=== PATIENT | male | born 1945 | race Caucasian/White ===

== ENCOUNTER 2021-08-16 13:00 | Outpatient (RCR) | payer OTHER, SELFPAY ==
--- NOTE | 2021-07-06 09:33 | STOPEVAL ---
SPEECH THERAPY EVALUATION: Thank you for referring Dara Dash to [facility] The patient is scheduled to be seen for therapy? 1-2x/week for 4 weeks. Please review, sign, date and return this plan of care DIONTE. I agree with and certify that the following plan of care is medically necessary. Referring Physician Date Attending Provider: Brian Aleman, *ST Outpatient Evaluation Outpatient Past Medical History Past Medical History Source of Past Medical History Patient,Family/Significant Other Neurological History Hx Parkinson's Disease Yes: since 2005; with DBS in 2016 Cardiovascular History Hx Coronary Stent Yes Respiratory History Hx Other Respiratory Disorders Yes: quit smoking in 2017 Gastrointestinal History Hx Gastrointestinal Disorders No Significant History Genitourinary History Hx Other Genitourinary Disorders Yes: on prostate medication Musculoskeletal History Hx Joint Replacement Yes: left knee replacement 2018 HEENT History Hx Cataracts Yes: surgery removed Hx Tympanostomy Tube Yes: perforated left eardrum Evaluation Information Problem Diagnosis Parkinsons disease with dysphagia Onset Parkinson's since 2005 and dysphagia x 1 year Additional Evaluation Detail recent MBS Prior Level of Function Prior Swallow Level Prior Intake Method Oral Prior Diet Regular (Level 7 Diet) Prior Liquid Consistency Thin (Level 0 Diet) Comments Additional Prior Level of Function Chief complaint: gurgling when Comments he eats and drinks and sometimes he chokes According to the pt and his spouse, he had a modified barium swallow last week at an OSH. Bedside Swallow Evaluation General Reports Dysphagia Yes Duration of Dysphagia approximately a year History of Related Medical Diagnosis Parkinson's Disease Reported Difficult Consistencies Thin Liquids Swallowing Worsening Gradually Meal Observed Bedside Swallows History of Dysphagia No Other Factors Impacting Dysphagia Neurological Impairment History of Pneumonia No Intake Method Prior to Swallow Oral Evaluation Cognition During Swallowing Alert,Attentive Consistency Solid Consistency Other Swallow Amount pt used chin tuck as recommended per recent MBS Method of Presentation Finger/Hand Occurrence of Coughing None Vocal Quality After Swallowing Clear Swallow Palpation Res
--- NOTE | 2021-08-04 15:07 | STOPEVAL ---
SPEECH THERAPY PROGRESS NOTE AND PLAN OF CARE UPDATE: Thank you for referring Dara Dash to [facility].? The patient is scheduled to be seen for therapy?1x/week every other week for 6 weeks. Please review, sign, date and return this plan of care DIONTE. I agree with and certify that the following plan of care is medically necessary. Referring Physician Date Attending Provider: Brian Aleman, Swallow and Intelligibility Re evaluation: ST Clinical Summary The above 76 year old was initially seen for a swallow evaluation at bedside after a recent MBS completed at an OSH revealed, according to the pt 's spouse, residue in his throat and risk of aspiration when he doesn't use the chin tuck . Pt added, ?I gurgle when I drink and sometimes I choke . They were also instructed by the HOUSING PROPERTY MANAGER performing the evaluation that his epiglottis doesn't go all the way down . Swallowing guidelines from MBS were to utilize the chin tuck, take small sips and bites, and after every 2 bites alternate with a sip of water. They reported pt's CXR's have been clear. On initial evaluation, oral motor assessment revealed good ROM & symmetrical lingual and labial structures however, overall strength and rate of movements were mildly reduced. Pt was tested with thin liquids, puree, and solid trials in controlled and uncontrolled amounts. Straw drinking was not tested due to recommendation from MBS to avoid straws due to increased aspiration risk. Pt was instructed to utilize the swallowing guidelines recommended from the recent MBS. With all trials using swallowing guidelines, no overt s/s of aspiration were exhibited. Articulatory i
--- NOTE | 2021-09-20 09:57 | PCSTNOTE ---
SPEECH THERAPY DISCHARGE: Attending Provider: Brian Aleman, Patient:Dara Dash Date of :1945 Patient has not returned for any further treatments since 08/16/2021, therefore he will be discharged at this time. The above 76 year old was initially seen on 07/05/2021 for a swallow evaluation at bedside after a recent MBS completed at an OSH revealed, according to the pt's spouse, residue in his throat and risk of aspiration when he doesn't use the chin tuck . Pt added, I gurgle when I drink and sometimes I choke . They were also instructed by the PRACTICE PROFESSIONAL performing the evaluation that his epiglottis doesn't go all the way down . Swallowing guidelines from MBS were to utilize the chin tuck, take small sips and bites, and after every 2 bites alternate with a sip of water. They reported pt's CXR's have been clear. Treatment focused on developing independence in compliance with swallowing guidelines and utilize learned dysphagia HEP to decrease aspiration risk. ST was recommended 1-2x per week for 4 weeks to improve swallow ability and intelligibility. Pt was seen for 6 visits; pt's spouse, as well as the pt, admitted he was not consistently follow swallowing guidelines or completing HEP. Improvement was achieved with overall speech intelligibility which was 90%+ during conversation. Pt continued to present with overt s/s of aspiration with thin liquids. Pt eventually cancelled visits. Patient completed a total of 6 visits. The goals have been partially met. Thank you for referring this patient to [facility]. Please review, sign, date and return this discharge summary DIONTE. I have been updated about the patient's current status and I agree with discharge from the above service at this time. Referring Physician Date
== END 2021-09-20 16:55 | disposition home or self-care (01) ==
LOC: ANHST 13:00
PROVIDERS: PCP Internal Medicine; Visit Provider Internal Medicine
DX: G20 Parkinson's disease (principal); R13.10 Dysphagia, unspecified
CPT/HCPCS: 92507; 92526; 92610

== ENCOUNTER 2021-09-14 12:46 | Outpatient (CLI) | payer OTHER, SELFPAY ==
--- NOTE | ~2021-09-14 | CT_ITS ---
EXAMINATION: CT lung screening EXAM DATE: 09/14/2021 13:13 INDICATION: History of cigarette smoking. TECHNIQUE: Spiral low dose CT of the chest without contrast. Axial, coronal and sagittal images were reviewed. The dose-length product (DLP) for this examination was 184.38 mGy-cm. The exposure was t ailored according to patient size (auto mA exposure control), and iterative reconstruction (ASIR) was used as additional dose reduction technique. Comparison is made to prior examination from 07/07/2018 . FINDINGS: There are 2 pleural-based right upper lobe 6 mm nodules. Small cluster of right middle lob e reticulonodular airspace disease. These are new compared to prior study. Most likely infectious and /or postinfectious. There is Millimeter region of cavitation in the left upper lobe with wall that is 2 mm thick. Right lower lobe somewhat linear opacity. There is mild to moderate emphysema. Small amount of basilar endobronchial debris. There is no mediastinal, hilar or axillary lymphadenopathy. There are no pleural or perica rdial effusions. There is no pneumothorax. Heart normal in size. There is moderate coronary art erial calcification, arterial sclerosis. Deep brain stimulator packs. Upper abdomen is unremarkable . There is thoracic spondylosis without osteoblastic or osteolytic lesions identified. IMPRESSION: Lung-RADS category 3, probably benign (1-2% chance of malignancy); recommend followup non contrast chest CT or LDCT in 6 months. Reviewed, dictated and finalized at location A. E POST DRIVER IMPRESSION: Lung-RADS category 3, probably benign (1-2% chance of malignancy); recommend followup noncontrast chest CT or LDCT in 6 months.
== END 2021-09-14 12:47 | disposition home or self-care (01) ==
PROVIDERS: PCP Family Medicine; Visit Provider Internal Medicine
DX: Z87.891 Personal history of nicotine dependence (principal); R91.8 Other nonspecific abnormal finding of lung field
CPT/HCPCS: 71271

== ENCOUNTER 2021-09-29 14:20 | Emergency (ER) | payer OTHER, SELFPAY ==
--- NOTE | ~2021-09-29 | XR_ITS ---
EXAMINATION: [id number]_[id number] EXAM DATE: 09/29/2021 16:54 INDICATION: No known recent injury provided at this time. Pain of the left ribs. TECHNIQUE: Frontal projection of the upper left ribs, frontal projection of the lower left ribs, obli que projection of the left ribs, frontal chest x-ray(s) for interpretation. Correlation is made to [facility] CT from 09/14/2021. FINDINGS: Possible acute nondisplaced left 6th and 7th rib fractures anterolaterally. This finding carr s been indicated, marked on the examination for review, clinical correlation. There is no soft tiss ue abnormality seen. Bilateral deep brain stimulator packs. No confluent consolidation, pneumothorax or pleural effusion suspected. Cardiomediastinal silhouette is normal. IMPRESSION: Possible acute nondisplaced left 6th, 7th rib fractures. Reviewed, dictated and finalized at location B. MOBILE RACER
[2021-09-29 14:28] VITALS: BP 146/92; PULSE 75; RESP 18; TEMP 36.9; O2SAT 96
[2021-09-29] MEDS: LIDOCAINE 5% PATCH 1 PATCH TRANSDERM (17:09)
--- NOTE | 2021-09-29 17:33 | ED.BACK ---
HPI - Back Pain/Injury General Chief Complaint: Back Pain/Injury Stated Complaint: fall, back pain Time Seen by Provider: 09/29/21 16:05 Source: patient and family Limitations: no limitations History of Present Illness HPI Narrative: 76-year-old male with a history of Parkinson's disease and dyslipidemia presents to the ED with left-sided chest wall pain status post fall. Patient arrives to the ED with his daughter. Patient currently lives with his . Patient stumbled and fell early this a.m. in the bathroom, striking his left chest wall against the ground. He denies head injury or loss of consciousness at the time of the incident. He was initially asymptomatic however upon waking later today began to experience left lateral chest wall pain which been constant since that time. This pain is aggravated with deep inspiration and movement. Pain is described as minimal currently. No recent history of headache, visual changes, nausea, vomiting, shortness of breath, or abdominal pain. He denies use of anticoagulants. He has not taken any medication for his symptoms. Daughter states that she brought the patient to the ED to get checked out. Related Data Home Medications Medication Instructions Recorded Confirmed amantadine HCl 100 mg PO BID 09/29/21 aspirin 81 mg PO DAILY 09/29/21 atorvastatin [Lipitor] 40 mg PO DAILY 09/29/21 carbidopa-levodopa 1 tablet PO QID 09/29/21 glycopyrrolate 1 mg PO BID-TID PRN 09/29/21 lisinopril 20 mg PO DAILY 09/29/21 sotalol 80 mg PO BID 09/29/21 tamsulosin 0.4 mg PO HS 09/29/21 Allergies Allergy/AdvReac Type Severity Reaction Status Date / Time No Known Allergies Allergy Verified 09/29/21 14:32 Review of Systems Review of Systems: CONSTITUTIONAL: Denies fever, chills, or sweats. EYES: Denies visual changes, redness, or discharge. ENT: Denies rhinorrhea, congestion, sore throat, or otalgia. CARDIOVASCULAR: Denies chest pain, palpitations, or edema. RESPIRATORY: Denies cough or dyspnea. GASTROINTESTINAL: Denies abdominal pain, nausea, vomiting, or diarrhea. GENITOURINARY: Denies dysuria or hematuria. SKIN: Denies rash or itching. MUSCULOSKELETAL: Left lateral chest wall pain NEUROLOGIC: Denies headache, numbness, dizziness, or weakness. PSYCHIATRIC: Denies anxiety or depression. All systems reviewed & are unremarkable except as noted in HPI and below Exam Narrative: GENERAL: Well-appearing, well-nourished, and in no acute distress. HEAD: Normocephalic, atraumatic. EYES: PERRLA and EOMI. ENT: Nares clear, no rhinorrhea or epistaxis. Mucous membranes moist. Oropharynx without tonsillar hypertrophy exudate or other lesions. Bilateral TMs pearly titus nonbulging NECK: Supple. No adenopathy or masses. No carotid bruits or JVD CHEST: Yellow ecchymosis overlying the left lateral chest wall. This area is mildly tender to palpate. No palpable step-off. HEART: Regular rate and rhythm. No murmur heard. Normal peripheral pulses. ABDOMEN: Soft, nontender, nondistended, normal active bowel sounds. EXTREMITIES: Normal range of motion. No edema. SKIN: Warm, dry, no rash. NEURO: Alert and oriented x3; speech is somewhat slurred and difficult to understand (baseline according to daughter); moves all extremities well. PSYCH: Normal mood and affect. Course Course Emergency Course: X-ray shows possible nondisplaced fractures of the left sixth and seventh ribs. Patient comfortable appearing at this time. Lidoderm patch applied in the ED. We will manage supportively with Lidoderm patch and acetaminophen. Will avoid narcotics at this time. Patient has incentive spirometer at home which he plans to use (with daughters guidance). He is felt to be stable for discharge. Vital Signs Vital signs: Vital Signs Temperature 98.4 F 09/29/21 14:28 Pulse Rate 75 09/29/21 14:28 Respiratory Rate 18 09/29/21 14:28 Blood Pressure 146/92 H 09/29/21 14:28 Pulse Oximetry 96 09/29/21 14:28 Te
[2021-09-29 18:08] VITALS: BP 178/99; PULSE 72; RESP 20; O2SAT 96
== END 2021-09-29 18:14 | disposition home or self-care (01) ==
PROVIDERS: Emergency Provider Emergency Medicine; PCP Internal Medicine
DX: S22.42XA Multiple fractures of ribs, left side, initial encounter for closed fracture (principal); G20 Parkinson's disease; E78.5 Hyperlipidemia, unspecified; W01.0XXA Fall on same level from slipping, tripping and stumbling without subsequent striking against object, initial encounter; Z79.82 Long term (current) use of aspirin
CPT/HCPCS: 71101; 99283; A9270

== ENCOUNTER 2022-04-19 15:47 | Inpatient (IN) | payer OTHER, MEDICARE, SELFPAY ==
[2022-04-19] VITALS (13 sets, daily range): BP systolic 103–114; BP diastolic 62–88; PULSE 84–128; RESP 18–25; TEMP 36.3–36.6; O2SAT 94–100; BMI 30.9
--- NOTE | ~2022-04-19 | XR_ITS ---
XR chest 2V DATE: 04/19/2022 16:47 INDICATION: Shortness of breath. Palpitations. History of atrial fibrillation. TECHNIQUE: AP and lateral views COMPARISON: 09/14/2021 CT lung screening FINDINGS: There is an ill-defined roughly 1.5 cm focal opacity overlying the lateral left upper lung field which corresponds to the location of the small cavitary lesion noted on 09/14/2021 CT lung screen ing examination. The previously recommended 6 month follow-up CT lung screening from the 09/14/[address] lung screening examination is recommended at this time, now 7 months since 09/14/2021 CT lung screen ing examinations. The lung ortega otherwise appear clear. No pleural effusion or pulmonary vascular congestion or pneum othorax. Normal heart size. Is aortic calcification and unfolding. Bilateral generator devices with neurostimulator leads extending into the upper chest and neck area t oward the head. Diffuse idiopathic skeletal hyperostosis of the thoracic spine. IMPRESSION: Left upper lobe ill-defined approximately 1.5 cm mass density; six-month recommended CT l [place] screening follow-up from 09/14/2021 examination is recommended at this time Otherwise no active cardiopulmonary disease. Reviewed, dictated and finalized at location B. IMPRESSION: Left upper lobe ill-defined approximately 1.5 cm mass density; six- month recommended CT lung screening follow-up from 09/14/2021 examination is elieser mmended at this time Otherwise no active cardiopulmonary disease.
--- NOTE | 2022-04-19 15:52 | ECG_ITS ---
Measurements Intervals [place] Rate: 122 P: CT: 0 QRS: 8 QRSD: 99 T: 3 QT: 338 QTc: 482 Interpretive Statements ATRIAL FIBRILLATION WITH RAPID VENTRICULAR RESPONSE WITH ABERRANT CONDUCTION OR VENTRICULAR PREMATURE COMPLEXES NO PREVIOUS ECG AVAILABLE FOR COMPARISON Electronically Signed On 04-19-2022 18:36:55 CDT by Ciera Garcia M.D.
[2022-04-19 16:17] LABS: Basophils Percent Auto 0.3 % (0.2-1.2); Eosinophils Percent Auto 0.2 % (0-4.4); Hematocrit 41.3 % (42.0-52.0); Immature Granulocyte Absolute 0.07 K/mm3 (0.00-0.031); Immature Granulocyte Percent A 0.7 % (0-0.5); Lymphocytes Absolute Auto 0.66 K/mm3 (0.9-3.2); Mean Corpuscular HGB Conc 31.5 g/dl (32-36); Mean Corpuscular Hemoglobin 30.9 pg (26-34); Mean Corpuscular Volume 98.1 fl (80-100); Mean Platelet Volume 9.9 fl (7.4-10.4); Monocytes Absolute Auto 0.4 K/mm3 (0.1-0.6); Monocytes Percent Auto 4.4 % (2.6-8.5); Neutrophils Absolute Auto 8.3 K/mm3 (1.3-6.7); Neutrophils Percent Auto 87.4 % (45.5-73.1); Platelet Count Result 214 k/mm3 (150-375); Red Blood Count 4.21 M/mm3 (4.6-6.20); Red Cell Distribution Width 13.4 % (11.5-14.5); White Blood Count 9.5 K/mm3 (4.5-10.0)
[2022-04-19 16:28] LABS: Alanine Aminotransferase 10 U/L (6-50); Albumin Level 3.8 g/dL (3.5-5.1); Alkaline Phosphatase 66 U/L (38-126); Anion Gap 8 mmol/L (8-16); Aspartate Amino Transferase 32 U/L (17-59); Blood Urea Nitrogen 27 mg/dL (9-20); Calcium 8.4 mg/dL (8.4-10.2); Carbon Dioxide 27 mmol/L (22-30); Chloride 101 mmol/L (98-107); Estimated Glomerular Filt Rate 59; Glucose 147 mg/dL (65-110); Lipase 48 U/L (23-300); Potassium 4.2 mmol/L (3.4-5.0); Sodium 136 mmol/L (137-145)
[2022-04-19 16:35] LABS: INR 1.3; Partial Thromboplastin Time 25.3 SECONDS (22.3-36.8); Prothrombin Time 15.2 Seconds (11.1-14.7)
[2022-04-19] MEDS: ASPIRIN 81 MG CHEWABLE TABLET 324 MG PO (16:36)
[2022-04-19 16:40] LABS: Troponin I < 0.012 ng/mL (0.000-0.034)
[2022-04-19 17:26] LABS: NT Pro B Type Natriuretic Pept 5640 pg/mL (5-100)
--- NOTE | 2022-04-19 18:02 | ED.GENADULT ---
HPI - General Adult General Chief complaint: Shortness of Breath/Dyspnea Stated complaint: heart palpitations Time Seen by Provider: 04/19/22 16:15 History of Present Illness HPI narrative: this is a 77-year-old male presenting ED with chief complaint shortness of breath x2 days. Over last 2 days patient states he is not feeling well. He has had multiple falls 2 days ago although he denies head trauma. Patient has Parkinson's and has frequent falls which are mechanical in nature. Since patient has been having shortness of breath he is describing a left-sided squeezing pain that is 9 nonradiating, 5/10 intensity and comes and goes. He is not currently experiencing the pain. He has never experienced pain like that before. There were no exacerbating or relieving factors. It is not associated with exertion, diaphoresis or vomiting. It is associated with lower extremity edema over the past month. Patient was sent to the hospital from by his physical therapist who noted him to be in atrial fibrillation. The patient is not typically an atrial fibrillation is only been at 1 time to pass after he had a knee replacement. He takes sotalol for rhythm control. Related Data Home Medications Medication Instructions Recorded Confirmed amantadine HCl 100 mg capsule 100 mg PO BID 09/29/21 aspirin 81 mg tablet 81 mg PO DAILY 09/29/21 atorvastatin 40 mg tablet (Lipitor) 40 mg PO DAILY 09/29/21 carbidopa 25 mg-levodopa 100 mg 1 tablet PO QID 09/29/21 tablet glycopyrrolate 1 mg tablet 1 mg PO BID-TID PRN Drooling 09/29/21 lisinopril 20 mg tablet 20 mg PO DAILY 09/29/21 sotalol 80 mg tablet 80 mg PO BID 09/29/21 tamsulosin 0.4 mg capsule 0.4 mg PO HS 09/29/21 Allergies Allergy/AdvReac Type Severity Reaction Status Date / Time No Known Allergies Allergy Verified 04/19/22 16:19 Review of Systems Review of Systems: CONSTITUTIONAL: Denies night sweats. EYES: No eye pain ENT: Denies rhinorrhea CARDIOVASCULAR: Denies palpitations RESPIRATORY: Denies hemoptysis GASTROINTESTINAL: Denies hematemesis GENITOURINARY: Denies hematuria. SKIN: Denies rash MUSCULOSKELETAL: Denies myalgia. NEUROLOGIC: Denies weakness. PSYCHIATRIC: Denies delusions [facility] Past Medical History Medical History (Updated 04/19/22 @ 18:10 by Edy Parekh MD) CAD in [place] artery Dyslipidemia Essential (primary) hypertension Parkinson disease Paroxysmal atrial fibrillation Recurrent falls Surgical History Surgical History (Updated 04/19/22 @ 18:05 by Edy Parekh MD) S/P deep brain stimulator placement Family History Family History Other Family history of Parkinson's disease Family history of coronary artery disease Hypertension Social History Social History Smoking status: Former smoker Second hand tobacco smoke exposure: No Smoking end date: 09/09/16 Alcohol intake: current Exam Narrative: APPEARANCE: No apparent distress. Patient is lying supine in bed. Head atraumatic. EYES: PERRLA/EOMI, NOSE: Normal no drainage NECK: Supple, Trachea midline RESPIRATORY: Patient has bibasilar crackles. No increased work breathing. CARDIOVASCULAR: S1S2 appreciated, Patient has +2 pitting edema to mid calf bilaterally. ABDOMINAL: Soft, nontender, nondistended, MUSCULOSKELETAl: No obvious deformities NEURO: Alert. Moving 4/4 extremities SKIN:: Warm, dry. Normal color PSYCHIATRIC: Normal affect Course Vital Signs Vital signs: Vital Signs Temperature 98 F 04/19/22 15:49 Pulse Rate 84 04/19/22 15:49 Respiratory Rate 20 04/19/22 15:49 Blood Pressure 103/67 04/19/22 15:49 Pulse Oximetry 96 04/19/22 15:49 Oxygen Delivery Room Air 04/19/22 15:49 Temperature 98 F 04/19/22 15:49 Pulse Rate 103 H 04/19/22 17:03 Respiratory Rate 20 04/19/22 17:03 Blood Pressure 112/62 04/19/22 17:
[2022-04-19] MEDS: SOTALOL HCL 80 MG TABLET PO (18:20)
[2022-04-19] MEDS: FUROSEMIDE INJ 40 MG/4 ML VIAL 20 MG IV PUSH (18:21)
[2022-04-19 18:30] LABS: SARS-CoV-2 RNA PCR Negative
[2022-04-19 19:36] LABS: Troponin I < 0.012 ng/mL (0.000-0.034)
--- NOTE | 2022-04-19 20:04 | PM.IMHP ---
H&P: HPI History of Present Illness Date/Time: 04/19/22 20:04 Chief Complaint: fatigue Narrative: This is a 77-year-old male with past medical history significant for Parkinson's disease, hypertension, degenerative joint disease, coronary artery disease, paroxysmal atrial fibrillation, recurrent falls. Patient presents today to the emergency room after he was seen at home by his home healthcare services physical therapist noticed that his heart rate was irregular and notice bilateral lower extremity edema as well. patient has been very fatigued, having shortness of breath as well however denies any cough, sputum production, orthopnea, paroxysmal nocturnal dyspnea, chest pain, palpitations, chest discomfort, syncope, lightheadedness, no fevers, no rigors, no chills. Preliminary workup was significant for ECG with atrial fibrillation with rapid ventricular response, BRAIN NATRIURETIC PEPTIDE was 5640 troponins x3 were normal. Patient is been admitted for further evaluation management and treatment. Review of Systems Review of Systems: bilateral lower extremity swelling, fatigue, irregular heart rhythm. Constitutional: Constitutional: Denies chills, Reports fatigue, Denies fever(s), Denies malaise, Denies night sweats and Reports weakness Eyes: Eyes: Denies change in vision ENT: Denies dysphagia and Denies odynophagia Cardiovascular: Cardiovascular: Denies chest pain, Denies syncope, Reports leg edema, Denies lightheadedness, Denies palpitations, Reports dyspnea on exertion and Denies orthopnea Respiratory: Respiratory: Denies chest congestion, Denies cough and Denies excessive phlegm production Gastrointestinal: Gastrointestinal: Denies abdominal pain, Denies dyspepsia, Denies heartburn, Denies diarrhea, Denies nausea and Denies vomiting Genitourinary: Genitourinary: Denies dysuria Musculoskeletal: Musculoskeletal: Denies arthralgias Integumentary/Breasts: Skin/Breast: Denies rash Neurologic: Denies vertigo, Denies dizziness, Denies focal weakness and Denies Sensory deficit (Neuro) Psychiatric: Psychiatric: Reports no additional psychiatric complaints and Reports as per HPI Endocrine: Endocrine: Denies cold intolerance, Denies fatigue, Denies flushing, Denies heat intolerance, Denies polyphagia, Denies polydipsia and Denies palpitations Hematologic/Lymphatic: Hematologic/Lymphatic: Reports no additional hematologic/lymphatic complaints and Reports as per HPI Allergic/Immunologic: Allergic/Immunologic: Reports no additional allergic/immunologic complaints and Reports as per HPI [facility] Past Medical History Medical History (Updated 04/19/22 @ 23:52 by Beryl Marroquin MD) CAD in [place] artery Dyslipidemia Essential (primary) hypertension Parkinson disease Parkinson disease Paroxysmal atrial fibrillation Recurrent falls Surgical History Surgical History (Updated 04/19/22 @ 18:05 by Edy Parekh MD) S/P deep brain stimulator placement Family History Family History Other Family history of Parkinson's disease Family history of coronary artery disease Hypertension Social History Social History Smoking packs per day: 2 Smoking cigarettes per day: 40.0 Years smoked: 58 Smoking pack-years: 116.00 Smoking status: Former smoker Tobacco type: cigarettes Second hand tobacco smoke exposure: No Smoking end date: 09/09/16 Alcohol intake: current Drinks per week: 7 Substance use: never Substance use type: does not use Spiritual care concerns: No Meds Home Medications and Allergies Home Medications Medication Instructions Recorded Confirmed Type amantadine HCl 100 mg capsule 100 mg PO BID 09/29/21 04/19/22 History aspirin 81 mg tablet 81 mg PO DAILY 09/29/21 04/19/22 History atorvastatin 40 mg tablet (Lipitor) 40 mg PO HS 09/29/21 04/19/22 History carbidopa 25 mg-le
[2022-04-19 22:36] LABS: Troponin I < 0.012 ng/mL (0.000-0.034)
--- NOTE | 2022-04-19 22:54 | ADMGEN ---
This patient, Dara Dash, was admitted to IMU Room 205-02 04/19/22 at 2120. Patient/family oriented to hospital policies and general routines including ID bracelet, bed and alarms, visiting hours, pain management, procedures, bathroom and other care routines, personal items, smoking policy, room service/diet, and visiting hours. Information on how to activate the Rapid Response Team has been discussed. Patient/Family are encouraged to report perceived risks to care and to ask questions if they do not understand what they are told or what they should do.
[2022-04-20] VITALS (20 sets, daily range): BP systolic 113–156; BP diastolic 57–97; PULSE 70–130; RESP 16–22; TEMP 36.1–36.8; O2SAT 94–99
--- NOTE | 2022-04-20 | ECHO_ITS ---
Patient Info Name: Dara Dash Age: 77 years : 1945 Gender: Male Ht: 76 in Wt: 180 lbs BSA: 2.09 m2 HR: 106 bpm BP: 131 / 97 mmHg Heart Rhythm: Atrial Fibrillation Technical Quality: Fair Exam Date: 04/20/2022 7:48 AM Exam Location: [facility] Patient Status: Inpatient Admit Date: 04/19/2022 Staff Ordering Physician: Beryl Marroquin MD Airways Control Specialist: Pam Rahman RDCS Attending Provider: Klarissa Noriega MD Referring Physician: Cara MOFFETT; Exam Type: CA echo dop color flow w con Study Info Indications I48.1 - Persistent atrial fibrillation Complete two-dimensional, color flow and Doppler transthoracic echocardiogram is performed with contrast to opacify the left ventricle and to improve the deliniation of the left ventricle endocardial borders. Contrast/Agitated Saline Contrast/Ag. Saline: Definity Amount: 3.00 ml Administered By: Pam Rahman RDCS Existing IV Access: Yes IV Access Condition: patent with no signs of infiltration Summary 1. Left ventricular chamber dimension is mildly enlarged. 2. Left ventricular systolic function is moderately reduced, estimated at 35-40%. 3. Left atrial chamber dimension is moderately enlarged. 4. Atrial fibrillation. 5. Compared to examination from June of 2018, LV function has declined. Left atrium is dilated atrial fib is seen. Left Ventricle Left ventricular chamber dimension is mildly enlarged. Left ventricular systolic function is moderately reduced, estimated at 35-40%. The left ventricular diastolic function is indeterminate. Right Ventricle Right ventricular chamber dimension is normal. Left Atria Left atrial chamber dimension is moderately enlarged. Right Atria Right atrial chamber dimension is normal. Aortic Valve The aortic valve is trileaflet. There is mild aortic valve sclerosis. Pulmonic Valve The pulmonic valve is not well visualized. Mitral Valve The mitral valve has normal leaflets. There is trace mitral valve regurgitation. Tricuspid Valve The tricuspid valve leaflets are normal. There is no significant tricuspid valve stenosis. There is mild tricuspid valve regurgitation. Pericardium/Pleural The pericardium appears normal. Aorta The aortic root size at the sinus of Valsalva is normal. Left Ventricular Outflow Tract Name Value Normal LVOT 2D LVOT Diameter 2.07 cm LVOT Doppler LVOT Peak Gradient 0 mmHg LVOT Mean Gradient 0 mmHg LVOT VTI 9.67 cm LVOT VTI/AV VTI Ratio 0.65 LVOT Stroke Volume 32.56 ml LVOT CO 3.98 l/min LVOT CI 1.91 L/min/m2 Pulmonic Valve Name Value Normal RVOT Doppler
[2022-04-20] MEDS: CARBIDOPA/LEVODOPA 25/100 MG TABLET 1 TABLET PO ×5 (01:35→21:25)
[2022-04-20] MEDS: ATORVASTATIN 40 MG TABLET PO ×2 (01:35→21:25)
[2022-04-20] MEDS: PERFLUTREN LIPID MICROSPHERES 1.5 ML VIAL DILUTED TO 10 ML TOTAL VOLUME IV PUSH (08:23)
--- NOTE | 2022-04-20 08:24 | IVDEFINITY ---
Prior to administration of IV Definity the patient was educated on the risks and benefits of the imaging enhancing agent including potential adverse side effects. The patient verbalized understanding. Allergies were verified. No exclusion criteria were identified and at least one of the following inclusion criteria were met: 1) physician request, 2) patient technically difficult to image (per the [place] [employer] guidelines of two or more segments not discernable within the apical view), or 3) questionable left ventricular function. ?
[2022-04-20] MEDS: OMEGA 3 POLYUNSAT FATTY ACIDS 1 GM CAP PO ×2 (09:16→16:42)
[2022-04-20] MEDS: MULTIVITAMINS THERAPEUTIC TAB (*BKC) 1 TABLET PO (09:16)
[2022-04-20] MEDS: SOTALOL HCL 80 MG TABLET PO ×2 (09:16→21:24)
[2022-04-20] MEDS: GLYCOPYRROLATE 1 MG TABLET PO ×3 (09:17→16:44)
[2022-04-20] MEDS: AMANTADINE HCL 100 MG CAPSULE PO ×2 (09:17→16:45)
[2022-04-20] MEDS: FOLIC ACID 0.4 MG TABLET 0.8 MG PO (09:17)
[2022-04-20] MEDS: ASPIRIN 81 MG CHEWABLE TABLET PO (09:17)
[2022-04-20] MEDS: FUROSEMIDE INJ 40 MG/4 ML VIAL IV PUSH ×2 (09:17→16:44)
[2022-04-20] MEDS: lisinopriL 20 MG TABLET PO (09:17)
--- NOTE | 2022-04-20 12:50 | PM.IMPN ---
Progress Note: A&P Assessment and Plan (1) Atrial fibrillation with RVR: Code(s): I48.91 - Unspecified atrial fibrillation Status: Acute Assessment and Plan: Cardiology Consul (2) Parkinson disease: Code(s): G20 - Parkinson's disease Status: Acute Assessment and Plan: implanted deep brain stimulator continue carbidopa level (3) Recurrent falls: Code(s): R29.6 - Repeated falls Status: Acute Assessment and Plan: PT OT consult for precautions (4) CAD in [place] artery: Code(s): I25.10 - Atherosclerotic heart disease of [place] coronary artery without angina pectoris Status: Acute Assessment and Plan: continue home meds continue to monitor no ST segment or T-wave changes (5) S/P deep brain stimulator placement: Code(s): Z96.89 - Presence of other specified functional implants Status: Acute Assessment and Plan: unchanged Subjective Date/time seen: 04/20/22 12:50 Still in AFib rates about 120-130 Exam Narrative: Patient is sitting in semi upright position in stretcher Const: General: comfortable, no acute distress, well developed, alert and awake Nutritional Appearance: average body habitus Orientation/consciousness: patient oriented x3 HENMT: Head: normal to inspection, normocephalic and atraumatic Ears: hearing grossly normal bilaterally Face and sinus: normal facial exam Eyes: General: appearance normal, both eyes and all related structures Pupils: Equal, round and reactive pupils present EOM: EOMs intact bilaterally Neck: Neck: full ROM, no lymphadenopathy and no JVD Thyroid: thyroid normal Lymphatic: no lymphadenopathy noted Resp: Effort & Inspection: normal respiratory effort and able to speak in complete sentences Auscultation: clear to auscultation bilaterally Cardio: Jugular venous distension: no JVD Rate: regular rate Rhythm: regular rhythm and abnormal rhythm irregularly irregular Heart sounds: S1 normal heart sound present and S2 normal heart sound present GI: Inspection: other ( protuberant) : General: Yes deferred Skin: Rashes: no rashes Wounds: no wounds Neuro: General: patient oriented x3, CN's II-XI intact bilaterally and Unable to assess gait Cranial nerves: Yes CN's II-XII intact bilaterally and Yes Equal, round and reactive pupils present Cognition (Neuro): normal cognition Speech: normal speech Gait exam (Neuro): Normal gait present and Unable to assess gait Motor exam (neuro): 5/5 motor strength present throughout Sensory Exam: No Sensory deficit (Neuro) Extrem: General: normal to inspection, full ROM, no joint enlargement, no pedal edema and edema bilateral (trace) Objective Data Vital Signs Vital Signs: Vital Signs - 24 hr 04/19/22 15:49 04/19/22 16:20 04/19/22 16:30 Temperature 98 F Pulse Rate 84 107 H 120 H Respiratory Rate 20 25 H 22 H Blood Pressure 103/67 Pulse Oximetry 96 99 98 Oxygen Delivery Room Air 04/19/22 16:51 04/19/22 17:03 04/19/22 18:20 Temperature Pulse Rate 111 H 103 H 128 H Respiratory Rate 20 20 Blood Pressure 112/62 Pulse Oximetry 96 94 Oxygen Delivery 04/19/22 17:50 04/19/22 18:06 04/19/22 19:01 Temperature Pulse Rate 127 H 111 H 108 H Respiratory Rate 21 H 19 24 H Blood Pressure 108/80 Pulse Oximetry 100 98 Oxygen Delivery 04/19/22 20:28 04/19/22 21:25 04/20/22 00:00 Temperature 97.4 F L 97.1 F L Pulse Rate 117 H 123 H 105 H Respiratory Rate 18 18 18 Blood Pressure 110/70 114/88 119/78 Pulse Oximetry 99 97 97 Oxygen Delivery 04/20/22 00:00 04/20/22 02:00 04/20/22 00:00 Temperature Pulse Rate 91 109 H Respiratory Rate Blood Pressure Pulse Oximetry Oxygen Delivery Room Air 04/19/22 21:20 04/20/22 04:00 04/19/22 21:20 Temperature Pulse Rate 116 H Respiratory Rate Blood Pressure Pulse Oximetry Oxygen Delivery Room Air Room Air
--- NOTE | 2022-04-20 14:40 | PM.CNCAR ---
Assessment and Plan Assessment and plan (1) Atrial fibrillation with RVR: Code(s): I48.91 - Unspecified atrial fibrillation Status: Acute Plan This is a 77-year-old man with coronary disease atrial fib in Parkinson's disease. He presents with a recurrence of his atrial fib of recent onset. I think we can safely state that his AFib is been going on less than a week. He has been on sotalol for a number of years with good control of his rhythm up until now. His echocardiogram does show some LV dysfunction but of course this is also in part due to the fact that this study is done while he is in atrial fib while the previous study was done in sinus rhythm. I am going to recommend raising the dose of his sotalol to 120 mg q.12 hours since he has been taking this agent without any side effects her pro arrhythmic issues for several years at least. I will also re anticoagulate him with Xarelto at this time. If he persists in atrial fibrillation we will consider cardioverting him electrically the 1st part of this coming week. If we do get to the point of cardioverting him we will rescind his DNR order. I did speak to him about that issue as well Lucas Sanabria MD [facility] History of Present Illness History of Present Illness Consult date/time: 04/20/22 14:40 Consult reason: atrial fibrillation Reason For Visit: CHF/A-Fib w/rvr Narrative: This is a 77-year-old gentleman known to me with a history of coronary disease and atrial fibrillation. I am seeing in this afternoon at the request of the hospitalist to assist with management of recurrent atrial fibrillation. He feels relatively well now and does not have any complaints. The patient was in his usual state at home when his was stating for the last 4 5 days he was feeling weaker than normal and may be he had a little bit more lower extremity edema than his baseline but no other significant symptoms. A home health worker came to see him yesterday and found him to be in atrial fib by exam and sent him to the hospital. He was seen in the emergency room and found to be in AF he was admitted to the hospitalist services. We are asked to see him today in consultation to participate in his management. The patient has a history of both coronary disease and atrial fibrillation. An 2005 he was treated with stenting of his LAD. He at that time was followed by wet process operator at the [facility]. He I saw him at [facility] in June of 2018 when he had an episode of AFib with RVR. He was treated medically and converted to sinus rhythm. While he was in the hospital he also had some ischemic symptoms and was brought to the cardiac catheterization lab. He was found to have a high-grade stenosis in the LAD distal to his previously deployed stent this was treated with another 2.5 x 15 mm drug-eluting stent with a good anatomical result. The patient was seen in the office since then and has been doing well. In the interval he has been taken off of anticoagulation therapy because of a advancing Parkinson's disease unsteady gait and tendency to fall at times. I saw him in the office as recently as March 27 of this year at which time he was doing well and he was in sinus rhythm. He did see his home health aide last week further usual visit and he was is sinus rhythm by their evaluation at that time as well. Patient had an echocardiogram done which I read this morning. The study does demonstrate some reduction in left ventricular systolic function with an ejection fraction of 35 or 40%. He also has significant atrial dilation. Review of Systems Constitutional: Constitutional: Reports lethargy Eyes: Eyes: Reports no additional eye complaints ENT: Reports system reviewed and no additional complaints, except as documented Cardiovascular: Cardiovascular: Reports no additional cardiovascular complaints Respiratory: Respiratory: Reports dyspnea on exertion Gastrointestinal: Gastrointes
[2022-04-20] MEDS: RIVAROXABAN 20 MG TABLET PO (16:42)
--- NOTE | 2022-04-20 16:46 | ECG_ITS ---
Measurements Intervals [place] Rate: 63 P: 88 ME: 168 QRS: 58 QRSD: 96 T: 68 QT: 407 QTc: 420 Interpretive Statements SINUS RHYTHM BASELINE ARTIFACT NORMAL ECG COMPARED TO ECG 04/19/2022 16:02:39 SINUS RHYTHM NOW PRESENT AND REPLACED ATRIAL FIBRILLATION Electronically Signed On 04-21-2022 13:25:36 CDT by Steven Veronica M.D.
--- NOTE | 2022-04-20 16:46 | PCOTNOTE ---
Attempted to see pt. for occupational therapy evaluation. Hold for today per nursing, pt. HR in 120s, while laying supine in bed Will follow.
[2022-04-20] MEDS: TAMSULOSIN HCL 0.4 MG CAPSULE PO (18:08)
[2022-04-21] VITALS (8 sets, daily range): BP systolic 143–153; BP diastolic 82–86; PULSE 58–77; RESP 18–22; TEMP 36.1–36.5; O2SAT 98–100
[2022-04-21] MEDS: SOTALOL HCL 80 MG TABLET PO (09:33)
[2022-04-21] MEDS: lisinopriL 20 MG TABLET PO (09:34)
[2022-04-21] MEDS: FOLIC ACID 0.4 MG TABLET 0.8 MG PO (09:34)
[2022-04-21] MEDS: CARBIDOPA/LEVODOPA 25/100 MG TABLET 1 TABLET PO ×2 (09:34→12:15)
[2022-04-21] MEDS: OMEGA 3 POLYUNSAT FATTY ACIDS 1 GM CAP PO (09:34)
[2022-04-21] MEDS: GLYCOPYRROLATE 1 MG TABLET PO ×2 (09:34→12:15)
[2022-04-21] MEDS: MULTIVITAMINS THERAPEUTIC TAB (*BKC) 1 TABLET PO (09:34)
[2022-04-21] MEDS: FUROSEMIDE INJ 40 MG/4 ML VIAL IV PUSH (09:34)
[2022-04-21] MEDS: AMANTADINE HCL 100 MG CAPSULE PO (09:34)
[2022-04-21 10:52] LABS: Anion Gap 10 mmol/L (8-16); Blood Urea Nitrogen 25 mg/dL (9-20); Calcium 8.9 mg/dL (8.4-10.2); Carbon Dioxide 32 mmol/L (22-30); Chloride 98 mmol/L (98-107); Estimated CRCL calculation 69 ml/min; Estimated Glomerular Filt Rate > 60; Glucose 148 mg/dL (65-110); Sodium 140 mmol/L (137-145)
--- NOTE | 2022-04-21 11:37 | PM.DS ---
DS: Admitting Diagnosis Discharge Date April 21, 2022 Admitting Diagnosis AFib with RVR DS: Discharge Diagnosis Discharge Diagnosis (1) Atrial fibrillation with RVR: Code(s): I48.91 - Unspecified atrial fibrillation Status: Acute Assessment and Plan: Patient was admitted with AFib with the RVR. Rates were in the 120s. Cardiology evaluated the patient initially recommended increasing sotalol however patient spontaneously converted before getting increasing dose of sotalol. He is relatively asymptomatic now. The tentative a little bit of lower extremity edema this is likely exacerbated by his atrial fibrillation. Lasix only also given on discharge. Patient will follow up with Cardiology on Saturday. (2) Parkinson disease: Code(s): G20 - Parkinson's disease Status: Acute Assessment and Plan: implanted deep brain stimulator continue carbidopa level (3) Recurrent falls: Code(s): R29.6 - Repeated falls Status: Acute Assessment and Plan: PT OT consult for precautions (4) CAD in [place] artery: Code(s): I25.10 - Atherosclerotic heart disease of [place] coronary artery without angina pectoris Status: Acute Assessment and Plan: continue home meds continue to monitor no ST segment or T-wave changes (5) S/P deep brain stimulator placement: Code(s): Z96.89 - Presence of other specified functional implants Status: Acute Assessment and Plan: unchanged DS: Summary Hospital Course Reason for hospitalization: See discharge plan Hospital Course: Hospitalization course was discussed and discharge diagnoses and plan Time Spent with Patient Time attestation: Total time spent providing and/or coordinating discharge services: Exam Narrative: Patient is sitting in semi upright position in stretcher Const: General: comfortable, no acute distress, well developed, alert and awake Nutritional Appearance: average body habitus Orientation/consciousness: patient oriented x3 HENMT: Head: normal to inspection, normocephalic and atraumatic Ears: hearing grossly normal bilaterally Face and sinus: normal facial exam Eyes: General: appearance normal, both eyes and all related structures Pupils: Equal, round and reactive pupils present EOM: EOMs intact bilaterally Neck: Neck: full ROM, no lymphadenopathy and no JVD Thyroid: thyroid normal Lymphatic: no lymphadenopathy noted Resp: Effort & Inspection: normal respiratory effort and able to speak in complete sentences Auscultation: clear to auscultation bilaterally Cardio: Jugular venous distension: no JVD Rate: regular rate Rhythm: regular rhythm and abnormal rhythm irregularly irregular Heart sounds: S1 normal heart sound present and S2 normal heart sound present GI: Inspection: other ( protuberant) : General: Yes deferred Skin: Rashes: no rashes Wounds: no wounds Neuro: General: patient oriented x3, CN's II-XI intact bilaterally and Unable to assess gait Cranial nerves: Yes CN's II-XII intact bilaterally and Yes Equal, round and reactive pupils present Cognition (Neuro): normal cognition Speech: normal speech Gait exam (Neuro): Normal gait present and Unable to assess gait Motor exam (neuro): 5/5 motor strength present throughout Sensory Exam: No Sensory deficit (Neuro) Extrem: General: normal to inspection, full ROM, no joint enlargement, no pedal edema and edema bilateral (trace) DS: Data Data Completed and Pending Labs on day of discharge: Labs from last 24 hours 04/21/22 10:31 Sodium 140 Potassium 4.0 Chloride 98 Carbon Dioxide 32 H Anion Gap 10 BUN 25 H Creatinine 1.10 Estim Creat Clear Calc 69 Estimated GFR > 60 Glucose 148 H Calcium 8.9 Discharge Plan Discharge Attending physician on discharge: Lucas Hobbs Consulting providers: Fior Villatoro Discharging Clinician: Lucas Hobbs Patient Disposition: Ho
--- NOTE | 2022-04-21 12:28 | PM.PNCARD ---
Progress Note: A&P Assessment and Plan (1) Atrial fibrillation with RVR: Code(s): I48.91 - Unspecified atrial fibrillation Status: Acute Assessment and Plan: Stable, converted to sinus rhythm without escalating dose of sotalol. Continue 80 mg twice daily. Follow-up with Dr. Sanabria as scheduled on Saturday. Continue systemic anticoagulation without interruption. Transition to Lasix 20 mg daily. Stable for discharge home today. Patient is comfortable plan of care. (2) CAD in [place] artery: Code(s): I25.10 - Atherosclerotic heart disease of [place] coronary artery without angina pectoris Status: Acute Assessment and Plan: No acute issues. Continue medical therapy, aspirin, statin (3) Essential (primary) hypertension: Code(s): I10 - Essential (primary) hypertension Status: Acute Assessment and Plan: Stable, no acute issues. Subjective Date/time seen: Date of service: 04/21/22 12:28 Follow-up for atrial fibrillation Patient feeling well, denies shortness of breath, palpitations. States he is comfortable to go home. Converted to sinus rhythm yesterday afternoon prior to receiving increase sotalol dose. He is maintained on 80 mg twice daily thus far. Review of Systems Review of Systems: No fevers, chills, shortness of breath or chest pain. No palpitations. No dizziness. Constitutional: Constitutional: Reports lethargy Eyes: Eyes: Reports no additional eye complaints ENT: Reports system reviewed and no additional complaints, except as documented Cardiovascular: Cardiovascular: Reports no additional cardiovascular complaints and Reports dyspnea on exertion Respiratory: Respiratory: Reports dyspnea on exertion Gastrointestinal: Gastrointestinal: Reports no additional gastrointestinal complaints Musculoskeletal: Musculoskeletal: Reports back pain Integumentary/Breasts: Skin/Breast: Reports system reviewed and no additional complaints, except as docu Neurologic: Reports system reviewed and no additional complaints, except as documented Endocrine: Endocrine: Reports no additional endocrine complaints Hematologic/Lymphatic: Hematologic/Lymphatic: Reports no additional hematologic/lymphatic complaints Allergic/Immunologic: Allergic/Immunologic: Reports no additional allergic/immunologic complaints Exam Const: General: comfortable and no acute distress Other: Pleasant elderly man sitting upright in chair at bedside no distress pleasant and cooperative HENMT: Mouth: Yes moist mucous membranes Eyes: Sclera: sclerae normal Pupils: Equal, round and reactive pupils present Neck: Neck: supple and no JVD Resp: Effort & Inspection: normal respiratory effort Auscultation: clear to auscultation bilaterally Cardio: Rhythm: regular rhythm GI: Auscultation: normal bowel sounds Skin: General skin exam: normal color Neuro: Cranial nerves: Yes Equal, round and reactive pupils present Other: Alert and oriented x3, slow cognition otherwise feeling well Extrem: Other: Trace bilateral pedal edema Psych: Other: Calm and appropriate mood Objective Data Vital Signs Vital Signs: Vital Signs - 24 hr 04/20/22 14:00 04/20/22 15:46 04/20/22 16:07 Temperature Pulse Rate 120 H Respiratory Rate Blood Pressure Pulse Oximetry 94 Oxygen Delivery Room Air Room Air 04/20/22 16:00 04/20/22 17:33 04/20/22 16:39 Temperature 36.8 C Pulse Rate 130 H 70 74 Respiratory Rate 18 Blood Pressure 146/88 H Pulse Oximetry 96 Oxygen Delivery 04/20/22 18:00 04/20/22 19:24 04/20/22 21:24 Temperature 36.6 C Pulse Rate 70 74 77 Respiratory Rate 20 Blood Pressure 131/89 Pulse Oximetry 96 Oxygen Delivery 04/20/22 20:00 04/20/22 20:00 04/20/22 22:00 Temperature Pulse Rate 83 76 Respiratory Rate Blood Pressure Pulse Oximetry 96 Oxygen Delivery Room Air 04/20/22 23:29 04/21/22 00:00 04/21/22 00:
== END 2022-04-21 13:00 | disposition home or self-care (01) | DRG 308 ==
LOC: ANHED 18:10 → ANHIMU 20:24
PROVIDERS: Admitting Provider Hospitalist; Emergency Provider Emergency Medicine; PCP Internal Medicine; Visit Provider Chiropractor
DX: I48.0 Paroxysmal atrial fibrillation (principal); I50.23 Acute on chronic systolic (congestive) heart failure; I11.0 Hypertensive heart disease with heart failure; I25.10 Atherosclerotic heart disease of native coronary artery without angina pectoris; G20 Parkinson's disease; E78.5 Hyperlipidemia, unspecified; M19.90 Unspecified osteoarthritis, unspecified site; R29.6 Repeated falls; Z96.89 Presence of other specified functional implants; Z20.822 Contact with and (suspected) exposure to COVID-19; Z96.82 Presence of neurostimulator; Z79.82 Long term (current) use of aspirin; Z95.5 Presence of coronary angioplasty implant and graft; Z87.891 Personal history of nicotine dependence
CPT/HCPCS: 36415; 71046; 80048; 80053; 83690; 83880; 84484; 85025; 85610; 85730; 93005; 96374; 96375; 96376; 97110; 97116; 97161; 97165; 99285; A9270; C8929; C9803; G0378; J1940; Q9957; U0003; U0005

== ENCOUNTER 2022-05-21 12:37 | Inpatient (IN) | payer OTHER, SELFPAY ==
[2022-05-21] VITALS (24 sets, daily range): BP systolic 103–145; BP diastolic 57–112; PULSE 72–139; RESP 20–27; TEMP 36.1–36.7; O2SAT 98–100
--- NOTE | 2022-05-21 | ECG_ITS ---
Measurements Intervals [place] Rate: 144 P: [place]: 0 QRS: 39 QRSD: 99 T: 5 QT: 312 QTc: 484 Interpretive Statements ATRIAL FIBRILLATION WITH RAPID VENTRICULAR RESPONSE VENTRICULAR PREMATURE COMPLEX BORDERLINE ST-T WAVE ABNORMALITY- INF/HIGH LAT LEADS BASELINE ARTIFACT- I, II, III, AVR, AVL, V1-V3 ABNORMAL ECG COMPARED TO ECG 04/20/2022 17:00:38 ATRIAL FIBRILLATION NOW PRESENT Electronically Signed On 05-21-2022 14:23:47 CDT by Dc Rivera D.O.
--- NOTE | ~2022-05-21 | XR_ITS ---
EXAMINATION: XR chest 1V portable DATE: 05/21/2022 13:36 INDICATION: Shortness of breath. TECHNIQUE: A single frontal view of the chest was obtained on 2 radiographs. COMPARISON: Chest 2 views 04/19/2022, chest CT 09/14/2021 FINDINGS: There are airspace opacities in right mid and lower lung zones. No pleural effusion or pneu mothorax. The heart size is normal. Electronic devices overlie the chest bilaterally with wires exten ding into the neck. IMPRESSION: 1. Airspace opacities in right mid and lower lung zones, consistent with pneumonia. Reviewed, dictated and finalized at location A. IMPRESSION: 1. Airspace opacities in right mid and lower lung zones, consistent with pneumo [place].
--- NOTE | ~2022-05-21 | XR_ITS ---
EXAMINATION: XR barium swallow modified DATE: 05/22/2022 11:03 INDICATION: Dysphagia. Parkinson's disease. TECHNIQUE: The patient was given barium-containing material of multiple consistencies to swallow by t roma speech pathologist while I performed fluoroscopy. Fluoroscopy exposure time was 2.6 minutes. The n umber of fluoroscopy images saved to the PACS was 1. Dose-area product was 1.842 Gy-cm^2. FINDINGS: There was reduced labial seal/lip tension. There is reduced lingual movement. There was reduced laryn geal elevation, reduced laryngeal adduction, reduced tongue base retraction, reduced pharyngeal squee ze, vallecular residue, piriform sinus residue, pharyngeal wall residue, and laryngeal penetration. IMPRESSION: 1. Laryngeal penetration. 2. Please refer to the speech therapy report for recommendations. Reviewed, dictated and finalized at location A.
[2022-05-21] MEDS: FUROSEMIDE INJ 40 MG/4 ML VIAL IV PUSH (12:48)
[2022-05-21] MEDS: dilTIAZem HCl INJ 25 MG/5 ML VIAL 15 MG IV PUSH (12:48)
[2022-05-21 13:04] LABS: Basophils Percent Auto 0.3 % (0.2-1.2); Eosinophils Percent Auto 0.1 % (0-4.4); Hematocrit 42.2 % (42.0-52.0); Hemoglobin 12.9 g/dL (14.0-18.0); Immature Granulocyte Absolute 0.06 K/mm3 (0.00-0.031); Immature Granulocyte Percent A 0.5 % (0-0.5); Lymphocytes Absolute Auto 0.57 K/mm3 (0.9-3.2); Lymphocytes Percent Auto 4.8 % (18.3-44.2); Mean Corpuscular HGB Conc 30.6 g/dl (32-36); Mean Corpuscular Hemoglobin 30.5 pg (26-34); Mean Corpuscular Volume 99.8 fl (80-100); Monocytes Absolute Auto 0.8 K/mm3 (0.1-0.6); Monocytes Percent Auto 6.8 % (2.6-8.5); Neutrophils Absolute Auto 10.4 K/mm3 (1.3-6.7); Neutrophils Percent Auto 87.5 % (45.5-73.1); Platelet Count Result 196 k/mm3 (150-375); Red Blood Count 4.23 M/mm3 (4.6-6.20); Red Cell Distribution Width 14.2 % (11.5-14.5); White Blood Count 11.8 K/mm3 (4.5-10.0)
[2022-05-21 13:14] LABS: Alanine Aminotransferase 29 U/L (6-50); Albumin Level 3.7 g/dL (3.5-5.1); Alkaline Phosphatase 71 U/L (38-126); Anion Gap 10 mmol/L (8-16); Aspartate Amino Transferase 24 U/L (17-59); Bilirubin,Total 1.6 mg/dL (0.2-1.3); Blood Urea Nitrogen 23 mg/dL (9-20); Calcium 8.5 mg/dL (8.4-10.2); Carbon Dioxide 32 mmol/L (22-30); Chloride 98 mmol/L (98-107); Estimated CRCL calculation 69 ml/min; Estimated Glomerular Filt Rate > 60; Glucose 151 mg/dL (65-110); Potassium 3.2 mmol/L (3.4-5.0); Sodium 140 mmol/L (137-145)
[2022-05-21 13:24] LABS: Alveolar/Arterial O2 Gradient 197.8 mmHg; Base Excess ABG 5.6 mEq/l (+/-2.0); Fractional Inspired Oxygen 100 %; HCO3 ABG 31.6 mEq/l (22.0-26.0); Oxygen Saturation ABG 99.9 % (95.0-100.0); Oxyhemoglobin 98.2 % THb (90.0-100.0); PCO2 ABG 51.8 mmHg (35.0-45.0); PO2 ABG 463.4 mmHg (80.0-100.0); PO2 FiO2 Ratio Arterial Blood 4.63 %; Total Hemoglobin 13.6 g/dL (12.0-18.0); pH ABG 7.403 (7.350-7.450)
[2022-05-21 13:25] LABS: Modified Allen's Test Pass; Site Drawn RIGHT RADIAL
[2022-05-21 13:26] LABS: Device NON-INVASIVE VENT; Non-Invasive Expiratory Pressure 6 CMH2O; Non-Invasive Inspiratory Pressure 12 CMH2O; Non-Invasive Vent Rate 16 /MIN
--- NOTE | 2022-05-21 14:08 | ED.SOB ---
HPI - SOB/Dyspnea General Chief Complaint: Shortness of Breath/Dyspnea Stated Complaint: sob Time Seen by Provider: 05/21/22 12:39 History of Present Illness HPI Narrative: Patient is a 77-year-old male who presents ER with shortness of breath. Worsening over the last couple days. Associate with cough. Suddenly worsened today. Hypoxic for EMS. Placed on CPAP. Patient has new swelling the legs. Recently diagnosed with A. fib. He has been started on anticoagulation. He is supposed to be cardioverted in the next week by Dr. Sanabria. No chest pain or chest pressure. Feels improved with BiPAP. Related Data Home Medications Medication Instructions Recorded Confirmed amantadine HCl 100 mg capsule 100 mg PO BID 09/29/21 04/19/22 aspirin 81 mg tablet 81 mg PO DAILY 09/29/21 04/19/22 atorvastatin 40 mg tablet (Lipitor) 40 mg PO HS 09/29/21 04/19/22 carbidopa 25 mg-levodopa 100 mg 1 tablet PO QID 09/29/21 04/19/22 tablet glycopyrrolate 1 mg tablet 1 mg PO TID 09/29/21 04/19/22 lisinopril 20 mg tablet 20 mg PO DAILY 09/29/21 04/19/22 sotalol 80 mg tablet 80 mg PO Q12H 09/29/21 04/19/22 tamsulosin 0.4 mg capsule 0.4 mg PO USEASDIRECTD 09/29/21 04/19/22 Adults Multivitamin 1 tablet PO DAILY 04/19/22 04/19/22 folic acid 800 mcg tablet 800 mcg PO DAILY 04/19/22 04/19/22 omega-3 fatty acids 1,000 mg PO BID 04/19/22 04/19/22 Calcium 500 1,000 mg PO DAILY 04/20/22 04/20/22 cholecalciferol (vitamin D3) 50 75 mcg PO DAILY 04/20/22 04/20/22 mcg (2,000 unit) tablet (Vitamin D3) Allergies Allergy/AdvReac Type Severity Reaction Status Date / Time No Known Allergies Allergy Verified 04/19/22 16:19 Review of Systems Review of Systems: All systems reviewed & are unremarkable except as noted in HPI and below Constitutional: Constitutional: Denies chills, Denies fatigue and Denies fever(s) Cardiovascular: Cardiovascular: Denies chest pain, Denies rapid heart rate and Denies radiating jaw, neck or arm pain Respiratory: Respiratory: Reports cough, Reports dyspnea and Denies wheezing Gastrointestinal: Gastrointestinal: Denies abdominal pain, Denies nausea and Denies vomiting Musculoskeletal: Musculoskeletal: Denies arthralgias Comments: Lower extremity swelling PMFSH Past Medical History Medical History (Updated 05/21/22 @ 14:14 by Leah Coronado PA-C) Benign prostatic hyperplasia Coronary artery disease Dyslipidemia Essential hypertension Parkinson disease Paroxysmal atrial fibrillation Recurrent falls Surgical History Surgical History (Updated 05/21/22 @ 14:14 by Leah Coronado PA-C) History of arthroplasty of left knee (2019) History of cardiac catheterization History of cataract extraction History of coronary artery stent placement History of spinal surgery (~2004) For disc herniation. Status post deep brain stimulator placement (2017) Family History Family History Other Family history of Parkinson's disease Family history of coronary artery disease Hypertension Social History Social History Social History: Surrogate medical decision maker: Lauren Dash, spouse. Code status: Full code. Smoking packs per day: 2 Smoking cigarettes per day: 40.0 Years smoked: 58 Smoking pack-years: 116.00 Smoking status: Former smoker Tobacco type: cigarettes Second hand tobacco smoke exposure: No Smoking end date: 09/09/16 Alcohol intake: current Drinks per week: 7 Substance use: never Substance use type: does not use Additional living arrangements comments: The patient lives with his spouse in [place]. Occupation/Education: retired Spiritual care concerns: No Exam Narrative: GENERAL: Well-appearing, well-nourished, and in no acute distress. HEAD: Normocephalic, atraumatic. EYES: PERRL and EOMI. ENT: Mucous membranes moist. CHEST: Bibasilar crackl
[2022-05-21] MEDS: dilTIAZem 100 MG/100 ML 100 MG/100 ML BAG IV CONT (14:16)
[2022-05-21 14:31] LABS: NT Pro B Type Natriuretic Pept 7620 pg/mL (5-100)
[2022-05-21 14:50] LABS: SARS-CoV-2 RNA PCR Negative
--- NOTE | 2022-05-21 16:01 | ADMGEN ---
This patient, Dara Dash, was admitted to IMU Room 210-01 on 05/21/22 at 1520. Patient/family oriented to hospital policies and general routines including ID bracelet, bed and alarms, visiting hours, pain management, procedures, bathroom and other care routines, personal items, smoking policy, room service/diet, and visiting hours. Information on how to activate the Rapid Response Team has been discussed. Patient/Family are encouraged to report perceived risks to care and to ask questions if they do not understand what they are told or what they should do.
--- NOTE | 2022-05-21 19:00 | PM.IMHP ---
H&P: HPI History of Present Illness Date/Time: 05/21/22 19:00 Chief Complaint: Shortness of breath. Narrative: This is a very pleasant 77-year-old male with Parkinson's disease, coronary artery disease, congestive heart failure, hypertension, and atrial fibrillation who presented to the emergency department via EMS from home for evaluation of shortness of breath for the last 1 week. He is on Sotalol and anticoagulation and he has been quite symptomatic recently and he is scheduled for an outpatient cardioversion in the coming weeks. Unfortunately he continues to have sensations of racing heart and palpitations in addition to increasing shortness of breath over the last several days. He has also developed lower extremity edema and mild orthopnea. He has a nonproductive cough and with further questioning he does admit that he has had increasing difficulty swallowing recently though he cannot recall a time where he may have aspirated. On EMS arrival today his SpO2 was 81% on room air and he was started on CPAP with improvement. In the emergency department he was given IV diltiazem 15 milligrams x 1 with some improvement in his rate, and he has since been started on a Cardizem drip. He also received IV Lasix 40 milligrams and his oxygen is being weaned. At the time my evaluation he is feeling a bit better but still indicates that he is somewhat short of breath. He is not having any chest pain or discomfort. He also denies nausea, vomiting, and sweats. Review of Systems Review of Systems: Twelve systems were reviewed. No fever, chills, or sweats. No recent cold or flu symptoms. He has been having some dysphagia as detailed above. He is also starting to lose his voice somewhat. He has had increasing difficulties with ambulation over the years due to his Parkinson's and he has had falls on occasion. No nausea or vomiting. Appetite has been okay. He has had some loose stools. He gets up to 3 times a night to use the restroom and he admits that sometimes it feels as though he does not completely empty his bladder. Except as documented, all other systems were reviewed and are negative. FOR[facility]LY [facility] Past Medical History Medical History (Updated 05/21/22 @ 22:51 by Leah Coronado PA-C) Benign prostatic hyperplasia Coronary artery disease Dyslipidemia Essential hypertension Parkinson disease Paroxysmal atrial fibrillation Recurrent falls Surgical History Surgical History (Updated 05/21/22 @ 14:14 by Leah Coronado PA-C) History of arthroplasty of left knee (2019) History of cardiac catheterization History of cataract extraction History of coronary artery stent placement History of spinal surgery (~2005) For disc herniation. Status post deep brain stimulator placement (2017) Family History Family History Other Family history of Parkinson's disease Family history of coronary artery disease Hypertension Social History Social History (Updated 05/21/22 @ 22:48 by Leah Coronado PA-C) Social History: Surrogate medical decision maker: Lauren Dash, spouse. Code status: Full code. Smoking packs per day: 2 Smoking cigarettes per day: 40.0 Years smoked: 58 Smoking pack-years: 116.00 Smoking status: Former smoker Tobacco type: cigarettes Second hand tobacco smoke exposure: No Smoking end date: 09/09/16 Alcohol intake: current Drinks per week: 7 Substance use: never Substance use type: does not use Additional living arrangements comments: The patient lives with his spouse in [place]. 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 Spiritual care concerns: No Meds Home Medications and Allergies Home Medications Medication Instructions Recorded Confirmed Type amantadine HCl 100 mg capsule 200 mg PO DAILY 09/29/21 05/21/22 History atorvastatin 40 mg tablet (Lipitor) 40 mg PO HS 09/29/21 05/21/22 History charissa
[2022-05-21] MEDS: POTASSIUM CHLORIDE INJ 40 MEQ in SODIUM CHLORIDE 0.9% IV 500 ML 130 MEQ IVPB (20:27)
[2022-05-21] MEDS: METOPROLOL TARTRATE INJ 5 MG/5 ML VIAL IV PUSH (20:31)
[2022-05-22] VITALS (28 sets, daily range): BP systolic 95–126; BP diastolic 55–76; PULSE 71–122; RESP 12–23; TEMP 36.2–36.8; O2SAT 96–100
[2022-05-22] MEDS: ATORVASTATIN 40 MG TABLET PO ×2 (00:22→20:08)
[2022-05-22] MEDS: SOTALOL HCL 80 MG TABLET PO (00:22)
[2022-05-22] MEDS: FUROSEMIDE INJ 40 MG/4 ML VIAL IV PUSH ×2 (00:22→15:55)
[2022-05-22] MEDS: METOPROLOL TARTRATE INJ 5 MG/5 ML VIAL IV PUSH ×2 (00:22→05:53)
[2022-05-22] MEDS: dilTIAZem 100 MG/100 ML 100 MG/100 ML BAG 10 MG IV CONT ×2 (01:58→10:08)
[2022-05-22 04:47] LABS: Hematocrit 42.3 % (42.0-52.0); Hemoglobin 13.2 g/dL (14.0-18.0); Mean Corpuscular HGB Conc 31.2 g/dl (32-36); Mean Corpuscular Hemoglobin 31.6 pg (26-34); Mean Corpuscular Volume 101.2 fl (80-100); Mean Platelet Volume 10.5 fl (7.4-10.4); Platelet Count Result 175 k/mm3 (150-375); Red Blood Count 4.18 M/mm3 (4.6-6.20); Red Cell Distribution Width 14.2 % (11.5-14.5); White Blood Count 11.8 K/mm3 (4.5-10.0)
[2022-05-22 05:16] LABS: Anion Gap 8 mmol/L (8-16); Blood Urea Nitrogen 25 mg/dL (9-20); Calcium 8.5 mg/dL (8.4-10.2); Carbon Dioxide 32 mmol/L (22-30); Chloride 98 mmol/L (98-107); Estimated CRCL calculation 69 ml/min; Estimated Glomerular Filt Rate > 60; Glucose 119 mg/dL (65-110); Magnesium 1.9 mg/dL (1.6-2.3); Potassium 3.9 mmol/L (3.4-5.0); Sodium 138 mmol/L (137-145)
[2022-05-22 05:23] LABS: Alanine Aminotransferase 41 U/L (6-50); Albumin Level 3.6 g/dL (3.5-5.1); Alkaline Phosphatase 58 U/L (38-126); Aspartate Amino Transferase 25 U/L (17-59); Bilirubin,Total 1.8 mg/dL (0.2-1.3)
[2022-05-22] MEDS: CHOLECALCIFEROL 1,000 UNITS TABLET 5000 UNITS PO (10:10)
[2022-05-22] MEDS: CALCIUM CARBONATE (OSCAL) 500 MG TABLET 1000 MG PO (10:11)
[2022-05-22] MEDS: AMANTADINE HCL 100 MG CAPSULE 200 MG PO (10:11)
[2022-05-22] MEDS: ASCORBIC ACID 500 MG TABLET 1000 MG PO (10:11)
[2022-05-22] MEDS: MULTIVITAMINS THERAPEUTIC TAB (*BKC) 1 TABLET PO (10:11)
[2022-05-22] MEDS: GLYCOPYRROLATE 1 MG TABLET PO ×3 (10:11→17:35)
[2022-05-22] MEDS: OMEGA 3 POLYUNSAT FATTY ACIDS 1 GM CAP PO ×2 (10:11→17:35)
[2022-05-22] MEDS: FOLIC ACID 0.4 MG TABLET PO (10:12)
--- NOTE | 2022-05-22 12:27 | PCSTNOTE ---
Modified barium swallow. Penetration noted with thin liquid residue pooled in pyriform sinuses and valleculae, cleared with multiple swallows. Recommendation: Level 5 (soft and bite sized) diet texture and nectar thickened liquids (mildly thickened, level 2). No speech therapy treatment recommended at this time. Thank you for the referral of this patient.
[2022-05-22] MEDS: CARBIDOPA/LEVODOPA 25/100 MG TABLET 1 TABLET PO ×3 (13:39→20:08)
--- NOTE | 2022-05-22 14:46 | PM.CNCAR ---
Assessment and Plan Assessment and plan (1) Atrial fibrillation with rapid ventricular response: Code(s): I48.91 - Unspecified atrial fibrillation Status: Acute Assessment and Plan: Patient returns with AFib with RVR symptomatic with acute on chronic decompensated heart failure with reduced ejection fraction despite sotalol 120 mg twice daily as an outpatient. Heart rate better controlled on IV diltiazem and IV metoprolol. Patient feels much better with improved heart rate control and diuresis. Very lengthy discussion held with the patient as well as with Dr. Sanabria regarding plan of care. Options as we discussed included continuation of sotalol with planned cardioversion attempt to restore sinus rhythm with outpatient transition to alternative antiarrhythmic therapy. However, as patient has failed therapy amiodarone would likely be best antiarrhythmic option given his history get this could not be initiated until at least 4 days washout off sotalol therapy. He would not be prudent to proceed with cardioversion note restore sinus rhythm off antiarrhythmic therapy as success would be expected to be quite low. Therefore, consultation with Dr. Sanabria revealed best course of action would be to focus on adequate rate control, treatment of underlying conditions and heart failure optimize oral AV bety blocking agents for the time being with plans for initiation of oral amiodarone as an outpatient if he is able to be discharged home in the meantime. Patient verbalized understanding and agreed with plan of care. Will add metoprolol tartrate 50 mg q.8 hours and reduce diltiazem to 5 mg daily. Will prefer to avoid diltiazem given LV dysfunction yet if necessary this can be utilize under very short-term basis until amiodarone is able to be initiated closer to this weekend after sotalol washout. Further recommendations based on patient's clinical response to therapy. Continue telemetry. (2) Congestive heart failure: Qualifiers: Heart failure type: combined systolic and diastolic Heart failure chronicity: acute on chronic Qualified Code(s): I50.43 - Acute on chronic combined systolic (congestive) and diastolic (congestive) heart failure Code(s): I50.9 - Heart failure, unspecified Status: Acute Assessment and Plan: History of chronic heart failure with reduced ejection fraction EF 35-40% by echocardiogram 04/2022. He now presents with acute on chronic decompensated heart failure with reduced ejection fraction likely secondary to AFib with RVR and underlying pneumonia. While his pneumonia may have certainly kicked off his atrial fibrillation given previous admission for his atrial fibrillation alternative antiarrhythmic therapy seems more appropriate. Continue to replete potassium to closer to 4.0. Continue IV diuresis. Accurate input and output, daily weight. (3) Pneumonia involving right lung: Code(s): J18.9 - Pneumonia, unspecified organism Status: Acute Assessment and Plan: IV antibiotics per primary service. (4) Coronary artery disease: Code(s): I25.10 - Atherosclerotic heart disease of [place] coronary artery without angina pectoris Status: Acute Assessment and Plan: Stable, no acute issues at this time. Continue medical therapy. (5) Chronic anticoagulation: Code(s): Z79.01 - intermediate card tender (current) use of anticoagulants Status: Acute Assessment and Plan: Continue systemic anticoagulation with rivaroxaban 20 mg at bedtime. History of Present Illness History of Present Illness Consult date/time: Date of service: 05/22/22 14:46 Cardiology consultation at the request of Leah Coronado of the [facility] service for opinion regarding atrial fibrillation with RVR and CHF. Requesting physician: Leah Coronado PA-C Consult reason: atrial fibrillation and congestive heart failure Reason For Visit: Afib RVR/ Respiratory Failure Narr
[2022-05-22] MEDS: METOPROLOL TARTRATE 50 MG TAB PO ×2 (15:53→20:08)
--- NOTE | 2022-05-22 16:44 | PM.IMPN ---
Progress Note: A&P Assessment and Plan (1) Atrial fibrillation with rapid ventricular response: Code(s): I48.91 - Unspecified atrial fibrillation Status: Acute (2) Hypokalemia: Code(s): E87.6 - Hypokalemia Status: Acute (3) Hyperglycemia: Code(s): R73.9 - Hyperglycemia, unspecified Status: Acute (4) Essential hypertension: Code(s): I10 - Essential (primary) hypertension Status: Acute (5) Coronary artery disease: Code(s): I25.10 - Atherosclerotic heart disease of [place] coronary artery without angina pectoris Status: Acute (6) Parkinson disease: Code(s): G20 - Parkinson's disease Status: Acute (7) Pneumonia involving right lung: Code(s): J18.9 - Pneumonia, unspecified organism Status: Acute Plan # shortness of breath/palpitation # atrial fibrillation with rapid ventricular rate: On sotalol and Xarelto at home. Plans for cardioversion in coming weeks. Started on Cardizem drip. Cardiology consulted. # acute hypoxic respiratory failure SP urine 81% on room air was started on CPAP by EMS. Currently on oxygen via nasal cannula. BNP is elevated right-sided pneumonia also noted. Likely combination of AFib, congestive heart failure, pneumonia. # acute on chronic congestive heart failure Systolic. IV diuresis as ordered EF the past at 35-40% 04/2022 # right-sided pneumonia possible aspiration given history of dysphagia. Speech to see. Going for modified barium swallow. Sputum culture. Started on azithromycin ceftriaxone. COVID negative # hypokalemia replace and monitor # hyperglycemia: Check A1c # hypertension home medication # hyperlipidemia # Parkinson's disease on deep brain stimulator # DVT prophylaxis insult to # code status full code # disposition: PT OT Subjective Date/time seen: 05/22/22 16:44 Interval history: HPI:This is a very pleasant 77-year-old male with Parkinson's disease, coronary artery disease, congestive heart failure, hypertension, and atrial fibrillation who presented to the emergency department via EMS from home for evaluation of shortness of breath for the last 1 week. He is on Sotalol and anticoagulation and he has been quite symptomatic recently and he is scheduled for an outpatient cardioversion in the coming weeks. Unfortunately he continues to have sensations of racing heart and palpitations in addition to increasing shortness of breath over the last several days. He has also developed lower extremity edema and mild orthopnea. He has a nonproductive cough and with further questioning he does admit that he has had increasing difficulty swallowing recently though he cannot recall a time where he may have aspirated. On EMS arrival today his SpO2 was 81% on room air and he was started on CPAP with improvement.? In the emergency department he was given IV diltiazem 15 milligrams x 1 with some improvement in his rate, and he has since been started on a Cardizem drip. He also received IV Lasix 40 milligrams and his oxygen is being weaned. At the time my evaluation he is feeling a bit better but still indicates that he is somewhat short of breath.? He is not having any chest pain or discomfort.? He also denies nausea, vomiting, and sweats. 05/22/2022 no new complaints. Heart rate reviewed. Remains in AFib but better controlled. On Cardizem drip. Cardiology going to see him today. Review of Systems Review of Systems: All systems reviewed & are unremarkable except as noted in HPI and below Exam Narrative: General: Mildly ill-appearing gentleman sitting up in bed HEENT: PERRL, EOMI. Sclera anicteric. Tacky mucous membranes. Oropharynx not visualized. Neck: Supple. No significant jugular venous distension. Respiratory: Coarse breath sound bilaterally, no acute respiratory distress. Cardiovascular: Irregularly irregular rate and rhythm. Gastrointestinal: Abdomen is soft, nontender, and nondistend
[2022-05-22] MEDS: TAMSULOSIN HCL 0.4 MG CAPSULE PO (17:35)
[2022-05-22] MEDS: RIVAROXABAN 20 MG TABLET PO (17:35)
[2022-05-23] VITALS (20 sets, daily range): BP systolic 93–125; BP diastolic 62–86; PULSE 45–140; RESP 20–22; TEMP 36.1–36.5; O2SAT 92–100
[2022-05-23] MEDS: dilTIAZem 100 MG/100 ML 100 MG/100 ML BAG IV CONT ×2 (00:39→20:02)
[2022-05-23 04:51] LABS: Basophils Percent Auto 0.3 % (0.2-1.2); Eosinophils Absolute Auto 0.2 K/mm3 (0-0.3); Eosinophils Percent Auto 1.6 % (0-4.4); Hematocrit 39.6 % (42.0-52.0); Immature Granulocyte Absolute 0.06 K/mm3 (0.00-0.031); Immature Granulocyte Percent A 0.6 % (0-0.5); Lymphocytes Absolute Auto 1.49 K/mm3 (0.9-3.2); Lymphocytes Percent Auto 15.8 % (18.3-44.2); Mean Corpuscular HGB Conc 30.3 g/dl (32-36); Mean Corpuscular Hemoglobin 30.4 pg (26-34); Mean Corpuscular Volume 100.3 fl (80-100); Mean Platelet Volume 10.5 fl (7.4-10.4); Monocytes Absolute Auto 0.8 K/mm3 (0.1-0.6); Monocytes Percent Auto 8.6 % (2.6-8.5); Neutrophils Absolute Auto 6.9 K/mm3 (1.3-6.7); Neutrophils Percent Auto 73.1 % (45.5-73.1); Platelet Count Result 199 k/mm3 (150-375); Red Blood Count 3.95 M/mm3 (4.6-6.20); Red Cell Distribution Width 14.1 % (11.5-14.5); White Blood Count 9.5 K/mm3 (4.5-10.0)
[2022-05-23 05:04] LABS: Alanine Aminotransferase 11 U/L (6-50); Albumin Level 3.5 g/dL (3.5-5.1); Alkaline Phosphatase 70 U/L (38-126); Anion Gap 8 mmol/L (8-16); Aspartate Amino Transferase 17 U/L (17-59); Blood Urea Nitrogen 29 mg/dL (9-20); Calcium 8.9 mg/dL (8.4-10.2); Carbon Dioxide 34 mmol/L (22-30); Chloride 97 mmol/L (98-107); Estimated CRCL calculation 58 ml/min; Estimated Glomerular Filt Rate 59; Glucose 123 mg/dL (65-110); Magnesium 1.9 mg/dL (1.6-2.3); Potassium 3.5 mmol/L (3.4-5.0); Sodium 139 mmol/L (137-145)
[2022-05-23] MEDS: METOPROLOL TARTRATE 50 MG TAB PO (05:55)
--- NOTE | 2022-05-23 08:41 | PM.IMPN ---
Progress Note: A&P Assessment and Plan (1) Atrial fibrillation with rapid ventricular response: Code(s): I48.91 - Unspecified atrial fibrillation Status: Acute Assessment and Plan: Appreciate cardiology consultation, wean Cardizem drip as able Metoprolol increased to 100 mg q.8 hours (2) Essential hypertension: Code(s): I10 - Essential (primary) hypertension Status: Acute Assessment and Plan: Controlled (3) Coronary artery disease: Code(s): I25.10 - Atherosclerotic heart disease of [place] coronary artery without angina pectoris Status: Acute Assessment and Plan: Stable (4) Community acquired pneumonia: Code(s): J18.9 - Pneumonia, unspecified organism Status: Acute Assessment and Plan: Continue azithromycin and Rocephin (5) Parkinson disease: Code(s): G20 - Parkinson's disease Status: Acute Assessment and Plan: Stable (6) S/P deep brain stimulator placement: Code(s): Z96.89 - Presence of other specified functional implants Status: Acute Plan DVT prophylaxis with Xarelto GI prophylaxis not indicated Code status full code Subjective Date/time seen: 05/23/22 08:41 Interval history: No overnight events noted. No chest pain or shortness of breath. No nausea, vomiting or diarrhea. No fevers or chills. Review of Systems Review of Systems: 12 point review of systems was assessed and was negative except as noted in the HPI Exam Narrative: General: No acute distress, alert and oriented per baseline HEENT: Atraumatic, normocephalic, mucous membranes moist CV: Irregularly irregular, S1, S2 Lungs: Clear to auscultation bilaterally, no rales or crackles noted, no wheezes, good air entry Abdomen: Soft, nontender, nondistended Extremities: Normal to inspection Skin: No rashes noted, no lesions or wounds seen Psych: Euthymic, normal affect Objective Data Vital Signs Vital Signs: Vital Signs - 24 hr 05/22/22 08:57 05/22/22 10:08 05/22/22 12:00 Temperature Pulse Rate 106 H Respiratory Rate Blood Pressure 115/76 Pulse Oximetry 99 99 Oxygen Delivery Nasal Cannula Nasal Cannula Oxygen Flow Rate 2 2 05/22/22 12:00 05/22/22 12:00 05/22/22 10:00 Temperature 97.7 F Pulse Rate 99 92 109 H Respiratory Rate 12 Blood Pressure 105/67 Pulse Oximetry 97 Oxygen Delivery Oxygen Flow Rate 05/22/22 14:00 05/22/22 15:53 05/22/22 16:00 Temperature 97.1 F L Pulse Rate 95 118 H 100 Respiratory Rate 12 Blood Pressure 95/65 L Pulse Oximetry 100 Oxygen Delivery Oxygen Flow Rate 05/22/22 16:00 05/22/22 16:00 05/22/22 18:00 Temperature Pulse Rate 103 H 86 Respiratory Rate Blood Pressure Pulse Oximetry 100 Oxygen Delivery Nasal Cannula Oxygen Flow Rate 2 05/22/22 15:45 05/22/22 20:08 05/22/22 20:00 Temperature 97.7 F Pulse Rate 95 87 Respiratory Rate 20 Blood Pressure 96/55 L 95/55 L Pulse Oximetry 96 Oxygen Delivery Oxygen Flow Rate 05/22/22 20:00 05/22/22 20:00 05/22/22 22:00 Temperature Pulse Rate 115 H 87 Respiratory Rate Blood Pressure Pulse Oximetry 100 Oxygen Delivery Nasal Cannula Oxygen Flow Rate 2 05/22/22 23:53 05/23/22 00:00 05/23/22 00:00 Temperature 97.7 F Pulse Rate 105 H 82 Respiratory Rate 20 Blood Pressure 95/74 L Pulse Oximetry 98 100 Oxygen Delivery Nasal Cannula Oxygen Flow Rate 2 05/23/22 00:39 05/23/22 02:00 05/23/22 03:48 Temperature 97.7 F Pulse Rate 93 100 103 H Respiratory Rate 22 H Blood Pressure 125/83 Pulse Oximetry 94 Oxygen Delivery Oxygen Flow Rate 05/23/22 04:00 05/23/22 04:00 05/22/22 22:30 Temperature Pulse Rate 103 H Respiratory Rate Blood Pressure Pulse Oximetry 100 97 Oxygen Delivery Nasal Cannula Nasal Cannula Oxygen Flow Rate 2 2 05/23/22 05:55 05/23/22 05:58 05/23/22 06:00
[2022-05-23] MEDS: CALCIUM CARBONATE (OSCAL) 500 MG TABLET 1000 MG PO (09:14)
[2022-05-23] MEDS: CHOLECALCIFEROL 1,000 UNITS TABLET 5000 UNITS PO (09:14)
[2022-05-23] MEDS: MULTIVITAMINS THERAPEUTIC TAB (*BKC) 1 TABLET PO (09:14)
[2022-05-23] MEDS: ASCORBIC ACID 500 MG TABLET 1000 MG PO (09:14)
[2022-05-23] MEDS: GLYCOPYRROLATE 1 MG TABLET PO ×3 (09:14→18:07)
[2022-05-23] MEDS: AMANTADINE HCL 100 MG CAPSULE 200 MG PO (09:15)
[2022-05-23] MEDS: FOLIC ACID 0.4 MG TABLET PO (09:15)
[2022-05-23] MEDS: OMEGA 3 POLYUNSAT FATTY ACIDS 1 GM CAP PO ×2 (09:15→18:07)
[2022-05-23] MEDS: FUROSEMIDE INJ 40 MG/4 ML VIAL IV PUSH ×2 (09:15→18:07)
[2022-05-23] MEDS: lisinopriL 20 MG TABLET PO (09:15)
[2022-05-23] MEDS: CARBIDOPA/LEVODOPA 25/100 MG TABLET 1 TABLET PO ×4 (09:15→20:02)
[2022-05-23 11:52] LABS: Glucose Point of Care 162 mg/dl (65-105)
[2022-05-23] MEDS: METOPROLOL TARTRATE 50 MG TAB 100 MG PO ×2 (15:12→20:02)
--- NOTE | 2022-05-23 16:37 | PM.PNCARD ---
Progress Note: A&P Assessment and Plan (1) Atrial fibrillation with rapid ventricular response: Code(s): I48.91 - Unspecified atrial fibrillation Status: Acute Assessment and Plan: Patient returns with AFib with RVR symptomatic with acute on chronic decompensated heart failure with reduced ejection fraction despite sotalol 120 mg twice daily as an outpatient. Heart rate better controlled on IV diltiazem and IV metoprolol. Patient feels much better with improved heart rate control and diuresis. Very lengthy discussion held with the patient as well as with Dr. Sanabria regarding plan of care. Options as we discussed included continuation of sotalol with planned cardioversion attempt to restore sinus rhythm with outpatient transition to alternative antiarrhythmic therapy. However, as patient has failed therapy amiodarone would likely be best antiarrhythmic option given his history get this could not be initiated until at least 4 days washout off sotalol therapy. He would not be prudent to proceed with cardioversion note restore sinus rhythm off antiarrhythmic therapy as success would be expected to be quite low. Therefore, consultation with Dr. Sanabria revealed best course of action would be to focus on adequate rate control, treatment of underlying conditions and heart failure optimize oral AV bety blocking agents for the time being. If remains hospitalized on Saturday may initiate amiodarone for additional rate control and discontinue diltiazem. Continuation of diltiazem with not be favor given CHF and LV dysfunction. Metoprolol increased to 100 mg q.8 hours due to inadequate heart rate control. (2) Congestive heart failure: Qualifiers: Heart failure chronicity: acute on chronic Heart failure type: combined systolic and diastolic Qualified Code(s): I50.43 - Acute on chronic combined systolic (congestive) and diastolic (congestive) heart failure Code(s): I50.9 - Heart failure, unspecified Status: Acute Assessment and Plan: History of chronic heart failure with reduced ejection fraction EF 35-40% by echocardiogram 04/2022. He now presents with acute on chronic decompensated heart failure with reduced ejection fraction likely secondary to AFib with RVR and underlying pneumonia. While his pneumonia may have certainly kicked off his atrial fibrillation given previous admission for his atrial fibrillation alternative antiarrhythmic therapy seems more appropriate. Continue to replete potassium to closer to 4.0. Continue IV diuresis 40 mg b.i.d. Accurate input and output, daily weight. (3) Pneumonia involving right lung: Code(s): J18.9 - Pneumonia, unspecified organism Status: Acute Assessment and Plan: IV antibiotics per primary service. (4) Coronary artery disease: Code(s): I25.10 - Atherosclerotic heart disease of [place] coronary artery without angina pectoris Status: Acute Assessment and Plan: Stable, no acute issues at this time. Continue medical therapy. (5) Chronic anticoagulation: Code(s): Z79.01 - custodial (current) use of anticoagulants Status: Acute Assessment and Plan: Continue systemic anticoagulation with rivaroxaban 20 mg at bedtime. Subjective Date/time seen: Date of service: 05/23/22 16:37 Follow-up for AFib with RVR, pneumonia, CHF Patient feeling better overall. Denies significant shortness of breath. Remains in AFib with RVR heart rates ranging from the 90s to 120s. He remains on diltiazem 5 milligrams/hour and oral metoprolol. He is receiving IV antibiotics. Denies fevers, chills nausea vomiting. Review of Systems Review of Systems: All systems reviewed & are unremarkable except as noted in HPI and below Constitutional: Constitutional: Reports as per HPI and Reports no additional constitutional complaints Eyes: Eyes: Reports as per HPI and Reports no additional eye complaints ENT: Reports system r
--- NOTE | 2022-05-23 17:48 | PC.NURSE ---
On 05/23/22, the student, Magno [facility], provided care and [facility] this patient. I have reviewed the student's documentation and agree with the findings.
[2022-05-23] MEDS: TAMSULOSIN HCL 0.4 MG CAPSULE PO (18:07)
[2022-05-23] MEDS: RIVAROXABAN 20 MG TABLET PO (18:07)
[2022-05-23] MEDS: ATORVASTATIN 40 MG TABLET PO (20:01)
[2022-05-24] VITALS (18 sets, daily range): BP systolic 99–152; BP diastolic 56–116; PULSE 80–121; RESP 18–22; TEMP 36.4–36.6; O2SAT 88–98
[2022-05-24 05:00] LABS: Basophils Absolute Auto 0.1 K/mm3 (0.0-0.1); Basophils Percent Auto 0.6 % (0.2-1.2); Eosinophils Absolute Auto 0.1 K/mm3 (0-0.3); Eosinophils Percent Auto 1.4 % (0-4.4); Hematocrit 40.8 % (42.0-52.0); Hemoglobin 12.7 g/dL (14.0-18.0); Immature Granulocyte Absolute 0.07 K/mm3 (0.00-0.031); Immature Granulocyte Percent A 0.8 % (0-0.5); Lymphocytes Absolute Auto 1.54 K/mm3 (0.9-3.2); Lymphocytes Percent Auto 17.7 % (18.3-44.2); Mean Corpuscular HGB Conc 31.1 g/dl (32-36); Mean Corpuscular Hemoglobin 30.9 pg (26-34); Mean Corpuscular Volume 99.3 fl (80-100); Mean Platelet Volume 10.1 fl (7.4-10.4); Monocytes Absolute Auto 0.6 K/mm3 (0.1-0.6); Monocytes Percent Auto 7.1 % (2.6-8.5); Neutrophils Absolute Auto 6.3 K/mm3 (1.3-6.7); Neutrophils Percent Auto 72.4 % (45.5-73.1); Platelet Count Result 188 k/mm3 (150-375); Red Blood Count 4.11 M/mm3 (4.6-6.20); Red Cell Distribution Width 13.7 % (11.5-14.5); White Blood Count 8.7 K/mm3 (4.5-10.0)
[2022-05-24 05:17] LABS: Alanine Aminotransferase 11 U/L (6-50); Albumin Level 3.5 g/dL (3.5-5.1); Alkaline Phosphatase 65 U/L (38-126); Anion Gap 13 mmol/L (8-16); Aspartate Amino Transferase 21 U/L (17-59); Bilirubin,Total 0.9 mg/dL (0.2-1.3); Blood Urea Nitrogen 31 mg/dL (9-20); Calcium 8.8 mg/dL (8.4-10.2); Carbon Dioxide 33 mmol/L (22-30); Chloride 95 mmol/L (98-107); Estimated CRCL calculation 63 ml/min; Estimated Glomerular Filt Rate > 60; Glucose 109 mg/dL (65-110); Potassium 3.1 mmol/L (3.4-5.0); Sodium 141 mmol/L (137-145)
[2022-05-24] MEDS: METOPROLOL TARTRATE 50 MG TAB 100 MG PO ×3 (06:00→20:29)
--- NOTE | 2022-05-24 08:13 | PM.IMPN ---
Progress Note: A&P Assessment and Plan (1) Atrial fibrillation with rapid ventricular response: Code(s): I48.91 - Unspecified atrial fibrillation Status: Acute Assessment and Plan: Appreciate cardiology consultation, wean Cardizem drip as able Metoprolol increased to 100 mg Q8h 05/23 (2) Essential hypertension: Code(s): I10 - Essential (primary) hypertension Status: Acute Assessment and Plan: Controlled (3) Coronary artery disease: Code(s): I25.10 - Atherosclerotic heart disease of [place] coronary artery without angina pectoris Status: Acute Assessment and Plan: Stable (4) Parkinson disease: Code(s): G20 - Parkinson's disease Status: Acute Assessment and Plan: Stable (5) S/P deep brain stimulator placement: Code(s): Z96.89 - Presence of other specified functional implants Status: Acute (6) Aspiration pneumonia: Code(s): J69.0 - Pneumonitis due to inhalation of food and vomit Status: Acute Assessment and Plan: MBS showed some aspiration, ST recommended Level 5 (soft and bite sized) diet texture and nectar thickened liquids (mildly thickened, level 2) Concern that aspiration caused pneumonia, will switch rocephin to augmentin (unasyn while in the hospital), continue azithromycin to complete 5 day course tomorrow Plan DVT prophylaxis with Xarelto GI prophylaxis not indicated Code status full code Subjective Date/time seen: 05/24/22 08:13 Interval history: Patient sitting up eating lunch, no complaints. No overnight events noted. No chest pain or shortness of breath. No nausea, vomiting or diarrhea. No fevers or chills. Review of Systems Review of Systems: All systems reviewed & are unremarkable except as noted in HPI and below Exam Narrative: General: No acute distress, alert and oriented per baseline HEENT: Atraumatic, normocephalic, mucous membranes moist CV: Irregularly irregular, S1, S2 Lungs: Clear to auscultation bilaterally, no rales or crackles noted, no wheezes, good air entry Abdomen: Soft, nontender, nondistended Extremities: Normal to inspection Skin: No rashes noted, no lesions or wounds seen Psych: Euthymic, normal affect Objective Data Vital Signs Vital Signs: Vital Signs - 24 hr 05/23/22 09:10 05/23/22 12:00 05/23/22 12:00 Temperature 97.2 F L Pulse Rate 112 H 89 Respiratory Rate 22 H Blood Pressure 93/62 L Pulse Oximetry 93 Oxygen Delivery Room Air 05/23/22 16:00 05/23/22 10:00 05/23/22 12:00 Temperature 96.9 F L Pulse Rate 74 126 H 140 H Respiratory Rate 20 Blood Pressure 105/70 Pulse Oximetry 92 Oxygen Delivery 05/23/22 14:00 05/23/22 16:00 05/23/22 16:00 Temperature Pulse Rate 133 H 114 H Respiratory Rate Blood Pressure Pulse Oximetry Oxygen Delivery Room Air 05/23/22 18:00 05/23/22 20:02 05/23/22 20:02 Temperature Pulse Rate 84 111 H 111 H Respiratory Rate Blood Pressure Pulse Oximetry Oxygen Delivery 05/23/22 20:00 05/23/22 20:00 05/23/22 20:00 Temperature 97.7 F Pulse Rate 107 H 98 Respiratory Rate 20 Blood Pressure 117/67 Pulse Oximetry 98 Oxygen Delivery Room Air 05/23/22 22:00 05/23/22 23:22 05/23/22 23:50 Temperature 97.7 F Pulse Rate 108 H 89 Respiratory Rate 20 Blood Pressure 100/86 Pulse Oximetry 96 95 Oxygen Delivery Room Air 05/24/22 00:00 05/24/22 00:00 05/24/22 02:00 Temperature Pulse Rate 90 104 H Respiratory Rate Blood Pressure Pulse Oximetry Oxygen Delivery Room Air 05/24/22 03:38 05/24/22 04:00 05/24/22 04:00 Temperature 97.7 F Pulse Rate 90 81 Respiratory Rate 20 Blood Pressure 117/80 Pulse Oximetry 96 Oxygen Delivery Room Air 05/24/22 06:00 05/24/22 06:00 Temperature Pulse Rate 101 H 104 H Respiratory Rate Blood Pressure Pulse Oximetry Oxygen Delivery Intake/Ou
[2022-05-24] MEDS: FOLIC ACID 0.4 MG TABLET PO (09:11)
[2022-05-24] MEDS: AMANTADINE HCL 100 MG CAPSULE 200 MG PO (09:11)
[2022-05-24] MEDS: ASCORBIC ACID 500 MG TABLET 1000 MG PO (09:11)
[2022-05-24] MEDS: CHOLECALCIFEROL 1,000 UNITS TABLET 5000 UNITS PO (09:11)
[2022-05-24] MEDS: FUROSEMIDE INJ 40 MG/4 ML VIAL IV PUSH ×3 (09:11→16:28)
[2022-05-24] MEDS: MULTIVITAMINS THERAPEUTIC TAB (*BKC) 1 TABLET PO (09:11)
[2022-05-24] MEDS: CARBIDOPA/LEVODOPA 25/100 MG TABLET 1 TABLET PO ×4 (09:11→20:29)
[2022-05-24] MEDS: GLYCOPYRROLATE 1 MG TABLET PO ×3 (09:11→16:28)
[2022-05-24] MEDS: lisinopriL 20 MG TABLET PO (09:11)
[2022-05-24] MEDS: OMEGA 3 POLYUNSAT FATTY ACIDS 1 GM CAP PO ×2 (09:11→16:29)
[2022-05-24] MEDS: CALCIUM CARBONATE (OSCAL) 500 MG TABLET 1000 MG PO (09:12)
[2022-05-24] MEDS: AMPICILLIN SULB 3 GM/NS 100 ML 3 GM/100 ML VIAL IVPB ×3 (09:56→20:28)
--- NOTE | 2022-05-24 11:42 | PM.PNCARD ---
Progress Note: A&P Assessment and Plan (1) Atrial fibrillation with rapid ventricular response: Code(s): I48.91 - Unspecified atrial fibrillation Status: Acute Assessment and Plan: Patient returns with AFib with RVR symptomatic with acute on chronic decompensated heart failure with reduced ejection fraction despite sotalol 120 mg twice daily as an outpatient. Heart rate better controlled on IV diltiazem and IV metoprolol. Patient feels much better with improved heart rate control and diuresis. Per previous discussion earlier this week with Dr. Sanabria plan to initiate amiodarone on Saturday and continue oral metoprolol. -Will discuss timing with Dr. Sanabria but anticipate discontinuation of diltiazem gtt tomorrow morning and initiate amiodarone 400 mg p.o. t.i.d. to start in AM. -Continue Metoprolol 100mg po q8h but plan to transition to metoprolol succinate at a dose of 100-150 mg daily depending on response to amiodarone. Patient verbalized understanding and agreed with plan of care. All questions answered to his satisfaction. (2) Congestive heart failure: Qualifiers: Heart failure chronicity: acute on chronic Heart failure type: combined systolic and diastolic Qualified Code(s): I50.43 - Acute on chronic combined systolic (congestive) and diastolic (congestive) heart failure Code(s): I50.9 - Heart failure, unspecified Status: Acute Assessment and Plan: Slow clinical improvement. History of chronic heart failure with reduced ejection fraction EF 35-40% by echocardiogram 04/2022. He now presents with acute on chronic decompensated heart failure with reduced ejection fraction likely secondary to AFib with RVR and underlying pneumonia. While his pneumonia may have certainly kicked off his atrial fibrillation given previous admission for his atrial fibrillation alternative antiarrhythmic therapy seems more appropriate. Continue to replete potassium to closer to 4.0. -Continue IV diuresis change to 40 mg t.i.d. today. -Give additional potassium chloride 40 mEq today changed to scheduled daily 40 mEq. Check BMP in a.m.. -Accurate input and output, daily weight. (3) Pneumonia involving right lung: Code(s): J18.9 - Pneumonia, unspecified organism Status: Acute Assessment and Plan: IV antibiotics per primary service. Clinically improving (4) Coronary artery disease: Code(s): I25.10 - Atherosclerotic heart disease of [place] coronary artery without angina pectoris Status: Acute Assessment and Plan: Stable, no acute issues at this time. Continue medical therapy. (5) Chronic anticoagulation: Code(s): Z79.01 - FDC (current) use of anticoagulants Status: Acute Assessment and Plan: Continue systemic anticoagulation with rivaroxaban 20 mg at bedtime. Subjective Date/time seen: Date of service: 05/24/22 11:42 Follow-up for CHF, AFib with RVR Patient feeling much better overall. Denies significant shortness of breath, palpitations chest pain. Heart rate is much better controlled this morning but still with intermittent RVR and remains on diltiazem infusion 5 milligrams/hour. Afebrile, no new issues overnight reported. Review of Systems Review of Systems: All systems reviewed & are unremarkable except as noted in HPI and below Constitutional: Constitutional: Reports as per HPI and Reports no additional constitutional complaints Eyes: Eyes: Reports as per HPI and Reports no additional eye complaints ENT: Reports system reviewed and no additional complaints, except as documented and Reports as per HPI Cardiovascular: Cardiovascular: Reports as per HPI and Reports no additional cardiovascular complaints Respiratory: Respiratory: Reports as per HPI and Reports no additional respiratory complaints Gastrointestinal: Gastrointestinal: Reports as per HPI and Reports no additional gastrointestinal complaints Gen
[2022-05-24] MEDS: POTASSIUM CHLORIDE 20 MEQ PACKET (FOR LIQUID) 40 MEQ PO (12:50)
--- NOTE | 2022-05-24 14:04 | PC.NURSE ---
On 05/24/22, the student, [Missy Shepherd], provided care and completed [facility] documentation on this patient. I have reviewed the student's documentation and agree with the findings.
[2022-05-24] MEDS: TAMSULOSIN HCL 0.4 MG CAPSULE PO (16:29)
[2022-05-24] MEDS: RIVAROXABAN 20 MG TABLET PO (16:29)
[2022-05-24] MEDS: dilTIAZem 100 MG/100 ML 100 MG/100 ML BAG IV CONT (17:47)
[2022-05-24] MEDS: ATORVASTATIN 40 MG TABLET PO (20:29)
--- NOTE | 2022-05-24 23:36 | PC.NURSE ---
Sputum culture collected and sent to lab at 2030. Lab unable to see sputum culture in chart so specimen was reordered as STAT and recollected. Lab still unable to view order in chart.
[2022-05-25] VITALS (18 sets, daily range): BP systolic 94–115; BP diastolic 50–84; PULSE 73–134; RESP 16–22; TEMP 36.2–36.6; O2SAT 94–99
[2022-05-25] MEDS: AMPICILLIN SULB 3 GM/NS 100 ML 3 GM/100 ML VIAL IVPB ×4 (02:50→20:05)
[2022-05-25] MEDS: METOPROLOL TARTRATE 50 MG TAB 100 MG PO ×3 (05:03→22:00)
[2022-05-25 05:32] LABS: Basophils Absolute Auto 0.1 K/mm3 (0.0-0.1); Basophils Percent Auto 0.6 % (0.2-1.2); Eosinophils Absolute Auto 0.3 K/mm3 (0-0.3); Hematocrit 41.7 % (42.0-52.0); Hemoglobin 12.7 g/dL (14.0-18.0); Immature Granulocyte Absolute 0.06 K/mm3 (0.00-0.031); Immature Granulocyte Percent A 0.7 % (0-0.5); Lymphocytes Absolute Auto 1.75 K/mm3 (0.9-3.2); Mean Corpuscular HGB Conc 30.5 g/dl (32-36); Mean Corpuscular Hemoglobin 30.7 pg (26-34); Mean Corpuscular Volume 100.7 fl (80-100); Mean Platelet Volume 10.4 fl (7.4-10.4); Monocytes Absolute Auto 0.8 K/mm3 (0.1-0.6); Monocytes Percent Auto 9.9 % (2.6-8.5); Neutrophils Absolute Auto 5.4 K/mm3 (1.3-6.7); Neutrophils Percent Auto 64.8 % (45.5-73.1); Platelet Count Result 211 k/mm3 (150-375); Red Blood Count 4.14 M/mm3 (4.6-6.20); Red Cell Distribution Width 13.6 % (11.5-14.5); White Blood Count 8.4 K/mm3 (4.5-10.0)
[2022-05-25 05:44] LABS: Alanine Aminotransferase 10 U/L (6-50); Albumin Level 3.5 g/dL (3.5-5.1); Alkaline Phosphatase 59 U/L (38-126); Anion Gap 10 mmol/L (8-16); Aspartate Amino Transferase 19 U/L (17-59); Bilirubin,Total 0.9 mg/dL (0.2-1.3); Blood Urea Nitrogen 28 mg/dL (9-20); Calcium 8.7 mg/dL (8.4-10.2); Carbon Dioxide 37 mmol/L (22-30); Chloride 95 mmol/L (98-107); Estimated CRCL calculation 69 ml/min; Estimated Glomerular Filt Rate > 60; Glucose 106 mg/dL (65-110); Potassium 3.8 mmol/L (3.4-5.0); Sodium 142 mmol/L (137-145)
--- NOTE | 2022-05-25 07:58 | PM.IMPN ---
Progress Note: A&P Assessment and Plan (1) Atrial fibrillation with rapid ventricular response: Code(s): I48.91 - Unspecified atrial fibrillation Status: Acute Assessment and Plan: Appreciate cardiology consultation, metoprolol increased to 100 mg q8h 05/23 Amiodarone planned to start today, diltiazem drip d/c (2) Essential hypertension: Code(s): I10 - Essential (primary) hypertension Status: Acute Assessment and Plan: Controlled (3) Coronary artery disease: Code(s): I25.10 - Atherosclerotic heart disease of [place] coronary artery without angina pectoris Status: Acute Assessment and Plan: Stable (4) Parkinson disease: Code(s): G20 - Parkinson's disease Status: Acute Assessment and Plan: Stable (5) S/P deep brain stimulator placement: Code(s): Z96.89 - Presence of other specified functional implants Status: Acute (6) Aspiration pneumonia: Code(s): J69.0 - Pneumonitis due to inhalation of food and vomit Status: Acute Assessment and Plan: MBS showed some aspiration, ST recommended Level 5 (soft and bite sized) diet texture and nectar thickened liquids (mildly thickened, level 2) Concern that aspiration caused pneumonia, will switch rocephin to augmentin (unasyn while in the hospital) Completed 5 day course of azithromycin 05/25 (7) Acute on chronic systolic (congestive) heart failure: Code(s): I50.23 - Acute on chronic systolic (congestive) heart failure Status: Acute Assessment and Plan: EF 35-40%, cont IV diuresis per cardiology Plan DVT prophylaxis with Xarelto GI prophylaxis not indicated Code status full code Subjective Date/time seen: 05/25/22 07:58 Interval history: patient resint comfortably, no compaints. no cp. sob, f/c/n/v/d. no o/n events Review of Systems Review of Systems: All systems reviewed & are unremarkable except as noted in HPI and below Exam Narrative: General: No acute distress, alert and oriented per baseline HEENT: Atraumatic, normocephalic, mucous membranes moist CV: Irregularly irregular, S1, S2 Lungs: Clear to auscultation bilaterally, no rales or crackles noted, no wheezes, good air entry Abdomen: Soft, nontender, nondistended Extremities: Normal to inspection Skin: No rashes noted, no lesions or wounds seen Psych: Euthymic, normal affect Objective Data Vital Signs Vital Signs: Vital Signs - 24 hr 05/24/22 08:25 05/24/22 08:00 05/24/22 08:00 Temperature 97.7 F Pulse Rate 114 H Respiratory Rate 20 Blood Pressure 152/116 H Pulse Oximetry 88 L Oxygen Delivery Room Air Room Air Oxygen Flow Rate Fraction of Inspired Oxygen 05/24/22 08:00 05/24/22 10:00 05/24/22 11:50 Temperature 97.7 F Pulse Rate 121 H 83 90 Respiratory Rate 20 Blood Pressure 102/71 Pulse Oximetry 96 Oxygen Delivery Oxygen Flow Rate Fraction of Inspired Oxygen 05/24/22 12:00 05/24/22 12:00 05/24/22 15:54 Temperature 97.7 F Pulse Rate 81 80 Respiratory Rate 20 Blood Pressure 107/67 Pulse Oximetry 98 Oxygen Delivery Room Air Oxygen Flow Rate Fraction of Inspired Oxygen 05/24/22 16:00 05/24/22 16:00 05/24/22 17:13 Temperature Pulse Rate 85 84 Respiratory Rate Blood Pressure Pulse Oximetry Oxygen Delivery Room Air Oxygen Flow Rate Fraction of Inspired Oxygen 05/24/22 18:00 05/24/22 19:49 05/24/22 20:29 Temperature 97.9 F Pulse Rate 108 H 111 H 96 Respiratory Rate 18 Blood Pressure 106/56 L Pulse Oximetry 94 Oxygen Delivery Oxygen Flow Rate Fraction of Inspired Oxygen 05/24/22 20:00 05/24/22 23:21 05/24/22 20:00 Temperature 97.6 F Pulse Rate 96 82 88 Respiratory Rate 18 22 H Blood Pressure 99/68 L Pulse Oximetry 94 94 Oxygen Delivery Room Air Oxygen Flow Rate Fraction of Inspired Oxygen 40 05/24/22 22:00 05/25/22 00:00 05/25
[2022-05-25] MEDS: FUROSEMIDE INJ 40 MG/4 ML VIAL IV PUSH ×3 (10:41→18:10)
[2022-05-25] MEDS: AMANTADINE HCL 100 MG CAPSULE 200 MG PO (10:42)
[2022-05-25] MEDS: FOLIC ACID 0.4 MG TABLET PO (10:42)
[2022-05-25] MEDS: CARBIDOPA/LEVODOPA 25/100 MG TABLET 1 TABLET PO ×4 (10:42→20:08)
[2022-05-25] MEDS: CHOLECALCIFEROL 1,000 UNITS TABLET 5000 UNITS PO (10:42)
[2022-05-25] MEDS: GLYCOPYRROLATE 1 MG TABLET PO ×3 (10:42→18:10)
[2022-05-25] MEDS: ASCORBIC ACID 500 MG TABLET 1000 MG PO (10:42)
[2022-05-25] MEDS: AMIODARONE HCL 200 MG TABLET 400 MG PO ×3 (10:42→18:12)
[2022-05-25] MEDS: lisinopriL 20 MG TABLET PO (10:43)
[2022-05-25] MEDS: MULTIVITAMINS THERAPEUTIC TAB (*BKC) 1 TABLET PO (10:43)
[2022-05-25] MEDS: OMEGA 3 POLYUNSAT FATTY ACIDS 1 GM CAP PO ×2 (10:43→18:11)
[2022-05-25] MEDS: CALCIUM CARBONATE (OSCAL) 500 MG TABLET 1000 MG PO (10:43)
--- NOTE | 2022-05-25 14:18 | PM.PNCARD ---
Progress Note: A&P Assessment and Plan (1) Atrial fibrillation with rapid ventricular response: Code(s): I48.91 - Unspecified atrial fibrillation Status: Acute Plan 77-year-old man with ischemic left ventricular dysfunction and symptomatic recurrence of atrial fibrillation. Now on p.o. loading dose of amiodarone as well as metoprolol for rate control and but continues on oral systemic anticoagulation. Heart rate is reasonably controlled at this time and he is not greatly symptomatic today. I would keep him in the hospital at least another 24 hours since he has just been started on high dose of amiodarone. If he is stable with good rate control he can potentially be discharged over the weekend he has plans already in place for an outpatient cardioversion later this month. Lucas Sanabria MD [facility] Subjective Date/time seen: Date of service: 05/25/22 14:18 Interval history: Follow-up visit in this 77-year-old man with: Ischemic heart disease with a ischemic cardiomyopathy and paroxysmal atrial fibrillation. Patient is now hospitalized with a symptomatic recurrence of his atrial fib despite a elevated dose of sotalol and has now been transitioned to amiodarone. P.o. loading dose of amiodarone has been started this morning. Heart rate is in the low 100s and he appears to be free of symptoms. Continues on high dose of metoprolol for the time being as well for rate control. Exam Const: General: comfortable and no acute distress Other: Elderly somewhat frail looking gentleman watching television offers no complaints at this time HENMT: Mouth: Yes moist mucous membranes Eyes: Sclera: scleral abnormality Neck: Neck: supple and no JVD Resp: Effort & Inspection: normal respiratory effort Auscultation: clear to auscultation bilaterally Other: No rales no rhonchi currently Cardio: Rhythm: abnormal rhythm irregularly irregular GI: GI Palp: Yes Soft to palpation Auscultation: normal bowel sounds Skin: General skin exam: normal color Neuro: Other: Alert and oriented Objective Data Vital Signs Vital Signs: Vital Signs - 24 hr 05/24/22 15:54 05/24/22 16:00 05/24/22 16:00 Temperature 36.5 C Pulse Rate 80 85 Respiratory Rate 20 Blood Pressure 107/67 Pulse Oximetry 98 Oxygen Delivery Room Air Oxygen Flow Rate Fraction of Inspired Oxygen 05/24/22 17:13 05/24/22 18:00 05/24/22 19:49 Temperature 36.6 C Pulse Rate 84 108 H 111 H Respiratory Rate 18 Blood Pressure 106/56 L Pulse Oximetry 94 Oxygen Delivery Oxygen Flow Rate Fraction of Inspired Oxygen 05/24/22 20:29 05/24/22 20:00 05/24/22 23:21 Temperature 36.4 C Pulse Rate 96 96 82 Respiratory Rate 18 22 H Blood Pressure 99/68 L Pulse Oximetry 94 94 Oxygen Delivery Room Air Oxygen Flow Rate Fraction of Inspired Oxygen 40 05/24/22 20:00 05/24/22 22:00 05/25/22 00:00 Temperature Pulse Rate 88 87 82 Respiratory Rate 22 H Blood Pressure Pulse Oximetry 94 Oxygen Delivery Room Air Oxygen Flow Rate Fraction of Inspired Oxygen 40 05/25/22 00:12 05/25/22 00:14 05/25/22 00:00 Temperature Pulse Rate 73 83 Respiratory Rate 16 Blood Pressure Pulse Oximetry 97 97 Oxygen Delivery BiPAP BiPAP Oxygen Flow Rate Fraction of Inspired Oxygen 30 05/25/22 02:00 05/25/22 04:00 05/25/22 04:00 Temperature Pulse Rate 85 101 H 101 H Respiratory Rate 16 Blood Pressure Pulse Oximetry 97 Oxygen Delivery Nasal Cannula Oxygen Flow Rate 4 Fraction of Inspired Oxygen 05/25/22 05:03 05/25/22 04:00 05/25/22 06:00 Temperature 36.6 C Pulse Rate 111 H 101 H 104 H Respiratory Rate 22 H Blood Pressure 115/84 Pulse Oximetry 98 Oxygen Delivery Oxygen Flow Rate Fraction of Inspired Oxygen 05/25/22 08:00 05/25/22 08:00 05/25/22 10:42 Temperature 36.2 C L Pulse Rate 82 120 H Respiratory Rate 22 H Blood Pressure 10
[2022-05-25] MEDS: TAMSULOSIN HCL 0.4 MG CAPSULE PO (18:10)
[2022-05-25] MEDS: RIVAROXABAN 20 MG TABLET PO (18:11)
[2022-05-25] MEDS: ATORVASTATIN 40 MG TABLET PO (20:08)
[2022-05-26] VITALS (9 sets, daily range): BP systolic 101–115; BP diastolic 70–84; PULSE 71–125; RESP 17–22; TEMP 35.9–36.4; O2SAT 95–96
[2022-05-26] MEDS: AMPICILLIN SULB 3 GM/NS 100 ML 3 GM/100 ML VIAL IVPB ×2 (02:52→08:53)
[2022-05-26 04:43] LABS: Basophils Absolute Auto 0.1 K/mm3 (0.0-0.1); Basophils Percent Auto 0.6 % (0.2-1.2); Eosinophils Absolute Auto 0.2 K/mm3 (0-0.3); Eosinophils Percent Auto 2.8 % (0-4.4); Hematocrit 37.3 % (42.0-52.0); Hemoglobin 11.8 g/dL (14.0-18.0); Immature Granulocyte Absolute 0.05 K/mm3 (0.00-0.031); Immature Granulocyte Percent A 0.6 % (0-0.5); Lymphocytes Absolute Auto 1.71 K/mm3 (0.9-3.2); Lymphocytes Percent Auto 22.1 % (18.3-44.2); Mean Corpuscular HGB Conc 31.6 g/dl (32-36); Mean Corpuscular Hemoglobin 31.3 pg (26-34); Mean Corpuscular Volume 98.9 fl (80-100); Mean Platelet Volume 9.8 fl (7.4-10.4); Monocytes Absolute Auto 0.7 K/mm3 (0.1-0.6); Monocytes Percent Auto 8.9 % (2.6-8.5); Platelet Count Result 195 k/mm3 (150-375); Red Blood Count 3.77 M/mm3 (4.6-6.20); Red Cell Distribution Width 13.5 % (11.5-14.5); White Blood Count 7.7 K/mm3 (4.5-10.0)
[2022-05-26 05:01] LABS: Alanine Aminotransferase 10 U/L (6-50); Albumin Level 3.4 g/dL (3.5-5.1); Alkaline Phosphatase 60 U/L (38-126); Anion Gap 10 mmol/L (8-16); Aspartate Amino Transferase 23 U/L (17-59); Bilirubin,Total 0.9 mg/dL (0.2-1.3); Blood Urea Nitrogen 28 mg/dL (9-20); Calcium 8.6 mg/dL (8.4-10.2); Carbon Dioxide 35 mmol/L (22-30); Chloride 93 mmol/L (98-107); Estimated CRCL calculation 63 ml/min; Estimated Glomerular Filt Rate > 60; Glucose 113 mg/dL (65-110); Potassium 3.3 mmol/L (3.4-5.0); Sodium 138 mmol/L (137-145)
[2022-05-26] MEDS: METOPROLOL TARTRATE 50 MG TAB 100 MG PO ×2 (05:15→12:28)
--- NOTE | 2022-05-26 07:53 | PM.PNCARD ---
Progress Note: A&P Assessment and Plan (1) Atrial fibrillation with rapid ventricular response: Code(s): I48.91 - Unspecified atrial fibrillation Status: Acute (2) Chronic systolic heart failure: Code(s): I50.22 - Chronic systolic (congestive) heart failure Status: Acute Plan 77-year-old man with ischemic heart disease some LV systolic dysfunction and paroxysmal atrial fib. He is clinically stable enough for discharge in my opinion. I am going to take his amiodarone dosage down to 800 mg daily(400 Q12 ). He is scheduled to come in for next Saturday as an outpatient for DC cardioversion. We will hopefully be able to maintain sinus rhythm after that. Lucas Sanabria MD [facility] Subjective Date/time seen: Date of service: 05/26/22 07:53 Interval history: Follow-up visit in this 77-year-old man with: Coronary artery disease with systolic left ventricular dysfunction and paroxysmal atrial fibrillation. Patient had been treated with sotalol for a number of years with good success and maintenance of sinus rhythm. Has now been transitioned to amiodarone as he is a failure of higher dose sotalol. He reports to be feeling well this morning he was sleeping breathing room air when I came in the room to see him. Upon awakening he offers no complaints. Telemetry demonstrates atrial fibrillation heart rate generally in the low 100s. Exam Const: General: comfortable and no acute distress Other: Elderly gentleman sleeping in bed no distress upon awakening offers no complaints HENMT: Mouth: Yes moist mucous membranes Eyes: Sclera: sclerae normal Neck: Neck: supple and no JVD Resp: Effort & Inspection: normal respiratory effort Other: Breath sounds are somewhat diminished throughout but otherwise clear no rales no rhonchi Cardio: Rhythm: abnormal rhythm irregularly irregular GI: GI Palp: Yes Soft to palpation Auscultation: normal bowel sounds Skin: General skin exam: normal color Neuro: Other: Alert and oriented x3 Objective Data Vital Signs Vital Signs: Vital Signs - 24 hr 05/25/22 08:00 05/25/22 08:00 05/25/22 10:42 Temperature 36.2 C L Pulse Rate 82 120 H Respiratory Rate 22 H Blood Pressure 104/63 Pulse Oximetry 97 95 Oxygen Delivery Room Air 05/25/22 11:55 05/25/22 12:00 05/25/22 13:44 Temperature 36.4 C L Pulse Rate 89 120 H Respiratory Rate 18 Blood Pressure 94/50 L Pulse Oximetry 94 95 Oxygen Delivery Room Air 05/25/22 13:44 05/25/22 08:00 05/25/22 10:00 Temperature Pulse Rate 120 H 94 128 H Respiratory Rate Blood Pressure Pulse Oximetry Oxygen Delivery 05/25/22 12:00 05/25/22 14:00 05/25/22 16:00 Temperature Pulse Rate 120 H 105 H 134 H Respiratory Rate Blood Pressure Pulse Oximetry Oxygen Delivery 05/25/22 16:00 05/25/22 18:12 05/25/22 20:33 Temperature 36.3 C L 36.5 C Pulse Rate 98 104 H 112 H Respiratory Rate 22 H 20 Blood Pressure 97/52 L 110/73 Pulse Oximetry 96 99 Oxygen Delivery 05/25/22 22:00 05/25/22 20:00 05/26/22 00:10 Temperature Pulse Rate 110 H 71 Respiratory Rate 17 Blood Pressure Pulse Oximetry 96 Oxygen Delivery Room Air BiPAP 05/26/22 00:00 05/26/22 04:00 05/26/22 04:45 Temperature 36.4 C Pulse Rate 125 H 115 H 116 H Respiratory Rate 22 H Blood Pressure 115/70 Pulse Oximetry 95 Oxygen Delivery 05/26/22 05:15 Temperature Pulse Rate 111 H Respiratory Rate Blood Pressure Pulse Oximetry Oxygen Delivery Intake/Output Intake/Output: Intake & Output 05/23/22 05/24/22 05/25/22 05/26/22 23:59 23:59 23:59 23:59 Intake Total 2590 2330 3040 580 Output Total 2350 2475 2050 600 Balance 240 -145 990 -20 Meds/Results Medications: Active Medications Generic Name Dose Route Start Last Admin Trade Name Freq PRN Reason Stop Dose Admin Acetaminophen 650 mg 05/21/22 14:03 Acetaminophen 325 Mg Tablet PO
[2022-05-26] MEDS: CALCIUM CARBONATE (OSCAL) 500 MG TABLET 1000 MG PO (08:53)
[2022-05-26] MEDS: POTASSIUM CHLORIDE 20 MEQ PACKET (FOR LIQUID) 40 MEQ PO (08:53)
[2022-05-26] MEDS: AMIODARONE HCL 200 MG TABLET 400 MG PO (08:53)
[2022-05-26] MEDS: OMEGA 3 POLYUNSAT FATTY ACIDS 1 GM CAP PO (08:54)
[2022-05-26] MEDS: AMANTADINE HCL 100 MG CAPSULE 200 MG PO (08:54)
[2022-05-26] MEDS: GLYCOPYRROLATE 1 MG TABLET PO ×2 (08:54→12:27)
[2022-05-26] MEDS: CHOLECALCIFEROL 1,000 UNITS TABLET 5000 UNITS PO (08:54)
[2022-05-26] MEDS: CARBIDOPA/LEVODOPA 25/100 MG TABLET 1 TABLET PO ×2 (08:54→12:27)
[2022-05-26] MEDS: FUROSEMIDE INJ 40 MG/4 ML VIAL IV PUSH (08:54)
[2022-05-26] MEDS: FOLIC ACID 0.4 MG TABLET PO (08:54)
[2022-05-26] MEDS: MULTIVITAMINS THERAPEUTIC TAB (*BKC) 1 TABLET PO (08:54)
[2022-05-26] MEDS: lisinopriL 20 MG TABLET PO (08:54)
[2022-05-26] MEDS: ASCORBIC ACID 500 MG TABLET 1000 MG PO (08:54)
--- NOTE | 2022-05-26 08:58 | PM.DS ---
DS: Admitting Diagnosis Discharge Date May 26, 2022 Admitting Diagnosis Shortness of breath DS: Discharge Diagnosis Discharge Diagnosis (1) Atrial fibrillation with rapid ventricular response: Code(s): I48.91 - Unspecified atrial fibrillation Status: Acute Assessment and Plan: Appreciate cardiology consultation, metoprolol increased to 100 mg q8h 05/23 Amiodarone planned to start today, diltiazem drip d/c (2) Essential hypertension: Code(s): I10 - Essential (primary) hypertension Status: Acute Assessment and Plan: Controlled (3) Coronary artery disease: Code(s): I25.10 - Atherosclerotic heart disease of [place] coronary artery without angina pectoris Status: Acute Assessment and Plan: Stable (4) Parkinson disease: Code(s): G20 - Parkinson's disease Status: Acute Assessment and Plan: Stable (5) S/P deep brain stimulator placement: Code(s): Z96.89 - Presence of other specified functional implants Status: Acute (6) Aspiration pneumonia: Code(s): J69.0 - Pneumonitis due to inhalation of food and vomit Status: Acute Assessment and Plan: MBS showed some aspiration, ST recommended Level 5 (soft and bite sized) diet texture and nectar thickened liquids (mildly thickened, level 2) Concern that aspiration caused pneumonia, will switch rocephin to augmentin (unasyn while in the hospital) Completed 5 day course of azithromycin 05/25 (7) Acute on chronic systolic (congestive) heart failure: Code(s): I50.23 - Acute on chronic systolic (congestive) heart failure Status: Acute Assessment and Plan: EF 35-40%, cont IV diuresis per cardiology Plan DVT prophylaxis with Xarelto GI prophylaxis not indicated Code status full code DS: Summary Hospital Course Hospital Course: 77-year-old male with past medical history significant for Parkinson's disease, coronary disease, congestive heart failure, hypertension atrial fibrillation presented to the ER for about a 1 week history of shortness of breath. He was found to be in AFib with RVR and started on a diltiazem drip in the ER. Cardiology was consulted. The patient was on sotalol 120 mg twice a day on outpatient basis and had not missed any doses, he does have a cardioversion scheduled next week. Metoprolol was added for better control. Patient also was noted to have what was thought to be aspiration pneumonia and started on azithromycin and Rocephin. He was thought to be in mild acute heart failure as well and diuresed. Barium swallow was ordered and was positive for aspiration, recommendation was for a level 5 diet with level to liquids. Metoprolol dose was increased for better control. Diltiazem drip was weaned off and oral amiodarone was started. Patient remained in AFib, but was rate controlled and had no symptoms. He was discharged in good condition on oral amiodarone with close outpatient follow-up by Cardiology and a cardioversion scheduled on outpatient basis. He did complete 5 day course of azithromycin. He was discharged on Augmentin to complete a 10 day course of antibiotics for aspiration pneumonia. Time Spent with Patient Time attestation: Total time spent providing and/or coordinating discharge services: Exam Narrative: General: No acute distress, alert and oriented per baseline HEENT: Atraumatic, normocephalic, mucous membranes moist CV: Irregularly irregular, S1, S2 Lungs: Clear to auscultation bilaterally, no rales or crackles noted, no wheezes, good air entry Abdomen: Soft, nontender, nondistended Extremities: Normal to inspection Skin: No rashes noted, no lesions or wounds seen Psych: Euthymic, normal affect DS: Data Data Completed and Pending Labs on day of discharge: Labs from last 24 hours 05/26/22 05/26/22 04:33 04:33 WBC 7.7 RBC 3.77 L Hgb 11.8 L Hct 37.3 L MCV 98.9 MCH 31.3 MCHC 31.6 L RDW
== END 2022-05-26 13:19 | disposition home health service (06) | DRG 308 ==
LOC: ANHED 14:08 → ANHIMU 14:30
PROVIDERS: Internal Medicine; Internal Medicine Cardiovascular Disease; Physician Assistant; Admitting Provider Chiropractor; Emergency Provider Emergency Medicine; PCP Internal Medicine; Visit Provider Student in an Organized Health Care Education/Training Program
DX: I48.0 Paroxysmal atrial fibrillation (principal); I50.23 Acute on chronic systolic (congestive) heart failure; J69.0 Pneumonitis due to inhalation of food and vomit; I11.0 Hypertensive heart disease with heart failure; E87.6 Hypokalemia; R73.9 Hyperglycemia, unspecified; I25.10 Atherosclerotic heart disease of native coronary artery without angina pectoris; I25.5 Ischemic cardiomyopathy; E78.5 Hyperlipidemia, unspecified; G20 Parkinson's disease; R13.10 Dysphagia, unspecified; N40.0 Benign prostatic hyperplasia without lower urinary tract symptoms; R09.02 Hypoxemia; Z20.822 Contact with and (suspected) exposure to COVID-19; Z87.891 Personal history of nicotine dependence; Z91.81 History of falling; Z79.01 Long term (current) use of anticoagulants; Z96.89 Presence of other specified functional implants; Z95.5 Presence of coronary angioplasty implant and graft; Z98.49 Cataract extraction status, unspecified eye
CPT/HCPCS: 36415; 36600; 71045; 80048; 80053; 80076; 82805; 82948; 83036; 83735; 83880; 84443; 85025; 85027; 87070; 87205; 92611; 93005; 94002; 94003; 96374; 96375; 97110; 97161; 97165; 97530; 97535; 99285; A9270; C9803; J0295; J0456; J0696; J1940; J3480; J7040; U0003; U0005

== ENCOUNTER 2022-05-30 11:14 | Inpatient (IN) | payer OTHER, SELFPAY ==
[2022-05-30] VITALS (10 sets, daily range): BP systolic 139–172; BP diastolic 81–95; PULSE 55–70; RESP 14–23; TEMP 35.8–36.6; O2SAT 95–98; BMI 30.2
--- NOTE | ~2022-05-30 | CT_ITS ---
EXAMINATION: CTA brain carotid DATE: 06/03/2022 14:37 INDICATION: Altered mental status. TECHNIQUE: Computed tomographic angiography (CTA) of the head was performed with 100 mL Omnipaque-350 intravenous contrast. CTA of the neck was performed with intravenous contrast. Automated exposure co ntrol and iterative reconstruction technique were employed. The dose-length product was 1289.96 mGy-c m. Maximum intensity projection and volume rendered 3D-reconstructions were created by the [employer] st on a separate workstation. COMPARISON: Head CT 06/03/2022 FINDINGS: HEAD CTA: There is no intracranial hemorrhage, acute infarction, or abnormal intracranial mass lesion . There are bilateral deep brain stimulators in expected positions. The ventricles are normal in size . There are likely changes of ocular lens replacement surgeries. There is mild mucosal thickening in the paranasal sinuses. There is a left mastoid effusion. The vertebral arteries are codominant. There is no significant stenosis of basilar artery or the posterior cerebral arteries. The posterior commu nicating arteries are normal. There is no significant stenosis of the intracranial internal carotid a rteries or anterior or middle cerebral arteries. Anterior communicating artery is normal. There is no aneurysm. NECK CTA: There is mild emphysema. There are small bilateral pleural effusions, right worse than left . There are no pathologically enlarged lymph nodes. There is a 9 mm nodule in right thyroid lobe, lik vaibhav not clinically significant. There is mild stenosis of proximal left subclavian artery. There is n o significant stenosis of the vertebral arteries. There is plaque in the proximal internal carotid ar teries. There is 7% stenosis of the proximal right internal carotid artery relative to normal distal artery lumen diameter (NASCET criteria). There is 0% stenosis of the proximal left internal carotid a rtery relative to normal distal artery lumen diameter. There is severe cervical spondylosis. IMPRESSION: 1. Deep brain stimulators in expected positions. 2. No aneurysm or significant intracranial internal stenosis. 3. 7% stenosis of the proximal internal carotid artery relative to normal distal artery lumen diamete r (NASCET criteria). 4. 0% stenosis of the proximal left internal carotid artery relative to normal distal artery lumen di ameter. 5. Small pleural effusions. Reviewed, dictated and finalized at location A. IMPRESSION: 1. Deep brain stimulators in expected positions. 2. No aneurysm or significant intracranial internal stenosis. 3. 7% stenosis of the proximal internal carotid artery relative to normal dista l artery lumen diameter (NASCET criteria). 4. 0% stenosis of the proximal left internal carotid artery relative to normal distal artery lumen diameter. 5. Small pleural effusions.
--- NOTE | ~2022-05-30 | XR_ITS ---
XR chest 1V portable 05/30/2022 11:42 Indication: Weakness. History of pneumonia. Procedure: AP portable chest Comparison: 05/21/2022 and 04/19/2022 Findings: There is improving airspace disease of the right mid and lower lung, consistent with pneumo lourdes. Stable cardiomediastinal silhouette. No significant effusion or pneumothorax. Electronic devices overlie the upper chest bilaterally. No acute osseous abnormality. Impression: 1: Persistent airspace disease of the right mid and lower lung, consistent with pneumonia. Reviewed, dictated and finalized at location A. Impression: 1: Persistent airspace disease of the right mid and lower lung, consistent with pneumonia.
--- NOTE | ~2022-05-30 | XR_ITS ---
EXAMINATION: XR chest 1V portable DATE: 06/08/2022 15:27 INDICATION: Altered mental status. Pneumonia. TECHNIQUE: A single frontal view of the chest was obtained on 2 radiographs. COMPARISON: Chest single view 06/03/2022, chest CT 09/14/2021 FINDINGS: There are mild airspace opacities in right lower lung zone. No pleural effusion or pneumoth orax. Cardiomegaly is noted. Electronic devices overlie the chest with wires extending into the neck. IMPRESSION: 1. Mild airspace opacities in right lower lung zone with interval improvement, consistent with atelec tasis versus pneumonia. 2. Cardiomegaly. Reviewed, dictated and finalized at location A. IMPRESSION: 1. Mild airspace opacities in right lower lung zone with interval improvement, consistent with atelectasis versus pneumonia. 2. Cardiomegaly.
--- NOTE | ~2022-05-30 | XR_ITS ---
EXAMINATION: XR barium swallow modified DATE: 05/31/2022 11:04 INDICATION: Aspiration pneumonia. TECHNIQUE: The patient was given barium-containing material of multiple consistencies to swallow by t roma speech pathologist while I performed fluoroscopy. Fluoroscopy exposure time was 1.5 minutes. The n umber of fluoroscopy images saved to the PACS was 1. Dose-area product was 10.07 Gy-cm^2. FINDINGS: There is reduced labial seal/lip tension and reduced lingual movement. There is reduced laryngeal ellie vation, reduced pharyngeal squeeze, vallecular residue, piriform sinus residue, and pharyngeal wall r esidue. There is trace laryngeal penetration with thin liquids. IMPRESSION: 1. Trace laryngeal penetration with thin liquids. 2. Please refer to the speech therapy report for recommendations. Reviewed, dictated and finalized at location A.
--- NOTE | ~2022-05-30 | XR_ITS ---
EXAMINATION: XR chest 1V portable DATE: 06/09/2022 08:52 INDICATION: Shortness of breath. TECHNIQUE: A single frontal view of the chest was obtained on 2 radiographs. COMPARISON: Chest single view 06/08/2022, chest CT 09/14/2021 FINDINGS: There are airspace opacities in right lower lung zone and left mid and lower lung zones. No pleural effusion or pneumothorax. The heart size is normal. There are electronic devices overlying t he chest bilaterally with wires extending into the right. IMPRESSION: 1. Worsened airspace opacities in right lower lung zone and left mid and lower lung zones, consistent with pneumonia. Reviewed, dictated and finalized at location A.
--- NOTE | ~2022-05-30 | CT_ITS ---
EXAMINATION: CT BRAIN W/O DATE: 06/08/2022 11:18 INDICATION: Altered mental status. Hallucinations. TECHNIQUE: Computed tomography (CT) of the head was performed without intravenous contrast. The dose- length product was 681.00 mGy-cm. Automated exposure control and iterative reconstruction technique w ere employed. COMPARISON: No prior studies for comparison. FINDINGS: There is mild generalized atrophy. There are scattered mild periventricular and subcortical white matter changes, most likely related to small vessel ischemic disease (microangiopathy). There are bilateral deep brain stimulator leads in expected position. No ventriculomegaly or midline shift. Midline sagittal images demonstrate a normal corpus callosum, c raniovertebral junction and sella turcica. Basilar cisterns are patent. Paranasal sinuses and mastoids are pneumatized. No depressed skull fractures. IMPRESSION: 1. No acute intracranial abnormality. Reviewed, dictated and finalized at location B.
--- NOTE | ~2022-05-30 | XR_ITS ---
EXAMINATION: XR barium swallow modified DATE: 06/13/2022 11:22 INDICATION: Aspiration. TECHNIQUE: The patient was given barium-containing material of multiple consistencies to swallow by t roma speech pathologist while I performed fluoroscopy. Fluoroscopy exposure time was 4.1 minutes. The n umber of fluoroscopy images saved to the PACS was 1. Dose-area product was 3.085 Gy-cm^2. FINDINGS: There was reduced lingual movement. There was increased oral transit time. There was reduced tongue b ase retraction, vallecular residue, and piriform sinus residue. IMPRESSION: 1. No laryngeal penetration or aspiration. 2. Please refer to the speech therapy report for recommendations. Reviewed, dictated and finalized at location A.
--- NOTE | ~2022-05-30 | CT_ITS ---
EXAMINATION: CT brain wo con DATE: 06/03/2022 08:56 INDICATION: Mental status change TECHNIQUE: Computed tomography (CT) of the head was performed without intravenous contrast. The dose- length product was 681.00 mGy-cm. Automated exposure control and iterative reconstruction technique w ere employed. COMPARISON: None FINDINGS: There are bilateral neural stimulator leads extending into the thalami. Generalized atrophy . There are scattered mild periventricular and subcortical white matter changes, most likely related to small vessel ischemic disease (microangiopathy). 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 No ventriculomegaly or midline shift. Basilar cisterns are patent. There is a smal l mucous retention cyst left maxillary sinus. There is a small left mastoid effusion. IMPRESSION: 1. No acute intracranial abnormality. Reviewed, dictated and finalized at location A.
--- NOTE | ~2022-05-30 | XR_ITS ---
XR chest 1V portable 06/03/2022 06:15 Indication: Reevaluate pneumonia Procedure: AP portable chest Comparison: Comparison to multiple prior studies sequentially, with oldest reviewed study dated 06/03. Findings: Right basilar airspace disease, compatible with pneumonia. Small right pleural effusion. He art size upper normal. Battery packs overlie the upper chest bilaterally. Impression: 1: Right basilar airspace disease, consistent with pneumonia. 2: Small right pleural effusion. Reviewed, dictated and finalized at location A. Impression: 1: Right basilar airspace disease, consistent with pneumonia. 2: Small right pleural effusion.
--- NOTE | ~2022-05-30 | XR_ITS ---
EXAMINATION: XR chest 1V portable DATE: 06/10/2022 23:50 INDICATION: Respiratory distress TECHNIQUE: frontal view of the chest was obtained. COMPARISON: Chest radiograph dated 06/09/2022 FINDINGS: Slight improvement in interstitial and airspace opacities in the left mid to lower lung zone and to l enid degree and without change in the right lower lung zone. No pleural effusion or pneumothorax. Th e cardiomediastinal silhouette is normal. Power supply is likely for deep brain stimulation project o daniel the bilateral pectoral regions with leads projecting cephalad to the left and right neck and beyo nd the cephalad margin of the [id number]. IMPRESSION: 1. Opacities in the right lower and left mid to lower lung zones with some interval decrease on the l eft which could represent improving pulmonary edema or pneumonia. Reviewed, dictated and finalized at location A. IMPRESSION: 1. Opacities in the right lower and left mid to lower lung zones with some inte rval decrease on the left which could represent improving pulmonary edema or pn eumonia.
--- NOTE | 2022-05-30 11:18 | ECG_ITS ---
Measurements Intervals [place] Rate: 57 P: 61 WI: 136 QRS: 33 QRSD: 108 T: 34 QT: 451 QTc: 442 Interpretive Statements SINUS BRADYCARDIA ATRIAL PREMATURE COMPLEX POSSIBLE LEFT ATRIAL ENLARGEMENT DELAYED PRECORDIAL R/S TRANSITION T WAVE ABNORMALITY IN ANTERIOR LEADS- CONSIDER ISCHEMIA BASELINE ARTIFACT- I, II, III, AVR, AVL, AVF, V1-V7 ABNORMAL ECG COMPARED TO ECG 05/21/2022 12:47:22 SINUS BRADYCARDIA NOW PRESENT T WAVE ABNORMALITY IN ANTERIOR LEADS- CONSIDER ISCHEMIA NOW PRESENT Electronically Signed On 05-30-2022 12:05:54 CDT by Dc Rivera D.O.
--- NOTE | 2022-05-30 11:30 | ED.GENADULT ---
HPI - General Adult General Chief complaint: Weakness Stated complaint: weakness Source: RN notes reviewed History of Present Illness HPI narrative: Patient presents emergency room from home via EMS for weakness. Patient states has been feeling generally weak worse over the past 2 days associate with shortness of breath shortness of breath is worse anytime he tries to get up and ambulate per the 's presentation is on home O2 reading that will drop down into the 60s when he attempts to ambulate patient has a history of CHF and aspiration pneumonia was just discharged from the hospital last week for both he denies any fevers or chills chest pain abdominal pain nausea vomiting does report increased swelling in the legs Related Data Home Medications Medication Instructions Recorded Confirmed amantadine HCl 100 mg capsule 200 mg PO DAILY 09/29/21 05/21/22 atorvastatin 40 mg tablet (Lipitor) 40 mg PO HS 09/29/21 05/21/22 lisinopril 20 mg tablet 20 mg PO DAILY 09/29/21 05/21/22 tamsulosin 0.4 mg capsule 0.4 mg PO USEASDIRECTD 09/29/21 05/21/22 Adults Multivitamin 1 tablet PO DAILY 04/19/22 05/21/22 folic acid 800 mcg tablet 400 mg PO DAILY 04/19/22 05/21/22 omega-3 fatty acids 1,000 mg PO BID 04/19/22 05/21/22 Calcium 500 1,200 mg PO DAILY 04/20/22 05/21/22 cholecalciferol (vitamin D3) 50 5,000 unit PO DAILY 04/20/22 05/21/22 mcg (2,000 unit) tablet (Vitamin D3) ascorbic acid (vitamin C) 500 mg 1,000 mg PO DAILY 05/21/22 05/21/22 chewable tablet carbidopa 25 mg-levodopa 100 mg 1 tablet PO QID 05/21/22 05/22/22 tablet furosemide 20 mg tablet (Lasix) 40 mg PO DAILY 05/21/22 05/21/22 glycopyrrolate 1 mg tablet 1 mg PO TID 05/21/22 05/21/22 Allergies Allergy/AdvReac Type Severity Reaction Status Date / Time No Known Allergies Allergy Verified 04/19/22 16:19 Review of Systems Review of Systems: Gen.: Denies fevers or chills ENT: Denies congestion Respiratory: Reports shortness of breath CV: Denies chest pain or palpitations GI: Denies abdominal pain nausea, emesis or diarrhea denies burning, urgency, frequency or hematuria Musculoskeletal: Denies back pain or muscle pain Neuro: Reports weakness Skin: Denies rash Except as documented, all other systems reviewed and negative [facility] Past Medical History Medical History Benign prostatic hyperplasia Coronary artery disease Dyslipidemia Essential hypertension Parkinson disease Paroxysmal atrial fibrillation Recurrent falls Surgical History Surgical History History of arthroplasty of left knee (2019) History of cardiac catheterization History of cataract extraction History of coronary artery stent placement History of spinal surgery (~2004) For disc herniation. Status post deep brain stimulator placement (2017) Family History Family History Other Family history of Parkinson's disease Family history of coronary artery disease Hypertension Social History Social History Social History: Surrogate medical decision maker: Lauren Dash, spouse. Code status: Full code. Smoking packs per day: 2 Smoking cigarettes per day: 40.0 Years smoked: 58 Smoking pack-years: 116.00 Smoking status: Former smoker Tobacco type: cigarettes Second hand tobacco smoke exposure: No Smoking end date: 09/09/16 Alcohol intake: current Drinks per week: 7 Substance use: never Substance use type: does not use Additional living arrangements comments: The patient lives with his spouse in [place]. 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 Spiritual care concerns: No Exam Narrative: APPEARANCE: No acute distress, nontoxic, resting in bed EYES: EOMI HEENT: Normocephalic, atraumatic, OMM RESPIRATORY
[2022-05-30 11:42] LABS: Basophils Percent Auto 0.6 % (0.2-1.2); Eosinophils Absolute Auto 0.1 K/mm3 (0-0.3); Eosinophils Percent Auto 1.2 % (0-4.4); Hematocrit 39.2 % (42.0-52.0); Hemoglobin 12.1 g/dL (14.0-18.0); Immature Granulocyte Absolute 0.07 K/mm3 (0.00-0.031); Lymphocytes Absolute Auto 0.99 K/mm3 (0.9-3.2); Lymphocytes Percent Auto 14.5 % (18.3-44.2); Mean Corpuscular HGB Conc 30.9 g/dl (32-36); Mean Corpuscular Hemoglobin 30.9 pg (26-34); Mean Corpuscular Volume 100.3 fl (80-100); Mean Platelet Volume 9.6 fl (7.4-10.4); Monocytes Absolute Auto 0.4 K/mm3 (0.1-0.6); Monocytes Percent Auto 6.3 % (2.6-8.5); Neutrophils Absolute Auto 5.2 K/mm3 (1.3-6.7); Neutrophils Percent Auto 76.4 % (45.5-73.1); Platelet Count Result 192 k/mm3 (150-375); Red Blood Count 3.91 M/mm3 (4.6-6.20); Red Cell Distribution Width 13.7 % (11.5-14.5); White Blood Count 6.8 K/mm3 (4.5-10.0)
[2022-05-30 11:54] LABS: INR 3.2; Partial Thromboplastin Time 34.8 SECONDS (22.3-36.8); Prothrombin Time 31.4 Seconds (11.1-14.7)
[2022-05-30 11:56] LABS: Lactic Acid Reflex 1.2 mmol/L (0.7-2.0)
[2022-05-30 11:58] LABS: Alanine Aminotransferase 15 U/L (6-50); Alkaline Phosphatase 70 U/L (38-126); Anion Gap 16 mmol/L (8-16); Aspartate Amino Transferase 35 U/L (17-59); Bilirubin,Total 0.9 mg/dL (0.2-1.3); Blood Urea Nitrogen 23 mg/dL (9-20); Carbon Dioxide 33 mmol/L (22-30); Chloride 94 mmol/L (98-107); Estimated CRCL calculation 56 ml/min; Estimated Glomerular Filt Rate 49; Glucose 108 mg/dL (65-110); Potassium 3.5 mmol/L (3.4-5.0); Sodium 143 mmol/L (137-145)
[2022-05-30 12:10] LABS: NT Pro B Type Natriuretic Pept 8550 pg/mL (5-100); Troponin I 0.014 ng/mL (0.000-0.034)
[2022-05-30 12:15] LABS: Appearance Urine Slightly Cloudy (Clear); Bilirubin Urine Negative (Negative); Blood Urine Negative (Negative); Color Urine Yellow (Yellow); Glucose Urine UA Negative (Negative); Ketones Urine Trace mg/dL (Negative); Leukocyte Esterase Ur Negative LEU/UL (Negative); Nitrate Urine Negative (Negative); Protein Urine 1+ mg/dL (Negative); Specific Grav Ur >= 1.030 (1.001-1.035); Urobilinogen Urine 0.2 mg/dL (<2.0); pH Urine 5.5 (5.0-9.0)
[2022-05-30] MEDS: FUROSEMIDE INJ 40 MG/4 ML VIAL IV PUSH (12:23)
[2022-05-30 12:24] LABS: Hyaline Casts Urine 15-19 /lpf; Mucus Urine Rare /lpf; Squamous Epithelial Cell Urine Few /hpf (Few)
[2022-05-30 12:34] LABS: Add Urine Microscopic? YES
[2022-05-30 12:49] LABS: SARS-CoV-2 RNA PCR Negative
--- NOTE | 2022-05-30 13:15 | ADMGEN ---
This patient, Dara Dash, was admitted to [facility] Surg Room 315-01. Patient/family oriented to hospital policies and general routines including ID bracelet, bed and alarms, visiting hours, pain management, procedures, bathroom and other care routines, personal items, smoking policy, room service/diet, and visiting hours. Information on how to activate the Rapid Response Team has been discussed. Patient/Family are encouraged to report perceived risks to care and to ask questions if they do not understand what they are told or what they should do.
[2022-05-30 16:15] LABS: Troponin I 0.013 ng/mL (0.000-0.034)
--- NOTE | 2022-05-30 17:13 | PM.IMHP ---
H&P: HPI History of Present Illness Date/Time: 05/30/22 17:13 Chief Complaint: weakness Narrative: this is a 77-year-old male patient who was recently discharged from this hospital on 05/26/2022. (He was treated for pneumonia at the time. He was also found to be in atrial fibrillation with rapid ventricular response at that time he was seen by Cardiology and his metoprolol was increased to 100 mg every 8 hours( he had been on a diltiazem drip While he was here. he also had a modified barium swallow at that time that showed some aspiration. The patient was placed on soft and bite size diet texture and thickened nectar liquid. The patient had been changed to Unasyn while in the hospital due to concerns for aspiration pneumonia. The patient completed a 5 day course of azithromycin as well. He was also given IV diuretics at the time for an EF of 35-40%.) According to the the patient started to complain of shortness of breath last night. The patient refused to go back to the hospital and at midnight the finally called EMS. According to EMS the patient's O2 saturations dropped down to the 60s. Chest x-ray today was read by radiology as persistent airspace disease of the right mid and lower lung consistent with pneumonia. The patient is currently on room air. Patient's H&H is 12.1 and 39.2 which appears to be his baseline. Creatinine is 1.4 which is normal baseline is typically around 1.0 And 1.1. BNP is 8550. He was negative for COVID. He was started on IV Lasix. the patient is being admitted to observation status on 05/30/2022. Review of Systems Review of Systems: See HPI All systems reviewed & are unremarkable except as noted in HPI and below Constitutional: Constitutional: Reports as per HPI and Reports no additional constitutional complaints Eyes: Eyes: Reports as per HPI and Reports no additional eye complaints ENT: Reports system reviewed and no additional complaints, except as documented and Reports Normal hearing present Cardiovascular: Cardiovascular: Reports no additional cardiovascular complaints Respiratory: Respiratory: Reports no additional respiratory complaints and Reports no additional respiratory complaints Gastrointestinal: Gastrointestinal: Reports as per HPI and Reports no additional gastrointestinal complaints Musculoskeletal: Musculoskeletal: Reports no additional musculoskeletal complaints Integumentary/Breasts: Skin/Breast: Reports system reviewed and no additional complaints, except as docu and Reports as per HPI Neurologic: Reports system reviewed and no additional complaints, except as documented, Reports as per HPI and Reports Normal hearing present Psychiatric: Psychiatric: Reports no additional psychiatric complaints and Reports as per HPI Endocrine: Endocrine: Reports no additional endocrine complaints Hematologic/Lymphatic: Hematologic/Lymphatic: Reports no additional hematologic/lymphatic complaints Allergic/Immunologic: Allergic/Immunologic: Reports no additional allergic/immunologic complaints [facility] Past Medical History Medical History (Updated 05/30/22 @ 17:47 by Mandy Florian NP) Atrial fibrillation with rapid ventricular response Benign prostatic hyperplasia BPH (benign prostatic hyperplasia) BPH w/o urinary obs/LUTS CHF (congestive heart failure) echo on 04/20/2022 was read as the following 1. Left ventricular chamber dimension is mildly enlarged. 2. Left ventricular systolic function is moderately reduced, estimated at 35-40%. 3. Left atrial chamber dimension is moderately enlarged. 4. Atrial fibrillation. 5. Compared to examination from June of 2018, LV function has declined. Left atrium is dilated atrial fib is seen. Coronary artery disease Dyslipidemia Essential hypertension Parkinson disease Paroxysmal atrial fibrillation Recurrent falls Surgical History Surgical History (Updated 05/30/22 @ 17:26 by Mandy Florian NP) History of
--- NOTE | 2022-05-30 17:36 | PM.CNCAR ---
Assessment and Plan Assessment and plan (1) Paroxysmal atrial fibrillation: Code(s): I48.0 - Paroxysmal atrial fibrillation Status: Acute (2) CHF (congestive heart failure): Code(s): I50.9 - Heart failure, unspecified Status: Acute (3) Acute on chronic systolic (congestive) heart failure: Code(s): I50.23 - Acute on chronic systolic (congestive) heart failure Status: Acute (4) Essential hypertension: Code(s): I10 - Essential (primary) hypertension Status: Acute (5) Coronary artery disease: Code(s): I25.10 - Atherosclerotic heart disease of coquille coronary artery without angina pectoris Status: Acute (6) Parkinson disease: Code(s): G20 - Parkinson's disease Status: Acute (7) Dyslipidemia: Code(s): E78.5 - Hyperlipidemia, unspecified Status: Acute (8) S/P deep brain stimulator placement: Code(s): Z96.89 - Presence of other specified functional implants Status: Acute Plan Patient is in acute on chronic decompensated systolic heart failure. Recommend intermittent IV diuresis. Continue with beta-yudith and FABI-inhibitor. For his atrial fibrillation, continue amiodarone 400 mg twice daily. Patient was discharged on metoprolol tartrate 100 mg Q8H, however, tartrate is not indicated in patients with reduced ejection fraction. Recommend to switch tartrate to succinate 200mg daily. Continue Xarelto for anticoagulation. History of Present Illness History of Present Illness Consult date/time: 05/30/22 17:36 Requesting physician: Kevin Glasgow DO Consult reason: congestive heart failure Reason For Visit: chf,acute renal insufficiency Narrative: Patient is a 77-year-old male with a past medical history significant for coronary disease, heart failure with reduced ejection fraction, Parkinson's disease, atrial fibrillation who was recently just discharged from our hospital on May 26. Patient was admitted with atrial fibrillation with RVR. Patient also noted to have heart failure symptoms as well, and improved with diuresis. Patient was started on amiodarone and metoprolol. Patient was scheduled for cardioversion this upcoming Saturday with Dr. Sanabria. Since discharge, patient has had progressive lower extremity edema with decreased urine output. Per patient's family he has been making less than 400 cc of urine per day. Has had also overall weakness. Family also reports that when patient would stand up, he became more weak and looks like he might pass out. Patient never lost consciousness or passed out. EKG today shows sinus bradycardia Echocardiogram in April of 2022 showed LVEF of 35-40%. Review of Systems Review of Systems: All systems reviewed & are unremarkable except as noted in HPI and below ( HPI) [facility] Past Medical History Medical History Atrial fibrillation with rapid ventricular response Benign prostatic hyperplasia BPH w/o urinary obs/LUTS CHF (congestive heart failure) echo on 04/20/2022 was read as the following 1. Left ventricular chamber dimension is mildly enlarged. 2. Left ventricular systolic function is moderately reduced, estimated at 35-40%. 3. Left atrial chamber dimension is moderately enlarged. 4. Atrial fibrillation. 5. Compared to examination from June of 2018, LV function has declined. Left atrium is dilated atrial fib is seen. Coronary artery disease Dyslipidemia Essential hypertension Parkinson disease Paroxysmal atrial fibrillation Recurrent falls Surgical History Surgical History (Updated 05/30/22 @ 17:26 by Mandy Florian NP) History of arthroplasty of left knee (2019) History of cardiac catheterization History of cataract extraction History of coronary artery stent placement x2 History of spinal surgery (~2004) For disc herniation. Status post deep brain stimulator placement (2016)
[2022-05-30 18:54] LABS: Troponin I 0.013 ng/mL (0.000-0.034)
[2022-05-30] MEDS: ATORVASTATIN 40 MG TABLET PO (20:18)
[2022-05-30] MEDS: CARBIDOPA/LEVODOPA 25/100 MG TABLET 1 TABLET PO (20:18)
[2022-05-30] MEDS: METOPROLOL TARTRATE 50 MG TAB 100 MG PO (21:53)
[2022-05-31] VITALS (11 sets, daily range): BP systolic 123–168; BP diastolic 87–101; PULSE 56–115; RESP 18–20; TEMP 35.8–36.5; O2SAT 95–97
[2022-05-31] MEDS: METOPROLOL TARTRATE 50 MG TAB 100 MG PO (06:09)
[2022-05-31 06:25] LABS: Basophils Percent Auto 0.4 % (0.2-1.2); Eosinophils Absolute Auto 0.2 K/mm3 (0-0.3); Hematocrit 38.7 % (42.0-52.0); Hemoglobin 11.8 g/dL (14.0-18.0); Immature Granulocyte Percent A 1.3 % (0-0.5); Lymphocytes Absolute Auto 1.55 K/mm3 (0.9-3.2); Lymphocytes Percent Auto 19.5 % (18.3-44.2); Mean Corpuscular HGB Conc 30.5 g/dl (32-36); Mean Corpuscular Hemoglobin 30.6 pg (26-34); Mean Corpuscular Volume 100.5 fl (80-100); Mean Platelet Volume 9.9 fl (7.4-10.4); Monocytes Absolute Auto 0.5 K/mm3 (0.1-0.6); Monocytes Percent Auto 6.4 % (2.6-8.5); Neutrophils Absolute Auto 5.6 K/mm3 (1.3-6.7); Neutrophils Percent Auto 70.4 % (45.5-73.1); Platelet Count Result 208 k/mm3 (150-375); Red Blood Count 3.85 M/mm3 (4.6-6.20); Red Cell Distribution Width 13.9 % (11.5-14.5); White Blood Count 7.9 K/mm3 (4.5-10.0)
[2022-05-31 06:41] LABS: Alanine Aminotransferase 17 U/L (6-50); Albumin Level 3.6 g/dL (3.5-5.1); Alkaline Phosphatase 73 U/L (38-126); Anion Gap 7 mmol/L (8-16); Aspartate Amino Transferase 36 U/L (17-59); Bilirubin,Total 1.1 mg/dL (0.2-1.3); Blood Urea Nitrogen 24 mg/dL (9-20); Calcium 8.6 mg/dL (8.4-10.2); Carbon Dioxide 36 mmol/L (22-30); Chloride 97 mmol/L (98-107); Estimated CRCL calculation 52 ml/min; Estimated Glomerular Filt Rate 54; Glucose 101 mg/dL (65-110); Magnesium 1.9 mg/dL (1.6-2.3); Potassium 3.3 mmol/L (3.4-5.0); Sodium 140 mmol/L (137-145)
[2022-05-31] MEDS: MULTIVITAMINS THERAPEUTIC TAB (*BKC) 1 TABLET PO (08:56)
[2022-05-31] MEDS: OMEGA 3 POLYUNSAT FATTY ACIDS 1 GM CAP 2 GM PO (08:56)
[2022-05-31] MEDS: CALCIUM CARBONATE (OSCAL) 500 MG TABLET 1000 MG PO (08:56)
[2022-05-31] MEDS: CHOLECALCIFEROL 1,000 UNITS TABLET 5000 UNITS PO (08:57)
[2022-05-31] MEDS: FOLIC ACID 0.4 MG TABLET 0.8 MG PO (08:57)
[2022-05-31] MEDS: GLYCOPYRROLATE 1 MG TABLET PO ×3 (08:57→18:03)
[2022-05-31] MEDS: AMIODARONE HCL 200 MG TABLET 400 MG PO ×2 (08:57→20:24)
[2022-05-31] MEDS: FUROSEMIDE INJ 40 MG/4 ML VIAL IV PUSH ×2 (08:57→18:03)
[2022-05-31] MEDS: CARBIDOPA/LEVODOPA 25/100 MG TABLET 1 TABLET PO ×4 (08:57→20:24)
[2022-05-31] MEDS: AMANTADINE HCL 100 MG CAPSULE 200 MG PO (08:58)
[2022-05-31] MEDS: ASCORBIC ACID 500 MG TABLET 1000 MG PO (08:58)
[2022-05-31] MEDS: lisinopriL 20 MG TABLET PO (08:58)
--- NOTE | 2022-05-31 10:12 | PCPTNOTE ---
Attempted to evaluate patirent but going down to imaging for a CT 1013
--- NOTE | 2022-05-31 10:19 | PCOTNOTE ---
Attempted to evaluate patient for occupational therapy. pt. being taken from room for imagining
--- NOTE | 2022-05-31 10:59 | PM.PNCARD ---
Progress Note: A&P Assessment and Plan (1) Paroxysmal atrial fibrillation: Code(s): I48.0 - Paroxysmal atrial fibrillation Status: Acute (2) Acute on chronic systolic (congestive) heart failure: Code(s): I50.23 - Acute on chronic systolic (congestive) heart failure Status: Acute (3) Essential hypertension: Code(s): I10 - Essential (primary) hypertension Status: Acute (4) Coronary artery disease: Code(s): I25.10 - Atherosclerotic heart disease of [place] coronary artery without angina pectoris Status: Acute (5) Parkinson disease: Code(s): G20 - Parkinson's disease Status: Acute (6) Dyslipidemia: Code(s): E78.5 - Hyperlipidemia, unspecified Status: Acute (7) S/P deep brain stimulator placement: Code(s): Z96.89 - Presence of other specified functional implants Status: Acute Plan Continue with intermittent IV diuresis as patient remains volume overloaded on exam. Would diurese with Lasix 40mg IV BID, with goal net negative of 2L. Given his reduced LVEF, switch Metoprolol tartrate to succinate form. Recommend Metoprolol succinate 200mg once daily. Continue with amiodarone, ACEi, Xarelto, statin. Subjective Date/time seen: 05/31/22 10:59 Interval history: Patient states he is feeling better today. No chest pain. Denies palpitations. Review of Systems Review of Systems: All systems reviewed & are unremarkable except as noted in HPI and below (subjective) Exam Const: General: comfortable and no acute distress Resp: Effort & Inspection: normal respiratory effort Auscultation: crackles Cardio: Rate: regular rate Rhythm: abnormal rhythm irregularly irregular Heart sounds: no murmurs GI: GI Palp: Yes Soft to palpation and No Tenderness to palpation present (GI) Neuro: Speech: normal speech Extrem: General: edema bilateral (3+ pitting) Psych: Mental Status: mental status grossly normal Objective Data Vital Signs Vital Signs: Vital Signs - 24 hr 05/30/22 11:14 05/30/22 11:20 05/30/22 12:03 Temperature 36.3 C L Pulse Rate 57 L 57 L 57 L Respiratory Rate 23 H 14 Blood Pressure 153/89 H 157/94 H Pulse Oximetry 95 95 Oxygen Delivery Room Air 05/30/22 12:56 05/30/22 13:03 05/30/22 13:29 Temperature 35.8 C L Pulse Rate 55 L 57 L 67 Respiratory Rate 19 17 16 Blood Pressure 139/81 153/83 H 171/95 H Pulse Oximetry 95 98 95 Oxygen Delivery 05/30/22 16:00 05/30/22 21:53 05/30/22 22:00 Temperature 36.6 C Pulse Rate 68 70 70 Respiratory Rate 16 Blood Pressure 172/88 H Pulse Oximetry 98 Oxygen Delivery 05/30/22 20:00 05/30/22 20:00 05/31/22 00:00 Temperature Pulse Rate 70 56 L Respiratory Rate Blood Pressure Pulse Oximetry Oxygen Delivery Room Air 05/31/22 05:14 05/31/22 06:09 05/31/22 04:00 Temperature 36.5 C Pulse Rate 102 H 108 H 63 Respiratory Rate 20 Blood Pressure 168/88 H Pulse Oximetry 96 Oxygen Delivery 05/31/22 08:00 05/31/22 08:00 Temperature Pulse Rate 108 H 108 H Respiratory Rate 20 Blood Pressure Pulse Oximetry 96 Oxygen Delivery Room Air Intake/Output Intake/Output: Intake & Output 05/28/22 05/29/22 05/30/22 05/31/22 23:59 23:59 23:59 23:59 Intake Total 320 505 Output Total 1085 1075 Balance -766 -591 Meds/Results Medications: Active Medications Generic Name Dose Route Start Last Admin Trade Name Garcíaq PRN Reason Stop Dose Admin Amantadine HCl 200 mg 05/31/22 09:00 05/31/22 08:58 Amantadine Hcl 100 Mg Capsule PO 200 mg DAILY MEGHANA Administration Amiodarone HCl 400 mg 05/31/22 09:00 05/31/22 08:57 Amiodarone Hcl 200 Mg Tablet PO 400 mg Q12HR MEGHANA Administration Ascorbic Acid 1,000 mg 05/31/22 09:00 05/31/22 08:58 Ascorbic Acid 500 Mg Tablet PO 1,000 mg DAILY MEGHANA Administration Atorvastatin Calcium 40 mg 05/30/22 21:00 05/30/22 20:18 Atorvastatin
--- NOTE | 2022-05-31 13:33 | PCSTNOTE ---
Patient seen for modified barium swallow study (MBSS). Results similar to those from MBSS during prior hospitalization discharged home on 05/21/22. Patient exhibited trace laryngeal penetration with thin liquids. Recommend minced and moist diet texture (level 5) and nectar thickened liquids (mildly thick, level 2). By self report patient is drinking thin liquids at home although his prepares thickened for him. Thank you for the referral of this patient.
--- NOTE | 2022-05-31 14:10 | PM.IMPN ---
Progress Note: A&P Assessment and Plan (1) Paroxysmal atrial fibrillation: Code(s): I48.0 - Paroxysmal atrial fibrillation Status: Acute Assessment and Plan: - patient is in ST on the monitor today. - Continue Amiodarone and Change Metoprolol to the extended release and the dose to 200 mg - monitor labs and VS. - continue Xarelto (2) Acute on chronic systolic (congestive) heart failure: Code(s): I50.23 - Acute on chronic systolic (congestive) heart failure Status: Acute Assessment and Plan: - Acute on chronic in the current setting. - Cardiology is managing, Dr. Rodriguez. - recent echo . Left ventricular chamber dimension is mildly enlarged. ? 2. Left ventricular systolic function is moderately reduced, estimated at 35-40%. ? 3. Left atrial chamber dimension is moderately enlarged. ? 4. Atrial fibrillation. ? 5. Compared to examination from June of 2018, LV function has declined. Left atrium is dilated atrial fib is seen. - the patient recently had his metoprolol increased and the patient has been feeling weaker and more tired since it was increased. - Cardiology has been consulted, and the recommendations have been made to increase lasix to BID from daily and the order has been placed. - continue with lisinopril but monitor his renal function as he has acute renal failure now. May consider holding lisinopril if his renal failure gets worse. (3) Pneumonia involving right lung: Code(s): J18.9 - Pneumonia, unspecified organism Status: Acute Assessment and Plan: - Patient was recently treated for aspiration pneumonia and discharged 05/26. - Repeat Barium swallow ordered and pt. requires Minced and moist diet with nectar thickened liquids. - Continue Zosyn - Follow Blood cultures (4) Essential hypertension: Code(s): I10 - Essential (primary) hypertension Status: Chronic Assessment and Plan: - Continue home medications. - Monitor Vital signs. - (5) Coronary artery disease: Code(s): I25.10 - Atherosclerotic heart disease of [place] coronary artery without angina pectoris Status: Chronic Assessment and Plan: - he has a history of having 2 cardiac stents. (6) Parkinson disease: Code(s): G20 - Parkinson's disease Status: Chronic Assessment and Plan: - Pt. has deep brain stimulator. - continue carbidopa levodopa - PT and OT ordered. - The patient has a brain stimulator with the remote on the bedside table (7) S/P deep brain stimulator placement: Code(s): Z96.89 - Presence of other specified functional implants Status: Chronic Assessment and Plan: - The remote is at the bedside in the event that he would have some testing and would need to shut off. (8) Acute renal insufficiency: Code(s): N28.9 - Disorder of kidney and ureter, unspecified Status: Acute Assessment and Plan: - if his renal function becomes worse may consider holding lisinopril. He is also currently on Lasix as well. Time Spent With Patient Time with patient: 15 - 25 minutes Subjective Date/time seen: 05/31/22 1110 This pt. was evaluted today at the bedside. He is very pleasant and currently denies any pain, but endorses feeling short of breath with any activity, and he drops his saturations with activity as noted by PT and by this provider as I noted him doing so when I entered the room. He has no acute CP. He has been evaluated by Cardiology and they have recommended making some changes to his medications of switching his Metoprolol to the extended release dosing as well as making his lasix twice daily. He has no other complaints such as Headache, Dizziness or lightheadedness. Review of Systems Review of Systems: All systems reviewed & are unremarkable except as noted in HPI and below Exam Const: General: comfortable and no acute distress Other: elderly male patient. HENMT: Mayi
[2022-05-31] MEDS: RIVAROXABAN 20 MG TABLET PO (18:03)
[2022-05-31] MEDS: TAMSULOSIN HCL 0.4 MG CAPSULE PO (18:03)
[2022-05-31] MEDS: ATORVASTATIN 40 MG TABLET PO (20:24)
[2022-05-31] MEDS: DOCUSATE SODIUM 100 MG CAPSULE PO (20:24)
[2022-05-31] MEDS: BISACODYL 10 MG SUPPOSITORY RECTAL (20:26)
[2022-06-01] VITALS (11 sets, daily range): BP systolic 128–153; BP diastolic 83–106; PULSE 102–128; RESP 18–20; TEMP 36–36.1; O2SAT 95–98
[2022-06-01 07:04] LABS: Basophils Absolute Auto 0.1 K/mm3 (0.0-0.1); Basophils Percent Auto 0.6 % (0.2-1.2); Eosinophils Absolute Auto 0.1 K/mm3 (0-0.3); Eosinophils Percent Auto 1.8 % (0-4.4); Hematocrit 39.3 % (42.0-52.0); Hemoglobin 12.1 g/dL (14.0-18.0); Immature Granulocyte Absolute 0.08 K/mm3 (0.00-0.031); Lymphocytes Absolute Auto 1.37 K/mm3 (0.9-3.2); Lymphocytes Percent Auto 17.6 % (18.3-44.2); Mean Corpuscular HGB Conc 30.8 g/dl (32-36); Mean Corpuscular Hemoglobin 30.6 pg (26-34); Mean Corpuscular Volume 99.2 fl (80-100); Mean Platelet Volume 9.7 fl (7.4-10.4); Monocytes Absolute Auto 0.5 K/mm3 (0.1-0.6); Monocytes Percent Auto 6.3 % (2.6-8.5); Neutrophils Absolute Auto 5.7 K/mm3 (1.3-6.7); Neutrophils Percent Auto 72.7 % (45.5-73.1); Platelet Count Result 209 k/mm3 (150-375); Red Blood Count 3.96 M/mm3 (4.6-6.20); Red Cell Distribution Width 13.7 % (11.5-14.5); White Blood Count 7.8 K/mm3 (4.5-10.0)
[2022-06-01 07:58] LABS: Alanine Aminotransferase 16 U/L (6-50); Albumin Level 3.3 g/dL (3.5-5.1); Alkaline Phosphatase 62 U/L (38-126); Anion Gap 8 mmol/L (8-16); Aspartate Amino Transferase 27 U/L (17-59); Bilirubin,Total 1.3 mg/dL (0.2-1.3); Blood Urea Nitrogen 21 mg/dL (9-20); Calcium 8.6 mg/dL (8.4-10.2); Carbon Dioxide 38 mmol/L (22-30); Chloride 93 mmol/L (98-107); Estimated CRCL calculation 52 ml/min; Estimated Glomerular Filt Rate 54; Glucose 96 mg/dL (65-110); Magnesium 1.7 mg/dL (1.6-2.3); Potassium 2.8 mmol/L (3.4-5.0); Sodium 139 mmol/L (137-145)
[2022-06-01] MEDS: POTASSIUM CHLORIDE INJ 40 MEQ in SODIUM CHLORIDE 0.9% IV 500 ML 100 MEQ IVPB (09:34)
[2022-06-01] MEDS: POTASSIUM CHLORIDE 20 MEQ PACKET (FOR LIQUID) PO (09:35)
[2022-06-01] MEDS: FUROSEMIDE INJ 40 MG/4 ML VIAL (09:36)
[2022-06-01] MEDS: CHOLECALCIFEROL 1,000 UNITS TABLET 5000 UNITS PO (09:37)
[2022-06-01] MEDS: CARBIDOPA/LEVODOPA 25/100 MG TABLET 1 TABLET PO ×4 (09:38→21:03)
[2022-06-01] MEDS: OMEGA 3 POLYUNSAT FATTY ACIDS 1 GM CAP 2 GM PO (09:38)
[2022-06-01] MEDS: lisinopriL 20 MG TABLET PO (09:38)
[2022-06-01] MEDS: CALCIUM CARBONATE (OSCAL) 500 MG TABLET 1000 MG PO (09:38)
[2022-06-01] MEDS: ASCORBIC ACID 500 MG TABLET 1000 MG PO (09:38)
[2022-06-01] MEDS: FOLIC ACID 0.4 MG TABLET 0.8 MG PO (09:38)
[2022-06-01] MEDS: AMANTADINE HCL 100 MG CAPSULE 200 MG PO (09:38)
[2022-06-01] MEDS: DOCUSATE SODIUM 100 MG CAPSULE PO (09:38)
[2022-06-01] MEDS: GLYCOPYRROLATE 1 MG TABLET PO ×3 (09:39→17:35)
[2022-06-01] MEDS: AMIODARONE HCL 200 MG TABLET 400 MG PO ×2 (09:39→21:02)
[2022-06-01] MEDS: METOPROLOL SUCCINATE EXT REL 100 MG TABCR 200 MG PO (09:39)
[2022-06-01] MEDS: MULTIVITAMINS THERAPEUTIC TAB (*BKC) 1 TABLET PO (09:39)
[2022-06-01] MEDS: FUROSEMIDE INJ 40 MG/4 ML VIAL IV PUSH ×2 (09:40→17:35)
--- NOTE | 2022-06-01 10:50 | PM.PNCARD ---
Progress Note: A&P Assessment and Plan (1) Paroxysmal atrial fibrillation: Code(s): I48.0 - Paroxysmal atrial fibrillation Status: Acute (2) CHF (congestive heart failure): Code(s): I50.9 - Heart failure, unspecified Status: Acute Plan 77-year-old man with chronic ischemic heart disease LV systolic function and problematic AF with CHF decompensation. He was scheduled an outpatient today for a DC cardioversion. Obviously there is no purpose of cardioverting him if he is spontaneously alternating between sinus rhythm and atrial fib. Hopefully the longer he takes amiodarone the propensity will be to spend more time in sinus rhythm. He is still volume overloaded and his still needs diuresis with furosemide. Hypokalemic this morning that is being supplemented already. Systemic anticoagulation with Xarelto is in place. Lucas Sanabria MD [facility] Subjective Date/time seen: date of service:06/01/22 10:50 Interval history: Follow-up visit in this 77-year-old man with: Chronic ischemic heart disease with left ventricular systolic dysfunction now with problematic atrial fibrillation resulting in CHF decompensation. Patient recently during hospitalization was started on amiodarone which he still is taking 800 mg daily. He was rehospitalized with shortness of breath some volume overload but interestingly was in sinus rhythm at the time of presentation. Yesterday mid day went back into atrial fib. Heart rate between 100adnd 125. Exam Const: General: comfortable and no acute distress Other: pleasant elderly man offers no new complaints. HENMT: Mouth: Yes moist mucous membranes Eyes: Sclera: sclerae normal Neck: Neck: supple Resp: Auscultation: diminished lung sounds Other: Dull at the bases Cardio: Rhythm: abnormal rhythm irregularly irregular GI: GI Palp: Yes Soft to palpation Auscultation: normal bowel sounds Extrem: Other: patient has moderate pitting edema symmetrically and bilaterally Objective Data Vital Signs Vital Signs: Vital Signs - 24 hr 05/31/22 11:06 05/31/22 12:00 05/31/22 14:00 Temperature 36.2 C L Pulse Rate 115 H 110 H Respiratory Rate 18 Blood Pressure 123/87 Pulse Oximetry 95 Oxygen Delivery Room Air 05/31/22 16:00 05/31/22 20:24 05/31/22 20:00 Temperature Pulse Rate 114 H 93 Respiratory Rate Blood Pressure Pulse Oximetry Oxygen Delivery Room Air 05/31/22 21:49 05/31/22 20:00 06/01/22 00:00 Temperature 35.8 C L Pulse Rate 115 H 113 H 106 H Respiratory Rate 20 Blood Pressure 134/101 H Pulse Oximetry 97 Oxygen Delivery 06/01/22 04:00 06/01/22 05:40 06/01/22 09:39 Temperature 36.0 C L Pulse Rate 125 H 102 H 125 H Respiratory Rate 18 Blood Pressure 144/106 H Pulse Oximetry 98 Oxygen Delivery Intake/Output Intake/Output: Intake & Output 05/29/22 05/30/22 05/31/22 06/01/22 23:59 23:59 23:59 23:59 Intake Total 320 1415 310 Output Total 1085 9189 750 [facility] -853 -260 -440 Meds/Results Medications: Active Medications Generic Name Dose Route Start Last Admin Trade Name Freq PRN Reason Stop Dose Admin Amantadine HCl 200 mg 05/31/22 09:00 06/01/22 09:38 Amantadine Hcl 100 Mg Capsule PO 200 mg DAILY MEGHANA Administration Amiodarone HCl 400 mg 05/31/22 09:00 06/01/22 09:39 Amiodarone Hcl 200 Mg Tablet PO 400 mg Q12HR MEGHANA Administration Ascorbic Acid 1,000 mg 05/31/22 09:00 06/01/22 09:38 Ascorbic Acid 500 Mg Tablet PO 1,000 mg DAILY MEGHANA Administration Atorvastatin Calcium 40 mg 05/30/22 21:00 05/31/22 20:24 Atorvastatin 40 Mg Tablet PO 40 mg HS MEGHANA Administration Bisacodyl 10 mg 05/30/22 17:25 05/31/22 20:26 Bisacodyl 10 Mg Suppository RECTAL 10 mg QAM PRN Administration Constipation Calcium Carbonate 1,000 mg 05/31/22 09:00 06/01/22 09:38 Calcium Carbonate (Oscal) 500 Mg Tablet PO 06/30
--- NOTE | 2022-06-01 10:52 | PCPTNOTE ---
The patient treatment was not able to be completed on 06/01 due to having increased heart rate. Will continue per PT plan of care.
--- NOTE | 2022-06-01 11:47 | PM.IMPN ---
Progress Note: A&P Assessment and Plan (1) Paroxysmal atrial fibrillation: Code(s): I48.0 - Paroxysmal atrial fibrillation Status: Acute Assessment and Plan: - patient is in ST on the monitor today. - Continue Amiodarone and Change Metoprolol to the extended release and the dose to 200 mg - monitor labs and VS. - continue Xarelto 06/01: Pt. tachy, increasing with activity. Continue treatment today. Continue tele. (2) Acute on chronic systolic (congestive) heart failure: Code(s): I50.23 - Acute on chronic systolic (congestive) heart failure Status: Acute Assessment and Plan: - Acute on chronic in the current setting. - Cardiology is managing, Dr. Rodriguez. - recent echo . Left ventricular chamber dimension is mildly enlarged. ? 2. Left ventricular systolic function is moderately reduced, estimated at 35-40%. ? 3. Left atrial chamber dimension is moderately enlarged. ? 4. Atrial fibrillation. ? 5. Compared to examination from June of 2018, LV function has declined. Left atrium is dilated atrial fib is seen. - the patient recently had his metoprolol increased and the patient has been feeling weaker and more tired since it was increased. - Cardiology has been consulted, and the recommendations have been made to increase lasix to BID from daily and the order has been placed. - continue with lisinopril but monitor his renal function as he has acute renal failure now. May consider holding lisinopril if his renal failure gets worse. 06/01: Continue diuresis with Lasix BID. Daily weight Accurate I&O (3) Pneumonia involving right lung: Code(s): J18.9 - Pneumonia, unspecified organism Status: Acute Assessment and Plan: - Patient was recently treated for aspiration pneumonia and discharged 05/26. - Repeat Barium swallow ordered and pt. requires Minced and moist diet with nectar thickened liquids. - Continue Zosyn - Follow Blood cultures - 06/01: Preliminary BC's are normal. (4) Essential hypertension: Code(s): I10 - Essential (primary) hypertension Status: Chronic Assessment and Plan: - Continue home medications. - Monitor Vital signs. - (5) Coronary artery disease: Code(s): I25.10 - Atherosclerotic heart disease of [place] coronary artery without angina pectoris Status: Chronic Assessment and Plan: - he has a history of having 2 cardiac stents. (6) Parkinson disease: Code(s): G20 - Parkinson's disease Status: Chronic Assessment and Plan: - Pt. has deep brain stimulator. - continue carbidopa levodopa - PT and OT ordered. - The patient has a brain stimulator with the remote on the bedside table (7) S/P deep brain stimulator placement: Code(s): Z96.89 - Presence of other specified functional implants Status: Chronic Assessment and Plan: - The remote is at the bedside in the event that he would have some testing and would need to shut off. (8) Acute renal insufficiency: Code(s): N28.9 - Disorder of kidney and ureter, unspecified Status: Acute Assessment and Plan: - if his renal function becomes worse may consider holding lisinopril. He is also currently on Lasix as well. Time Spent With Patient Time with patient: 15 - 25 minutes Subjective Date/time seen: 06/01/22 1015 This pt. was examined at the bedside today in interval assessment. He states he feels that his breathing is better. His Lasix was made BID from daily yesterday. In addition his Metoprolol for his rate control was changed to Succinate 200 mg daily and he received his first dose today, and still remains tachycardic. He has some improvement today in his peripheral edema, but there is still a lot that remains. He continues to receive Zosyn for his PNA. He denies any CP, dyspnea, N/V, headache, dizziness, lightheadedness, urinary complaints. Review of Systems Review of Systems: All systems rev
[2022-06-01 15:30] LABS: Anion Gap 9 mmol/L (8-16); Blood Urea Nitrogen 21 mg/dL (9-20); Calcium 8.7 mg/dL (8.4-10.2); Carbon Dioxide 38 mmol/L (22-30); Chloride 93 mmol/L (98-107); Estimated CRCL calculation 56 ml/min; Estimated Glomerular Filt Rate 59; Glucose 112 mg/dL (65-110); Potassium 4.3 mmol/L (3.4-5.0); Sodium 140 mmol/L (137-145)
[2022-06-01] MEDS: BUMETANIDE INJ 1 MG/4 ML VIAL IV PUSH (15:55)
[2022-06-01] MEDS: TAMSULOSIN HCL 0.4 MG CAPSULE PO (17:35)
[2022-06-01] MEDS: RIVAROXABAN 20 MG TABLET PO (17:35)
[2022-06-01] MEDS: ATORVASTATIN 40 MG TABLET PO (21:03)
[2022-06-02] VITALS (12 sets, daily range): BP systolic 136–144; BP diastolic 66–99; PULSE 98–120; RESP 16–20; TEMP 36–36.7; O2SAT 92–97
[2022-06-02 06:53] LABS: Basophils Absolute Auto 0.1 K/mm3 (0.0-0.1); Basophils Percent Auto 0.7 % (0.2-1.2); Eosinophils Absolute Auto 0.2 K/mm3 (0-0.3); Eosinophils Percent Auto 2.6 % (0-4.4); Hematocrit 40.7 % (42.0-52.0); Hemoglobin 12.7 g/dL (14.0-18.0); Immature Granulocyte Absolute 0.07 K/mm3 (0.00-0.031); Immature Granulocyte Percent A 0.8 % (0-0.5); Lymphocytes Absolute Auto 1.83 K/mm3 (0.9-3.2); Lymphocytes Percent Auto 21.8 % (18.3-44.2); Mean Corpuscular HGB Conc 31.2 g/dl (32-36); Mean Corpuscular Hemoglobin 30.8 pg (26-34); Mean Corpuscular Volume 98.5 fl (80-100); Mean Platelet Volume 9.4 fl (7.4-10.4); Monocytes Absolute Auto 0.5 K/mm3 (0.1-0.6); Monocytes Percent Auto 5.8 % (2.6-8.5); Neutrophils Absolute Auto 5.7 K/mm3 (1.3-6.7); Neutrophils Percent Auto 68.3 % (45.5-73.1); Platelet Count Result 211 k/mm3 (150-375); Red Blood Count 4.13 M/mm3 (4.6-6.20); Red Cell Distribution Width 13.9 % (11.5-14.5); White Blood Count 8.4 K/mm3 (4.5-10.0)
[2022-06-02 07:17] LABS: Alanine Aminotransferase 16 U/L (6-50); Albumin Level 3.5 g/dL (3.5-5.1); Alkaline Phosphatase 62 U/L (38-126); Anion Gap 11 mmol/L (8-16); Aspartate Amino Transferase 25 U/L (17-59); Bilirubin,Total 1.5 mg/dL (0.2-1.3); Blood Urea Nitrogen 15 mg/dL (9-20); Calcium 8.8 mg/dL (8.4-10.2); Carbon Dioxide 38 mmol/L (22-30); Chloride 92 mmol/L (98-107); Estimated CRCL calculation 52 ml/min; Estimated Glomerular Filt Rate 54; Glucose 96 mg/dL (65-110); Magnesium 1.5 mg/dL (1.6-2.3); Sodium 141 mmol/L (137-145)
[2022-06-02] MEDS: CHOLECALCIFEROL 1,000 UNITS TABLET 5000 UNITS PO (08:14)
[2022-06-02] MEDS: AMIODARONE HCL 200 MG TABLET 400 MG PO ×2 (08:15→20:55)
[2022-06-02] MEDS: ASCORBIC ACID 500 MG TABLET 1000 MG PO (08:15)
[2022-06-02] MEDS: CALCIUM CARBONATE (OSCAL) 500 MG TABLET 1000 MG PO (08:15)
[2022-06-02] MEDS: FOLIC ACID 0.4 MG TABLET 0.8 MG PO (08:17)
[2022-06-02] MEDS: AMANTADINE HCL 100 MG CAPSULE 200 MG PO (08:17)
[2022-06-02] MEDS: METOPROLOL SUCCINATE EXT REL 100 MG TABCR 200 MG PO (08:17)
[2022-06-02] MEDS: GLYCOPYRROLATE 1 MG TABLET PO ×3 (08:18→17:26)
[2022-06-02] MEDS: CARBIDOPA/LEVODOPA 25/100 MG TABLET 1 TABLET PO ×4 (08:18→20:56)
[2022-06-02] MEDS: OMEGA 3 POLYUNSAT FATTY ACIDS 1 GM CAP 2 GM PO (08:18)
[2022-06-02] MEDS: lisinopriL 20 MG TABLET PO (08:18)
[2022-06-02] MEDS: MULTIVITAMINS THERAPEUTIC TAB (*BKC) 1 TABLET PO (08:18)
[2022-06-02] MEDS: FUROSEMIDE INJ 40 MG/4 ML VIAL IV PUSH ×2 (08:19→17:26)
[2022-06-02] MEDS: POTASSIUM CHLORIDE 20 MEQ PACKET (FOR LIQUID) 40 MEQ PO (08:19)
[2022-06-02] MEDS: POTASSIUM CHLORIDE 20 MEQ PACKET (FOR LIQUID) 60 MEQ PO (09:45)
[2022-06-02] MEDS: MAGNESIUM SULF 1 GM/D5W 100 ML 1 GM/100 ML BAG IVPB (09:46)
--- NOTE | 2022-06-02 13:39 | PM.IMPN ---
Progress Note: A&P Assessment and Plan (1) Paroxysmal atrial fibrillation: Code(s): I48.0 - Paroxysmal atrial fibrillation Status: Acute Assessment and Plan: - patient is in ST on the monitor today. - Continue Amiodarone and Change Metoprolol to the extended release and the dose to 200 mg - monitor labs and VS. - continue Xarelto 06/01: Pt. tachy, increasing with activity. Continue treatment today. Continue tele. 06/02: Pt. in and out of a-fib. Continuing all treatments and continuing to monitor. (2) Acute on chronic systolic (congestive) heart failure: Code(s): I50.23 - Acute on chronic systolic (congestive) heart failure Status: Acute Assessment and Plan: - Acute on chronic in the current setting. - Cardiology is managing, Dr. Rodriguez. - recent echo . Left ventricular chamber dimension is mildly enlarged. ? 2. Left ventricular systolic function is moderately reduced, estimated at 35-40%. ? 3. Left atrial chamber dimension is moderately enlarged. ? 4. Atrial fibrillation. ? 5. Compared to examination from June of 2018, LV function has declined. Left atrium is dilated atrial fib is seen. - the patient recently had his metoprolol increased and the patient has been feeling weaker and more tired since it was increased. - Cardiology has been consulted, and the recommendations have been made to increase lasix to BID from daily and the order has been placed. - continue with lisinopril but monitor his renal function as he has acute renal failure now. May consider holding lisinopril if his renal failure gets worse. 06/01: Continue diuresis with Lasix BID. Daily weight Accurate I&O 06/02: Continue Lasix and add another dose of Bumex today at 1500. He seemed to respond well to that yesterday. Continue daily weight and accurate intake and output. In three days, his weight has dropped from 112.5 kg-->105.7. (3) Pneumonia involving right lung: Code(s): J18.9 - Pneumonia, unspecified organism Status: Acute Assessment and Plan: - Patient was recently treated for aspiration pneumonia and discharged 05/26. - Repeat Barium swallow ordered and pt. requires Minced and moist diet with nectar thickened liquids. - Continue Zosyn - Follow Blood cultures - 06/01: Preliminary BC's are normal. - 06/02: BC are still pending. (4) Essential hypertension: Code(s): I10 - Essential (primary) hypertension Status: Chronic Assessment and Plan: - Continue home medications. - Monitor Vital signs. - (5) Coronary artery disease: Code(s): I25.10 - Atherosclerotic heart disease of [place] coronary artery without angina pectoris Status: Chronic Assessment and Plan: - he has a history of having 2 cardiac stents. (6) Parkinson disease: Code(s): G20 - Parkinson's disease Status: Chronic Assessment and Plan: - Pt. has deep brain stimulator. - continue carbidopa levodopa - PT and OT ordered. - The patient has a brain stimulator with the remote on the bedside table (7) S/P deep brain stimulator placement: Code(s): Z96.89 - Presence of other specified functional implants Status: Chronic Assessment and Plan: - The remote is at the bedside in the event that he would have some testing and would need to shut off. (8) Acute renal insufficiency: Code(s): N28.9 - Disorder of kidney and ureter, unspecified Status: Acute Assessment and Plan: - if his renal function becomes worse may consider holding lisinopril. He is also currently on Lasix as well. Time Spent With Patient Time with patient: 15 - 25 minutes Subjective Date/time seen: 06/02/22 0930 This pt. was examined at the bedside today in interval assessment and he clearly has improvement in the amount of edema he has and appears to be breathing easier overall after receiving the dose of Bumex yesterday. His pulse still fluctuates into the 1-teens, b
--- NOTE | 2022-06-02 13:56 | PCPTNOTE ---
The patient treatment was not able to be completed on 06/02/22 due to increased heart rate. Will plan to continue treatment per plan of care.
--- NOTE | 2022-06-02 15:00 | PC.NURSE ---
Up to chair with Andra steady patient leans to the right.
[2022-06-02] MEDS: BUMETANIDE INJ 1 MG/4 ML VIAL IV PUSH (15:15)
[2022-06-02] MEDS: TAMSULOSIN HCL 0.4 MG CAPSULE PO (17:28)
[2022-06-02] MEDS: RIVAROXABAN 20 MG TABLET PO (17:28)
--- NOTE | 2022-06-02 20:02 | PM.PNCARD ---
Progress Note: A&P Assessment and Plan (1) Paroxysmal atrial fibrillation: Code(s): I48.0 - Paroxysmal atrial fibrillation Status: Acute Assessment and Plan: patient with paroxysmal atrial fibrillation chronically anticoagulated Xarelto. Current heart rate is about 115 beats per minute Rhythm is probably supraventricular tachycardia, perhaps atrial flutter. Continue amiodarone and metoprolol (2) Acute on chronic systolic heart failure: Code(s): I50.23 - Acute on chronic systolic (congestive) heart failure Status: Acute Assessment and Plan: underlying cardiomyopathy, with acute on chronic CHF. Feeling better continue furosemide 40 mg IV push twice daily daily BMP hypokalemic; will supplement Subjective Date/time seen: Follow-up for mild CHF exacerbation, and paroxysmal atrial fibrillation , cardiomyopathy with EF of 35-40% 06/02/22 patient reports he is breathing better has less swelling. Was sitting up in a chair for a while today. Pulse runs 112-120, blood pressure still a bit high. On room air. Tele: Regular rhythm, HR 112-120, probably an atrial flutter or atrial tachycardia Review of Systems Review of Systems: Less shortness of breath, less edema. No dizziness. No abdominal pain or chest pain. Eating okay. Exam Const: General: cooperative and comfortable; No confusion Orientation/consciousness: oriented to person, patient oriented x3 and No confusion Other: Disheveled appearance Eyes: EOM: EOMs intact bilaterally Neck: Neck: supple Resp: Effort & Inspection: normal respiratory effort Auscultation: clear to auscultation bilaterally Cardio: Rate: regular rate and tachycardic Rhythm: regular rhythm GI: Inspection: normal to inspection GI Palp: No abdominal tenderness Skin: General skin exam: no rashes or lesions noted Neuro: General: oriented to person, patient oriented x3 and No confusion Speech: No normal speech ( speech is somewhat slurred and difficult to understand) Extrem: Right lower extremity: edema Left lower extremity: edema Other: moderate bilateral lower extremity edema Psych: Appearance: grossly normal Mental Status: mental status grossly normal Objective Data Vital Signs Vital Signs: Vital Signs - 24 hr 06/01/22 21:02 06/01/22 22:00 06/02/22 00:00 Temperature 96.9 F L Pulse Rate 116 H 117 H 113 H Respiratory Rate 20 Blood Pressure 153/101 H Pulse Oximetry 95 Oxygen Delivery 06/02/22 04:00 06/02/22 06:00 06/02/22 08:15 Temperature 96.8 F L Pulse Rate 116 H 117 H 98 Respiratory Rate 18 Blood Pressure 144/99 H Pulse Oximetry 97 Oxygen Delivery 06/02/22 08:17 06/02/22 08:18 06/02/22 14:00 Temperature 98.1 F Pulse Rate 98 113 H Respiratory Rate 20 Blood Pressure 136/98 H Pulse Oximetry 95 Oxygen Delivery Room Air 06/02/22 08:51 06/02/22 12:00 06/02/22 16:00 Temperature Pulse Rate 120 H 112 H 115 H Respiratory Rate Blood Pressure Pulse Oximetry Oxygen Delivery Intake/Output Intake/Output: Intake & Output 05/30/22 05/31/22 06/01/22 06/02/22 23:59 23:59 23:59 23:59 Intake Total 320 1415 3140 2210 Output Total 1085 1675 1800 1280 Balance -765 -260 1340 930 Meds/Results Medications: Active Medications Generic Name Dose Route Start Last Admin Trade Name Ranjeet PRN Reason Stop Dose Admin Amantadine HCl 200 mg 05/31/22 09:00 06/02/22 08:17 Amantadine Hcl 100 Mg Capsule PO 200 mg DAILY MEGHANA Administration Amiodarone HCl 400 mg 05/31/22 09:00 06/02/22 08:15 Amiodarone Hcl 200 Mg Tablet PO 400 mg Q12HR MEGHANA Administration Ascorbic Acid 1,000 mg 05/31/22 09:00 06/02/22 08:15 Ascorbic Acid 500 Mg Tablet PO 1,000 mg DAILY MEGHANA Administration Atorvastatin Calcium 40 mg 05/30/22 21:00 06/01/22 21:03 Atorvastatin 40 Mg Tablet PO 40 mg HS MEGHANA Administration Bisacodyl 10 mg 09
[2022-06-02] MEDS: ATORVASTATIN 40 MG TABLET PO (20:56)
[2022-06-03] VITALS (11 sets, daily range): BP systolic 111–150; BP diastolic 85–111; PULSE 114–122; RESP 16–18; TEMP 36.3–36.7; O2SAT 92–96
[2022-06-03 06:44] LABS: Basophils Absolute Auto 0.1 K/mm3 (0.0-0.1); Basophils Percent Auto 0.7 % (0.2-1.2); Eosinophils Absolute Auto 0.1 K/mm3 (0-0.3); Eosinophils Percent Auto 1.2 % (0-4.4); Hematocrit 42.1 % (42.0-52.0); Hemoglobin 13.3 g/dL (14.0-18.0); Immature Granulocyte Absolute 0.06 K/mm3 (0.00-0.031); Immature Granulocyte Percent A 0.5 % (0-0.5); Lymphocytes Absolute Auto 1.85 K/mm3 (0.9-3.2); Lymphocytes Percent Auto 15.8 % (18.3-44.2); Mean Corpuscular HGB Conc 31.6 g/dl (32-36); Mean Corpuscular Hemoglobin 30.6 pg (26-34); Mean Platelet Volume 9.4 fl (7.4-10.4); Monocytes Absolute Auto 0.6 K/mm3 (0.1-0.6); Monocytes Percent Auto 5.3 % (2.6-8.5); Neutrophils Percent Auto 76.5 % (45.5-73.1); Platelet Count Result 237 k/mm3 (150-375); Red Blood Count 4.34 M/mm3 (4.6-6.20); Red Cell Distribution Width 14.1 % (11.5-14.5); White Blood Count 11.7 K/mm3 (4.5-10.0)
[2022-06-03 07:10] LABS: Alanine Aminotransferase 14 U/L (6-50); Albumin Level 3.7 g/dL (3.5-5.1); Alkaline Phosphatase 68 U/L (38-126); Anion Gap 10 mmol/L (8-16); Aspartate Amino Transferase 26 U/L (17-59); Bilirubin,Total 1.5 mg/dL (0.2-1.3); Blood Urea Nitrogen 16 mg/dL (9-20); Calcium 9.5 mg/dL (8.4-10.2); Carbon Dioxide 34 mmol/L (22-30); Chloride 95 mmol/L (98-107); Estimated CRCL calculation 52 ml/min; Estimated Glomerular Filt Rate 54; Glucose 106 mg/dL (65-110); Magnesium 1.7 mg/dL (1.6-2.3); Potassium 3.6 mmol/L (3.4-5.0); Sodium 139 mmol/L (137-145)
[2022-06-03] MEDS: FUROSEMIDE INJ 40 MG/4 ML VIAL IV PUSH ×2 (09:22→17:25)
[2022-06-03] MEDS: ASCORBIC ACID 500 MG TABLET 1000 MG PO (09:45)
[2022-06-03] MEDS: lisinopriL 20 MG TABLET PO (09:45)
[2022-06-03] MEDS: CHOLECALCIFEROL 1,000 UNITS TABLET 5000 UNITS PO (09:45)
[2022-06-03] MEDS: CARBIDOPA/LEVODOPA 25/100 MG TABLET 1 TABLET PO ×4 (09:46→21:03)
[2022-06-03] MEDS: METOPROLOL SUCCINATE EXT REL 100 MG TABCR 200 MG PO (09:46)
[2022-06-03] MEDS: FOLIC ACID 0.4 MG TABLET 0.8 MG PO (09:46)
[2022-06-03] MEDS: OMEGA 3 POLYUNSAT FATTY ACIDS 1 GM CAP 2 GM PO (09:46)
[2022-06-03] MEDS: MULTIVITAMINS THERAPEUTIC TAB (*BKC) 1 TABLET PO (09:47)
[2022-06-03] MEDS: AMANTADINE HCL 100 MG CAPSULE 200 MG PO (09:47)
[2022-06-03] MEDS: CALCIUM CARBONATE (OSCAL) 500 MG TABLET 1000 MG PO (09:48)
[2022-06-03] MEDS: AMIODARONE HCL 200 MG TABLET 400 MG PO ×2 (09:48→21:01)
[2022-06-03] MEDS: GLYCOPYRROLATE 1 MG TABLET PO ×3 (09:48→17:25)
--- NOTE | 2022-06-03 11:07 | PM.IMPN ---
Progress Note: A&P Assessment and Plan (1) Paroxysmal atrial fibrillation: Code(s): I48.0 - Paroxysmal atrial fibrillation Status: Acute Assessment and Plan: - patient is in ST on the monitor today. - Continue Amiodarone and Change Metoprolol to the extended release and the dose to 200 mg - monitor labs and VS. - continue Xarelto 06/01: Pt. tachy, increasing with activity. Continue treatment today. Continue tele. 06/02: Pt. in and out of a-fib. Continuing all treatments and continuing to monitor. 06/03: Intermittent change in rhythms continue to occur. Pt. currently in atrial fibrillation. Rate fluctuating and is higher in the AM. Continue Xarelto. (2) Acute on chronic systolic (congestive) heart failure: Code(s): I50.23 - Acute on chronic systolic (congestive) heart failure Status: Acute Assessment and Plan: - Acute on chronic in the current setting. - Cardiology is managing, Dr. Rodriguez. - recent echo . Left ventricular chamber dimension is mildly enlarged. ? 2. Left ventricular systolic function is moderately reduced, estimated at 35-40%. ? 3. Left atrial chamber dimension is moderately enlarged. ? 4. Atrial fibrillation. ? 5. Compared to examination from June of 2018, LV function has declined. Left atrium is dilated atrial fib is seen. - the patient recently had his metoprolol increased and the patient has been feeling weaker and more tired since it was increased. - Cardiology has been consulted, and the recommendations have been made to increase lasix to BID from daily and the order has been placed. - continue with lisinopril but monitor his renal function as he has acute renal failure now. May consider holding lisinopril if his renal failure gets worse. 06/01: Continue diuresis with Lasix BID. Daily weight Accurate I&O 06/02: Continue Lasix and add another dose of Bumex today at 1500. He seemed to respond well to that yesterday. Continue daily weight and accurate intake and output. In three days, his weight has dropped from 112.5 kg-->105.7. 06/03: Pt. received additional dose of Bumex yesterday. He had interval weight gain documented from 105.7-->106 kg. However, this does not fit his Physical exam. Pt. has notable loss of weight, although it is difficult to measure his exact output as he is incontinent of urine. His CXR this AM shows interval change in effusion. (3) Pneumonia involving right lung: Code(s): J18.9 - Pneumonia, unspecified organism Status: Acute Assessment and Plan: - Patient was recently treated for aspiration pneumonia and discharged 05/26. - Repeat Barium swallow ordered and pt. requires Minced and moist diet with nectar thickened liquids. - Continue Zosyn - Follow Blood cultures - 06/01: Preliminary BC's are normal. - 06/02: BC are still pending. - 06/03: CXR today to check interval change demonstrates remaining RLL PNA. BC still pending. Continue current tx. No further fevers present. (4) Essential hypertension: Code(s): I10 - Essential (primary) hypertension Status: Chronic Assessment and Plan: - Continue home medications. - Monitor Vital signs. - Pt. is noted to be most Hypertensive in the AM. - (5) Coronary artery disease: Code(s): I25.10 - Atherosclerotic heart disease of [place] coronary artery without angina pectoris Status: Chronic Assessment and Plan: - he has a history of having 2 cardiac stents. (6) Parkinson disease: Code(s): G20 - Parkinson's disease Status: Chronic Assessment and Plan: - Pt. has deep brain stimulator. - continue carbidopa levodopa - PT and OT ordered. - The patient has a brain stimulator with the remote on the bedside table (7) S/P deep brain stimulator placement: Code(s): Z96.89 - Presence of other specified functional implants Status: Chronic Assessment and Plan: - The remote is at the bedside in the event that he would hav
[2022-06-03] MEDS: POTASSIUM CHLORIDE 20 MEQ PACKET (FOR LIQUID) 60 MEQ PO (13:43)
[2022-06-03] MEDS: RIVAROXABAN 20 MG TABLET PO (17:26)
[2022-06-03] MEDS: TAMSULOSIN HCL 0.4 MG CAPSULE PO (17:27)
--- NOTE | 2022-06-03 17:27 | PM.PNCARD ---
Progress Note: A&P Assessment and Plan (1) Paroxysmal atrial fibrillation: Code(s): I48.0 - Paroxysmal atrial fibrillation Status: Acute Assessment and Plan: Patient with paroxysmal atrial fibrillation chronically anticoagulated Xarelto. Current heart rate is about 115 beats per minute Rhythm is probably atrial flutter. Continue amiodarone and metoprolol; hopefully after enough of an amiodarone load his rhythm will slow down. (2) Acute on chronic systolic heart failure: Code(s): I50.23 - Acute on chronic systolic (congestive) heart failure Status: Acute Assessment and Plan: underlying cardiomyopathy, with acute on chronic CHF. Feeling better continue furosemide 40 mg IV push twice daily daily BMP hypokalemia Improving (3) Coronary artery disease: Code(s): I25.10 - Atherosclerotic heart disease of [place] coronary artery without angina pectoris Status: Chronic Assessment and Plan: CAD is stable. (4) Parkinson disease: Code(s): G20 - Parkinson's disease Status: Acute Assessment and Plan: Elderly male with Parkinson's disease, with a deep brain stimulator, showing some intermittent confusion in the hospital. Does not appear to have a stroke etc. and easily reoriented. Reassured daughter this is not unusual. Subjective Date/time seen: ?Follow-up for mild CHF exacerbation, and paroxysmal atrial fibrillation , cardiomyopathy with EF of 35-40% 06/02/22? ? patient reports he is breathing better has less swelling.? Was sitting up in a chair for a while today.? Pulse runs 112-120, blood pressure still a bit high.? On room air. Tele:? Regular rhythm, HR 112-120, probably an atrial flutter or atrial tachycardia 06/03/22 17:27 Patient feeling well, was up in a chair for quite a while. Edema improving. Daughter at the bedside is concerned that the patient has some intermittent confusion. Telemetry: Heart rate is consistently about 115 beats per minute, probably in atrial flutter. Chest x-ray today shows persistent atrial fibrillation with a small right pleural effusion. Personally reviewed. Head CT this morning showed no acute findings Review of Systems Review of Systems: Denies shortness of breath, chest pain, dizziness. Some confusion at times but easily reoriented. Lower extremity edema persists. Neurologic: Denies confusion Psychiatric: Psychiatric: Denies confusion Exam Narrative: Sitting in bed, eating dinner, watching the baseball game and upset that the [employer] are losing. Const: General: cooperative and comfortable; No confusion Orientation/consciousness: oriented to person, patient oriented x3 and No confusion Other: Oriented to [facility], [place],. HENMT: Mouth: Yes dry mucous membranes Eyes: EOM: EOMs intact bilaterally Neck: Neck: supple Resp: Effort & Inspection: normal respiratory effort Auscultation: diminished lung sounds ( right base) Cardio: Rate: regular rate and tachycardic Rhythm: regular rhythm GI: Inspection: normal to inspection Skin: General skin exam: no rashes or lesions noted Neuro: General: oriented to person, patient oriented x3 and No confusion Speech: No normal speech ( speech is somewhat slurred and difficult to understand) Extrem: Right lower extremity: edema Left lower extremity: edema Other: mild to moderate bilateral lower extremity edema improved Psych: Appearance: grossly normal Mental Status: mental status grossly normal Objective Data Vital Signs Vital Signs: Vital Signs - 24 hr 06/02/22 20:55 06/02/22 22:00 06/02/22 20:00 Temperature 97.4 F L Pulse Rate 118 H 117 H 118 H Respiratory Rate 16 Blood Pressure 142/66 H Pulse Oximetry 92 Oxygen Delivery 06/02/22 20:00 06/03/22 00:00 06/03/22 05:50 Temperature 97.3 F L Pulse Rate 117 H 119 H 120 H Respiratory Rate 16 16 Blood Pressure
[2022-06-03 18:54] LABS: Appearance Urine Clear (Clear); Bilirubin Urine Negative (Negative); Blood Urine Negative (Negative); Color Urine Yellow (Yellow); Glucose Urine UA Negative (Negative); Ketones Urine Negative (Negative); Leukocyte Esterase Ur Negative LEU/UL (Negative); Nitrate Urine Negative (Negative); Protein Urine Negative (Negative); Urobilinogen Urine 0.2 mg/dL (<2.0)
[2022-06-03 18:58] LABS: WBC Urine 0-3 /hpf
[2022-06-03 19:03] LABS: Add Urine Microscopic? NO
[2022-06-03] MEDS: ATORVASTATIN 40 MG TABLET PO (21:04)
[2022-06-04] VITALS (11 sets, daily range): BP systolic 129–150; BP diastolic 70–108; PULSE 88–114; RESP 18–19; TEMP 36.6; O2SAT 93–96
[2022-06-04 06:49] LABS: Basophils Absolute Auto 0.1 K/mm3 (0.0-0.1); Basophils Percent Auto 0.7 % (0.2-1.2); Eosinophils Absolute Auto 0.3 K/mm3 (0-0.3); Eosinophils Percent Auto 3.5 % (0-4.4); Hematocrit 41.1 % (42.0-52.0); Immature Granulocyte Absolute 0.06 K/mm3 (0.00-0.031); Immature Granulocyte Percent A 0.6 % (0-0.5); Lymphocytes Absolute Auto 1.87 K/mm3 (0.9-3.2); Lymphocytes Percent Auto 19.8 % (18.3-44.2); Mean Corpuscular HGB Conc 31.6 g/dl (32-36); Mean Corpuscular Hemoglobin 31.3 pg (26-34); Mean Corpuscular Volume 98.8 fl (80-100); Mean Platelet Volume 9.4 fl (7.4-10.4); Monocytes Absolute Auto 0.6 K/mm3 (0.1-0.6); Monocytes Percent Auto 6.4 % (2.6-8.5); Neutrophils Absolute Auto 6.5 K/mm3 (1.3-6.7); Platelet Count Result 239 k/mm3 (150-375); Red Blood Count 4.16 M/mm3 (4.6-6.20); Red Cell Distribution Width 14.1 % (11.5-14.5); White Blood Count 9.5 K/mm3 (4.5-10.0)
[2022-06-04 06:59] LABS: Alanine Aminotransferase 15 U/L (6-50); Albumin Level 3.6 g/dL (3.5-5.1); Alkaline Phosphatase 67 U/L (38-126); Anion Gap 8 mmol/L (8-16); Aspartate Amino Transferase 26 U/L (17-59); Bilirubin,Total 1.4 mg/dL (0.2-1.3); Blood Urea Nitrogen 17 mg/dL (9-20); Calcium 9.3 mg/dL (8.4-10.2); Carbon Dioxide 34 mmol/L (22-30); Chloride 96 mmol/L (98-107); Estimated CRCL calculation 52 ml/min; Estimated Glomerular Filt Rate 45; Glucose 97 mg/dL (65-110); Magnesium 1.6 mg/dL (1.6-2.3); Potassium 3.9 mmol/L (3.4-5.0); Sodium 138 mmol/L (137-145)
[2022-06-04] MEDS: AMANTADINE HCL 100 MG CAPSULE 200 MG PO (09:04)
[2022-06-04] MEDS: CHOLECALCIFEROL 1,000 UNITS TABLET 5000 UNITS PO (09:05)
[2022-06-04] MEDS: CALCIUM CARBONATE (OSCAL) 500 MG TABLET 1000 MG PO (09:05)
[2022-06-04] MEDS: ASCORBIC ACID 500 MG TABLET 1000 MG PO (09:05)
[2022-06-04] MEDS: CARBIDOPA/LEVODOPA 25/100 MG TABLET 1 TABLET PO ×4 (09:05→21:28)
[2022-06-04] MEDS: FOLIC ACID 0.4 MG TABLET 0.8 MG PO (09:06)
[2022-06-04] MEDS: GLYCOPYRROLATE 1 MG TABLET PO ×3 (09:07→17:24)
[2022-06-04] MEDS: MULTIVITAMINS THERAPEUTIC TAB (*BKC) 1 TABLET PO (09:07)
[2022-06-04] MEDS: lisinopriL 20 MG TABLET PO (09:07)
[2022-06-04] MEDS: METOPROLOL SUCCINATE EXT REL 100 MG TABCR 200 MG PO (09:07)
[2022-06-04] MEDS: AMIODARONE HCL 200 MG TABLET 400 MG PO ×2 (09:09→21:28)
[2022-06-04] MEDS: FUROSEMIDE INJ 40 MG/4 ML VIAL IV PUSH (09:09)
[2022-06-04] MEDS: OMEGA 3 POLYUNSAT FATTY ACIDS 1 GM CAP 2 GM PO (09:10)
[2022-06-04] MEDS: POTASSIUM CHLORIDE 20 MEQ PACKET (FOR LIQUID) 60 MEQ PO (09:10)
--- NOTE | 2022-06-04 09:51 | WPDNEURCNPN ---
Assessment and Plan Assessment and plan (1) Altered mental status: Code(s): R41.82 - Altered mental status, unspecified Status: Acute Assessment and Plan: Dara Dash is a 77 year old male with a history of CHF, CAD, Atrial fibrillation, HTN, and Parkinson's Disease s/p DBS. Admission complicated by episode of staring off vs unresponsiveness. Concern for possible seizure vs TIA/stroke. Unable to obtain MRI due to patient's devices. - Recommend routine EEG - If he has subsequent episodes of concern, would start Keppra 500mg BID Consult date: 06/04/22 Time Seen: 09:51 Reason for consult: Seizure-like activity HPI: Dara Dash is a 77 year old male with a history of CHF, CAD, Atrial fibrillation, HTN, and Parkinson's Disease s/p DBS who was recent admitted to the [facility] and discharged. He presented on 05/30 due to shortness of breath and hypoxia. He was admitted again for treatment of CHF exacerbation. He is currently also being treated for pneumonia, blood cultures have been negative to date. He has not had any fevers. On 06/03 he had an episode that was witnessed by beside nurse that was described as staring off and unresponsive. His pupils were constricted at the time as well. There was no other obvious seizure-like activity during the episode. CT head was negative for acute process. CTA head and neck were unremarkable. Patient has not had any subsequent episodes of decreased responsiveness. Review of Systems Constitutional: Constitutional: Reports no additional constitutional complaints Eyes: Eyes: Reports no additional eye complaints ENT: Reports system reviewed and no additional complaints, except as documented Cardiovascular: Cardiovascular: Reports no additional cardiovascular complaints Respiratory: Respiratory: Reports no additional respiratory complaints Gastrointestinal: Gastrointestinal: Reports no additional gastrointestinal complaints Genitourinary: Genitourinary: Reports no additional male genitourinary complaints Musculoskeletal: Musculoskeletal: Reports no additional musculoskeletal complaints Integumentary/Breasts: Skin/Breast: Reports system reviewed and no additional complaints, except as docu Neurologic: Reports as per HPI Psychiatric: Psychiatric: Reports behavioral changes and Reports confusion PMFSH Past Medical History Medical History Atrial fibrillation with rapid ventricular response Benign prostatic hyperplasia BPH (benign prostatic hyperplasia) BPH w/o urinary obs/LUTS CHF (congestive heart failure) echo on 04/20/2022 was read as the following 1. Left ventricular chamber dimension is mildly enlarged. 2. Left ventricular systolic function is moderately reduced, estimated at 35-40%. 3. Left atrial chamber dimension is moderately enlarged. 4. Atrial fibrillation. 5. Compared to examination from June of 2018, LV function has declined. Left atrium is dilated atrial fib is seen. Coronary artery disease Dyslipidemia Essential hypertension Parkinson disease Paroxysmal atrial fibrillation Recurrent falls Surgical History Surgical History History of arthroplasty of left knee (2018) History of cardiac catheterization History of cataract extraction History of coronary artery stent placement x2 History of spinal surgery (~2004) For disc herniation. Status post deep brain stimulator placement (2016) Family History Family History Other Family history of Parkinson's disease Family history of coronary artery disease Hypertension Social History Social History Social History: the patient lives with his who is the power of cotton tipper they have 1 daughter. 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 He does not use any a
--- NOTE | 2022-06-04 10:06 | ECG_ITS ---
Measurements Intervals Ray Rate: 112 P: WA: 0 QRS: 31 QRSD: 108 T: 5 QT: 368 QTc: 505 Interpretive Statements ATRIAL FLUTTER/TACHYCARDIA WITH RAPID VENTRICULAR RESPONSE NONSPECIFIC ST & T-WAVE ABNORMALITY- DIFFUSE LEADS BASELINE ARTIFACT- I, II, AVR, AVL, V2 ABNORMAL ECG COMPARED TO ECG 05/30/2022 11:27:46 ATRIAL FLUTTER NOW PRESENT Electronically Signed On 06-04-2022 12:07:39 CDT by Dc Rivera D.O.
--- NOTE | 2022-06-04 10:10 | PM.PNCARD ---
Progress Note: A&P Assessment and Plan (1) Acute on chronic systolic heart failure: Code(s): I50.23 - Acute on chronic systolic (congestive) heart failure Status: Acute (2) Paroxysmal atrial fibrillation: Code(s): I48.0 - Paroxysmal atrial fibrillation Status: Acute (3) Acute renal insufficiency: Code(s): N28.9 - Disorder of kidney and ureter, unspecified Status: Acute (4) Chronic anticoagulation: Code(s): Z79.01 - equipment [employer] (current) use of anticoagulants Status: Acute (5) Essential hypertension: Code(s): I10 - Essential (primary) hypertension Status: Chronic (6) Coronary artery disease: Code(s): I25.10 - Atherosclerotic heart disease of [place] coronary artery without angina pectoris Status: Chronic (7) S/P deep brain stimulator placement: Code(s): Z96.89 - Presence of other specified functional implants Status: Chronic (8) Parkinson disease: Code(s): G20 - Parkinson's disease Status: Acute Plan Obtain 12-lead ECG given tachycardia on telemetry Continue Amiodarone and Metoprolol for atrial fibrillation, along with Xarelto Continue statin, ACEi Given bump in SCr to 1.5 from 1.3 and improved volume status with resolution of lower extremity edema, would decrease diuretic dose Subjective Date/time seen: 06/04/22 10:10 Interval history: Patient reports he has felt better since being here. No chest pain. Improved breathing Review of Systems Review of Systems: All systems reviewed & are unremarkable except as noted in HPI and below (subjective) Exam Const: General: comfortable and no acute distress Resp: Effort & Inspection: normal respiratory effort Other: Diminshed bases Cardio: Rate: tachycardic Rhythm: regular rhythm Heart sounds: no murmurs Skin: General skin exam: normal color Neuro: Speech: normal speech Extrem: Other: Mild Ankle edema Psych: Mental Status: mental status grossly normal Objective Data Vital Signs Vital Signs: Vital Signs - 24 hr 06/03/22 16:06 06/03/22 12:00 06/03/22 16:00 Temperature 36.7 C Pulse Rate 114 H 117 H 115 H Respiratory Rate 16 Blood Pressure 135/88 Pulse Oximetry 95 Oxygen Delivery 06/03/22 21:01 06/03/22 22:00 06/03/22 20:00 Temperature 36.3 C L Pulse Rate 116 H 115 H 116 H Respiratory Rate 18 Blood Pressure 111/85 Pulse Oximetry 96 Oxygen Delivery 06/03/22 20:00 06/04/22 06:00 06/04/22 06:31 Temperature 36.6 C Pulse Rate 115 H 114 H Respiratory Rate 18 19 Blood Pressure 147/108 H 150/72 H Pulse Oximetry 96 96 Oxygen Delivery Room Air 06/04/22 04:00 06/04/22 09:07 06/04/22 09:09 Temperature Pulse Rate 114 H 92 92 Respiratory Rate Blood Pressure Pulse Oximetry Oxygen Delivery Intake/Output Intake/Output: Intake & Output 06/01/22 06/02/22 06/03/22 06/04/22 23:59 23:59 23:59 23:59 Intake Total 3140 2260 800 290 Output Total 1800 1280 1700 Balance 1340 980 -900 290 Meds/Results Medications: Active Medications Generic Name Dose Route Start Last Admin Trade Name Freq PRN Reason Stop Dose Admin Amantadine HCl 200 mg 05/31/22 09:00 06/04/22 09:04 Amantadine Hcl 100 Mg Capsule PO 200 mg DAILY MEGHANA Administration Amiodarone HCl 400 mg 05/31/22 09:00 06/04/22 09:09 Amiodarone Hcl 200 Mg Tablet PO 400 mg Q12HR MEGHANA Administration Ascorbic Acid 1,000 mg 05/31/22 09:00 06/04/22 09:05 Ascorbic Acid 500 Mg Tablet PO 1,000 mg DAILY MEGHANA Administration Atorvastatin Calcium 40 mg 05/30/22 21:00 06/03/22 21:04 Atorvastatin 40 Mg Tablet PO 40 mg HS MEGHANA Administration Bisacodyl 10 mg 05/30/22 17:25 05/31/22 20:26 Bisacodyl 10 Mg Suppository RECTAL 10 mg QAM PRN Administration Constipation Calcium Carbonate 1,000 mg 05/31/22 09:00 06/04/22 09:05 Calcium Carbonate (Oscal) 500 Mg Tablet PO 06/30/22 08:59 1,
--- NOTE | 2022-06-04 11:18 | PCOTNOTE ---
Attempted to see patient this am, however upon entering room, TRAFFIC OBSERVER reported patient already completed ADLs this date. Will continue plan of care tomorrow. Pt is up in chair at this time as he already completed physical therapy this morning.
--- NOTE | 2022-06-04 12:44 | PM.IMPN ---
Progress Note: A&P Assessment and Plan (1) Paroxysmal atrial fibrillation: Code(s): I48.0 - Paroxysmal atrial fibrillation Status: Acute Assessment and Plan: - patient is in ST on the monitor today. - Continue Amiodarone and Change Metoprolol to the extended release and the dose to 200 mg - monitor labs and VS. - continue Xarelto 06/01: Pt. tachy, increasing with activity. Continue treatment today. Continue tele. 06/02: Pt. in and out of a-fib. Continuing all treatments and continuing to monitor. 06/03: Intermittent change in rhythms continue to occur. Pt. currently in atrial fibrillation. Rate fluctuating and is higher in the AM. Continue Xarelto. 06/04: Cardiology managing. Continue current rate control. (2) Acute on chronic systolic (congestive) heart failure: Code(s): I50.23 - Acute on chronic systolic (congestive) heart failure Status: Acute Assessment and Plan: - Acute on chronic in the current setting. - Cardiology is managing, Dr. Rodriguez. - recent echo . Left ventricular chamber dimension is mildly enlarged. ? 2. Left ventricular systolic function is moderately reduced, estimated at 35-40%. ? 3. Left atrial chamber dimension is moderately enlarged. ? 4. Atrial fibrillation. ? 5. Compared to examination from June of 2018, LV function has declined. Left atrium is dilated atrial fib is seen. - the patient recently had his metoprolol increased and the patient has been feeling weaker and more tired since it was increased. - Cardiology has been consulted, and the recommendations have been made to increase lasix to BID from daily and the order has been placed. - continue with lisinopril but monitor his renal function as he has acute renal failure now. May consider holding lisinopril if his renal failure gets worse. 06/01: Continue diuresis with Lasix BID. Daily weight Accurate I&O 06/02: Continue Lasix and add another dose of Bumex today at 1500. He seemed to respond well to that yesterday. Continue daily weight and accurate intake and output. In three days, his weight has dropped from 112.5 kg-->105.7. 06/03: Pt. received additional dose of Bumex yesterday. He had interval weight gain documented from 105.7-->106 kg. However, this does not fit his Physical exam. Pt. has notable loss of weight, although it is difficult to measure his exact output as he is incontinent of urine. His CXR this AM shows interval change in effusion. 06/04: Good diuresis has occurred. As there is a slight bump in SCr, from 1.3-->1.5, decrease diuresis from 40 mg Lasix BID to daily. (3) Pneumonia involving right lung: Code(s): J18.9 - Pneumonia, unspecified organism Status: Acute Assessment and Plan: - Patient was recently treated for aspiration pneumonia and discharged 05/26. - Repeat Barium swallow ordered and pt. requires Minced and moist diet with nectar thickened liquids. - Continue Zosyn - Follow Blood cultures - 06/01: Preliminary BC's are normal. - 06/02: BC are still pending. - 06/03: CXR today to check interval change demonstrates remaining RLL PNA. BC still pending. Continue current tx. No further fevers present. - 06/04: Discussed with ID pharmacist today. Changing Zosyn to po Augmentin. Will continue to monitor. CXR done yesterday shows that pt. not having interval improvement yet. (4) Essential hypertension: Code(s): I10 - Essential (primary) hypertension Status: Chronic Assessment and Plan: - Continue home medications. - Monitor Vital signs. - Pt. is noted to be most Hypertensive in the AM. - Cardiology recommends continuing same medication. - (5) Coronary artery disease: Code(s): I25.10 - Atherosclerotic heart disease of [place] coronary artery without angina pectoris Status: Chronic Assessment and Plan: - he has a history of having 2 cardiac stents. (6) Parkinson disease: Code(s): G20 - Parkinson's disease Status: Chronic
[2022-06-04] MEDS: AMOXICILLIN/CLAVULANATE K 875-125 MG TAB 1 TABLET PO ×2 (14:22→21:29)
[2022-06-04] MEDS: RIVAROXABAN 20 MG TABLET PO (17:24)
[2022-06-04] MEDS: TAMSULOSIN HCL 0.4 MG CAPSULE PO (17:25)
[2022-06-04] MEDS: ATORVASTATIN 40 MG TABLET PO (21:30)
[2022-06-05] VITALS (12 sets, daily range): BP systolic 117–130; BP diastolic 82–93; PULSE 75–117; RESP 20; TEMP 36.1–36.8; O2SAT 95–96
[2022-06-05] MEDS: CALCIUM CARBONATE (OSCAL) 500 MG TABLET 1000 MG PO (10:00)
[2022-06-05] MEDS: ASCORBIC ACID 500 MG TABLET 1000 MG PO (10:00)
[2022-06-05] MEDS: AMANTADINE HCL 100 MG CAPSULE 200 MG PO (10:00)
[2022-06-05] MEDS: CARBIDOPA/LEVODOPA 25/100 MG TABLET 1 TABLET PO ×4 (10:01→21:13)
[2022-06-05] MEDS: FOLIC ACID 0.4 MG TABLET 0.8 MG PO (10:02)
[2022-06-05] MEDS: CHOLECALCIFEROL 1,000 UNITS TABLET 5000 UNITS PO (10:02)
[2022-06-05] MEDS: GLYCOPYRROLATE 1 MG TABLET PO ×3 (10:03→17:37)
[2022-06-05] MEDS: METOPROLOL SUCCINATE EXT REL 100 MG TABCR 200 MG PO (10:03)
[2022-06-05] MEDS: FUROSEMIDE INJ 40 MG/4 ML VIAL IV PUSH (10:03)
[2022-06-05] MEDS: lisinopriL 20 MG TABLET PO (10:05)
[2022-06-05] MEDS: MULTIVITAMINS THERAPEUTIC TAB (*BKC) 1 TABLET PO (10:05)
[2022-06-05] MEDS: OMEGA 3 POLYUNSAT FATTY ACIDS 1 GM CAP 2 GM PO (10:05)
[2022-06-05] MEDS: AMIODARONE HCL 200 MG TABLET 400 MG PO ×2 (10:05→21:12)
[2022-06-05] MEDS: AMOXICILLIN/CLAVULANATE K 875-125 MG TAB 1 TABLET PO ×2 (10:05→21:13)
[2022-06-05] MEDS: POTASSIUM CHLORIDE 20 MEQ PACKET (FOR LIQUID) 60 MEQ PO (10:06)
[2022-06-05 10:43] LABS: Hematocrit 39.2 % (42.0-52.0); Hemoglobin 12.3 g/dL (14.0-18.0); Mean Corpuscular HGB Conc 31.4 g/dl (32-36); Mean Corpuscular Hemoglobin 30.7 pg (26-34); Mean Corpuscular Volume 97.8 fl (80-100); Mean Platelet Volume 9.5 fl (7.4-10.4); Platelet Count Result 243 k/mm3 (150-375); Red Blood Count 4.01 M/mm3 (4.6-6.20); Red Cell Distribution Width 14.2 % (11.5-14.5); White Blood Count 7.5 K/mm3 (4.5-10.0)
[2022-06-05 10:49] LABS: Chloride 96 mmol/L (98-107)
[2022-06-05 10:53] LABS: Alanine Aminotransferase 29 U/L (6-50); Albumin Level 3.8 g/dL (3.5-5.1); Alkaline Phosphatase 63 U/L (38-126); Anion Gap 13 mmol/L (8-16); Aspartate Amino Transferase 30 U/L (17-59); Bilirubin,Total 1.4 mg/dL (0.2-1.3); Blood Urea Nitrogen 20 mg/dL (9-20); Calcium 9.3 mg/dL (8.4-10.2); Carbon Dioxide 30 mmol/L (22-30); Estimated CRCL calculation 52 ml/min; Estimated Glomerular Filt Rate 45; Glucose 117 mg/dL (65-110); Potassium 3.5 mmol/L (3.4-5.0); Sodium 139 mmol/L (137-145)
--- NOTE | 2022-06-05 14:47 | P.PNIM_ITS ---
Progress Note: A&P Assessment and Plan (1) Paroxysmal atrial fibrillation: Code(s): I48.0 - Paroxysmal atrial fibrillation Status: Acute Assessment and Plan: Patient in sinus tachycardia on monitor today * appreciate cardiology management * continue Xarelto * continue amiodarone * metoprolol changed to extended release at 200 mg daily * continue to monitor on telemetry (2) Acute on chronic systolic (congestive) heart failure: Code(s): I50.23 - Acute on chronic systolic (congestive) heart failure Status: Acute Assessment and Plan: has had improvement with diuresis * Lasix decreased to 40 mg IV daily given mild bump in creatinine. Cr remaining stable today. Can consider transition to p.o. Lasix for tomorrow given overall improvement based on Cardiology recommendation * continue to monitor intake and output with daily weights * recent echocardiogram completed on 04/20/2022 which showed reduced EF of 35- 40% with enlarged left atrial and ventricular enlargement * appreciate cardiology recommendation (3) Pneumonia involving right lung: Code(s): J18.9 - Pneumonia, unspecified organism Status: Acute Assessment and Plan: Recent hospitalization [id number] for aspiration pneumonia during which time he was treated with Unasyn while in the hospital and Augmentin on discharge. * MBS completed at that time with recommendations for level 6 soft and bite size diet with mildly thickened liquids * Re-evaluated by speech therapy during this admission With repeat MBS on 05/31. * Subsequent recommendations for minced and moist level 5 diet with mildly thickened liquids. Dietary changes have been implemented . * CXR with evidence of right basilar airspace disease consistent with pneumonia, likely secondary again to aspiration. * Patient transition from IV Zosyn to p.o. Augmentin on 06/04. Tolerating this well. Leukocytosis resolved. * Supportive care. Mucinex. Continue incentive spirometry. Add Cornet. * Blood cultures negative. (4) Essential hypertension: Code(s): I10 - Essential (primary) hypertension Status: Chronic Assessment and Plan: Blood pressures have been reasonably controlled, improved following diuresis. * continue Lasix * continue lisinopril * monitor BP trends (5) Parkinson disease: Code(s): G20 - Parkinson's disease Status: Chronic Assessment and Plan: Pt. has deep brain stimulator. he follows with neurologist, Dr. Hernandez, at the [facility] * Continue carbidopa levodopa * PT and OT ordered. * remote for deep brain stimulator at the bedside in the event patient requires testing that would require the deep brain stimulator to be shut off (6) Altered mental status: Code(s): R41.82 - Altered mental status, unspecified Status: Acute Assessment and Plan: patient noted by previous provider to have episodes of staring in which he was poorly responsive. * Concern for seizure vs CVA * appreciate neurology evaluation * eeg recommended per Cardiology, will await results * if any additional episodes, start Keppra 500 mg b.i.d. per neurology recommendation * head CT with no acute findings * head/neck CTA showed deep brain stimulators in expected position, 7% stenosis of the proximal right internal carotid artery and 0% stenosis of the proximal left internal carotid artery * MRI not able to be completed secondary to deep brain stimulator and pacemaker * UA without concerns for infection Subjective Date/time s
--- NOTE | 2022-06-05 14:47 | PM.IMPN ---
Progress Note: A&P Assessment and Plan (1) Paroxysmal atrial fibrillation: Code(s): I48.0 - Paroxysmal atrial fibrillation Status: Acute Assessment and Plan: Patient in sinus tachycardia on monitor today appreciate cardiology management continue Xarelto continue amiodarone metoprolol changed to extended release at 200 mg daily continue to monitor on telemetry (2) Acute on chronic systolic (congestive) heart failure: Code(s): I50.23 - Acute on chronic systolic (congestive) heart failure Status: Acute Assessment and Plan: has had improvement with diuresis Lasix decreased to 40 mg IV daily given mild bump in creatinine. Cr remaining stable today. Can consider transition to p.o. Lasix for tomorrow given overall improvement based on Cardiology recommendation continue to monitor intake and output with daily weights recent echocardiogram completed on 04/20/2022 which showed reduced EF of 35-40% with enlarged left atrial and ventricular enlargement appreciate cardiology recommendation (3) Pneumonia involving right lung: Code(s): J18.9 - Pneumonia, unspecified organism Status: Acute Assessment and Plan: Recent hospitalization [id number] for aspiration pneumonia during which time he was treated with Unasyn while in the hospital and Augmentin on discharge. MBS completed at that time with recommendations for level 6 soft and bite size diet with mildly thickened liquids Re-evaluated by speech therapy during this admission With repeat MBS on 05/31. Subsequent recommendations for minced and moist level 5 diet with mildly thickened liquids. Dietary changes have been implemented . CXR with evidence of right basilar airspace disease consistent with pneumonia, likely secondary again to aspiration. Patient transition from IV Zosyn to p.o. Augmentin on 06/04. Tolerating this well. Leukocytosis resolved. Supportive care. Mucinex. Continue incentive spirometry. Add Cornet. Blood cultures negative. (4) Essential hypertension: Code(s): I10 - Essential (primary) hypertension Status: Chronic Assessment and Plan: Blood pressures have been reasonably controlled, improved following diuresis. continue Lasix continue lisinopril monitor BP trends (5) Parkinson disease: Code(s): G20 - Parkinson's disease Status: Chronic Assessment and Plan: Pt. has deep brain stimulator. he follows with neurologist, Dr. Hernandez, at the [place] Continue carbidopa levodopa PT and OT ordered. remote for deep brain stimulator at the bedside in the event patient requires testing that would require the deep brain stimulator to be shut off (6) Altered mental status: Code(s): R41.82 - Altered mental status, unspecified Status: Acute Assessment and Plan: patient noted by previous provider to have episodes of staring in which he was poorly responsive. Concern for seizure vs CVA appreciate neurology evaluation eeg recommended per Cardiology, will await results if any additional episodes, start Keppra 500 mg b.i.d. per neurology recommendation head CT with no acute findings head/neck CTA showed deep brain stimulators in expected position, 7% stenosis of the proximal right internal carotid artery and 0% stenosis of the proximal left internal carotid artery MRI not able to be completed secondary to deep brain stimulator and pacemaker UA without concerns for infection Subjective Date/time seen: 06/05/22 14:47 Interval history: date of service: 06/05/2022 Dara Dash is a 77-year-old male with a history of atrial fibrillation on chronic anticoagulation, BPH, CHF, CAD, hypertension, hyperlipidemia, Parkinson's disease s/p deep brain stimulator who is seen in follow-up for pneumonia. Patient states he is feeling tired today. He continues to endorse dysphagia and states he mostly has trouble with so
[2022-06-05] MEDS: RIVAROXABAN 20 MG TABLET PO (17:37)
[2022-06-05] MEDS: TAMSULOSIN HCL 0.4 MG CAPSULE PO (17:38)
--- NOTE | 2022-06-05 18:39 | PM.PNCARD ---
Progress Note: A&P Assessment and Plan (1) Altered mental status: Code(s): R41.82 - Altered mental status, unspecified Status: Acute (2) Paroxysmal atrial fibrillation: Code(s): I48.0 - Paroxysmal atrial fibrillation Status: Acute (3) Acute on chronic systolic (congestive) heart failure: Code(s): I50.23 - Acute on chronic systolic (congestive) heart failure Status: Acute (4) Chronic anticoagulation: Code(s): Z79.01 - residential (current) use of anticoagulants Status: Acute (5) Essential hypertension: Code(s): I10 - Essential (primary) hypertension Status: Chronic (6) Coronary artery disease: Code(s): I25.10 - Atherosclerotic heart disease of [place] coronary artery without angina pectoris Status: Chronic (7) Parkinson disease: Code(s): G20 - Parkinson's disease Status: Chronic (8) CAD in [place] artery: Code(s): I25.10 - Atherosclerotic heart disease of [place] coronary artery without angina pectoris Status: Acute (9) S/P deep brain stimulator placement: Code(s): Z96.89 - Presence of other specified functional implants Status: Chronic Plan Would transition to oral Lasix. EKG from yesterday appears to be atrial flutter. If patient remains in atrial flutter, will consider cardioversion. Continue Amiodarone and Metoprolol for rate control Patient's family concerned about changes in mental status. EEG is pending. Subjective Date/time seen: 06/05/22 18:39 Interval history: EEG pending to evaluate for seizures. Reports he feels much better since admission, improved breathing and edema. Review of Systems Review of Systems: All systems reviewed & are unremarkable except as noted in HPI and below (subjective) Exam Const: General: comfortable and no acute distress Neck: Neck: No no JVD Resp: Effort & Inspection: normal respiratory effort Other: Decreased breath sounds in bases Cardio: Rate: regular rate and tachycardic Heart sounds: no murmurs Neuro: Speech: normal speech Extrem: Other: No right lower extremity edema. 1+ left ankle edema Psych: Mental Status: mental status grossly normal Objective Data Vital Signs Vital Signs: Vital Signs - 24 hr 06/04/22 21:56 06/04/22 20:00 06/04/22 20:00 Temperature 36.6 C Pulse Rate 111 H 112 H 111 H Respiratory Rate 18 18 Blood Pressure 129/90 Pulse Oximetry 93 93 Oxygen Delivery Room Air 06/05/22 00:00 06/05/22 06:00 06/05/22 04:00 Temperature 36.6 C Pulse Rate 113 H 110 H 111 H Respiratory Rate 20 Blood Pressure 130/87 Pulse Oximetry 95 Oxygen Delivery 06/05/22 10:03 06/05/22 10:05 06/05/22 14:00 Temperature 36.8 C Pulse Rate 117 H 117 H 109 H Respiratory Rate 20 Blood Pressure 122/93 H Pulse Oximetry 95 Oxygen Delivery 06/05/22 08:00 Temperature Pulse Rate Respiratory Rate Blood Pressure Pulse Oximetry Oxygen Delivery Room Air Intake/Output Intake/Output: Intake & Output 06/02/22 06/03/22 06/04/22 06/05/22 23:59 23:59 23:59 23:59 Intake Total 2260 800 1030 900 Output Total 1280 1700 1050 Balance 980 -900 -20 900 Meds/Results Medications: Active Medications Generic Name Dose Route Start Last Admin Trade Name Garcíaq PRN Reason Stop Dose Admin Amantadine HCl 200 mg 05/31/22 09:00 06/05/22 10:00 Amantadine Hcl 100 Mg Capsule PO 200 mg DAILY MEGHANA Administration Amiodarone HCl 400 mg 05/31/22 09:00 06/05/22 10:05 Amiodarone Hcl 200 Mg Tablet PO 400 mg Q12HR MEGHANA Administration Amoxicillin/Clavulanate Potassium 1 tablet 06/04/22 13:00 06/05/22 10:05 Amoxicillin/Clavulanate K 875-125 Mg Tab PO 1 tablet Q12HR MEGHANA Administration Ascorbic Acid 1,000 mg 05/31/22 09:00 06/05/22 10:00 Ascorbic Acid 500 Mg Tablet PO 1,000 mg DAILY MEGHANA Administration Atorvastatin Calcium 40 mg 05/30/22 21:00 06/04/22 21:30 Atorvastatin 40 Mg
[2022-06-05] MEDS: ATORVASTATIN 40 MG TABLET PO (21:12)
[2022-06-05] MEDS: guaiFENesin 12 HR 600 MG TABCR PO (21:13)
[2022-06-06] VITALS (13 sets, daily range): BP systolic 123–139; BP diastolic 83–93; PULSE 80–110; RESP 14–18; TEMP 36.1–36.6; O2SAT 92–98
[2022-06-06 05:58] LABS: Hematocrit 39.4 % (42.0-52.0); Hemoglobin 12.2 g/dL (14.0-18.0); Mean Corpuscular Hemoglobin 30.9 pg (26-34); Mean Corpuscular Volume 99.7 fl (80-100); Mean Platelet Volume 9.5 fl (7.4-10.4); Platelet Count Result 241 k/mm3 (150-375); Red Blood Count 3.95 M/mm3 (4.6-6.20); Red Cell Distribution Width 14.1 % (11.5-14.5); White Blood Count 7.6 K/mm3 (4.5-10.0)
[2022-06-06 06:19] LABS: Anion Gap 15 mmol/L (8-16); Blood Urea Nitrogen 19 mg/dL (9-20); Calcium 9.7 mg/dL (8.4-10.2); Carbon Dioxide 29 mmol/L (22-30); Chloride 99 mmol/L (98-107); Estimated CRCL calculation 52 ml/min; Estimated Glomerular Filt Rate 45; Glucose 114 mg/dL (65-110); Potassium 3.6 mmol/L (3.4-5.0); Sodium 143 mmol/L (137-145)
--- NOTE | 2022-06-06 07:00 | ECG_ITS ---
Measurements Intervals [place] Rate: 102 P: TN: 0 QRS: 69 QRSD: 108 T: 35 QT: 242 QTc: 316 Interpretive Statements ATRIAL FLUTTER/TACHYCARDIA WITH RAPID VENTRICULAR RESPONSE BORDERLINE ST-T WAVE ABNORMALITY- DIFFUSE LEADS BASELINE ARTIFACT- I, II, III, AVR, AVL, AVF, V2-V6 ABNORMAL ECG COMPARED TO ECG 06/04/2022 11:59:56 NO SIGNIFICANT CHANGES PATIENT HAS BRAIN STIMULATOR WHICH IS CAUSING ARTIFACT ON EKG Electronically Signed On 06-06-2022 11:33:31 CDT by Dc Rivera D.O.
--- NOTE | 2022-06-06 08:58 | P.NEURO_ITS ---
Neurology EEG Report General Information Date of Study: 06/06/22 TEST Routine EEG DIAGNOSIS Seizure-like activity CONDITION OF RECORDING Awake. Study limited by movement artifact. EEG NUMBER [id number] CLINICAL HISTORY Currently admitted for CHF exacerbation. Had episode during hospitalization de scribed as staring off and unresponsive. No prior history of seizures. EEG DESCRIPTION During the awake state with eyes closed the background consists of 9 Hz posterior dominant rhythm which attenuates appropriately with eye opening. The recording is continuous. There is a well developed anterior-posterior gradient. No significant asymmetries of background activities are noted. There are no epileptiform discharges or seizures during this recording. Hyperventilation and photic stimulation were not performed. IMPRESSION This is a normal routine EEG recorded in the awake state. There are no electrographic seizures identified, nor are there any epileptiform discharges. Please note that a normal EEG cannot exclude a seizure disorder. Clinical correlation is recommended.
[2022-06-06] MEDS: MULTIVITAMINS THERAPEUTIC TAB (*BKC) 1 TABLET PO (08:59)
[2022-06-06] MEDS: CARBIDOPA/LEVODOPA 25/100 MG TABLET 1 TABLET PO ×4 (08:59→21:06)
[2022-06-06] MEDS: CHOLECALCIFEROL 1,000 UNITS TABLET 5000 UNITS PO (08:59)
[2022-06-06] MEDS: POTASSIUM CHLORIDE 20 MEQ PACKET (FOR LIQUID) 60 MEQ PO (08:59)
[2022-06-06] MEDS: AMOXICILLIN/CLAVULANATE K 875-125 MG TAB 1 TABLET PO ×2 (09:00→21:05)
[2022-06-06] MEDS: CALCIUM CARBONATE (OSCAL) 500 MG TABLET 1000 MG PO (09:00)
[2022-06-06] MEDS: ASCORBIC ACID 500 MG TABLET 1000 MG PO (09:00)
[2022-06-06] MEDS: AMANTADINE HCL 100 MG CAPSULE 200 MG PO (09:01)
[2022-06-06] MEDS: FOLIC ACID 0.4 MG TABLET 0.8 MG PO (09:01)
[2022-06-06] MEDS: GLYCOPYRROLATE 1 MG TABLET PO ×3 (09:01→17:12)
[2022-06-06] MEDS: lisinopriL 20 MG TABLET PO (09:02)
[2022-06-06] MEDS: OMEGA 3 POLYUNSAT FATTY ACIDS 1 GM CAP 2 GM PO (09:02)
[2022-06-06] MEDS: METOPROLOL SUCCINATE EXT REL 100 MG TABCR 200 MG PO (09:03)
[2022-06-06] MEDS: AMIODARONE HCL 200 MG TABLET 400 MG PO ×2 (09:04→21:05)
[2022-06-06] MEDS: FUROSEMIDE 40 MG TABLET PO (09:15)
[2022-06-06] MEDS: guaiFENesin 12 HR 600 MG TABCR PO ×2 (09:15→21:06)
--- NOTE | 2022-06-06 11:54 | PC.NURSE ---
CALL PLACED BY THIS NURSE TO DR. MARTIN (CARDIOLOGY) TO NOTIFY PHYSICIAN OF EKG RESULTS- ATRIAL FIBRILLATION WITH RVR. THIS NURSE CALLED PATIENTS SPOUSE AND ASKED HER TO BRING IN THE PATIENTS DEEP BRAIN STIMULATOR REMOTE. NOTIFIED DR. MARTIN'S TEACHING FELLOW THAT THE DBS REMOTE WOULD BE HERE THIS AFTERNOON IF SHE WANTED TO ORDER ANOTHER EKG. AWAITING RESPONSE/ORDERS
--- NOTE | 2022-06-06 12:03 | PM.PNCARD ---
Progress Note: A&P Assessment and Plan (1) Acute on chronic systolic heart failure: Code(s): I50.23 - Acute on chronic systolic (congestive) heart failure Status: Acute (2) Paroxysmal atrial fibrillation: Code(s): I48.0 - Paroxysmal atrial fibrillation Status: Acute (3) Chronic anticoagulation: Code(s): Z79.01 - long-term (current) use of anticoagulants Status: Acute (4) Essential hypertension: Code(s): I10 - Essential (primary) hypertension Status: Chronic (5) Coronary artery disease: Code(s): I25.10 - Atherosclerotic heart disease of [place] coronary artery without angina pectoris Status: Chronic (6) Parkinson disease: Code(s): G20 - Parkinson's disease Status: Chronic (7) Dyslipidemia: Code(s): E78.5 - Hyperlipidemia, unspecified Status: Acute (8) S/P deep brain stimulator placement: Code(s): Z96.89 - Presence of other specified functional implants Status: Chronic Plan Patient on oral Lasix now. Would monitor I/Os and give additional dose of Lasix to keep patient slightly net negative. Patient remains in atrial flutter. Will plan for cardioversion tomorrow. NPO at midnight. Discussed with patient and patient's . Continue Xarelto. Patient has been taking Xarelto for more than 4 weeks now (Xarelto started 04/20/22). Has not missed any doses. Therefore, SAYRA not needed prior to cardioversion. Continue Amiodarone and Toprol. Subjective Date/time seen: 06/06/22 12:03 Interval history: Heart rate improved, however, patient remains in atrial flutter. Review of Systems Review of Systems: All systems reviewed & are unremarkable except as noted in HPI and below (subjective) Exam Const: General: comfortable and no acute distress Neck: Neck: no JVD Resp: Other: Diminished lung sounds in bases Cardio: Rate: tachycardic Rhythm: regular rhythm Heart sounds: no murmurs Psych: Mental Status: mental status grossly normal Objective Data Vital Signs Vital Signs: Vital Signs - 24 hr 06/05/22 14:00 06/05/22 16:00 06/05/22 21:12 Temperature 36.8 C Pulse Rate 109 H 88 75 Respiratory Rate 20 Blood Pressure 122/93 H Pulse Oximetry 95 Oxygen Delivery 06/05/22 22:00 06/05/22 20:00 06/05/22 20:00 Temperature 36.1 C L Pulse Rate 107 H 107 H Respiratory Rate 20 Blood Pressure 117/82 Pulse Oximetry 96 Oxygen Delivery Room Air 06/06/22 00:00 06/06/22 04:00 06/06/22 05:49 Temperature 36.4 C Pulse Rate 106 H 108 H 107 H Respiratory Rate 18 Blood Pressure 139/89 Pulse Oximetry 93 Oxygen Delivery 06/06/22 09:03 06/06/22 09:04 Temperature Pulse Rate 109 H 109 H Respiratory Rate Blood Pressure Pulse Oximetry Oxygen Delivery Intake/Output Intake/Output: Intake & Output 06/03/22 06/04/22 06/05/22 06/06/22 23:59 23:59 23:59 23:59 Intake Total 800 1030 900 145 Output Total 1700 1050 Balance -900 -20 900 145 Meds/Results Medications: Active Medications Generic Name Dose Route Start Last Admin Trade Name Freq PRN Reason Stop Dose Admin Amantadine HCl 200 mg 05/31/22 09:00 06/06/22 09:01 Amantadine Hcl 100 Mg Capsule PO 200 mg DAILY MEGHANA Administration Amiodarone HCl 400 mg 05/31/22 09:00 06/06/22 09:04 Amiodarone Hcl 200 Mg Tablet PO 400 mg Q12HR MEGHANA Administration Amoxicillin/Clavulanate Potassium 1 tablet 06/04/22 13:00 06/06/22 09:00 Amoxicillin/Clavulanate K 875-125 Mg Tab PO 1 tablet Q12HR MEGHANA Administration Ascorbic Acid 1,000 mg 05/31/22 09:00 06/06/22 09:00 Ascorbic Acid 500 Mg Tablet PO 1,000 mg DAILY MEGHANA Administration Atorvastatin Calcium 40 mg 05/30/22 21:00 06/05/22 21:12 Atorvastatin 40 Mg Tablet PO 40 mg HS MEGHANA Administration Bisacodyl 10 mg 05/30/22 17:25 05/31/22 20:26 Bisacodyl 10 Mg Suppository RECTAL 10 mg QAM PRN Administration Constipatio
--- NOTE | 2022-06-06 16:14 | P.PNIM_ITS ---
Progress Note: A&P Assessment and Plan (1) Paroxysmal atrial fibrillation: Code(s): I48.0 - Paroxysmal atrial fibrillation Status: Acute Assessment and Plan: Currently in atrial flutter * appreciate cardiology management * continue Xarelto * continue amiodarone * metoprolol changed to extended release at 200 mg daily * continue to monitor on telemetry * planning for cardioversion tomorrow per cardiology recommendations (2) Acute on chronic systolic (congestive) heart failure: Code(s): I50.23 - Acute on chronic systolic (congestive) heart failure Status: Acute Assessment and Plan: has had improvement with diuresis * Transitioned to PO Lasix 40 mg daily * Monitor intake and output. Consider increase in Lasix to BID to maintain net negative volume status. * Continue to monitor intake and output with daily weights * Recent echocardiogram completed on 04/20/2022 which showed reduced EF of 35- 40% with enlarged left atrial and ventricular enlargement * appreciate cardiology recommendation (3) Altered mental status: Code(s): R41.82 - Altered mental status, unspecified Status: Acute Assessment and Plan: patient noted by previous provider to have episodes of staring in which he was poorly responsive. * patient is not at his baseline mental status per his * appreciate neurology evaluation * EEG completed today which was normal. * head CT with no acute findings * head/neck CTA showed deep brain stimulators in expected position, 7% stenosis of the proximal right internal carotid artery and 0% stenosis of the proximal left internal carotid artery * MRI not able to be completed secondary to deep brain stimulator and pacemaker * UA without concerns for infection * May have component of hospital induced delirium * Frequent reorientation, minimize disturbances, appropriate sleep hygiene, etc. (4) Pneumonia involving right lung: Code(s): J18.9 - Pneumonia, unspecified organism Status: Acute Assessment and Plan: Recent hospitalization 05/21/22-05/26/22 for aspiration pneumonia during which time he was treated with Unasyn while in the hospital and Augmentin on discharge. * MBS completed at that time with recommendations for level 6 soft and bite size diet with mildly thickened liquids * Re-evaluated by speech therapy during this admission with repeat MBS on 05/31. * Subsequent recommendations for minced and moist level 5 diet with mildly thickened liquids. Dietary changes have been implemented . * CXR with evidence of right basilar airspace disease consistent with pneumonia, likely secondary again to aspiration. * Patient transition from IV Zosyn to p.o. Augmentin on 06/04. Tolerating this well. Leukocytosis resolved. * Supportive care. Mucinex. Incentive spirometry and Cornet (needs assistance to utilize these) * Blood cultures negative. (5) Essential hypertension: Code(s): I10 - Essential (primary) hypertension Status: Chronic Assessment and Plan: Blood pressures have been reasonably controlled, improved following diuresis. * continue Lasix * continue lisinopril * monitor BP trends (6) Parkinson disease: Code(s): G20 - Parkinson's disease Status: Chronic Assessment and Plan: Pt. has deep brain stimulator. he follows with neurologist, Dr. Hernandez, at the [place] * Continue carbidopa levodopa * PT and OT ordered. * remote for deep brain stimulator at the bedside in the event patient requires testing that would require the
--- NOTE | 2022-06-06 16:14 | PM.IMPN ---
Progress Note: A&P Assessment and Plan (1) Paroxysmal atrial fibrillation: Code(s): I48.0 - Paroxysmal atrial fibrillation Status: Acute Assessment and Plan: Currently in atrial flutter appreciate cardiology management continue Xarelto continue amiodarone metoprolol changed to extended release at 200 mg daily continue to monitor on telemetry planning for cardioversion tomorrow per cardiology recommendations (2) Acute on chronic systolic (congestive) heart failure: Code(s): I50.23 - Acute on chronic systolic (congestive) heart failure Status: Acute Assessment and Plan: has had improvement with diuresis Transitioned to PO Lasix 40 mg daily Monitor intake and output. Consider increase in Lasix to BID to maintain net negative volume status. Continue to monitor intake and output with daily weights Recent echocardiogram completed on 04/20/2022 which showed reduced EF of 35-40% with enlarged left atrial and ventricular enlargement appreciate cardiology recommendation (3) Altered mental status: Code(s): R41.82 - Altered mental status, unspecified Status: Acute Assessment and Plan: patient noted by previous provider to have episodes of staring in which he was poorly responsive. patient is not at his baseline mental status per his appreciate neurology evaluation EEG completed today which was normal. head CT with no acute findings head/neck CTA showed deep brain stimulators in expected position, 7% stenosis of the proximal right internal carotid artery and 0% stenosis of the proximal left internal carotid artery MRI not able to be completed secondary to deep brain stimulator and pacemaker UA without concerns for infection May have component of hospital induced delirium Frequent reorientation, minimize disturbances, appropriate sleep hygiene, etc. (4) Pneumonia involving right lung: Code(s): J18.9 - Pneumonia, unspecified organism Status: Acute Assessment and Plan: Recent hospitalization 05/21/22-05/26/22 for aspiration pneumonia during which time he was treated with Unasyn while in the hospital and Augmentin on discharge. MBS completed at that time with recommendations for level 6 soft and bite size diet with mildly thickened liquids Re-evaluated by speech therapy during this admission with repeat MBS on 05/31. Subsequent recommendations for minced and moist level 5 diet with mildly thickened liquids. Dietary changes have been implemented . CXR with evidence of right basilar airspace disease consistent with pneumonia, likely secondary again to aspiration. Patient transition from IV Zosyn to p.o. Augmentin on 06/04. Tolerating this well. Leukocytosis resolved. Supportive care. Mucinex. Incentive spirometry and Cornet (needs assistance to utilize these) Blood cultures negative. (5) Essential hypertension: Code(s): I10 - Essential (primary) hypertension Status: Chronic Assessment and Plan: Blood pressures have been reasonably controlled, improved following diuresis. continue Lasix continue lisinopril monitor BP trends (6) Parkinson disease: Code(s): G20 - Parkinson's disease Status: Chronic Assessment and Plan: Pt. has deep brain stimulator. he follows with neurologist, Dr. Hernandez, at the [place] Continue carbidopa levodopa PT and OT ordered. remote for deep brain stimulator at the bedside in the event patient requires testing that would require the deep brain stimulator to be shut off Subjective Date/time seen: 06/06/22 16:14 Interval history: date of service: 06/06/2022 Draa Dash is a 77-year-old male with a history of atrial fibrillation on chronic anticoagulation, BPH, CHF, CAD, hypertension, hyperlipidemia, Parkinson's disease s/p deep brain stimulator who is seen in follow-up for pneumonia, atrial fibrillation, and altered mental sta
[2022-06-06] MEDS: RIVAROXABAN 20 MG TABLET PO (17:12)
[2022-06-06] MEDS: TAMSULOSIN HCL 0.4 MG CAPSULE PO (17:12)
[2022-06-06] MEDS: ATORVASTATIN 40 MG TABLET PO (21:06)
[2022-06-07] VITALS (22 sets, daily range): BP systolic 100–140; BP diastolic 69–100; PULSE 51–107; RESP 11–27; TEMP 36.1–37.3; O2SAT 91–98
--- NOTE | 2022-06-07 05:14 | PC.NURSE ---
Pt very active in the beginning of the shift. Pt did get combative over night pushing and hitting the tech while cleaning the pt. Pt took night time medication crushed with applesauce. Pt finally fell asleep around 0200. Pt resting comfortably. Will continue to monitor for sign and symptoms of change in status.
[2022-06-07 05:56] LABS: Hematocrit 39.6 % (42.0-52.0); Hemoglobin 12.3 g/dL (14.0-18.0); Mean Corpuscular HGB Conc 31.1 g/dl (32-36); Mean Corpuscular Hemoglobin 30.7 pg (26-34); Mean Corpuscular Volume 98.8 fl (80-100); Mean Platelet Volume 9.3 fl (7.4-10.4); Platelet Count Result 235 k/mm3 (150-375); Red Blood Count 4.01 M/mm3 (4.6-6.20); Red Cell Distribution Width 14.3 % (11.5-14.5); White Blood Count 8.5 K/mm3 (4.5-10.0)
[2022-06-07 06:48] LABS: Alanine Aminotransferase 15 U/L (6-50); Albumin Level 3.9 g/dL (3.5-5.1); Alkaline Phosphatase 67 U/L (38-126); Anion Gap 9 mmol/L (8-16); Aspartate Amino Transferase 26 U/L (17-59); Bilirubin,Total 1.1 mg/dL (0.2-1.3); Blood Urea Nitrogen 21 mg/dL (9-20); Calcium 9.5 mg/dL (8.4-10.2); Carbon Dioxide 28 mmol/L (22-30); Chloride 104 mmol/L (98-107); Estimated CRCL calculation 48 ml/min; Estimated Glomerular Filt Rate 42; Glucose 122 mg/dL (65-110); Potassium 4.2 mmol/L (3.4-5.0); Sodium 141 mmol/L (137-145)
--- NOTE | 2022-06-07 08:00 | ECG_ITS ---
Measurements Intervals [place] Rate: 107 P: TN: 0 QRS: 27 QRSD: 114 T: 8 QT: 319 QTc: 427 Interpretive Statements ATRIAL FLUTTER/TACHYCARDIA WITH RAPID VENTRICULAR RESPONSE INTRAVENTRICULAR CONDUCTION DELAY BORDERLINE T WAVE ABNORMALITY- DIFFUSE LEADS BASELINE ARTIFACT- I, II, III, AVR, AVL, AVF, V2-V4 ABNORMAL ECG COMPARED TO ECG 06/06/2022 10:47:42 NO SIGNIFICANT CHANGES Electronically Signed On 06-07-2022 9:50:04 CDT by Dc Rivera D.O.
--- NOTE | 2022-06-07 09:15 | SUR.PREOP ---
THIS RN SPOKE W/ PT'S , CORETTA, ABOUT PT'S DEEP BRAIN STIMULATOR IN PREPARATION FOR SCHEDULED CARDIOVERSION W/ DR. MARTIN. PAT REQUESTED WE SPEAK W/ PT'S NEUROLOGIST AT [facility] IN [facility], DR. BOWMAN. THIS RN SPOKE W/ DR. BOWMAN ([phone]) ON PT'S 'S CELL PHONE AT PT'S BEDSIDE. DR. BOWMAN STATES THAT DBS IS A [employer] DEVICE AND HAS BILATERAL UPPER CHEST BATTERIES. HE ADVISES TO CALL [employer] FOR DEVICE INFORMATION AND COMPATIBILITY/INSTRUCTIONS FOR ELECTRICAL CARDIOVERSION. PT. HAS DBS DEVICE REMOTE IN HAND. WILL NOTIFY DR. MARTIN, CARDIOLOGY, OF THIS EXCHANGE.
[2022-06-07] MEDS: AMIODARONE HCL 200 MG TABLET 400 MG PO (09:25)
[2022-06-07] MEDS: METOPROLOL SUCCINATE EXT REL 100 MG TABCR 200 MG PO (09:26)
[2022-06-07] MEDS: AMOXICILLIN/CLAVULANATE K 875-125 MG TAB 1 TABLET PO ×2 (09:26→21:11)
[2022-06-07] MEDS: CALCIUM CARBONATE (OSCAL) 500 MG TABLET 1000 MG PO (09:26)
[2022-06-07] MEDS: guaiFENesin 12 HR 600 MG TABCR PO ×2 (09:26→21:11)
[2022-06-07] MEDS: lisinopriL 20 MG TABLET PO (09:26)
[2022-06-07] MEDS: FOLIC ACID 0.4 MG TABLET 0.8 MG PO (09:26)
[2022-06-07] MEDS: CHOLECALCIFEROL 1,000 UNITS TABLET 5000 UNITS PO (09:26)
[2022-06-07] MEDS: OMEGA 3 POLYUNSAT FATTY ACIDS 1 GM CAP 2 GM PO (09:26)
[2022-06-07] MEDS: AMANTADINE HCL 100 MG CAPSULE 200 MG PO (09:27)
[2022-06-07] MEDS: CARBIDOPA/LEVODOPA 25/100 MG TABLET 1 TABLET PO ×3 (09:27→21:11)
[2022-06-07] MEDS: FUROSEMIDE 40 MG TABLET PO (09:27)
[2022-06-07] MEDS: POTASSIUM CHLORIDE 20 MEQ PACKET (FOR LIQUID) 60 MEQ PO (09:27)
[2022-06-07] MEDS: MULTIVITAMINS THERAPEUTIC TAB (*BKC) 1 TABLET PO (09:27)
[2022-06-07] MEDS: ASCORBIC ACID 500 MG TABLET 1000 MG PO (09:27)
[2022-06-07] MEDS: GLYCOPYRROLATE 1 MG TABLET PO ×2 (09:27→16:11)
--- NOTE | 2022-06-07 09:42 | SUR.PREOP ---
NOTIFIED DR. MARTIN OF RECOMMENDATIONS FROM PT'S NEUROLOGIST AT [place], DR. BOWMAN. ORDERS TO HOLD ELECTRICAL CARDIOVERSION UNTIL [employer] AND DR. NGUYEN (NEUROLOGIST CONSULTED HERE AT [facility]) WEIGH IN ON PROCEDURE.
--- NOTE | 2022-06-07 10:05 | SUR.PREOP ---
[employer] NOTIFIED OF PT'S DBS DEVICE WITH ELECTRICAL CARDIOVERSION ORDERS BY CAITLIN Robertson RN. REQUESTED [employer] TO CHECK DEVICE AND GIVE RECOMMENDATION ON HOW TO PROCEDE WITH ELECTRICAL CARDIOVERSION.
--- NOTE | 2022-06-07 10:12 | SUR.PREOP ---
UPDATED PT'S PRIMARY CARE NURSE ON [facility], MARYAN RN, OF PLAN WITH [employer] AND NEUROLOGY.
--- NOTE | 2022-06-07 10:15 | ECG_ITS ---
Measurements Intervals [place] Rate: 51 P: 56 NV: 190 QRS: 39 QRSD: 109 T: 58 QT: 464 QTc: 428 Interpretive Statements SINUS BRADYCARDIA WITH SINUS ARRHYTHMIA BORDERLINE ST-T WAVE ABNORMALITY- ANT/HIGH LAT LEADS BASELINE WANDER- I, III BORDERLINE ECG COMPARED TO ECG 06/07/2022 09:24:43 SINUS BRADYCARDIA NOW PRESENT SINUS ARRHYTHMIA NOW PRESENT Electronically Signed On 06-07-2022 11:46:29 CDT by Dc Rivera D.O.
--- NOTE | 2022-06-07 10:20 | SUR.PREOP ---
DR. MARTIN SPOKE TO DR. NGUYEN ON PHONE RE: RECOMMENDATION FOR DBS WHEN CARDIOVERTED. CALL RECEIVED FROM [employer] REP, MARCI, AT THIS TIME. PER DR. MARTIN'S REQUEST, ASKED FOR RECOMMENDATIONS ON PROTOCOL FOR DBS USE WHILE ELECTRICALLY CARDIOVERTED. PER MARCI, DBS WILL NEED TO BE TURNED OFF PRIOR TO CARDIOVERSION, USING REMOTE TO TURN OFF EACH BATTERY IMPLANTED IN CHEST, 1 ONE LEFT CHEST, 1 ON RIGHT CHEST. THEN, WHEN DBS OFF, MAY BE SAFELY CARDIOVERTED, WITH HANDS FREE PADS NOT PLACED OVER BATTERIES USING LOWEST VOLTAGE TO CARDIOVERT PT. THIS ALSO COMMUNICATED TO DR. MARTIN AND SHE IS AWARE. WILL HAVE MARCI ([employer] REP, ) ON SPEAKER PHONE IN ROOM WITH RN'S AND DR. MARTIN WHEN TURNING OFF DBS PRIOR TO CARDIOVERSION.
--- NOTE | 2022-06-07 11:33 | SUR.PHASEII ---
CARDIOVERSION COMPLETED. SUCCESSFULLY CONVERTED TO SB 50'S WITH 200J SYNC SHOCK X 1. POST EKG COMPLETED AND GIVEN TO DR. MARTIN. WITH PHONE GUIDANCE FROM MARCI AT [employer], TURNED L. CHEST DBS BATTERY BACK ON USING REMOTE PROVIDED BY . LEFT CHEST BATTERY SAYS ON , OK ON REMOTE SCREEN. RIGHT CHEST BATTTERY RECHECKED WITH REMOTE. SHOWS PHONE AND DOCTOR ICONS WITH EOS ON REMOTE SCREEN. DR. MARTIN IS AWARE.
--- NOTE | 2022-06-07 11:44 | PCPTNOTE ---
The patient treatment was not able to be completed due to patient out of room for testing/procedure. Will plan to continue treatment per plan of care.
--- NOTE | 2022-06-07 11:57 | PCOTNOTE ---
Attempted to see patient earlier this am, however patient was being taken off floor for procedure.
--- NOTE | 2022-06-07 12:00 | SUR.PHASEII ---
CALL PLACED TO DR. BOWMAN (PT'S NEUROLOGIST AT [facility]) AT [phone]. NOTIFIED HIM OF EOS ON R. UPPER CHEST BATTERY AND THAT L. UPPER CHEST BATTERY TURNED OFF AND BACK ON SUCCESSFULLY BEFORE AND AFTER CARDIOVERSION. STATES HE WILL FOLLOW UP WITH PT. PT'S , [facility], NOTIFIED THAT THIS RN HAS NOTIFIED DR. BOWMAN OF STATUS OF R. AND L. CHEST BATTERIES FOR DBS.
--- NOTE | 2022-06-07 12:08 | PC.NURSE ---
Pt O2 sat dropped to 88%, snoring respirations, jaw thrust and stimulation, pt opens eyes briefly, O2 increased to 4LNC, O2 sat increased to upper 90s. After a few minutes, pt maintaining airway, continue to monitor.
--- NOTE | 2022-06-07 12:34 | SUR.PHASEII ---
Pt awakens and responds to verbal, continues to breath through open mouth, while sleeping O2 sat mid 90s with 2LNC. Oral care provided, pt more responsive after.
--- NOTE | 2022-06-07 13:27 | WPDMODSED ---
Moderate Sedation Note-Pt Data Patient Data Diagnosis: Atrial flutter Present Complaint: Atrial flutter Procedure to be performed/Plan: Cardioversion Allergies Allergy/AdvReac Type Severity Reaction Status Date / Time No Known Allergies Allergy Verified 05/30/22 13:26 Home Medications Medication Instructions Recorded Confirmed Type amantadine HCl 100 mg capsule 200 mg PO DAILY 09/29/21 05/30/22 History atorvastatin 40 mg tablet (Lipitor) 40 mg PO HS 09/29/21 05/30/22 History lisinopril 20 mg tablet 20 mg PO DAILY 09/29/21 05/30/22 History tamsulosin 0.4 mg capsule 0.4 mg PO USEASDIRECTD 09/29/21 05/30/22 History Adults Multivitamin 1 tablet PO DAILY 04/19/22 05/30/22 History folic acid 800 mcg tablet 400 mg PO DAILY 04/19/22 05/30/22 History omega-3 fatty acids 2,000 mg PO DAILY 04/19/22 05/30/22 History Calcium 500 1,200 mg PO DAILY 04/20/22 05/30/22 History cholecalciferol (vitamin D3) 50 5,000 unit PO DAILY 04/20/22 05/30/22 History mcg (2,000 unit) tablet (Vitamin D3) ascorbic acid (vitamin C) 500 mg 1,000 mg PO DAILY 05/21/22 05/30/22 History chewable tablet carbidopa 25 mg-levodopa 100 mg 1 tablet PO QID 05/21/22 05/30/22 History tablet furosemide 20 mg tablet (Lasix) 40 mg PO DAILY 05/21/22 05/30/22 History glycopyrrolate 1 mg tablet 1 mg PO TID 05/21/22 05/30/22 History amiodarone 200 mg tablet (Pacerone) 400 mg PO BID 1 month #120 tabs 05/26/22 05/30/22 Rx metoprolol tartrate 50 mg tablet 100 mg PO Q8HR 1 month #180 tabs 05/26/22 05/30/22 Rx lecithin 1,200 mg capsule 2,400 mg PO BID 05/30/22 05/30/22 History rivaroxaban 20 mg tablet (Xarelto) 20 mg PO 1700 05/30/22 05/30/22 History Current Medications: Active Medications Amantadine HCl (Amantadine Hcl 100 Mg Capsule) 200 mg PO DAILY [facility] Last Admin: 06/07/22 09:27 Dose: 200 mg Amiodarone HCl (Amiodarone Hcl 200 Mg Tablet) 400 mg PO Q12HR [facility] Last Admin: 06/07/22 09:25 Dose: 400 mg Amoxicillin/Clavulanate Potassium (Amoxicillin/Clavulanate K 875-125 Mg Tab) 1 tablet PO Q12HR [facility] Last Admin: 06/07/22 09:26 Dose: 1 tablet Ascorbic Acid (Ascorbic Acid 500 Mg Tablet) 1,000 mg PO DAILY [facility] Last Admin: 06/07/22 09:27 Dose: 1,000 mg Atorvastatin Calcium (Atorvastatin 40 Mg Tablet) 40 mg PO HS [facility] Last Admin: 06/06/22 21:06 Dose: 40 mg Bisacodyl (Bisacodyl 10 Mg Suppository) 10 mg RECTAL QAM PRN PRN Reason: Constipation Last Admin: 05/31/22 20:26 Dose: 10 mg Calcium Carbonate (Calcium Carbonate (Oscal) 500 Mg Tablet) 1,000 mg PO DAILY [facility] Stop: 06/30/22 08:59 Last Admin: 06/07/22 09:26 Dose: 1,000 mg Carbidopa/Levodopa (Carbidopa/Levodopa 25/100 Mg Tablet) 1 tablet PO QID [facility] Last Admin: 06/07/22 09:27 Dose: 1 tablet Docusate Sodium (Docusate Sodium 100 Mg Capsule) 100 mg PO Q12H PRN PRN Reason: Constipation Last Admin: 06/01/22 09:38 Dose: 100 mg Fentanyl Citrate (Fentanyl Citrate Inj (*Crx) 100 Mcg/2 Ml Vial) 100 mcg IV PUSH ONCE PRN PRN Reason: Cardioversion Fish Oil (Hughes 3 Polyunsat Fatty Acids 1 Gm Cap) 2 gm PO DAILY [facility] Stop: 06/30/22 08:59 Last Admin: 06/07/22 09:26 Dose: 2 gm Folic Acid (Folic Acid 0.4 Mg Tablet) 0.8 mg PO DAILY [facility] Stop: 06/30/22 08:59 Last Admin: 06/07/22 09:26 Dose: 0.8 mg Furosemide (Furosemide 40 Mg Tablet) 40 mg PO DAILY [facility] Last Admin: 06/07/22 09:27 Dose: 40 mg Glycopyrrolate (Glycopyrrolate 1 Mg Tablet) 1 mg PO TID [facility] Last Admin: 06/07/22 09:27 Dose: 1 mg Guaifenesin (Guaifenesin 12 Hr 600 Mg Tabcr) 600 mg PO Q12HR [facility] Last Admin: 06/07/22 09:26 Dose: 600 mg Lisinopril (Lisinopril 20 Mg Tablet) 20 mg PO DAILY [facility] Last Admin: 06/07/22 09:26 Dose: 20 mg Metoprolol Succinate (Metoprolol Succinate Ext Rel 100 Mg Tabcr) 200 mg PO QAM [facility] Last Admin: 06/07/22 09:26 Dose: 200 mg Midazolam HCl (Midazolam Hcl (*Crx) 2 Mg/2 Ml Vial) 2 mg IV PUSH Q5M PRN PRN Reason: Cardioversion Multivitamins Therapeutic (Multivitamins Therapeutic
--- NOTE | 2022-06-07 13:30 | WPDCARDVER ---
Cardioversion Cardioversion Date of procedure: 06/07/22 Procedure: Elective electrical cardioversion Pre-op diagnosis: Atrial flutter Post-op diagnosis: Other (Sinus bradycardia. Successful cardioversion.) Indications: Atrial flutter Description of procedure: Defibrillator pads placed in the anterior and posterior position. Prior to cardioversion, patient's deep brain stimulator was turned off. Successful cardioversion was then done with 200 Joules of biphasic energy. Patient converted to sinus bradycardia. Patient remaind hemodynamically stable throughout procedure. Patient's deep brain stimulator was turned back on after cardioversion. Sedation: Versed 2mg Fentanyl 50mcg Sedation administered by lab engineer RN. Conclusion: Successful DCCV with presybeterian of sinus rhythm with 1 shock.
--- NOTE | 2022-06-07 13:40 | PM.PNCARD ---
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 Status: Acute (5) Essential hypertension: Code(s): I10 - Essential (primary) hypertension Status: Chronic (6) Coronary artery disease: Code(s): I25.10 - Atherosclerotic heart disease of [place] coronary artery without angina pectoris Status: Chronic (7) Parkinson disease: Code(s): G20 - Parkinson's disease Status: Chronic (8) CAD in [place] artery: Code(s): I25.10 - Atherosclerotic heart disease of [place] coronary artery without angina pectoris Status: Acute (9) S/P deep brain stimulator placement: Code(s): Z96.89 - Presence of other specified functional implants Status: Chronic Plan Patient underwent successful DCCV with 1 shock with baptism of sinus rhythm. Continue with Xarelto. Continue with Amiodarone. Patient has been adequately loaded with Amiodarone (currently on 400mg BID). Would decrease dose to 400mg daily. Continue beta yudith. Continue ACEi. Will monitor rhythm on telemetry. Of note, for his cardioversion, we turned off the deep brain stimulator prior to cardioversion and turned it back on immediately after cardioversion. Interrogation of his deep brain stimulator showed that his right-sided battery was at end of life. Per discussion with device rep, it appears that battery has been end of life for a while now. This may explain why patient has been having tremors again. Patient needs to follow-up with his movement disorders neurologist. Subjective Date/time seen: 06/07/22 13:40 Interval history: Patient remained in atrial flutter this morning. Underwent successful cardioversion with baptism of sinus rhythm with 1 shock. Patient denied chest pain or shortness of breath this morning. Review of Systems Review of Systems: All systems reviewed & are unremarkable except as noted in HPI and below (subjective) Exam Const: General: no acute distress Neck: Neck: no JVD Resp: Other: Decreased breath sounds in bases Cardio: Rate: regular rate Rhythm: regular rhythm Heart sounds: no murmurs Extrem: General: no edema Objective Data Vital Signs Vital Signs: Vital Signs - 24 hr 06/06/22 13:53 06/06/22 16:00 06/06/22 16:00 Temperature 36.1 C L Pulse Rate 87 88 88 Respiratory Rate 18 Blood Pressure 123/93 H Pulse Oximetry 98 Oxygen Delivery Oxygen Flow Rate 06/06/22 18:00 06/06/22 21:05 06/06/22 22:00 Temperature 36.6 C Pulse Rate 93 96 80 Respiratory Rate 14 Blood Pressure 130/83 Pulse Oximetry 92 Oxygen Delivery Oxygen Flow Rate 06/06/22 20:01 06/07/22 00:03 06/07/22 04:00 Temperature Pulse Rate 85 96 104 H Respiratory Rate Blood Pressure Pulse Oximetry Oxygen Delivery Oxygen Flow Rate 06/07/22 05:33 06/07/22 08:00 06/07/22 09:25 Temperature 36.1 C L Pulse Rate 80 107 H Respiratory Rate 16 Blood Pressure 140/81 Pulse Oximetry 91 Oxygen Delivery Room Air Oxygen Flow Rate 06/07/22 09:26 06/07/22 10:00 06/07/22 11:20 Temperature 37.3 C Pulse Rate 107 H 106 H 90 Respiratory Rate 20 Blood Pressure 100/86 Pulse Oximetry 94 Oxygen Delivery High Flow Nasal Cannula Oxygen Flow Rate 2 06/07/22 11:25 06/07/22 11:30 06/07/22 11:35 Temperature Pulse Rate 95 51 L 51 L Respiratory Rate 27 H 12 17 Blood Pressure 121/100 H 106/73 105/69 Pulse Oximetry 97 97 98 Oxygen Delivery High Flow Nasal Cannula High Flow Roger
--- NOTE | 2022-06-07 15:22 | P.PNIM_ITS ---
Progress Note: A&P Assessment and Plan (1) Paroxysmal atrial fibrillation: Code(s): I48.0 - Paroxysmal atrial fibrillation Status: Acute Assessment and Plan: status post successful cardioversion today with anabaptism of sinus rhythm * appreciate cardiology management * continue Xarelto * continue amiodarone, reduce dose to 400 mg daily per Cardiology recommendation * metoprolol changed to extended release at 200 mg daily * continue to monitor on telemetry (2) Acute on chronic systolic (congestive) heart failure: Code(s): I50.23 - Acute on chronic systolic (congestive) heart failure Status: Acute Assessment and Plan: has had improvement with diuresis * Transitioned to PO Lasix 40 mg daily * Monitor intake and output. Consider increase in Lasix to BID to maintain net negative volume status. * Continue to monitor intake and output with daily weights * Recent echocardiogram completed on 04/20/2022 which showed reduced EF of 35- 40% with enlarged left atrial and ventricular enlargement * appreciate cardiology recommendation (3) Altered mental status: Code(s): R41.82 - Altered mental status, unspecified Status: Acute Assessment and Plan: patient noted by previous provider to have episodes of staring in which he was poorly responsive. * patient is not at his baseline mental status per his * appreciate neurology evaluation * EEG completed today which was normal. * head CT with no acute findings * head/neck CTA showed deep brain stimulators in expected position, 7% stenosis of the proximal right internal carotid artery and 0% stenosis of the proximal left internal carotid artery * MRI not able to be completed secondary to deep brain stimulator and pacemaker * UA without concerns for infection * May have component of hospital induced delirium * Frequent reorientation, minimize disturbances, appropriate sleep hygiene, etc. (4) Pneumonia involving right lung: Code(s): J18.9 - Pneumonia, unspecified organism Status: Acute Assessment and Plan: Recent hospitalization 05/21/22-05/26/22 for aspiration pneumonia during which time he was treated with Unasyn while in the hospital and Augmentin on discharge. * MBS completed at that time with recommendations for level 6 soft and bite size diet with mildly thickened liquids * Re-evaluated by speech therapy during this admission with repeat MBS on 05/31. * Subsequent recommendations for minced and moist level 5 diet with mildly thickened liquids. Dietary changes have been implemented . * CXR with evidence of right basilar airspace disease consistent with pneumonia, likely secondary again to aspiration. * Patient transition from IV Zosyn to p.o. Augmentin on 06/04. Tolerating this well. Leukocytosis resolved. * Supportive care. Mucinex. Incentive spirometry and Cornet (needs assistance to utilize these) * Blood cultures negative. (5) Essential hypertension: Code(s): I10 - Essential (primary) hypertension Status: Chronic Assessment and Plan: Blood pressures have been reasonably controlled, improved following diuresis. last BP 112/73 * continue Lasix * continue lisinopril * monitor BP trends (6) Parkinson disease: Code(s): G20 - Parkinson's disease Status: Chronic Assessment and Plan: Pt. has deep brain stimulator. he follows with neurologist, Dr. Hernandez, at the [place] * Continue carbidopa levodopa * PT and OT ordered. * deep brain stimulator was turned off for cardioversion to
--- NOTE | 2022-06-07 15:22 | PM.IMPN ---
Progress Note: A&P Assessment and Plan (1) Paroxysmal atrial fibrillation: Code(s): I48.0 - Paroxysmal atrial fibrillation Status: Acute Assessment and Plan: status post successful cardioversion today with cheondoism of sinus rhythm appreciate cardiology management continue Xarelto continue amiodarone, reduce dose to 400 mg daily per Cardiology recommendation metoprolol changed to extended release at 200 mg daily continue to monitor on telemetry (2) Acute on chronic systolic (congestive) heart failure: Code(s): I50.23 - Acute on chronic systolic (congestive) heart failure Status: Acute Assessment and Plan: has had improvement with diuresis Transitioned to PO Lasix 40 mg daily Monitor intake and output. Consider increase in Lasix to BID to maintain net negative volume status. Continue to monitor intake and output with daily weights Recent echocardiogram completed on 04/20/2022 which showed reduced EF of 35-40% with enlarged left atrial and ventricular enlargement appreciate cardiology recommendation (3) Altered mental status: Code(s): R41.82 - Altered mental status, unspecified Status: Acute Assessment and Plan: patient noted by previous provider to have episodes of staring in which he was poorly responsive. patient is not at his baseline mental status per his appreciate neurology evaluation EEG completed today which was normal. head CT with no acute findings head/neck CTA showed deep brain stimulators in expected position, 7% stenosis of the proximal right internal carotid artery and 0% stenosis of the proximal left internal carotid artery MRI not able to be completed secondary to deep brain stimulator and pacemaker UA without concerns for infection May have component of hospital induced delirium Frequent reorientation, minimize disturbances, appropriate sleep hygiene, etc. (4) Pneumonia involving right lung: Code(s): J18.9 - Pneumonia, unspecified organism Status: Acute Assessment and Plan: Recent hospitalization 05/21/22-05/26/22 for aspiration pneumonia during which time he was treated with Unasyn while in the hospital and Augmentin on discharge. MBS completed at that time with recommendations for level 6 soft and bite size diet with mildly thickened liquids Re-evaluated by speech therapy during this admission with repeat MBS on 05/31. Subsequent recommendations for minced and moist level 5 diet with mildly thickened liquids. Dietary changes have been implemented . CXR with evidence of right basilar airspace disease consistent with pneumonia, likely secondary again to aspiration. Patient transition from IV Zosyn to p.o. Augmentin on 06/04. Tolerating this well. Leukocytosis resolved. Supportive care. Mucinex. Incentive spirometry and Cornet (needs assistance to utilize these) Blood cultures negative. (5) Essential hypertension: Code(s): I10 - Essential (primary) hypertension Status: Chronic Assessment and Plan: Blood pressures have been reasonably controlled, improved following diuresis. last BP 112/73 continue Lasix continue lisinopril monitor BP trends (6) Parkinson disease: Code(s): G20 - Parkinson's disease Status: Chronic Assessment and Plan: Pt. has deep brain stimulator. he follows with neurologist, Dr. Hernandez, at the [place] Continue carbidopa levodopa PT and OT ordered. deep brain stimulator was turned off for cardioversion today. When turning on, it was noted that right-side battery was at end of life. Her device rep, has been end of life for some time. Will need outpatient follow-up for evaluation Subjective Date/time seen: 06/07/22 15:22 Interval history: date of service: 06/07/2022 Dara Dash is a 77-year-old male with a history of atrial fibrillation on chronic anticoagulation, BPH, CHF, CAD, hypertension, hyperli
[2022-06-07] MEDS: RIVAROXABAN 20 MG TABLET PO (16:12)
[2022-06-07] MEDS: TAMSULOSIN HCL 0.4 MG CAPSULE PO (17:19)
[2022-06-07] MEDS: ATORVASTATIN 40 MG TABLET PO (21:11)
[2022-06-08] VITALS (11 sets, daily range): BP systolic 134–170; BP diastolic 78–97; PULSE 59–68; RESP 14–26; TEMP 36.4–37.4; O2SAT 86–92; BMI 30.4
--- NOTE | 2022-06-08 03:50 | PC.NURSE ---
Pt resting tonight, more than last night. Pt refused night time meds at first. Once pt was reoriented to surrounds and situation pt was compliant with medication. Pt cleaned up at that time. Pt resting since then. Will continue to monitor pt.
[2022-06-08 06:45] LABS: Hematocrit 39.8 % (42.0-52.0); Hemoglobin 12.3 g/dL (14.0-18.0); Mean Corpuscular HGB Conc 30.9 g/dl (32-36); Mean Corpuscular Hemoglobin 31.1 pg (26-34); Mean Corpuscular Volume 100.5 fl (80-100); Mean Platelet Volume 9.6 fl (7.4-10.4); Platelet Count Result 257 k/mm3 (150-375); Red Blood Count 3.96 M/mm3 (4.6-6.20); Red Cell Distribution Width 14.4 % (11.5-14.5); White Blood Count 8.7 K/mm3 (4.5-10.0)
[2022-06-08 07:07] LABS: Anion Gap 17 mmol/L (8-16); Blood Urea Nitrogen 28 mg/dL (9-20); Calcium 10.1 mg/dL (8.4-10.2); Carbon Dioxide 27 mmol/L (22-30); Chloride 103 mmol/L (98-107); Estimated CRCL calculation 41 ml/min; Estimated Glomerular Filt Rate 35; Glucose 118 mg/dL (65-110); Potassium 4.8 mmol/L (3.4-5.0); Sodium 147 mmol/L (137-145)
[2022-06-08] MEDS: AMIODARONE HCL 200 MG TABLET 400 MG PO (09:02)
[2022-06-08] MEDS: ASCORBIC ACID 500 MG TABLET 1000 MG PO (09:03)
[2022-06-08] MEDS: FOLIC ACID 0.4 MG TABLET 0.8 MG PO (09:03)
[2022-06-08] MEDS: AMANTADINE HCL 100 MG CAPSULE 200 MG PO (09:03)
[2022-06-08] MEDS: GLYCOPYRROLATE 1 MG TABLET PO ×2 (09:03→13:31)
[2022-06-08] MEDS: CALCIUM CARBONATE (OSCAL) 500 MG TABLET 1000 MG PO (09:03)
[2022-06-08] MEDS: AMOXICILLIN/CLAVULANATE K 875-125 MG TAB 1 TABLET PO ×2 (09:03→20:54)
[2022-06-08] MEDS: guaiFENesin 12 HR 600 MG TABCR PO ×2 (09:03→20:54)
[2022-06-08] MEDS: CHOLECALCIFEROL 1,000 UNITS TABLET 5000 UNITS PO (09:04)
[2022-06-08] MEDS: lisinopriL 20 MG TABLET PO (09:04)
[2022-06-08] MEDS: METOPROLOL SUCCINATE EXT REL 100 MG TABCR 200 MG PO (09:04)
[2022-06-08] MEDS: OMEGA 3 POLYUNSAT FATTY ACIDS 1 GM CAP 2 GM PO (09:04)
[2022-06-08] MEDS: POTASSIUM CHLORIDE 20 MEQ PACKET (FOR LIQUID) 40 MEQ PO (09:04)
[2022-06-08] MEDS: MULTIVITAMINS THERAPEUTIC TAB (*BKC) 1 TABLET PO (09:04)
[2022-06-08] MEDS: CARBIDOPA/LEVODOPA 25/100 MG TABLET 1 TABLET PO ×4 (09:05→20:54)
--- NOTE | 2022-06-08 11:57 | PCPTNOTE ---
Treatment held this date per RN. The RN states that she would like to wait and see the results from some tests.
--- NOTE | 2022-06-08 13:21 | PCPTNOTE ---
Per RN, hold the patient today until he is seen by neuro. Will continue per PT plan of care.
--- NOTE | 2022-06-08 13:46 | PM.PNCARD ---
Progress Note: A&P Assessment and Plan (1) Paroxysmal atrial fibrillation: Code(s): I48.0 - Paroxysmal atrial fibrillation Status: Acute (2) Acute on chronic systolic heart failure: Code(s): I50.23 - Acute on chronic systolic (congestive) heart failure Status: Acute Plan 77-year-old man with: Left ventricular dysfunction and history of paroxysmal atrial fibrillation. Patient has now been converted to sinus rhythm after being loaded with high-dose amiodarone for the last couple of weeks. His condition appears to be much improved at this time. I am going to reduce his beta-yudith dosage to 100 mg per day as he no longer should require a higher dose for rate control. Given his weakness/ confusion at this time I am not sure that he is appropriate for discharge today Lucas Sanabria MD [facility] Subjective Date/time seen: date of service:06/08/22 13:46 Interval history: Patient remained in atrial flutter this morning. Underwent successful cardioversion with congregational of sinus rhythm with 1 shock. Patient denied chest pain or shortness of breath this morning. 06/08/2022: Patient is lying in bed head of the bed elevated in no distress of any kind offers no complaints but seems a bit incoherent today. He answers questions appropriately but is mentating slowly still maintaining normal sinus rhythm heart rate in the 50s on telemetry following cardioversion yesterday Exam Const: General: comfortable and no acute distress Other: arousable and alert elderly man offers no complaints appears to be a bit confused today more so than normal HENMT: Mouth: Yes moist mucous membranes Eyes: Sclera: sclerae normal Pupils: Equal, round and reactive pupils present Neck: Neck: supple and no JVD Resp: Effort & Inspection: normal respiratory effort Other: few scattered rhonchi are noted these clear with coughing Cardio: Rate: regular rate Rhythm: regular rhythm Other: sinus rhythm heart rate 55 GI: GI Palp: Yes Soft to palpation Auscultation: normal bowel sounds Skin: General skin exam: normal color Neuro: Other: alert and oriented, mentation Extrem: Other: peripheral edema has completely resolved Objective Data Vital Signs Vital Signs: Vital Signs - 24 hr 06/07/22 14:00 06/07/22 16:00 06/07/22 21:28 Temperature 36.4 C Pulse Rate 51 L 55 L Respiratory Rate 20 Blood Pressure 111/71 Pulse Oximetry 93 Oxygen Delivery Room Air 06/07/22 21:49 06/08/22 00:03 06/07/22 20:01 Temperature 37.2 C Pulse Rate 54 L 62 56 L Respiratory Rate 14 Blood Pressure 126/78 Pulse Oximetry 93 Oxygen Delivery 06/08/22 04:01 06/08/22 05:58 06/08/22 09:02 Temperature 36.9 C Pulse Rate 64 65 62 Respiratory Rate 14 Blood Pressure 170/89 H Pulse Oximetry 92 Oxygen Delivery 06/08/22 09:04 06/08/22 08:00 06/08/22 08:00 Temperature Pulse Rate 64 68 Respiratory Rate Blood Pressure Pulse Oximetry Oxygen Delivery Room Air Intake/Output Intake/Output: Intake & Output 06/05/22 06/06/22 06/07/22 06/08/22 23:59 23:59 23:59 23:59 Intake Total 900 495 100 720 Balance 900 495 100 720 Meds/Results Medications: Active Medications Generic Name Dose Route Start Last Admin Trade Name Freq PRN Reason Stop Dose Admin Amantadine HCl 200 mg 05/31/22 09:00 06/08/22 09:03 Amantadine Hcl 100 Mg Capsule PO 200 mg DAILY MEGHANA Administration Amiodarone HCl 400 mg 06/08/22 08:00 06/08/22 09:02 Amiodarone Hcl 200 Mg Tablet PO 400 mg DAILY@0800 MEGHANA Administration Amoxicillin/Clavulanate Potassium 1 tablet 06/04/22 13:00 06/08/22 09:03 Amoxicillin/Clavulanate K 875-125 Mg Tab PO 1 tablet Q12HR MEGHANA Administration Ascorbic Acid 1,000 mg 05/31/22 09:00 06/08/22 09:03 Ascorbic Acid 500 Mg Tablet PO 1,000 mg DAILY MEGHANA Administration Atorvastatin Calcium 40 mg 05/30/22 21:00 06/07/22 21:11
--- NOTE | 2022-06-08 14:11 | P.PNIM_ITS ---
Progress Note: A&P Assessment and Plan (1) Altered mental status: Code(s): R41.82 - Altered mental status, unspecified Status: Acute Assessment and Plan: Patient noted by previous provider to have episodes of staring in which he was poorly responsive. * Discussed with OT today who saw pt last on 06/03 states significant change from her last evaluation. States pt has now developed right sided lean with ataxic movements and noted hallucinations during session today. * Consult to Neurology to re-evaluate patient who also believes pt has had change in mental status from last evaluation on 06/04, noting more dysarthric speech and difficulty following commands * Repeat EEG (normal on 06/06) * Recheck UA and CXR * Check B12, folate, ammonia * Repeat head CT with no acute findings * Head/neck CTA (06/04) showed deep brain stimulators in expected position, 7% stenosis of the proximal right internal carotid artery and 0% stenosis of the proximal left internal carotid artery * MRI not able to be completed secondary to deep brain stimulator and pacemaker * Reviewed medications, at this time will stop amantadine and glycopyrrolate as these could potentially contribute to confusion, though seems less likely as these are chronic medications for pt. Avoid narcotics. * May have component of hospital induced delirium. Frequent reorientation, minimize disturbances, appropriate sleep hygiene, etc. * If laboratory workup, UA, CXR within normal limits, lumbar puncture has been recommended by neurology for further evaluation. (2) Paroxysmal atrial fibrillation: Code(s): I48.0 - Paroxysmal atrial fibrillation Status: Acute Assessment and Plan: status post successful cardioversion 06/07 with sikhism of sinus rhythm * appreciate cardiology management * continue Xarelto * continue amiodarone 400 mg daily * Metoprolol succinate decreased to 100 mg daily per Cardiology * continue to monitor on telemetry (3) Acute on chronic systolic (congestive) heart failure: Code(s): I50.23 - Acute on chronic systolic (congestive) heart failure Status: Acute Assessment and Plan: has had improvement with diuresis * Transitioned to PO Lasix 40 mg daily. Held today due to bump in serum creatinine * Continue to monitor intake and output with daily weights * Recent echocardiogram completed on 04/20/2022 which showed reduced EF of 35- 40% with enlarged left atrial and ventricular enlargement * appreciate cardiology recommendations (4) Pneumonia involving right lung: Code(s): J18.9 - Pneumonia, unspecified organism Status: Acute Assessment and Plan: Recent hospitalization 05/21/22-05/26/22 for aspiration pneumonia during which time he was treated with Unasyn while in the hospital and Augmentin on discharge. * MBS completed at that time with recommendations for level 6 soft and bite size diet with mildly thickened liquids * Re-evaluated by speech therapy during this admission with repeat MBS on 05/31. * Subsequent recommendations for minced and moist level 5 diet with mildly thickened liquids. Dietary changes have been implemented . * CXR with evidence of right basilar airspace disease consistent with pneumonia, likely secondary again to aspiration. * Patient transitioned from IV Zosyn to p.o. Augmentin on 06/04. Tolerating this well. Leukocytosis resolved. * Supportive care. Mucinex. Incentive spirometry and Cornet (needs assistance to utilize these) * Blood cultures negative. (5) Essential hypertension: Code(s): I10 - Essential (primary) hypertens
--- NOTE | 2022-06-08 14:11 | PM.IMPN ---
Progress Note: A&P Assessment and Plan (1) Altered mental status: Code(s): R41.82 - Altered mental status, unspecified Status: Acute Assessment and Plan: Patient noted by previous provider to have episodes of staring in which he was poorly responsive. Discussed with OT today who saw pt last on 06/03 states significant change from her last evaluation. States pt has now developed right sided lean with ataxic movements and noted hallucinations during session today. Consult to Neurology to re-evaluate patient who also believes pt has had change in mental status from last evaluation on 06/04, noting more dysarthric speech and difficulty following commands Repeat EEG (normal on 06/06) Recheck UA and CXR Check B12, folate, ammonia Repeat head CT with no acute findings Head/neck CTA (06/04) showed deep brain stimulators in expected position, 7% stenosis of the proximal right internal carotid artery and 0% stenosis of the proximal left internal carotid artery MRI not able to be completed secondary to deep brain stimulator and pacemaker Reviewed medications, at this time will stop amantadine and glycopyrrolate as these could potentially contribute to confusion, though seems less likely as these are chronic medications for pt. Avoid narcotics. May have component of hospital induced delirium. Frequent reorientation, minimize disturbances, appropriate sleep hygiene, etc. If laboratory workup, UA, CXR within normal limits, lumbar puncture has been recommended by neurology for further evaluation. (2) Paroxysmal atrial fibrillation: Code(s): I48.0 - Paroxysmal atrial fibrillation Status: Acute Assessment and Plan: status post successful cardioversion 06/07 with methodist of sinus rhythm appreciate cardiology management continue Xarelto continue amiodarone 400 mg daily Metoprolol succinate decreased to 100 mg daily per Cardiology continue to monitor on telemetry (3) Acute on chronic systolic (congestive) heart failure: Code(s): I50.23 - Acute on chronic systolic (congestive) heart failure Status: Acute Assessment and Plan: has had improvement with diuresis Transitioned to PO Lasix 40 mg daily. Held today due to bump in serum creatinine Continue to monitor intake and output with daily weights Recent echocardiogram completed on 04/20/2022 which showed reduced EF of 35-40% with enlarged left atrial and ventricular enlargement appreciate cardiology recommendations (4) Pneumonia involving right lung: Code(s): J18.9 - Pneumonia, unspecified organism Status: Acute Assessment and Plan: Recent hospitalization 05/21/22-05/26/22 for aspiration pneumonia during which time he was treated with Unasyn while in the hospital and Augmentin on discharge. MBS completed at that time with recommendations for level 6 soft and bite size diet with mildly thickened liquids Re-evaluated by speech therapy during this admission with repeat MBS on 05/31. Subsequent recommendations for minced and moist level 5 diet with mildly thickened liquids. Dietary changes have been implemented . CXR with evidence of right basilar airspace disease consistent with pneumonia, likely secondary again to aspiration. Patient transitioned from IV Zosyn to p.o. Augmentin on 06/04. Tolerating this well. Leukocytosis resolved. Supportive care. Mucinex. Incentive spirometry and Cornet (needs assistance to utilize these) Blood cultures negative. (5) Essential hypertension: Code(s): I10 - Essential (primary) hypertension Status: Chronic Assessment and Plan: Blood pressures have been reasonably controlled, improved following diuresis. Lasix and lisinopril on hold due to rising Cr. Resume when clinically appropriate. Prn hydralazine for SBP >170. monitor BP trends (6) Parkinson disease: Code(s): G20 - Parkinson's disease Status: Chronic Assessment an
--- NOTE | 2022-06-08 14:46 | WPDNEUROPN ---
Progress Note: A&P Assessment and Plan (1) Altered mental status: Code(s): R41.82 - Altered mental status, unspecified Status: Acute Assessment and Plan: Dara Dash is a 77 year old male with a history of CHF, CAD, Atrial fibrillation, HTN, and Parkinson's Disease s/p DBS. Admission complicated by an episode of staring off which was concerning for seizure. Routine EEG done which was normal. No further episodes, but mental status has declined over the past few days. Etiology is unclear, could be infectious (meningitis/encephalitis) vs delirium vs stroke (recent atrial flutter) vs occult seizures. CT head today did not show any new hypodensities. Unfortunately unable to obtain MRI due to patient's devices. - Recommend pursuing infectious work-up with repeat UA and CXR, as well as obtain lumbar puncture with CSF studies (protein, glucose, cell count, culture) - Consider repeating routine EEG Subjective Date/time seen: 06/08/22 14:46 Interval history: Dara Dash is a 77 year old male with a history of CHF, CAD, Atrial fibrillation, HTN, and Parkinson's Disease s/p DBS who was recent admitted to the [facility] and discharged. He presented on 05/30 due to shortness of breath and hypoxia. He was admitted again for treatment of CHF exacerbation. He is currently also being treated for pneumonia, blood cultures have been negative to date. He has not had any fevers. On 06/03 he had an episode that was witnessed by beside nurse that was described as staring off and unresponsive. His pupils were constricted at the time as well. There was no other obvious seizure-like activity during the episode. CT head was negative for acute process. CTA head and neck were unremarkable. Routine EEG was obtained on 06/04 which was normal. MRI brain could not be obtained due to his pacemaker and DBS. He has no further episodes of unresponsiveness or seizure-like events. However, over the past few days it seems that he has had a decline in his mental status. At the time of my evaluation on 06/04, patient did have severe dysarthria, but was still able to communicate to some degree and was AOx3. Within the past few days he underwent cardioversion for atrial flutter. DBS was interrogated by device rep, who noted that the R DBS batter had been out for some time. He has not had any fevers and his WBC has been within appropriate range. CT head was repeated today which did not show any new hypodensity. Review of Systems Review of Systems: ROS unobtainable: Yes unobtainable due to mental status Exam Const: General: no acute distress Other: Drowsy but arousable HENMT: General nose exam: Normal nares present Mouth: Yes dry mucous membranes Eyes: General: appearance normal, both eyes and all related structures Pupils: Equal, round and reactive pupils present EOM: EOMs intact bilaterally Resp: Effort & Inspection: normal respiratory effort Skin: General skin exam: normal color Neuro: Other: Incomprehensible speech. AOx0. Able to follow some commands. Pupils equal and reactive bilaterally, EOMI, face symmetric. Strength appears symmetric bilaterally. Rigidity and rest tremor in both upper extremities (left worse than right). Extrem: General: normal to inspection Psych: Other: Drowsy but arousable, AOx0, follows simple commands Objective Data Vital Signs Vital Signs: Vital Signs - 24 hr 06/07/22 16:00 06/07/22 21:28 06/07/22 21:49 Temperature 37.2 C Pulse Rate 55 L 54 L Respiratory Rate 14 Blood Pressure 126/78 Pulse Oximetry 93 Oxygen Delivery Room Air 06/08/22 00:03 06/07/22 20:01 06/08/22 04:01 Temperature Pulse Rate 62 56 L 64 Respiratory Rate Blood Pressure Pulse Oximetry Oxygen Delivery 06/08/22 05:58 06/08/22 09:02 06/08/22 09:04 Temperature 36.9 C Pulse Rate 65 62 64 Respiratory Rate 14 Blood Pressure 170/89 H Pulse Oximetry 92 Oxygen Delivery 06/08/22 08:00 0
--- NOTE | 2022-06-08 16:37 | PC.NURSE ---
Melani Camara in neurology called to ask for new EEG order because computer system will not let her put information in the order placed earlier today which is now reading completed. I was unable to cancel the first order, but i did put in new order so that she can enter results. She will talk with her manager transportation planning on Saturday to correct orders.
[2022-06-08] MEDS: TAMSULOSIN HCL 0.4 MG CAPSULE PO (17:05)
[2022-06-08] MEDS: RIVAROXABAN 20 MG TABLET PO (17:05)
[2022-06-08 17:43] LABS: Appearance Urine Clear (Clear); Bilirubin Urine Negative (Negative); Blood Urine Negative (Negative); Color Urine Yellow (Yellow); Glucose Urine UA Negative (Negative); Ketones Urine Trace mg/dL (Negative); Leukocyte Esterase Ur Negative LEU/UL (Negative); Nitrate Urine Negative (Negative); Protein Urine Trace mg/dL (Negative); Specific Grav Ur 1.015 (1.001-1.035); Urobilinogen Urine 0.2 mg/dL (<2.0)
[2022-06-08 17:49] LABS: Mucus Urine Rare /lpf; Squamous Epithelial Cell Urine Occasional /hpf (Few); WBC Urine 0-3 /hpf
[2022-06-08 17:50] LABS: Add Urine Microscopic? YES
[2022-06-08 18:22] LABS: Folic Acid > 20.0 ng/mL (2.76->20)
[2022-06-08] MEDS: ATORVASTATIN 40 MG TABLET PO (20:55)
--- NOTE | 2022-06-08 21:08 | PC.NURSE ---
Patient struggled to take crushed pills in pudding. Would often pocket pudding in mouth/ start falling asleep while eating. Patient not able to follow commands well and is hallucinating at times. Speech alternates between completely unintelligible and suddenly clear.
--- NOTE | 2022-06-08 21:17 | PC.NURSE ---
Patient oxygen saturation found to be at 86% on room air. Patient placed on 2L NC and O2 increased to 92%
[2022-06-09] VITALS (12 sets, daily range): BP systolic 123–166; BP diastolic 67–85; PULSE 57–70; RESP 19–20; TEMP 37.1–37.3; O2SAT 84–94
[2022-06-09 06:00] LABS: Basophils Percent Auto 0.3 % (0.2-1.2); Hematocrit 42.8 % (42.0-52.0); Hemoglobin 13.2 g/dL (14.0-18.0); Immature Granulocyte Absolute 0.08 K/mm3 (0.00-0.031); Immature Granulocyte Percent A 0.5 % (0-0.5); Lymphocytes Absolute Auto 0.36 K/mm3 (0.9-3.2); Lymphocytes Percent Auto 2.3 % (18.3-44.2); Mean Corpuscular HGB Conc 30.8 g/dl (32-36); Mean Corpuscular Hemoglobin 30.5 pg (26-34); Mean Corpuscular Volume 98.8 fl (80-100); Mean Platelet Volume 9.6 fl (7.4-10.4); Monocytes Absolute Auto 0.9 K/mm3 (0.1-0.6); Monocytes Percent Auto 5.7 % (2.6-8.5); Neutrophils Absolute Auto 14.5 K/mm3 (1.3-6.7); Neutrophils Percent Auto 91.2 % (45.5-73.1); Nucleated Red Blood Cells Perc 0.1 % (0.0-0.2); Platelet Count Result 218 k/mm3 (150-375); Red Blood Count 4.33 M/mm3 (4.6-6.20); Red Cell Distribution Width 14.4 % (11.5-14.5); White Blood Count 15.9 K/mm3 (4.5-10.0)
[2022-06-09 06:10] LABS: Alanine Aminotransferase 21 U/L (6-50); Albumin Level 3.9 g/dL (3.5-5.1); Alkaline Phosphatase 63 U/L (38-126); Anion Gap 11 mmol/L (8-16); Aspartate Amino Transferase 30 U/L (17-59); Bilirubin,Total 1.4 mg/dL (0.2-1.3); Blood Urea Nitrogen 30 mg/dL (9-20); Calcium 9.9 mg/dL (8.4-10.2); Carbon Dioxide 26 mmol/L (22-30); Chloride 107 mmol/L (98-107); Estimated CRCL calculation 45 ml/min; Estimated Glomerular Filt Rate 39; Glucose 136 mg/dL (65-110); Potassium 4.4 mmol/L (3.4-5.0); Sodium 144 mmol/L (137-145)
[2022-06-09] MEDS: FUROSEMIDE INJ 40 MG/4 ML VIAL IV PUSH ×2 (08:28→16:51)
--- NOTE | 2022-06-09 08:30 | PM.IMPN ---
Progress Note: A&P Assessment and Plan (1) Acute metabolic encephalopathy: Code(s): G93.41 - Metabolic encephalopathy Status: Acute Assessment and Plan: Seems a little better, he will respond and is appropriate Consult to Neurology to re-evaluate patient who also believes pt has had change in mental status from last evaluation on 06/04, noting more dysarthric speech and difficulty following commands Repeat EEG (normal on 06/06) Recheck UA does not appear infectious CXR worsening airspace opacities consistent with PNA Cefepime and vancomycin day 2 B12 485, folate >[address] with no acute findings Head/neck CTA (06/04) showed deep brain stimulators in expected position, 7% stenosis of the proximal right internal carotid artery and 0% stenosis of the proximal left internal carotid artery MRI not able to be completed secondary to deep brain stimulator and pacemaker Reviewed medications, at this time will stop amantadine and glycopyrrolate as these could potentially contribute to confusion, though seems less likely as these are chronic medications for pt. Avoid narcotics. May have component of hospital induced delirium. Frequent reorientation, minimize disturbances, appropriate sleep hygiene, etc. (2) Paroxysmal atrial fibrillation: Code(s): I48.0 - Paroxysmal atrial fibrillation Status: Acute Assessment and Plan: status post successful cardioversion 06/07 with orthodoxy of sinus rhythm appreciate cardiology management continue Xarelto continue amiodarone 400 mg daily Metoprolol succinate decreased to 100 mg daily per Cardiology continue to monitor on telemetry (3) Acute on chronic systolic (congestive) heart failure: Code(s): I50.23 - Acute on chronic systolic (congestive) heart failure Status: Acute Assessment and Plan: has had improvement with diuresis Transition back to IV lasix for now since he sounds very overloaded with crackles Continue to monitor intake and output with daily weights Recent echocardiogram completed on 04/20/2022 which showed reduced EF of 35-40% with enlarged left atrial and ventricular enlargement appreciate cardiology recommendations Seems to be in an acute combined diastolic and systolic heart failure exacerbation (4) Pneumonia involving right lung: Code(s): J18.9 - Pneumonia, unspecified organism Status: Acute Assessment and Plan: Recent hospitalization 05/21/22-05/26/22 for aspiration pneumonia during which time he was treated with Unasyn while in the hospital and Augmentin on discharge. MBS completed at that time with recommendations for level 6 soft and bite size diet with mildly thickened liquids Re-evaluated by speech therapy during this admission with repeat MBS on 05/31. Subsequent recommendations for minced and moist level 5 diet with mildly thickened liquids. Dietary changes have been implemented . CXR from 06/09/22 worsened opacities in right lower lung zone and left mid and lower lung zones, consistent with PNA WBC elevated to 15.9 Back to cefepime and vanc Supportive care. Mucinex. Incentive spirometry and Cornet (needs assistance to utilize these) Blood cultures negative. Sputum culture pending (5) Essential hypertension: Code(s): I10 - Essential (primary) hypertension Status: Chronic Assessment and Plan: BP is 166/85 Blood pressures have been reasonably controlled, improved following diuresis. Lasix and lisinopril on hold due to rising Cr. Resume when clinically appropriate. Prn hydralazine for SBP >170. monitor BP trends (6) Parkinson disease: Code(s): G20 - Parkinson's disease Status: Chronic Assessment and Plan: Pt. has deep brain stimulator. He follows with neurologist, Dr. Hernandez, at the CT Continue carbidopa-levodopa and amantadine PT and OT ordered. Deep brain stimulator w
--- NOTE | 2022-06-09 08:30 | P.PNIM_ITS ---
Progress Note: A&P Assessment and Plan (1) Acute metabolic encephalopathy: Code(s): G93.41 - Metabolic encephalopathy Status: Acute Assessment and Plan: * Seems a little better, he will respond and is appropriate * Consult to Neurology to re-evaluate patient who also believes pt has had change in mental status from last evaluation on 06/04, noting more dysarthric speech and difficulty following commands * Repeat EEG (normal on 06/06) * Recheck UA does not appear infectious * CXR worsening airspace opacities consistent with PNA * Cefepime and vancomycin day 2 * B12 485, folate >20 * Repeat head CT with no acute findings * Head/neck CTA (06/04) showed deep brain stimulators in expected position, 7% stenosis of the proximal right internal carotid artery and 0% stenosis of the proximal left internal carotid artery * MRI not able to be completed secondary to deep brain stimulator and pacemaker * Reviewed medications, at this time will stop amantadine and glycopyrrolate as these could potentially contribute to confusion, though seems less likely as these are chronic medications for pt. Avoid narcotics. * May have component of hospital induced delirium. Frequent reorientation, minimize disturbances, appropriate sleep hygiene, etc. (2) Paroxysmal atrial fibrillation: Code(s): I48.0 - Paroxysmal atrial fibrillation Status: Acute Assessment and Plan: * status post successful cardioversion 06/07 with adventism of sinus rhythm * appreciate cardiology management * continue Xarelto * continue amiodarone 400 mg daily * Metoprolol succinate decreased to 100 mg daily per Cardiology * continue to monitor on telemetry (3) Acute on chronic systolic (congestive) heart failure: Code(s): I50.23 - Acute on chronic systolic (congestive) heart failure Status: Acute Assessment and Plan: * has had improvement with diuresis * Transition back to IV lasix for now since he sounds very overloaded with crackles * Continue to monitor intake and output with daily weights * Recent echocardiogram completed on 04/20/2022 which showed reduced EF of 35- 40% with enlarged left atrial and ventricular enlargement * appreciate cardiology recommendations * Seems to be in an acute combined diastolic and systolic heart failure exacerbation (4) Pneumonia involving right lung: Code(s): J18.9 - Pneumonia, unspecified organism Status: Acute Assessment and Plan: * Recent hospitalization 05/21/22-05/26/22 for aspiration pneumonia during which time he was treated with Unasyn while in the hospital and Augmentin on discharge. * MBS completed at that time with recommendations for level 6 soft and bite size diet with mildly thickened liquids * Re-evaluated by speech therapy during this admission with repeat MBS on 05/31. * Subsequent recommendations for minced and moist level 5 diet with mildly thickened liquids. Dietary changes have been implemented . * CXR from 06/09/22 worsened opacities in right lower lung zone and left mid and lower lung zones, consistent with PNA * WBC elevated to 15.9 * Back to cefepime and vanc * Supportive care. Mucinex. Incentive spirometry and Cornet (needs assistance to utilize these) * Blood cultures negative. * Sputum culture pending (5) Essential hypertension: Code(s): I10 - Essential (primary) hypertension Status: Chronic Assessment and Plan: * BP is 166/85 * Blood pressures have been reasonably controlled, impro
--- NOTE | 2022-06-09 09:40 | WPDNEUROLOGY ---
Neurology EEG Report General Information Date of Study: 06/09/22 TEST Routine EEG DIAGNOSIS Altered mental status CONDITION OF RECORDING Awake EEG NUMBER [id number] CLINICAL HISTORY Patient admitted for respiratory issues due to pneumonia and CHF exacerbation. Had episode during hospitalization described as staring off and unresponsive. No further episodes but mental status has declined over the past few days. EEG DESCRIPTION During the awake state with eyes closed the background consists of 8-9 Hz posterior dominant rhythm which attenuates appropriately with eye opening. The recording is continuous. There is a well developed anterior-posterior gradient. No significant asymmetries of background activities are noted. There are no epileptiform discharges or seizures during this recording. Hyperventilation and photic stimulation were not performed. IMPRESSION This is a normal routine EEG recorded in the awake state. There are no electrographic seizures identified, nor are there any epileptiform discharges. Please note that a normal EEG cannot exclude a seizure disorder. Clinical correlation is recommended.
--- NOTE | 2022-06-09 09:55 | PCOTNOTE ---
Per RN, Pt is not appropriate today due to decrease cognition for occupational therapy tx. Will continue per poc duration/frequency tomorrow.
[2022-06-09] MEDS: AMIODARONE HCL 200 MG TABLET 400 MG PO (10:22)
[2022-06-09] MEDS: AMOXICILLIN/CLAVULANATE K 875-125 MG TAB 1 TABLET PO (10:23)
[2022-06-09] MEDS: ASCORBIC ACID 500 MG TABLET 1000 MG PO (10:23)
[2022-06-09] MEDS: CALCIUM CARBONATE (OSCAL) 500 MG TABLET 1000 MG PO (10:23)
[2022-06-09] MEDS: CARBIDOPA/LEVODOPA 25/100 MG TABLET 1 TABLET PO ×3 (10:24→20:05)
[2022-06-09] MEDS: MULTIVITAMINS THERAPEUTIC TAB (*BKC) 1 TABLET PO (10:24)
[2022-06-09] MEDS: lisinopriL 20 MG TABLET PO (10:24)
[2022-06-09] MEDS: FOLIC ACID 0.4 MG TABLET 0.8 MG PO (10:24)
[2022-06-09] MEDS: CHOLECALCIFEROL 1,000 UNITS TABLET 5000 UNITS PO (10:24)
[2022-06-09] MEDS: guaiFENesin 12 HR 600 MG TABCR PO ×2 (10:24→20:05)
[2022-06-09 10:26] LABS: NT Pro B Type Natriuretic Pept 21900 pg/mL (5-100)
[2022-06-09] MEDS: METOPROLOL SUCCINATE EXT REL 100 MG TABCR PO (10:26)
--- NOTE | 2022-06-09 11:19 | WPDNEUROPN ---
Progress Note: A&P Assessment and Plan (1) Altered mental status: Code(s): R41.82 - Altered mental status, unspecified Status: Acute (2) Parkinson disease: Code(s): G20 - Parkinson's disease Status: Chronic (3) Aspiration pneumonia: Code(s): J69.0 - Pneumonitis due to inhalation of food and vomit Status: Acute Plan Dara Dash is a 77 year old male with a history of CHF, CAD, Atrial fibrillation, HTN, and Parkinson's Disease s/p DBS. Admission complicated by? an episode of staring off which was concerning for seizure. No further episodes, but mental status has declined over the past few days. Etiology is unclear, could be infectious (noted to have worsening infiltrates on CXR; also considering meningitis/encephalitis) vs delirium vs stroke (recent atrial flutter) vs occult seizures. Repeat routine EEG was normal as well. Unfortunately unable to obtain MRI due to patient's devices. - If no change in mental status despite adequate treatment of pneumonia, consider lumbar puncture with CSF studies (protein, glucose, cell count, culture) Subjective Date/time seen: 06/09/22 11:19 Interval history: Dara Dash is a 77 year old male with a history of CHF, CAD, Atrial fibrillation, HTN, and Parkinson's Disease s/p DBS who was recent admitted to the pneumonia and discharged. He presented on 05/30 due to shortness of breath and hypoxia. He was admitted again for treatment of CHF exacerbation. He is currently also being treated for pneumonia, blood cultures have been negative to date. He has not had any fevers. On 06/03 he had an episode that was witnessed by beside nurse that was described as staring off and unresponsive. His pupils were constricted at the time as well. There was no other obvious seizure-like activity during the episode. CT head was negative for acute process. CTA head and neck were unremarkable. Routine EEG was obtained on 06/04 which was normal. MRI brain could not be obtained due to his pacemaker and DBS. ?He has no further episodes of unresponsiveness or seizure-like events. However, over the past few days it seems that he has had a decline in his mental status. At the time of my evaluation on 06/04, patient did have severe dysarthria, but was still able to communicate to some degree and was AOx3. Within the past few days he underwent cardioversion for atrial flutter. DBS was interrogated by device rep, who noted that the R DBS batter had been out for some time. Repeat CT head on 06/08 did not show any new hypodensity. Interval history: CXR this morning shows worsening opacities. WBC 15.9 (from 8.7 with left shift. No fevers. Patient was still unable to communicate as he did last week. Per nurse, he is having significant difficulties with swallowing. She also reports that his mental status is worse at night. Repeated EEG which is unchanged from last week. Review of Systems Review of Systems: ROS unobtainable: Yes unobtainable due to mental status Exam Const: General: comfortable and no acute distress HENMT: General nose exam: Normal nares present Mouth: Yes moist mucous membranes Eyes: General: appearance normal, both eyes and all related structures Pupils: Equal, round and reactive pupils present EOM: EOMs intact bilaterally Resp: Effort & Inspection: normal respiratory effort Cardio: Rate: regular rate Rhythm: regular rhythm GI: GI Palp: Yes Soft to palpation Auscultation: normal bowel sounds Skin: General skin exam: normal color Neuro: Other: Incomprehensible speech. AOx0. Able to follow some commands. Pupils equal and reactive bilaterally, EOMI, face symmetric. Strength appears symmetric bilaterally. Rigidity and rest tremor in both upper extremities (left worse than right). More awake today compared to yesterday, but did not follow commands this AM. Extrem: General: normal to inspection Psych: Mental Status: mental status grossly abnormal Objective Data Vit
--- NOTE | 2022-06-09 12:44 | PCPTNOTE ---
Per RN, pt. is not appropriate for physical therapy treatment today due to decreased cognition. Will plan to continue treatment per plan of care.
[2022-06-09 14:03] LABS: Alanine Aminotransferase 27 U/L (6-50); Albumin Level 3.5 g/dL (3.5-5.1); Alkaline Phosphatase 52 U/L (38-126); Anion Gap 9 mmol/L (8-16); Aspartate Amino Transferase 27 U/L (17-59); Bilirubin,Total 1.4 mg/dL (0.2-1.3); Blood Urea Nitrogen 30 mg/dL (9-20); Calcium 9.1 mg/dL (8.4-10.2); Carbon Dioxide 30 mmol/L (22-30); Chloride 104 mmol/L (98-107); Estimated CRCL calculation 55 ml/min; Estimated Glomerular Filt Rate 49; Glucose 165 mg/dL (65-110); Potassium 3.6 mmol/L (3.4-5.0); Sodium 143 mmol/L (137-145)
[2022-06-09] MEDS: RIVAROXABAN 20 MG TABLET PO (16:51)
[2022-06-09] MEDS: TAMSULOSIN HCL 0.4 MG CAPSULE PO (16:51)
[2022-06-09] MEDS: ATORVASTATIN 40 MG TABLET PO (20:05)
[2022-06-10] VITALS (13 sets, daily range): BP systolic 118–136; BP diastolic 67–86; PULSE 55–137; RESP 19–26; TEMP 36.2–37.4; O2SAT 94–97
[2022-06-10 05:50] LABS: Basophils Percent Auto 0.3 % (0.2-1.2); Hematocrit 39.2 % (42.0-52.0); Hemoglobin 12.1 g/dL (14.0-18.0); Immature Granulocyte Absolute 0.08 K/mm3 (0.00-0.031); Immature Granulocyte Percent A 0.7 % (0-0.5); Lymphocytes Absolute Auto 0.66 K/mm3 (0.9-3.2); Lymphocytes Percent Auto 5.5 % (18.3-44.2); Mean Corpuscular HGB Conc 30.9 g/dl (32-36); Mean Corpuscular Hemoglobin 30.6 pg (26-34); Monocytes Absolute Auto 0.7 K/mm3 (0.1-0.6); Monocytes Percent Auto 5.9 % (2.6-8.5); Neutrophils Absolute Auto 10.5 K/mm3 (1.3-6.7); Neutrophils Percent Auto 87.6 % (45.5-73.1); Platelet Count Result 191 k/mm3 (150-375); Red Blood Count 3.96 M/mm3 (4.6-6.20); Red Cell Distribution Width 14.3 % (11.5-14.5)
[2022-06-10] MEDS: CHOLECALCIFEROL 1,000 UNITS TABLET 5000 UNITS PO (09:04)
[2022-06-10] MEDS: AMIODARONE HCL 200 MG TABLET 400 MG PO (09:06)
[2022-06-10] MEDS: MULTIVITAMINS THERAPEUTIC TAB (*BKC) 1 TABLET PO (09:06)
[2022-06-10] MEDS: CALCIUM CARBONATE (OSCAL) 500 MG TABLET 1000 MG PO (09:07)
[2022-06-10] MEDS: ASCORBIC ACID 500 MG TABLET 1000 MG PO (09:07)
[2022-06-10] MEDS: METOPROLOL SUCCINATE EXT REL 100 MG TABCR PO (09:08)
[2022-06-10] MEDS: CARBIDOPA/LEVODOPA 25/100 MG TABLET 1 TABLET PO ×3 (09:08→17:23)
[2022-06-10] MEDS: FOLIC ACID 0.4 MG TABLET 0.8 MG PO (09:08)
[2022-06-10] MEDS: FUROSEMIDE INJ 40 MG/4 ML VIAL IV PUSH ×2 (09:08→17:23)
[2022-06-10] MEDS: guaiFENesin 12 HR 600 MG TABCR PO (09:08)
[2022-06-10] MEDS: lisinopriL 20 MG TABLET PO (09:08)
[2022-06-10 10:10] LABS: Alanine Aminotransferase 24 U/L (6-50); Albumin Level 3.4 g/dL (3.5-5.1); Alkaline Phosphatase 57 U/L (38-126); Anion Gap 10 mmol/L (8-16); Aspartate Amino Transferase 27 U/L (17-59); Bilirubin,Total 1.2 mg/dL (0.2-1.3); Blood Urea Nitrogen 31 mg/dL (9-20); Carbon Dioxide 29 mmol/L (22-30); Chloride 109 mmol/L (98-107); Estimated CRCL calculation 49 ml/min; Estimated Glomerular Filt Rate 49; Glucose 110 mg/dL (65-110); Potassium 3.3 mmol/L (3.4-5.0); Sodium 148 mmol/L (137-145)
--- NOTE | 2022-06-10 10:16 | PM.PNCARD ---
Progress Note: A&P Assessment and Plan (1) Acute metabolic encephalopathy: Code(s): G93.41 - Metabolic encephalopathy Status: Acute (2) Acute on chronic systolic heart failure: Code(s): I50.23 - Acute on chronic systolic (congestive) heart failure Status: Acute (3) Paroxysmal atrial fibrillation: Code(s): I48.0 - Paroxysmal atrial fibrillation Status: Acute (4) Acute renal insufficiency: Code(s): N28.9 - Disorder of kidney and ureter, unspecified Status: Acute (5) Aspiration pneumonia: Code(s): J69.0 - Pneumonitis due to inhalation of food and vomit Status: Acute (6) Essential hypertension: Code(s): I10 - Essential (primary) hypertension Status: Chronic (7) Coronary artery disease: Code(s): I25.10 - Atherosclerotic heart disease of hopi coronary artery without angina pectoris Status: Chronic (8) Parkinson disease: Code(s): G20 - Parkinson's disease Status: Chronic (9) S/P deep brain stimulator placement: Code(s): Z96.89 - Presence of other specified functional implants Status: Chronic Plan Patient remains in sinus rhythm after cardioversion. Continue Metoprolol 100mg daily, Amiodarone 400mg daily, and Xarelto. Continue Lisinopril for cardiomyopathy. Patient thought to be volume overloaded yesterday, BNP was 21,900 which was increased from 8,550. Lasix IV given. Upon exam this morning, patient does not appear to be grossly volume overloaded - has no lower extremity edema, laying flat with mostly decreased breath sounds on auscultation. Would diurese patient to keep him net negative to slightly net negative, and would avoid aggressive diuresis. CXR is concerning for aspiration. Subjective Date/time seen: 06/10/22 10:16 Interval history: Patient being worked up for altered mental status as per primary team and Neurology. Patient opens his eyes when his name is called, but otherwise, not responsive this morning. Telemetry shows no further episodes of AFIB since cardioversion, remains in sinus rhythm. Review of Systems Review of Systems: ROS unobtainable: Yes unobtainable due to medical condition Exam Const: General: comfortable and no acute distress Neck: Neck: no JVD Resp: Effort & Inspection: normal respiratory effort Other: Decreased breath sounds in bases Cardio: Rate: regular rate Rhythm: regular rhythm Heart sounds: no murmurs GI: GI Palp: Yes Soft to palpation and No Tenderness to palpation present (GI) Neuro: Other: Altered mentation Extrem: General: no edema Objective Data Vital Signs Vital Signs: Vital Signs - 24 hr 06/09/22 10:22 06/09/22 10:26 06/09/22 11:51 Temperature Pulse Rate 65 65 Respiratory Rate Blood Pressure Pulse Oximetry 93 Oxygen Delivery Nasal Cannula Oxygen Flow Rate 2 06/09/22 12:00 06/09/22 14:00 06/09/22 16:00 Temperature 37.2 C Pulse Rate 58 L 57 L 62 Respiratory Rate 20 Blood Pressure 123/67 Pulse Oximetry Oxygen Delivery Oxygen Flow Rate 06/09/22 21:56 06/09/22 20:00 06/09/22 20:00 Temperature 37.3 C Pulse Rate 65 65 65 Respiratory Rate 19 19 Blood Pressure 125/67 Pulse Oximetry 84 L 93 Oxygen Delivery Nasal Cannula Oxygen Flow Rate 2 06/10/22 00:00 06/10/22 04:00 06/10/22 05:13 Temperature 37.4 C Pulse Rate 66 60 61 Respiratory Rate 19 Blood Pressure 136/67 Pulse Oximetry 95 Oxygen Delivery Oxygen Flow Rate 06/10/22 09:06 06/10/22 09:08 Temperature Pulse Rate 56 L 56 L Respiratory Rate Blood Pressure Pulse Oximetry Oxygen Delivery Oxygen Flow Rate Intake/Output Intake/Output: Intake & Output 06/07/22 06/08/22 06/09/22 06/10/22 23:59 23:59 23:59 23:59 Intake Total 100 960 720 0 Output Total 2250 650 Balance 100 960 -1530 -650 Meds/Results Medications: Active Medications Generic Name Dose Route Start Last Admin T
--- NOTE | 2022-06-10 10:25 | PCPTNOTE ---
pt has had a decline in status and has been on hold for PT; discussed pt with ARNALDO Osorio--she request hold PT this AM, and to have us check back later to see if he is appropriate for therapy.
--- NOTE | 2022-06-10 11:30 | PM.IMPN ---
Progress Note: A&P Assessment and Plan (1) Acute metabolic encephalopathy: Code(s): G93.41 - Metabolic encephalopathy Status: Acute Assessment and Plan: Seems a little better, he will respond and is appropriate Consult to Neurology to re-evaluate patient who also believes pt has had change in mental status from last evaluation on 06/04, noting more dysarthric speech and difficulty following commands Repeat EEG (normal on 06/06) Recheck UA does not appear infectious CXR worsening airspace opacities consistent with PNA Cefepime and vancomycin day 2 B12 485, folate >[address] with no acute findings Head/neck CTA (06/04) showed deep brain stimulators in expected position, 7% stenosis of the proximal right internal carotid artery and 0% stenosis of the proximal left internal carotid artery MRI not able to be completed secondary to deep brain stimulator and pacemaker Reviewed medications, at this time will stop amantadine and glycopyrrolate as these could potentially contribute to confusion, though seems less likely as these are chronic medications for pt. Avoid narcotics. May have component of hospital induced delirium. Frequent reorientation, minimize disturbances, appropriate sleep hygiene, etc. (2) Paroxysmal atrial fibrillation: Code(s): I48.0 - Paroxysmal atrial fibrillation Status: Acute Assessment and Plan: status post successful cardioversion 06/07 with yazidism of sinus rhythm appreciate cardiology management continue Xarelto continue amiodarone 400 mg daily Metoprolol succinate decreased to 100 mg daily per Cardiology continue to monitor on telemetry Continues in SR (3) Acute on chronic systolic (congestive) heart failure: Code(s): I50.23 - Acute on chronic systolic (congestive) heart failure Status: Acute Assessment and Plan: has had improvement with diuresis Transition back to IV lasix for now since he sounds very overloaded with crackles Continue to monitor intake and output with daily weights Recent echocardiogram completed on 04/20/2022 which showed reduced EF of 35-40% with enlarged left atrial and ventricular enlargement appreciate cardiology recommendations Seems to be in an acute combined diastolic and systolic heart failure exacerbation (4) Pneumonia involving right lung: Code(s): J18.9 - Pneumonia, unspecified organism Status: Acute Assessment and Plan: Recent hospitalization 05/21/22-05/26/22 for aspiration pneumonia during which time he was treated with Unasyn while in the hospital and Augmentin on discharge. MBS completed at that time with recommendations for level 6 soft and bite size diet with mildly thickened liquids Re-evaluated by speech therapy during this admission with repeat MBS on 05/31. Subsequent recommendations for minced and moist level 5 diet with mildly thickened liquids. Dietary changes have been implemented . CXR from 06/09/22 worsened opacities in right lower lung zone and left mid and lower lung zones, consistent with PNA WBC elevated to 12.0 Back to cefepime and vanc day 2 Supportive care. Mucinex. Incentive spirometry and Cornet (needs assistance to utilize these) Blood cultures negative, repeated Sputum culture did shows Few WBC, Moderate Fungal elements seen If fungal infection start micafungin 100mg IV Daily ID pharm updated (5) Essential hypertension: Code(s): I10 - Essential (primary) hypertension Status: Chronic Assessment and Plan: BP is 136/67 Blood pressures have been reasonably controlled, improved following diuresis. Lasix and lisinopril on hold due to rising Cr. Resume when clinically appropriate. Prn hydralazine for SBP >170. monitor BP trends (6) Parkinson disease: Code(s): G20 - Parkinson's disease Status: Chronic Assessment and Plan: Pt. has deep brain st
--- NOTE | 2022-06-10 11:30 | P.PNIM_ITS ---
Progress Note: A&P Assessment and Plan (1) Acute metabolic encephalopathy: Code(s): G93.41 - Metabolic encephalopathy Status: Acute Assessment and Plan: * Seems a little better, he will respond and is appropriate * Consult to Neurology to re-evaluate patient who also believes pt has had change in mental status from last evaluation on 06/04, noting more dysarthric speech and difficulty following commands * Repeat EEG (normal on 06/06) * Recheck UA does not appear infectious * CXR worsening airspace opacities consistent with PNA * Cefepime and vancomycin day 2 * B12 485, folate >20 * Repeat head CT with no acute findings * Head/neck CTA (06/04) showed deep brain stimulators in expected position, 7% stenosis of the proximal right internal carotid artery and 0% stenosis of the proximal left internal carotid artery * MRI not able to be completed secondary to deep brain stimulator and pacemaker * Reviewed medications, at this time will stop amantadine and glycopyrrolate as these could potentially contribute to confusion, though seems less likely as these are chronic medications for pt. Avoid narcotics. * May have component of hospital induced delirium. Frequent reorientation, minimize disturbances, appropriate sleep hygiene, etc. (2) Paroxysmal atrial fibrillation: Code(s): I48.0 - Paroxysmal atrial fibrillation Status: Acute Assessment and Plan: * status post successful cardioversion 06/07 with congregational of sinus rhythm * appreciate cardiology management * continue Xarelto * continue amiodarone 400 mg daily * Metoprolol succinate decreased to 100 mg daily per Cardiology * continue to monitor on telemetry * Continues in SR (3) Acute on chronic systolic (congestive) heart failure: Code(s): I50.23 - Acute on chronic systolic (congestive) heart failure Status: Acute Assessment and Plan: * has had improvement with diuresis * Transition back to IV lasix for now since he sounds very overloaded with crackles * Continue to monitor intake and output with daily weights * Recent echocardiogram completed on 04/20/2022 which showed reduced EF of 35- 40% with enlarged left atrial and ventricular enlargement * appreciate cardiology recommendations * Seems to be in an acute combined diastolic and systolic heart failure exacerbation (4) Pneumonia involving right lung: Code(s): J18.9 - Pneumonia, unspecified organism Status: Acute Assessment and Plan: * Recent hospitalization 05/21/22-05/26/22 for aspiration pneumonia during which time he was treated with Unasyn while in the hospital and Augmentin on discharge. * MBS completed at that time with recommendations for level 6 soft and bite size diet with mildly thickened liquids * Re-evaluated by speech therapy during this admission with repeat MBS on 05/31. * Subsequent recommendations for minced and moist level 5 diet with mildly thickened liquids. Dietary changes have been implemented . * CXR from 06/09/22 worsened opacities in right lower lung zone and left mid and lower lung zones, consistent with PNA * WBC elevated to 12.0 * Back to cefepime and vanc day 2 * Supportive care. Mucinex. Incentive spirometry and Cornet (needs assistance to utilize these) * Blood cultures negative, repeated * Sputum culture did shows Few WBC, Moderate Fungal elements seen * If fungal infection start micafungin 100mg IV Daily * ID pharm updated (5) Essential hypertension: Code(s): I10 - Essential
--- NOTE | 2022-06-10 13:15 | PCOTNOTE ---
Spoke with RN and she reports pt. has had a decline in status and is not following commands. Spoke with MD and requested discharge until he is medically stable to participate. MD agrees to discharge at this time.
--- NOTE | 2022-06-10 13:55 | PCPTNOTE ---
pt has had a decline in medical status; Contacted Chandan Lin, requested PT d/c order and resume when medically stable; Chandan stated OK,I will try to put the order in, but probably will forget to do it, if I do remind me again later.
[2022-06-10] MEDS: TAMSULOSIN HCL 0.4 MG CAPSULE PO (17:23)
[2022-06-10] MEDS: RIVAROXABAN 20 MG TABLET PO (17:23)
--- NOTE | 2022-06-10 18:53 | ECG_ITS ---
Measurements Intervals [place] Rate: 122 P: [place]: 0 QRS: 20 QRSD: 116 T: 31 QT: 404 QTc: 578 Interpretive Statements BASELINE ARTIFACT/REDUCED ECG QUALITY ATRIAL FIBRILLATION WITH RAPID VENTRICULAR RESPONSE NONSPECIFIC ST & T-WAVE ABNORMALITY ABNORMAL RHYTHM ECG COMPARED TO ECG 06/07/2022 11:30:17 ATRIAL FIB REPLACES SINUS RIM Electronically Signed On 06-11-2022 14:40:06 CDT by Lucas Sanabria M.D.
--- NOTE | 2022-06-10 19:55 | PC.NURSE ---
Received EKG on Mr. Dash at 1933 which showed afib w/RVR and rate of 124. I called Dr. Rodriguez who ordered Metoprolol 5mg IVP x 1 dose.
[2022-06-10] MEDS: METOPROLOL TARTRATE INJ 5 MG/5 ML VIAL IV PUSH (20:01)
[2022-06-11] VITALS (18 sets, daily range): BP systolic 91–114; BP diastolic 56–90; PULSE 50–139; RESP 20–26; TEMP 36–36.9; O2SAT 94–98
[2022-06-11] MEDS: metroNIDAZOLE 500 MG/ISO 100ML 500 MG/100 ML BAG 100 MG IVPB ×5 (00:01→23:51)
[2022-06-11] MEDS: POTASSIUM CHLORIDE INJ 40 MEQ in SODIUM CHLORIDE 0.9% IV 500 ML 130 MEQ IVPB (01:01)
--- NOTE | 2022-06-11 03:33 | PM.EVENT ---
Event Note Event Note Event Note: 06/10/2022 at 23:00 The nursing staff had called me earlier in the evening in the patient was having AFib RVR. He had had recent previous cardioversion and had flipped back into AFib prior to her shift change. There was a verbal communication to not notify the electrostatic powder coating technician if patient's heart rate was not above 140 per nursing report. Flume Ride Operator had provided a 5 mg IV Lopressor bolus. patient's heart rate came down to the 120s. Nursing staff reported that is the night progressed the they felt the patient was in more respiratory distress. He had had developed hypoxia on the evening of the . He has been placed on 2 L nasal cannula. Around 06/11/2011 o'clock the patient developed increased work of breathing, abdominal respirations weak cough with rhonchi. Patient seemed to be having difficulty clearing his secretions. Patient is already on a modified diet with nectar thickened liquids. The patient himself denies any increased work of breathing or respiratory distress. The patient was alert oriented x3 but thought it was still May. He has been hospitalized for quite some time and his confusion regarding the month seems appropriate given the situation. Although he did ask me what holiday was coming up soon. His answers for the most part were appropriate but occasionally he will give me a bizarre response to questions. When I arrived at bedside the patient actually had nasal cannula out of his nose. Nursing staff told me that he was satting 88% on 2 L nasal cannula during the vitals just prior to my evaluation. I ordered a stat chest x-ray which on my review appeared slightly worse in comparison to prior examination consistent with pneumonia. Radiologic interpretation was pending. The patient is already on antibiotic therapy with cefepime and vancomycin. Given the patient's history of evidence of laryngeal penetration on modified barium swallow aspiration is a consideration. I subsequently added Flagyl to the patient's antibiotic regimen. Given that the patient was having AFib RVR with rates between 09/29/2039 it did not feel comfortable giving the patient nebulizer treatment at this time. I did ask respiratory therapy to provide Acapella treatments to help with mobilization of the patient's secretions. On review of labs patient's potassium was mildly low at 3.2. On chart review I cannot tell if the patient actually received potassium supplementation. Will give 40 mEq potassium chloride rider as the patient is refusing to take p.o. medications at this time despite asking for something to eat and drink. Will aim for serum potassium level for to 4.5 given the patient's unstable cardiac rhythm. Will check magnesium level with a.m. labs. Assessment: 1. Respiratory distress 2. pneumonia concern for aspiration 3. worsening hypoxic respiratory failure 4. recurrent AFib RVR Plan: Broaden antibiotic coverage by adding Flagyl in addition to the patient's cefepime and vanc. Pulmonary toilet Titrate oxygen as tolerated to maintain sats 92%. Nursing staff came back to notify me just after 3:30 in the morning (at the time of this dictation) that the patient's heart rate has climbed back up into the 140s. I have asked nursing staff to repeat the patient's vital signs and to notify Cardiology of patient's persistent tachycardia. I do not know whether they would want to give the patient another amiodarone bolus. In the setting the patient's blood pressures are trending down to 98 systolic. if the patient's condition continues to trend in this direction he will likely need to be transferred to IMU. Will check repeat CBC, BMP and will add lactic acid for a.m. labs. 45 minute spent in critical care activities. Due to a high probability of clinically significant, life threatening deterioration, the patient required my highest level of preparedness to intervene emergently and I personally spen
--- NOTE | 2022-06-11 04:15 | PC.NURSE ---
Pt is having increased heartrate into the 140's-150's, his blood pressure has dropped to 98/81, and his oxygen needs has increased as evidenced by his 02 has been upped to 3LPM to get him into the 90's, and his heartrate is still afib. I have spoken with Dr Rasmussen, who has ordered that he be moved to IMU and started on an amiodorone drip.
--- NOTE | 2022-06-11 04:39 | PC.NURSE ---
Handoff report called to Kim in IMU.
--- NOTE | 2022-06-11 04:48 | PC.NURSE ---
Patient's spouse called to notify of transfer to IMU room 200. No questions at present time.
[2022-06-11] MEDS: AMIODARONE 360 MG/D5W 200 ML 360 MG/200 ML BAG 33.33 MG IV CONT (05:36)
--- NOTE | 2022-06-11 06:00 | PC.NURSE ---
This patient, Dara Dash, was received from [facility] on 06/11/22 at 0458. Patient/family oriented to unit policies and routines. Report received from Leticia MCINTOSH.
[2022-06-11] MEDS: CALCIUM CARBONATE (OSCAL) 500 MG TABLET 1000 MG PO (08:35)
[2022-06-11] MEDS: AMIODARONE HCL 200 MG TABLET 400 MG PO (08:35)
[2022-06-11] MEDS: MULTIVITAMINS THERAPEUTIC TAB (*BKC) 1 TABLET PO (08:35)
[2022-06-11] MEDS: CHOLECALCIFEROL 1,000 UNITS TABLET 5000 UNITS PO (08:35)
[2022-06-11] MEDS: FOLIC ACID 0.4 MG TABLET 0.8 MG PO (08:35)
[2022-06-11] MEDS: ASCORBIC ACID 500 MG TABLET 1000 MG PO (08:36)
[2022-06-11] MEDS: lisinopriL 20 MG TABLET PO (08:36)
[2022-06-11] MEDS: FUROSEMIDE INJ 40 MG/4 ML VIAL IV PUSH ×2 (08:36→17:21)
[2022-06-11] MEDS: guaiFENesin 12 HR 600 MG TABCR PO ×2 (08:36→20:18)
[2022-06-11] MEDS: METOPROLOL SUCCINATE EXT REL 100 MG TABCR PO (08:36)
[2022-06-11] MEDS: CARBIDOPA/LEVODOPA 25/100 MG TABLET 1 TABLET PO ×4 (08:36→20:18)
[2022-06-11 08:56] LABS: Basophils Percent Auto 0.1 % (0.2-1.2); Eosinophils Percent Auto 0.2 % (0-4.4); Hematocrit 42.9 % (42.0-52.0); Hemoglobin 13.2 g/dL (14.0-18.0); Immature Granulocyte Absolute 0.06 K/mm3 (0.00-0.031); Immature Granulocyte Percent A 0.6 % (0-0.5); Lymphocytes Absolute Auto 0.64 K/mm3 (0.9-3.2); Mean Corpuscular HGB Conc 30.8 g/dl (32-36); Mean Corpuscular Hemoglobin 31.5 pg (26-34); Mean Corpuscular Volume 102.4 fl (80-100); Mean Platelet Volume 9.8 fl (7.4-10.4); Monocytes Absolute Auto 0.5 K/mm3 (0.1-0.6); Monocytes Percent Auto 4.6 % (2.6-8.5); Neutrophils Absolute Auto 9.5 K/mm3 (1.3-6.7); Neutrophils Percent Auto 88.5 % (45.5-73.1); Platelet Count Result 205 k/mm3 (150-375); Red Blood Count 4.19 M/mm3 (4.6-6.20); Red Cell Distribution Width 14.2 % (11.5-14.5); White Blood Count 10.7 K/mm3 (4.5-10.0)
[2022-06-11 09:15] LABS: Lactic Acid Reflex 0.9 mmol/L (0.7-2.0)
[2022-06-11 09:38] LABS: Anion Gap 8 mmol/L (8-16); Blood Urea Nitrogen 29 mg/dL (9-20); Calcium 8.9 mg/dL (8.4-10.2); Carbon Dioxide 34 mmol/L (22-30); Chloride 104 mmol/L (98-107); Estimated CRCL calculation 61 ml/min; Estimated Glomerular Filt Rate > 60; Glucose 121 mg/dL (65-110); Magnesium 2.1 mg/dL (1.6-2.3); Potassium 3.6 mmol/L (3.4-5.0); Sodium 146 mmol/L (137-145)
--- NOTE | 2022-06-11 09:54 | PM.PNCARD ---
Progress Note: A&P Assessment and Plan (1) Chronic systolic heart failure: Code(s): I50.22 - Chronic systolic (congestive) heart failure Status: Acute (2) Atrial flutter: Code(s): I48.92 - Unspecified atrial flutter Status: Acute Plan 77-year-old gentleman with challenging situation. He has left ventricular systolic dysfunction complicated by atrial flutter with RVR that has failed the medical therapy that we can provide here at this hospital. He was cardioverted last week after being well loaded with amiodarone and only stayed in sinus rhythm for 2 or 3 days. After a long conversation with him in the room he does not wish to consider invasive/aggressive catheter ablation to more effectively control his rhythm. Several times during this conversation the patient indicates that he does not wish to live much longer like this. This is the 1st time that I have heard him make a comment like this to me. Today I will advance his metoprolol back to 200 mg daily in an attempt to provide better rate control and give him 1 dose of oral digoxin as well. If he is consistent with his opinion that he does not wish anything aggressive I would also consider DNR status/comfort measures if that is his opinion. Lucas Sanabria MD [facility] Subjective Date/time seen: Date of service: 06/11/22 09:54 Interval history: Follow-up visit in this 77-year-old man with: Recurrent atrial flutter which has been difficult to control as well as history of coronary artery disease and left ventricular systolic dysfunction. Patient is more alert and less disoriented today than when I saw him on Saturday. Eating his breakfast answers questions appropriately. Unfortunately patient reverted back to atrial flutter with 2-1 conduction yesterday after cardioversion last week. He has been well loaded with amiodarone for several weeks as an outpatient as well as during this hospitalization as an inpatient. Heart rate 120-130 on telemetry since going back into atrial flutter. No shortness of breath no other distress this morning. Long conversation with the patient about management options at this time which mostly include either rate control or considering consulting stunt woman for ablation of the flutter and or ablation of the AV junction for rhythm or rate control. Exam Const: General: comfortable and no acute distress Other: Frail elderly man eating his breakfast he is responsive and oriented this morning. Slow mentation but does respond appropriately HENMT: Mouth: Yes dry mucous membranes Eyes: Sclera: sclerae normal Neck: Neck: supple and no JVD Resp: Effort & Inspection: normal respiratory effort Auscultation: clear to auscultation bilaterally Cardio: Rate: regular rate and tachycardic GI: GI Palp: Yes Soft to palpation Auscultation: normal bowel sounds Skin: General skin exam: normal color Neuro: Other: Alert and oriented today Extrem: Other: No edema at all Objective Data Vital Signs Vital Signs: Vital Signs - 24 hr 06/10/22 12:04 06/10/22 12:00 06/10/22 16:00 Temperature Pulse Rate 55 L 113 H Respiratory Rate Blood Pressure Pulse Oximetry 94 Oxygen Delivery Nasal Cannula Oxygen Flow Rate 2 06/10/22 14:00 06/10/22 20:01 06/10/22 22:00 Temperature 37.0 C 36.2 C L Pulse Rate 69 124 H 137 H Respiratory Rate 20 26 H Blood Pressure 127/74 118/86 Pulse Oximetry 97 96 Oxygen Delivery Oxygen Flow Rate 06/10/22 20:00 06/11/22 00:00 06/11/22 04:00 Temperature Pulse Rate 111 H 139 H 124 H Respiratory Rate Blood Pressure Pulse Oximetry Oxygen Delivery Oxygen Flow Rate 06/11/22 05:36 06/11/22 05:00 06/11/22 05:17 Temperature 36.0 C L Pulse Rate 128 H 71 136 H Respiratory Rate 20 Blood Pressure 111/64 94/65 L Pulse Oximetry 97 Oxygen Delivery Oxygen Flow Rate 06/11/22 06:06 06/11/22 08:35 06/11/22 08:36 Temperature
[2022-06-11] MEDS: DIGOXIN 250 MCG TABLET 500 MCG PO (10:58)
--- NOTE | 2022-06-11 13:29 | P.PNIM_ITS ---
Progress Note: A&P Assessment and Plan (1) Altered mental status: Code(s): R41.82 - Altered mental status, unspecified Status: Acute Assessment and Plan: Patient noted by previous provider to have episodes of staring in which he was poorly responsive.Patient is more confused with more dysarthric speech, having difficulty communicating effectively * EEG normal x2 * UA without concern for infection. TSH, B12, folate within normal limits * Head CT unremarkable. Unable to complete MRI due to deep brain stimulator and pacemaker. * Head/neck CTA (06/04) showed deep brain stimulators in expected position, 7% stenosis of the proximal right internal carotid artery and 0% stenosis of the proximal left internal carotid artery * Reviewed medications, amantadine and glycopyrrolate on hold as these could potentially contribute to confusion, though seems less likely as these are chronic medications for pt. Avoid narcotics. * May be infectious etiology. Patient does have pneumonia which could contribute. * May have component of hospital induced delirium. Frequent reorientation, minimize disturbances, appropriate sleep hygiene, etc. * Lumbar puncture recommended by neurology if other workup unrevealing, however patient states he does not wish to undergo this procedure as he does not want to be in pain. * Pt is concerned about pain, suffering, and difficulty remembering/communicating. Consider comfort care vs hospice if no improvement in clinical condition. However, pt does seem slightly improved today and was able to communicate more effectively than my last encounter with him 3 days prior. (2) Paroxysmal atrial fibrillation: Code(s): I48.0 - Paroxysmal atrial fibrillation Status: Acute Assessment and Plan: status post successful cardioversion 06/07 with buddhist of sinus rhythm. Unfortunately, went back into Afib last night and had episode of RVR * appreciate cardiology management * catheter ablation discussed per cardiology however pt states he does not wish to consider this. * amiodarone 400 mg daily * single dose of digoxin per cardiology * metoprolol succinate increased to 200 mg daily per Cardiology * continue Xarelto * continue to monitor on telemetry (3) Acute on chronic systolic (congestive) heart failure: Code(s): I50.23 - Acute on chronic systolic (congestive) heart failure Status: Acute Assessment and Plan: Improved with diuresis * Lasix 40 mg BID * Continue to monitor intake and output with daily weights * Recent echocardiogram completed on 04/20/2022 which showed reduced EF of 35- 40% with enlarged left atrial and ventricular enlargement * appreciate cardiology recommendations (4) Pneumonia: Code(s): J18.9 - Pneumonia, unspecified organism Status: Acute Assessment and Plan: Recent hospitalization 05/21/22-05/26/22 for aspiration pneumonia during which time he was treated with Unasyn while in the hospital and Augmentin on discharge. * CXR on presentation with evidence of right basilar airspace disease consistent with pneumonia, likely secondary to aspiration. Received IV Zosyn then transitioned to PO augmentin. * 06/09/22 changed to cefepime and vancomycin, presumably due to increased leukocytosis. * 06/11/22 with onset of respiratory distress overnight. Added Flagyl due to concern for aspiration. Continue modified diet (level 5 with mildly thick liquids) * Lactic acid within normal limits * Blood cultures negative. Repeat cultures pending, negative to date * Sputum culture with growth of yeast. Suspect this to be or
--- NOTE | 2022-06-11 13:29 | PM.IMPN ---
Progress Note: A&P Assessment and Plan (1) Altered mental status: Code(s): R41.82 - Altered mental status, unspecified Status: Acute Assessment and Plan: Patient noted by previous provider to have episodes of staring in which he was poorly responsive.Patient is more confused with more dysarthric speech, having difficulty communicating effectively EEG normal x2 UA without concern for infection. TSH, B12, folate within normal limits Head CT unremarkable. Unable to complete MRI due to deep brain stimulator and pacemaker. Head/neck CTA (06/04) showed deep brain stimulators in expected position, 7% stenosis of the proximal right internal carotid artery and 0% stenosis of the proximal left internal carotid artery Reviewed medications, amantadine and glycopyrrolate on hold as these could potentially contribute to confusion, though seems less likely as these are chronic medications for pt. Avoid narcotics. May be infectious etiology. Patient does have pneumonia which could contribute. May have component of hospital induced delirium. Frequent reorientation, minimize disturbances, appropriate sleep hygiene, etc. Lumbar puncture recommended by neurology if other workup unrevealing, however patient states he does not wish to undergo this procedure as he does not want to be in pain. Pt is concerned about pain, suffering, and difficulty remembering/communicating. Consider comfort care vs hospice if no improvement in clinical condition. However, pt does seem slightly improved today and was able to communicate more effectively than my last encounter with him 3 days prior. (2) Paroxysmal atrial fibrillation: Code(s): I48.0 - Paroxysmal atrial fibrillation Status: Acute Assessment and Plan: status post successful cardioversion 06/07 with [facility] of sinus rhythm. Unfortunately, went back into Afib last night and had episode of RVR appreciate cardiology management catheter ablation discussed per cardiology however pt states he does not wish to consider this. amiodarone 400 mg daily single dose of digoxin per cardiology metoprolol succinate increased to 200 mg daily per Cardiology continue Xarelto continue to monitor on telemetry (3) Acute on chronic systolic (congestive) heart failure: Code(s): I50.23 - Acute on chronic systolic (congestive) heart failure Status: Acute Assessment and Plan: Improved with diuresis Lasix 40 mg BID Continue to monitor intake and output with daily weights Recent echocardiogram completed on 04/20/2022 which showed reduced EF of 35-40% with enlarged left atrial and ventricular enlargement appreciate cardiology recommendations (4) Pneumonia: Code(s): J18.9 - Pneumonia, unspecified organism Status: Acute Assessment and Plan: Recent hospitalization 05/21/22-05/26/22 for aspiration pneumonia during which time he was treated with Unasyn while in the hospital and Augmentin on discharge. CXR on presentation with evidence of right basilar airspace disease consistent with pneumonia, likely secondary to aspiration. Received IV Zosyn then transitioned to PO augmentin. 06/09/22 changed to cefepime and vancomycin, presumably due to increased leukocytosis. 06/11/22 with onset of respiratory distress overnight. Added Flagyl due to concern for aspiration. Continue modified diet (level 5 with mildly thick liquids) Lactic acid within normal limits Blood cultures negative. Repeat cultures pending, negative to date Sputum culture with growth of yeast. Suspect this to be oropharyngeal. Contacted [facility] for further identification of organism. Supportive care. Mucinex. Incentive spirometry and Cornet (needs assistance to utilize these) Currently requiring 2 L supplemental O2 (5) Essential hypertension: Code(s): I10 - Essential (primary) hypertension Status: Chronic Assessment and Plan: Blood pressure stable. Continue h
[2022-06-11] MEDS: RIVAROXABAN 20 MG TABLET PO (17:21)
[2022-06-11] MEDS: TAMSULOSIN HCL 0.4 MG CAPSULE PO (17:21)
[2022-06-11] MEDS: ATORVASTATIN 40 MG TABLET PO (20:18)
[2022-06-12] VITALS (20 sets, daily range): BP systolic 93–125; BP diastolic 59–71; PULSE 85–126; RESP 18–22; TEMP 36.3–36.8; O2SAT 93–98
[2022-06-12 04:46] LABS: Hematocrit 42.5 % (42.0-52.0); Hemoglobin 12.7 g/dL (14.0-18.0); Mean Corpuscular HGB Conc 29.9 g/dl (32-36); Mean Corpuscular Hemoglobin 30.8 pg (26-34); Mean Corpuscular Volume 102.9 fl (80-100); Mean Platelet Volume 10.2 fl (7.4-10.4); Platelet Count Result 222 k/mm3 (150-375); Red Blood Count 4.13 M/mm3 (4.6-6.20); White Blood Count 10.7 K/mm3 (4.5-10.0)
[2022-06-12 05:00] LABS: Anion Gap 5 mmol/L (8-16); Blood Urea Nitrogen 46 mg/dL (9-20); Calcium 8.4 mg/dL (8.4-10.2); Carbon Dioxide 38 mmol/L (22-30); Chloride 98 mmol/L (98-107); Estimated CRCL calculation 52 ml/min; Estimated Glomerular Filt Rate 54; Glucose 109 mg/dL (65-110); Potassium 3.8 mmol/L (3.4-5.0); Sodium 141 mmol/L (137-145)
[2022-06-12] MEDS: metroNIDAZOLE 500 MG/ISO 100ML 500 MG/100 ML BAG 100 MG IVPB ×4 (05:24→23:24)
[2022-06-12] MEDS: FUROSEMIDE INJ 40 MG/4 ML VIAL IV PUSH (08:20)
[2022-06-12] MEDS: AMIODARONE HCL 200 MG TABLET 400 MG PO (08:20)
[2022-06-12] MEDS: guaiFENesin 12 HR 600 MG TABCR PO ×2 (08:21→20:32)
[2022-06-12] MEDS: METOPROLOL SUCCINATE EXT REL 100 MG TABCR 200 MG PO (08:21)
[2022-06-12] MEDS: CHOLECALCIFEROL 1,000 UNITS TABLET 5000 UNITS PO (08:21)
[2022-06-12] MEDS: FOLIC ACID 0.4 MG TABLET 0.8 MG PO (08:21)
[2022-06-12] MEDS: CALCIUM CARBONATE (OSCAL) 500 MG TABLET 1000 MG PO (08:21)
[2022-06-12] MEDS: CARBIDOPA/LEVODOPA 25/100 MG TABLET 1 TABLET PO ×4 (08:22→20:33)
[2022-06-12] MEDS: MULTIVITAMINS THERAPEUTIC TAB (*BKC) 1 TABLET PO (08:22)
[2022-06-12] MEDS: lisinopriL 20 MG TABLET PO (08:22)
[2022-06-12] MEDS: ASCORBIC ACID 500 MG TABLET 1000 MG PO (08:22)
[2022-06-12 10:07] LABS: Vancomycin Trough 13.7 ug/mL (10.0-20.0)
--- NOTE | 2022-06-12 11:57 | P.PNIM_ITS ---
Progress Note: A&P Assessment and Plan (1) Altered mental status: Code(s): R41.82 - Altered mental status, unspecified Status: Acute Assessment and Plan: Improving. Patient was noted to be more confused with more dysarthric speech, having difficulty communicating effectively * EEG normal x2 * UA without concern for infection. TSH, B12, folate within normal limits * Head CT unremarkable. Unable to obtain MRI due to deep brain stimulator and pacemaker. * Head/neck CTA (06/04) showed deep brain stimulators in expected position, 7% stenosis of the proximal right internal carotid artery and 0% stenosis of the proximal left internal carotid artery * Reviewed medications, amantadine and glycopyrrolate discontinued as these could potentially contribute to confusion, though seems less likely as these are chronic medications for pt. Avoid narcotics. * May be infectious etiology. Patient does have pneumonia which could contribute. * May have component of hospital induced delirium. Frequent reorientation, minimize disturbances, appropriate sleep hygiene, etc. * Lumbar puncture recommended by neurology if other workup unrevealing, however patient states he does not wish to undergo this procedure as he does not want to be in pain. * Seems improved today with speech much easier to understand, patient A&Ox4. (2) Paroxysmal atrial fibrillation: Code(s): I48.0 - Paroxysmal atrial fibrillation Status: Acute Assessment and Plan: status post successful cardioversion 06/07 with [facility]aritan of sinus rhythm. Unfortunately, went back into Afib overnight on 06/11 with RVR * appreciate cardiology management * catheter ablation discussed per cardiology however pt stated he did not want this * amiodarone 400 mg daily * metoprolol succinate increased to 200 mg daily per Cardiology * continue Xarelto * continue to monitor on telemetry (3) Acute on chronic systolic (congestive) heart failure: Code(s): I50.23 - Acute on chronic systolic (congestive) heart failure Status: Acute Assessment and Plan: Improved with diuresis * Lasix 40 mg PO daily * Continue to monitor intake and output with daily weights * Recent echocardiogram completed on 04/20/2022 which showed reduced EF of 35- 40% with enlarged left atrial and ventricular enlargement * appreciate cardiology recommendations (4) Pneumonia: Code(s): J18.9 - Pneumonia, unspecified organism Status: Acute Assessment and Plan: Recent hospitalization 05/21/22-05/26/22 for aspiration pneumonia during which time he was treated with Unasyn while in the hospital and Augmentin on discharge. * CXR on presentation with evidence of right basilar airspace disease consistent with pneumonia, likely secondary to aspiration. Received IV Zosyn then transitioned to PO augmentin. * 06/09/22 changed to cefepime and vancomycin, presumably due to increased leukocytosis. * 06/11/22 with onset of respiratory distress overnight. Added Flagyl for aspiration coverage. Continue modified diet (level 5 with mildly thick liqu ids) * Lactic acid within normal limits * Blood cultures negative. Repeat cultures pending, negative to date * Sputum culture with growth of mynor tropicalis. Discussed with ID PharmD, felt to likely be normal trent. No findings to suggest fungal pneumonia and pt is clinically improving on antibiotic therapy. No need for further evaluation/intervention. * Supportive care. Mucinex. Incentive spirometry and Cornet (needs assistance to utilize these) * Currently requiring 2 L supplemental O2 (5) Es
--- NOTE | 2022-06-12 11:57 | PM.IMPN ---
Progress Note: A&P Assessment and Plan (1) Altered mental status: Code(s): R41.82 - Altered mental status, unspecified Status: Acute Assessment and Plan: Improving. Patient was noted to be more confused with more dysarthric speech, having difficulty communicating effectively EEG normal x2 UA without concern for infection. TSH, B12, folate within normal limits Head CT unremarkable. Unable to obtain MRI due to deep brain stimulator and pacemaker. Head/neck CTA (06/04) showed deep brain stimulators in expected position, 7% stenosis of the proximal right internal carotid artery and 0% stenosis of the proximal left internal carotid artery Reviewed medications, amantadine and glycopyrrolate discontinued as these could potentially contribute to confusion, though seems less likely as these are chronic medications for pt. Avoid narcotics. May be infectious etiology. Patient does have pneumonia which could contribute. May have component of hospital induced delirium. Frequent reorientation, minimize disturbances, appropriate sleep hygiene, etc. Lumbar puncture recommended by neurology if other workup unrevealing, however patient states he does not wish to undergo this procedure as he does not want to be in pain. Seems improved today with speech much easier to understand, patient A&Ox4. (2) Paroxysmal atrial fibrillation: Code(s): I48.0 - Paroxysmal atrial fibrillation Status: Acute Assessment and Plan: status post successful cardioversion 06/07 with temple of sinus rhythm. Unfortunately, went back into Afib overnight on 06/11 with RVR appreciate cardiology management catheter ablation discussed per cardiology however pt stated he did not want this amiodarone 400 mg daily metoprolol succinate increased to 200 mg daily per Cardiology continue Xarelto continue to monitor on telemetry (3) Acute on chronic systolic (congestive) heart failure: Code(s): I50.23 - Acute on chronic systolic (congestive) heart failure Status: Acute Assessment and Plan: Improved with diuresis Lasix 40 mg PO daily Continue to monitor intake and output with daily weights Recent echocardiogram completed on 04/20/2022 which showed reduced EF of 35-40% with enlarged left atrial and ventricular enlargement appreciate cardiology recommendations (4) Pneumonia: Code(s): J18.9 - Pneumonia, unspecified organism Status: Acute Assessment and Plan: Recent hospitalization 05/21/22-05/26/22 for aspiration pneumonia during which time he was treated with Unasyn while in the hospital and Augmentin on discharge. CXR on presentation with evidence of right basilar airspace disease consistent with pneumonia, likely secondary to aspiration. Received IV Zosyn then transitioned to PO augmentin. 06/09/22 changed to cefepime and vancomycin, presumably due to increased leukocytosis. 06/11/22 with onset of respiratory distress overnight. Added Flagyl for aspiration coverage. Continue modified diet (level 5 with mildly thick liquids) Lactic acid within normal limits Blood cultures negative. Repeat cultures pending, negative to date Sputum culture with growth of mynor tropicalis. Discussed with ID PharmD, felt to likely be normal trent. No findings to suggest fungal pneumonia and pt is clinically improving on antibiotic therapy. No need for further evaluation/intervention. Supportive care. Mucinex. Incentive spirometry and Cornet (needs assistance to utilize these) Currently requiring 2 L supplemental O2 (5) Essential hypertension: Code(s): I10 - Essential (primary) hypertension Status: Chronic Assessment and Plan: Blood pressure stable. continue home lisinopril monitor BP trends (6) Parkinson disease: Code(s): G20 - Parkinson's disease Status: Chronic Assessment and Plan: Pt. has deep brain stimulator. He follows with neurologist, Dr. Hernandez, at
--- NOTE | 2022-06-12 12:48 | PCNFU ---
Nutrition Follow-Up Complete: Inadequate oral intake related to altered mental status as evidenced by poor intake and RN reports. Tolerate diet with at least 50% intakes at meals Tolerate supplement Goal: goal not met, continue original goal. Pt current nutrition is minced and moist level 5, nectar thickened level 2, heart healthy diet, ensure compact TID. Last recorded weight is 107.7 kg. Bowel Motility:lst BM: 06/10 Labs Reviewed:Hgb: 127, GFR: 54, BUN: 46 Meds Noted: paceron, vit C, lipitor, vit D, flomax, xarelto, multivitamin, toprol, prinivil, lasix Skin: WNL- no wounds/pressure injuries Additional Notes: Pt states his appetite is improving and he likes the nutritional supplements, but he just can't eat too much in a sitting. average meal intake 40%. Recalls his wt 2 weeks ago was 241lbs and has not noticed any trends in wt, but comments that 237 sounds accurate. potential 4lbs(1%) wt loss in 2 weeks. Monitoring intakes, weights, labs, skin, plan of care. Follow up in 7 days
--- NOTE | 2022-06-12 13:46 | PCNSR ---
On 06/12/22, the student, Stanley Daugherty, provided care and completed [facility] documentation on this patient. I have reviewed the student's documentation and agree with the findings.
--- NOTE | 2022-06-12 14:39 | PCSTNOTE ---
Please refer to the Bedside Swallow Evaluation in the EMR. Please note, silent aspiration cannot be ruled out at bedside.
[2022-06-12] MEDS: RIVAROXABAN 20 MG TABLET PO (17:01)
[2022-06-12] MEDS: TAMSULOSIN HCL 0.4 MG CAPSULE PO (17:01)
[2022-06-12] MEDS: ATORVASTATIN 40 MG TABLET PO (20:33)
[2022-06-12] MEDS: DOCUSATE SODIUM 100 MG CAPSULE PO (23:24)
[2022-06-13] VITALS (17 sets, daily range): BP systolic 96–203; BP diastolic 52–80; PULSE 72–136; RESP 16–20; TEMP 36.3–37; O2SAT 93–98
[2022-06-13 04:40] LABS: Hematocrit 42.4 % (42.0-52.0); Mean Corpuscular HGB Conc 30.7 g/dl (32-36); Mean Corpuscular Hemoglobin 30.8 pg (26-34); Mean Corpuscular Volume 100.5 fl (80-100); Mean Platelet Volume 9.9 fl (7.4-10.4); Platelet Count Result 210 k/mm3 (150-375); Red Blood Count 4.22 M/mm3 (4.6-6.20); Red Cell Distribution Width 14.1 % (11.5-14.5); White Blood Count 8.3 K/mm3 (4.5-10.0)
[2022-06-13 05:01] LABS: Anion Gap 8 mmol/L (8-16); Blood Urea Nitrogen 46 mg/dL (9-20); Calcium 8.6 mg/dL (8.4-10.2); Carbon Dioxide 37 mmol/L (22-30); Chloride 98 mmol/L (98-107); Estimated CRCL calculation 52 ml/min; Estimated Glomerular Filt Rate 54; Glucose 112 mg/dL (65-110); Potassium 3.5 mmol/L (3.4-5.0); Sodium 143 mmol/L (137-145)
[2022-06-13] MEDS: metroNIDAZOLE 500 MG/ISO 100ML 500 MG/100 ML BAG 100 MG IVPB ×3 (06:09→16:32)
[2022-06-13] MEDS: ASCORBIC ACID 500 MG TABLET 1000 MG PO (08:07)
[2022-06-13] MEDS: CARBIDOPA/LEVODOPA 25/100 MG TABLET 1 TABLET PO ×4 (08:07→20:47)
[2022-06-13] MEDS: FOLIC ACID 0.4 MG TABLET 0.8 MG PO (08:07)
[2022-06-13] MEDS: CHOLECALCIFEROL 1,000 UNITS TABLET 5000 UNITS PO (08:07)
[2022-06-13] MEDS: FUROSEMIDE 40 MG TABLET PO (08:08)
[2022-06-13] MEDS: guaiFENesin 12 HR 600 MG TABCR PO ×2 (08:08→20:47)
[2022-06-13] MEDS: AMIODARONE HCL 200 MG TABLET 400 MG PO (08:08)
[2022-06-13] MEDS: METOPROLOL SUCCINATE EXT REL 100 MG TABCR 200 MG PO (08:08)
[2022-06-13] MEDS: CALCIUM CARBONATE (OSCAL) 500 MG TABLET 1000 MG PO (08:08)
[2022-06-13] MEDS: MULTIVITAMINS THERAPEUTIC TAB (*BKC) 1 TABLET PO (08:08)
[2022-06-13] MEDS: lisinopriL 20 MG TABLET PO (08:09)
--- NOTE | 2022-06-13 10:12 | PCPTNOTE ---
Attempted PT evaluation, Pt's HR is running from 120-150 bpm at rest. Per RN, pt HR is too high for out of bed activities. RN requested check back later. Will follow.
--- NOTE | 2022-06-13 11:44 | P.PNIM_ITS ---
Progress Note: A&P Assessment and Plan (1) Altered mental status: Code(s): R41.82 - Altered mental status, unspecified Status: Acute Assessment and Plan: Improving. Patient was noted to be more confused with more dysarthric speech, having difficulty communicating effectively * EEG normal x2 * UA without concern for infection. TSH, B12, folate within normal limits * Head CT unremarkable. Unable to obtain MRI due to deep brain stimulator and pacemaker. * Head/neck CTA (06/04) showed deep brain stimulators in expected position, 7% stenosis of the proximal right internal carotid artery and 0% stenosis of the proximal left internal carotid artery * Reviewed medications, amantadine and glycopyrrolate discontinued as these could potentially contribute to confusion, though seems less likely as these are chronic medications for pt. Avoid narcotics. * May be infectious etiology. Patient does have pneumonia which could contribute. * May have component of hospital induced delirium. Frequent reorientation, minimize disturbances, appropriate sleep hygiene, etc. * Lumbar puncture recommended by neurology if other workup unrevealing, however patient states he does not wish to undergo this procedure as he does not want to be in pain. * Seems improved now with speech much easier to understand, patient A&Ox4. (2) Paroxysmal atrial fibrillation: Code(s): I48.0 - Paroxysmal atrial fibrillation Status: Acute Assessment and Plan: status post successful cardioversion 06/07 with [facility] of sinus rhythm. Unfortunately, went back into Afib overnight on 06/11 with RVR * appreciate cardiology management * catheter ablation discussed per cardiology however pt stated he did not want this * amiodarone 400 mg daily * metoprolol succinate increased to 200 mg daily per Cardiology * continue Xarelto * continue to monitor on telemetry (3) Acute on chronic systolic (congestive) heart failure: Code(s): I50.23 - Acute on chronic systolic (congestive) heart failure Status: Acute Assessment and Plan: Improved with diuresis * Lasix 40 mg PO daily * Continue to monitor intake and output and daily weights * Recent echocardiogram completed on 04/20/2022 which showed reduced EF of 35- 40% with enlarged left atrial and ventricular enlargement * appreciate cardiology recommendations (4) Pneumonia: Code(s): J18.9 - Pneumonia, unspecified organism Status: Acute Assessment and Plan: Recent hospitalization 05/21/22-05/26/22 for aspiration pneumonia during which time he was treated with Unasyn while in the hospital and Augmentin on discharge. * CXR on presentation with evidence of right basilar airspace disease consistent with pneumonia, likely secondary to aspiration. Received IV Zosyn then transitioned to PO augmentin. * 06/09/22 changed to cefepime and vancomycin, presumably due to increased leukocytosis. * 06/11/22 with onset of respiratory distress overnight. Added Flagyl for aspiration coverage. Continue modified diet (level 5 with mildly thick liquids ) * Repeat CXR 06/11 demonstrated mild interval improvement * Lactic acid within normal limits * Blood cultures negative. Repeat cultures pending, negative to date * Sputum culture with growth of mynor tropicalis. Discussed with ID PharmD, felt to likely be normal trent. No findings to suggest fungal pneumonia and pt is clinically improving on antibiotic therapy. No need for further evaluation/intervention. * Supportive care. Mucinex. Incentive spirometry and Cornet (needs assistance to utilize these) * Curr
--- NOTE | 2022-06-13 11:44 | PM.IMPN ---
Progress Note: A&P Assessment and Plan (1) Altered mental status: Code(s): R41.82 - Altered mental status, unspecified Status: Acute Assessment and Plan: Improving. Patient was noted to be more confused with more dysarthric speech, having difficulty communicating effectively EEG normal x2 UA without concern for infection. TSH, B12, folate within normal limits Head CT unremarkable. Unable to obtain MRI due to deep brain stimulator and pacemaker. Head/neck CTA (06/04) showed deep brain stimulators in expected position, 7% stenosis of the proximal right internal carotid artery and 0% stenosis of the proximal left internal carotid artery Reviewed medications, amantadine and glycopyrrolate discontinued as these could potentially contribute to confusion, though seems less likely as these are chronic medications for pt. Avoid narcotics. May be infectious etiology. Patient does have pneumonia which could contribute. May have component of hospital induced delirium. Frequent reorientation, minimize disturbances, appropriate sleep hygiene, etc. Lumbar puncture recommended by neurology if other workup unrevealing, however patient states he does not wish to undergo this procedure as he does not want to be in pain. Seems improved now with speech much easier to understand, patient A&Ox4. (2) Paroxysmal atrial fibrillation: Code(s): I48.0 - Paroxysmal atrial fibrillation Status: Acute Assessment and Plan: status post successful cardioversion 06/07 with hoahaoism of sinus rhythm. Unfortunately, went back into Afib overnight on 06/11 with RVR appreciate cardiology management catheter ablation discussed per cardiology however pt stated he did not want this amiodarone 400 mg daily metoprolol succinate increased to 200 mg daily per Cardiology continue Xarelto continue to monitor on telemetry (3) Acute on chronic systolic (congestive) heart failure: Code(s): I50.23 - Acute on chronic systolic (congestive) heart failure Status: Acute Assessment and Plan: Improved with diuresis Lasix 40 mg PO daily Continue to monitor intake and output and daily weights Recent echocardiogram completed on 04/20/2022 which showed reduced EF of 35-40% with enlarged left atrial and ventricular enlargement appreciate cardiology recommendations (4) Pneumonia: Code(s): J18.9 - Pneumonia, unspecified organism Status: Acute Assessment and Plan: Recent hospitalization 05/21/22-05/26/22 for aspiration pneumonia during which time he was treated with Unasyn while in the hospital and Augmentin on discharge. CXR on presentation with evidence of right basilar airspace disease consistent with pneumonia, likely secondary to aspiration. Received IV Zosyn then transitioned to PO augmentin. 06/09/22 changed to cefepime and vancomycin, presumably due to increased leukocytosis. 06/11/22 with onset of respiratory distress overnight. Added Flagyl for aspiration coverage. Continue modified diet (level 5 with mildly thick liquids) Repeat CXR 06/11 demonstrated mild interval improvement Lactic acid within normal limits Blood cultures negative. Repeat cultures pending, negative to date Sputum culture with growth of mynor tropicalis. Discussed with ID PharmD, felt to likely be normal trent. No findings to suggest fungal pneumonia and pt is clinically improving on antibiotic therapy. No need for further evaluation/intervention. Supportive care. Mucinex. Incentive spirometry and Cornet (needs assistance to utilize these) Currently requiring 2 L supplemental O2. Wean O2 as tolerated with goal sats 92% or above. (5) Essential hypertension: Code(s): I10 - Essential (primary) hypertension Status: Chronic Assessment and Plan: Blood pressure stable. continue home lisinopril monitor BP trends (6) Parkinson disease: Code(s): G20 - Parkinson's disease Status: Chron
--- NOTE | 2022-06-13 12:06 | PCSTNOTE ---
Please refer to the Modified Barium Swallow Evaluation in the EMR.
[2022-06-13] MEDS: RIVAROXABAN 20 MG TABLET PO (16:33)
[2022-06-13] MEDS: TAMSULOSIN HCL 0.4 MG CAPSULE PO (16:36)
[2022-06-13] MEDS: ATORVASTATIN 40 MG TABLET PO (20:47)
[2022-06-14] VITALS (16 sets, daily range): BP systolic 105–123; BP diastolic 58–87; PULSE 56–123; RESP 16–20; TEMP 36.2–36.5; O2SAT 93–100
[2022-06-14] MEDS: metroNIDAZOLE 500 MG/ISO 100ML 500 MG/100 ML BAG 100 MG IVPB ×4 (00:36→18:56)
[2022-06-14 04:19] LABS: Hematocrit 41.4 % (42.0-52.0); Hemoglobin 12.9 g/dL (14.0-18.0); Mean Corpuscular HGB Conc 31.2 g/dl (32-36); Mean Corpuscular Hemoglobin 30.4 pg (26-34); Mean Corpuscular Volume 97.4 fl (80-100); Mean Platelet Volume 10.4 fl (7.4-10.4); Platelet Count Result 226 k/mm3 (150-375); Red Blood Count 4.25 M/mm3 (4.6-6.20); White Blood Count 9.8 K/mm3 (4.5-10.0)
[2022-06-14 04:36] LABS: Anion Gap 10 mmol/L (8-16); Blood Urea Nitrogen 57 mg/dL (9-20); Calcium 8.2 mg/dL (8.4-10.2); Carbon Dioxide 34 mmol/L (22-30); Chloride 96 mmol/L (98-107); Estimated CRCL calculation 43 ml/min; Estimated Glomerular Filt Rate 42; Glucose 109 mg/dL (65-110); Potassium 3.6 mmol/L (3.4-5.0); Sodium 140 mmol/L (137-145)
[2022-06-14] MEDS: METOPROLOL SUCCINATE EXT REL 100 MG TABCR 200 MG PO (08:45)
[2022-06-14] MEDS: MULTIVITAMINS THERAPEUTIC TAB (*BKC) 1 TABLET PO (08:45)
[2022-06-14] MEDS: CALCIUM CARBONATE (OSCAL) 500 MG TABLET 1000 MG PO (08:45)
[2022-06-14] MEDS: CARBIDOPA/LEVODOPA 25/100 MG TABLET 1 TABLET PO ×4 (08:46→20:45)
[2022-06-14] MEDS: FOLIC ACID 0.4 MG TABLET 0.8 MG PO (08:46)
[2022-06-14] MEDS: lisinopriL 20 MG TABLET PO (08:46)
[2022-06-14] MEDS: guaiFENesin 12 HR 600 MG TABCR PO ×2 (08:46→20:45)
[2022-06-14] MEDS: FUROSEMIDE 40 MG TABLET PO (08:46)
[2022-06-14] MEDS: ASCORBIC ACID 500 MG TABLET 1000 MG PO (08:47)
[2022-06-14] MEDS: AMIODARONE HCL 200 MG TABLET 400 MG PO (08:47)
[2022-06-14] MEDS: CHOLECALCIFEROL 1,000 UNITS TABLET 5000 UNITS PO (08:47)
--- NOTE | 2022-06-14 10:32 | PCPTNOTE ---
Attempted PT evaluation, pt unarousable at this time. RN aware. Will follow.
--- NOTE | 2022-06-14 10:51 | PM.PNCARD ---
Progress Note: A&P Assessment and Plan (1) Atrial flutter: Code(s): I48.92 - Unspecified atrial flutter Status: Acute (2) Acute metabolic encephalopathy: Code(s): G93.41 - Metabolic encephalopathy Status: Acute (3) CHF (congestive heart failure): Code(s): I50.9 - Heart failure, unspecified Status: Acute (4) Aspiration pneumonia: Code(s): J69.0 - Pneumonitis due to inhalation of food and vomit Status: Acute Plan Patient currently on Amiodarone 400mg QD and Metoprolol 200 mg daily. At rest with no movement, patient's heart rate appears to be controlled, however, with any movement or activity, patient is in RVR. Physical therapy said they were unable to work with him yesterday because his heart rate would go up to the 140s with movement. At this time we have very limited options in terms of rate control with medications. Giving him more Amio would not be beneficial as he has already more than adequately loaded with Amio. On maximum beta yudith. Given this, will give a one time dose of Digoxin and assess his heart rate response. Continue Xarelto for anticoagulation. Given his bump in SCr and as patient appears euvolemic on exam, would hold his Lasix and not give further doses at this time. Subjective Date/time seen: 06/14/22 10:51 Interval history: Patient sleepy this morning and doesn't respond. Tries to open his eyes when I call his name, but otherwise has no reaction. Review of Systems Review of Systems: ROS unobtainable: Yes unobtainable due to mental status Exam Const: General: comfortable and no acute distress Neck: Neck: no JVD Resp: Effort & Inspection: normal respiratory effort Auscultation: diminished lung sounds Cardio: Rate: regular rate Rhythm: abnormal rhythm irregularly irregular GI: GI Palp: Yes Soft to palpation and No Tenderness to palpation present (GI) Skin: General skin exam: normal color Neuro: Other: Uable to assess given his mental status. Patient only opening his eyes when name is called. Extrem: General: no edema Objective Data Vital Signs Vital Signs: Vital Signs - 24 hr 06/13/22 11:49 06/13/22 12:00 06/13/22 12:00 Temperature 36.3 C L Pulse Rate 114 H 114 H 93 Respiratory Rate 17 17 Blood Pressure 203/64 H Pulse Oximetry 95 95 Oxygen Delivery Nasal Cannula Oxygen Flow Rate 2 06/13/22 14:00 06/13/22 16:00 06/13/22 16:36 Temperature 36.8 C Pulse Rate 113 H 113 H 72 Respiratory Rate 17 16 Blood Pressure 102/65 Pulse Oximetry 95 98 Oxygen Delivery Nasal Cannula Oxygen Flow Rate 2 06/13/22 15:35 06/13/22 16:00 06/13/22 18:00 Temperature Pulse Rate 92 121 H Respiratory Rate Blood Pressure Pulse Oximetry Oxygen Delivery Nasal Cannula Oxygen Flow Rate 2 06/13/22 20:00 06/13/22 23:53 06/13/22 20:00 Temperature 36.5 C 36.5 C Pulse Rate 130 H 111 H Respiratory Rate 20 20 Blood Pressure 96/52 L 131/76 Pulse Oximetry 93 96 93 Oxygen Delivery Nasal Cannula Oxygen Flow Rate 2 06/13/22 20:00 06/13/22 22:00 06/14/22 00:00 Temperature Pulse Rate 94 119 H 123 H Respiratory Rate Blood Pressure Pulse Oximetry Oxygen Delivery Oxygen Flow Rate 06/14/22 02:00 06/14/22 00:00 06/14/22 04:00 Temperature 36.5 C Pulse Rate 120 H 103 H Respiratory Rate 20 Blood Pressure 123/73 Pulse Oximetry 95 93 Oxygen Delivery Nasal Cannula Oxygen Flow Rate 2 06/14/22 04:00 06/14/22 06:00 06/14/22 04:00 Temperature Pulse Rate 97 111 H Respiratory Rate Blood Pressure Pulse Oximetry 93 Oxygen Delivery Nasal Cannula Oxygen Flow Rate 2 06/14/22 08:00 06/14/22 08:45 06/14/22 08:47 Temperature 36.5 C Pulse Rate 80 73 73 Respiratory Rate 16 Blood Pressure 111/58 L Pulse Oximetry 96 Oxygen Delivery Oxygen Flow Rate Intake/Output Intake/Output: Intake & Output 06/11/22 06/12/22 06/13/22
--- NOTE | 2022-06-14 14:02 | PCSTNOTE ---
Patient not seen; other disciplines reporting patient is asleep or difficult/unable to arouse.
--- NOTE | 2022-06-14 14:42 | P.PNIM_ITS ---
Progress Note: A&P Assessment and Plan (1) Altered mental status: Code(s): R41.82 - Altered mental status, unspecified Status: Acute Assessment and Plan: Improving. Patient was noted to be more confused with more dysarthric speech, having difficulty communicating effectively * EEG normal x2 * UA without concern for infection. TSH, B12, folate within normal limits * Head CT unremarkable. Unable to obtain MRI due to deep brain stimulator and pacemaker. * Head/neck CTA (06/04) showed deep brain stimulators in expected position, 7% stenosis of the proximal right internal carotid artery and 0% stenosis of the proximal left internal carotid artery * Reviewed medications, amantadine and glycopyrrolate discontinued as these could potentially contribute to confusion, though seems less likely as these are chronic medications for pt. Avoid narcotics. * May be infectious etiology. Patient does have pneumonia which could contribute. * May have component of hospital induced delirium. Frequent reorientation, minimize disturbances, appropriate sleep hygiene, etc. * Lumbar puncture recommended by neurology if other workup unrevealing, however patient states he does not wish to undergo this procedure as he does not want to be in pain. * 06/13: Seems markedly improved with speech much easier to understand, patient A&Ox4. Unable to assess today as pt asleep. (2) Paroxysmal atrial fibrillation: Code(s): I48.0 - Paroxysmal atrial fibrillation Status: Acute Assessment and Plan: status post successful cardioversion 06/07 with zoroastrianism of sinus rhythm. Unfortunately, went back into Afib overnight on 06/11 with RVR * appreciate cardiology management * catheter ablation discussed per cardiology however pt stated he did not want this * RVR persistent with activity * amiodarone 400 mg daily * metoprolol succinate 200 mg daily * one time dose of digoxin given today per cardiology * continue Xarelto * continue to monitor on telemetry (3) Acute on chronic systolic (congestive) heart failure: Code(s): I50.23 - Acute on chronic systolic (congestive) heart failure Status: Acute Assessment and Plan: Improved with diuresis. Pt euvolemic on exam. * Holding lasix given mild bump in creatinine * Continue to monitor intake and output and daily weights * Recent echocardiogram completed on 04/20/2022 which showed reduced EF of 35- 40% with enlarged left atrial and ventricular enlargement * appreciate cardiology recommendations (4) Pneumonia: Code(s): J18.9 - Pneumonia, unspecified organism Status: Acute Assessment and Plan: Recent hospitalization 05/21/22-05/26/22 for aspiration pneumonia during which time he was treated with Unasyn while in the hospital and Augmentin on discharge. * CXR on presentation with evidence of right basilar airspace disease consistent with pneumonia, likely secondary to aspiration. Received IV Zosyn then transitioned to PO augmentin. * 06/09/22 changed to cefepime and vancomycin, presumably due to increased leukocytosis. * 06/11/22 with onset of respiratory distress overnight. Added Flagyl for aspiration coverage. Continue modified diet (level 5 with mildly thick liquids) * Repeat CXR 06/11 demonstrated mild interval improvement * Lactic acid within normal limits * Blood cultures negative. Repeat cultures pending, negative to date * Sputum culture with growth of mynor tropicalis. Discussed with ID PharmD, felt to likely be normal trent. No findings to suggest fungal pneumonia and pt is clinically improving on antibiotic therapy.
--- NOTE | 2022-06-14 14:42 | PM.IMPN ---
Progress Note: A&P Assessment and Plan (1) Altered mental status: Code(s): R41.82 - Altered mental status, unspecified Status: Acute Assessment and Plan: Improving. Patient was noted to be more confused with more dysarthric speech, having difficulty communicating effectively EEG normal x2 UA without concern for infection. TSH, B12, folate within normal limits Head CT unremarkable. Unable to obtain MRI due to deep brain stimulator and pacemaker. Head/neck CTA (06/04) showed deep brain stimulators in expected position, 7% stenosis of the proximal right internal carotid artery and 0% stenosis of the proximal left internal carotid artery Reviewed medications, amantadine and glycopyrrolate discontinued as these could potentially contribute to confusion, though seems less likely as these are chronic medications for pt. Avoid narcotics. May be infectious etiology. Patient does have pneumonia which could contribute. May have component of hospital induced delirium. Frequent reorientation, minimize disturbances, appropriate sleep hygiene, etc. Lumbar puncture recommended by neurology if other workup unrevealing, however patient states he does not wish to undergo this procedure as he does not want to be in pain. 06/13: Seems markedly improved with speech much easier to understand, patient A&Ox4. Unable to assess today as pt asleep. (2) Paroxysmal atrial fibrillation: Code(s): I48.0 - Paroxysmal atrial fibrillation Status: Acute Assessment and Plan: status post successful cardioversion 06/07 with mandaen of sinus rhythm. Unfortunately, went back into Afib overnight on 06/11 with RVR appreciate cardiology management catheter ablation discussed per cardiology however pt stated he did not want this RVR persistent with activity amiodarone 400 mg daily metoprolol succinate 200 mg daily one time dose of digoxin given today per cardiology continue Xarelto continue to monitor on telemetry (3) Acute on chronic systolic (congestive) heart failure: Code(s): I50.23 - Acute on chronic systolic (congestive) heart failure Status: Acute Assessment and Plan: Improved with diuresis. Pt euvolemic on exam. Holding lasix given mild bump in creatinine Continue to monitor intake and output and daily weights Recent echocardiogram completed on 04/20/2022 which showed reduced EF of 35-40% with enlarged left atrial and ventricular enlargement appreciate cardiology recommendations (4) Pneumonia: Code(s): J18.9 - Pneumonia, unspecified organism Status: Acute Assessment and Plan: Recent hospitalization 05/21/22-05/26/22 for aspiration pneumonia during which time he was treated with Unasyn while in the hospital and Augmentin on discharge. CXR on presentation with evidence of right basilar airspace disease consistent with pneumonia, likely secondary to aspiration. Received IV Zosyn then transitioned to PO augmentin. 06/09/22 changed to cefepime and vancomycin, presumably due to increased leukocytosis. 06/11/22 with onset of respiratory distress overnight. Added Flagyl for aspiration coverage. Continue modified diet (level 5 with mildly thick liquids) Repeat CXR 06/11 demonstrated mild interval improvement Lactic acid within normal limits Blood cultures negative. Repeat cultures pending, negative to date Sputum culture with growth of mynor tropicalis. Discussed with ID PharmD, felt to likely be normal trent. No findings to suggest fungal pneumonia and pt is clinically improving on antibiotic therapy. No need for further evaluation/intervention. Supportive care. Mucinex. Incentive spirometry and Cornet (needs assistance to utilize these) Currently requiring 2 L supplemental O2. Wean O2 as tolerated with goal sats 92% or above. (5) Essential hypertension: Code(s): I10 - Essential (primary) hypertension Status: Chronic Assessment and Plan: Blood pressu
--- NOTE | 2022-06-14 14:57 | PC.NURSE ---
On 06/14/22, the student, [Kim Pugh], provided care and completed [facility] documentation on this patient. I have reviewed the student's documentation and agree with the findings.
[2022-06-14] MEDS: RIVAROXABAN 20 MG TABLET PO (18:56)
[2022-06-14] MEDS: TAMSULOSIN HCL 0.4 MG CAPSULE PO (18:56)
[2022-06-14] MEDS: ATORVASTATIN 40 MG TABLET PO (20:45)
[2022-06-15] VITALS (17 sets, daily range): BP systolic 87–146; BP diastolic 48–88; PULSE 71–117; RESP 18–22; TEMP 36.1–37.1; O2SAT 91–100
[2022-06-15] MEDS: metroNIDAZOLE 500 MG/ISO 100ML 500 MG/100 ML BAG 100 MG IVPB ×5 (00:28→23:33)
[2022-06-15 04:36] LABS: Hematocrit 40.3 % (42.0-52.0); Hemoglobin 12.7 g/dL (14.0-18.0); Mean Corpuscular HGB Conc 31.5 g/dl (32-36); Mean Corpuscular Hemoglobin 30.2 pg (26-34); Mean Platelet Volume 10.5 fl (7.4-10.4); Platelet Count Result 221 k/mm3 (150-375); Red Cell Distribution Width 13.9 % (11.5-14.5); White Blood Count 8.2 K/mm3 (4.5-10.0)
[2022-06-15 04:58] LABS: Anion Gap 4 mmol/L (8-16); Blood Urea Nitrogen 53 mg/dL (9-20); Calcium 8.5 mg/dL (8.4-10.2); Carbon Dioxide 35 mmol/L (22-30); Chloride 99 mmol/L (98-107); Estimated CRCL calculation 52 ml/min; Estimated Glomerular Filt Rate 54; Glucose 104 mg/dL (65-110); Potassium 3.8 mmol/L (3.4-5.0); Sodium 138 mmol/L (137-145)
[2022-06-15] MEDS: AMIODARONE HCL 200 MG TABLET 400 MG PO (09:45)
[2022-06-15] MEDS: CHOLECALCIFEROL 1,000 UNITS TABLET 5000 UNITS PO (09:45)
[2022-06-15] MEDS: guaiFENesin 12 HR 600 MG TABCR PO ×2 (09:45→20:23)
[2022-06-15] MEDS: MULTIVITAMINS THERAPEUTIC TAB (*BKC) 1 TABLET PO (09:45)
[2022-06-15] MEDS: CALCIUM CARBONATE (OSCAL) 500 MG TABLET 1000 MG PO (09:45)
[2022-06-15] MEDS: ASCORBIC ACID 500 MG TABLET 1000 MG PO (09:46)
[2022-06-15] MEDS: FOLIC ACID 0.4 MG TABLET 0.8 MG PO (09:46)
[2022-06-15] MEDS: CARBIDOPA/LEVODOPA 25/100 MG TABLET 1 TABLET PO ×4 (09:46→20:23)
[2022-06-15] MEDS: METOPROLOL SUCCINATE EXT REL 100 MG TABCR 200 MG PO (09:46)
--- NOTE | 2022-06-15 11:38 | PM.PNCARD ---
Progress Note: A&P Assessment and Plan (1) Atrial flutter: Code(s): I48.92 - Unspecified atrial flutter Status: Acute Plan 77-year-old man with mild to moderate LV dysfunction and previous history of paroxysmal atrial fib which recently has been more persistent. Despite cardioversion last week atrial fib has recurred and he is heart rate is now well controlled with the combination of metoprolol and amiodarone. When he is ready for discharge from this hospital we will arrange for electrophysiology consultation to discuss the option of an ablation procedure for hemodynamic benefit. There is no urgency to this. He is still receiving IV antibiotics for aspiration pneumonia as well. No adjustments in his rate control medications are necessary today. Lucas Sanabria MD [facility] Subjective Date/time seen: Date of service: 06/15/22 11:38 Interval history: Follow-up visit in this 77-year-old man with: Persistent atrial fibrillation, previously paroxysmal now has been persistent for a while and has resulted in more difficult hemodynamic management with recent/recurrent admissions with CHF. In the last 48 hours or so his heart rate has come under much better control with the combination of amiodarone and a high dose of metoprolol. He is sitting in the chair today much more lucid and having a appropriate conversation. No shortness of breath no cardiovascular symptoms. Exam Const: General: comfortable and no acute distress Other: Frail elderly man relaxing in the chair he is alert responsive and lucid today. HENMT: Mouth: Yes moist mucous membranes Eyes: Sclera: sclerae normal Pupils: Equal, round and reactive pupils present Neck: Neck: supple and no JVD Resp: Effort & Inspection: normal respiratory effort Other: Poor respiratory effort but breath sounds are essentially clear bilaterally Cardio: Rhythm: abnormal rhythm irregularly irregular GI: GI Palp: Yes Soft to palpation Auscultation: normal bowel sounds Skin: General skin exam: normal color Neuro: Other: Mentation is a bit slow but otherwise completely clear and lucid today much better than last week Extrem: Other: No edema at all Objective Data Vital Signs Vital Signs: Vital Signs - 24 hr 06/14/22 12:00 06/14/22 15:25 06/14/22 16:00 Temperature 36.4 C 36.2 C L Pulse Rate 67 56 L Respiratory Rate 16 20 Blood Pressure 109/62 105/58 L Pulse Oximetry 98 93 Oxygen Delivery Nasal Cannula Oxygen Flow Rate 2 06/14/22 12:00 06/14/22 12:00 06/14/22 14:00 Temperature Pulse Rate 84 80 Respiratory Rate Blood Pressure Pulse Oximetry 94 Oxygen Delivery Nasal Cannula Oxygen Flow Rate 2 06/14/22 16:00 06/14/22 18:00 06/14/22 16:00 Temperature Pulse Rate 93 90 Respiratory Rate Blood Pressure Pulse Oximetry 94 Oxygen Delivery Nasal Cannula Oxygen Flow Rate 2 06/14/22 20:00 06/14/22 20:00 06/14/22 21:08 Temperature 36.5 C Pulse Rate 76 Respiratory Rate 20 Blood Pressure 112/87 Pulse Oximetry 96 100 94 Oxygen Delivery Nasal Cannula Nasal Cannula Oxygen Flow Rate 2 2 06/15/22 00:00 06/15/22 00:00 06/15/22 04:00 Temperature 36.4 C 36.5 C Pulse Rate 117 H 82 Respiratory Rate 20 18 Blood Pressure 146/88 H 115/62 Pulse Oximetry 94 98 96 Oxygen Delivery Nasal Cannula Oxygen Flow Rate 2 06/14/22 20:00 06/14/22 22:00 06/15/22 00:00 Temperature Pulse Rate 70 110 H 96 Respiratory Rate Blood Pressure Pulse Oximetry Oxygen Delivery Oxygen Flow Rate 06/15/22 02:00 06/15/22 04:00 06/15/22 04:00 Temperature Pulse Rate 89 104 H Respiratory Rate Blood Pressure Pulse Oximetry 95 Oxygen Delivery Nasal Cannula Oxygen Flow Rate 2 06/15/22 06:00 06/15/22 08:00 06/15/22 09:35 Temperature 36.2 C L Pulse Rate 113 H 112 H 112 H Respiratory Rate 18 18 Blood Pressure 108/67 Pulse Oximetry 91 98 Oxygen Delivery Nasal C
--- NOTE | 2022-06-15 13:10 | P.PNIM_ITS ---
Progress Note: A&P Assessment and Plan (1) Altered mental status: Code(s): R41.82 - Altered mental status, unspecified Status: Acute (2) Paroxysmal atrial fibrillation: Code(s): I48.0 - Paroxysmal atrial fibrillation Status: Acute (3) Acute on chronic systolic (congestive) heart failure: Code(s): I50.23 - Acute on chronic systolic (congestive) heart failure Status: Acute (4) Pneumonia: Code(s): J18.9 - Pneumonia, unspecified organism Status: Acute (5) Essential hypertension: Code(s): I10 - Essential (primary) hypertension Status: Chronic (6) Parkinson disease: Code(s): G20 - Parkinson's disease Status: Chronic Assessment and Plan: Improving. Patient was noted to be more confused with more dysarthric speech, having difficulty communicating effectively * EEG normal x2 * UA without concern for infection. TSH, B12, folate within normal limits * Head CT unremarkable. Unable to obtain MRI due to deep brain stimulator and pacemaker. * Head/neck CTA (06/04) showed deep brain stimulators in expected position, 7% stenosis of the proximal right internal carotid artery and 0% stenosis of the proximal left internal carotid artery * Reviewed medications, amantadine and glycopyrrolate discontinued as these could potentially contribute to confusion, though seems less likely as these are chronic medications for pt. Avoid narcotics. * May be infectious etiology. Patient does have pneumonia which could contribute. * May have component of hospital induced delirium. Frequent reorientation, minimize disturbances, appropriate sleep hygiene, etc. * Lumbar puncture recommended by neurology if other workup unrevealing, however patient states he does not wish to undergo this procedure as he does not want to be in pain. * 06/13: Seems markedly improved with speech much easier to understand, patient A&Ox4. Unable to assess today as pt asleep. status post successful cardioversion 06/07 with church of sinus rhythm. Unfortunately, went back into Afib overnight on 06/11 with RVR * appreciate cardiology management * catheter ablation discussed per cardiology however pt stated he did not want this * RVR persistent with activity * amiodarone 400 mg daily * metoprolol succinate 200 mg daily * one time dose of digoxin given today per cardiology * continue Xarelto * continue to monitor on telemetry Improved with diuresis. Pt euvolemic on exam. * Holding lasix given mild bump in creatinine * Continue to monitor intake and output and daily weights * Recent echocardiogram completed on 04/20/2022 which showed reduced EF of 35- 40% with enlarged left atrial and ventricular enlargement * appreciate cardiology recommendations Recent hospitalization 05/21/22-05/26/22 for aspiration pneumonia during which time he was treated with Unasyn while in the hospital and Augmentin on discharge. * CXR on presentation with evidence of right basilar airspace disease consistent with pneumonia, likely secondary to aspiration. Received IV Zosyn then transitioned to PO augmentin. * 06/09/22 changed to cefepime and vancomycin, presumably due to increased leukocytosis. * 06/11/22 with onset of respiratory distress overnight. Added Flagyl for aspiration coverage. Continue modified diet (level 5 with mildly thick liquids) * Repeat CXR 06/11 demonstrated mild interval improvement * Lactic acid within normal limits * Blood cultures negative. Repeat cultures pending, negative to date * Sputum culture with growth of mynor tropicalis. Discussed with ID PharmD, felt to likely be normal trent. No
--- NOTE | 2022-06-15 13:10 | PM.IMPN ---
Progress Note: A&P Assessment and Plan (1) Altered mental status: Code(s): R41.82 - Altered mental status, unspecified Status: Acute (2) Paroxysmal atrial fibrillation: Code(s): I48.0 - Paroxysmal atrial fibrillation Status: Acute (3) Acute on chronic systolic (congestive) heart failure: Code(s): I50.23 - Acute on chronic systolic (congestive) heart failure Status: Acute (4) Pneumonia: Code(s): J18.9 - Pneumonia, unspecified organism Status: Acute (5) Essential hypertension: Code(s): I10 - Essential (primary) hypertension Status: Chronic (6) Parkinson disease: Code(s): G20 - Parkinson's disease Status: Chronic Assessment and Plan: Improving. Patient was noted to be more confused with more dysarthric speech, having difficulty communicating effectively EEG normal x2 UA without concern for infection. TSH, B12, folate within normal limits Head CT unremarkable. Unable to obtain MRI due to deep brain stimulator and pacemaker. Head/neck CTA (06/04) showed deep brain stimulators in expected position, 7% stenosis of the proximal right internal carotid artery and 0% stenosis of the proximal left internal carotid artery Reviewed medications, amantadine and glycopyrrolate discontinued as these could potentially contribute to confusion, though seems less likely as these are chronic medications for pt. Avoid narcotics. May be infectious etiology. Patient does have pneumonia which could contribute. May have component of hospital induced delirium. Frequent reorientation, minimize disturbances, appropriate sleep hygiene, etc. Lumbar puncture recommended by neurology if other workup unrevealing, however patient states he does not wish to undergo this procedure as he does not want to be in pain. 06/13: Seems markedly improved with speech much easier to understand, patient A&Ox4. Unable to assess today as pt asleep. status post successful cardioversion 06/07 with roman catholic of sinus rhythm. Unfortunately, went back into Afib overnight on 06/11 with RVR appreciate cardiology management catheter ablation discussed per cardiology however pt stated he did not want this RVR persistent with activity amiodarone 400 mg daily metoprolol succinate 200 mg daily one time dose of digoxin given today per cardiology continue Xarelto continue to monitor on telemetry Improved with diuresis. Pt euvolemic on exam. Holding lasix given mild bump in creatinine Continue to monitor intake and output and daily weights Recent echocardiogram completed on 04/20/2022 which showed reduced EF of 35-40% with enlarged left atrial and ventricular enlargement appreciate cardiology recommendations Recent hospitalization 05/21/22-05/26/22 for aspiration pneumonia during which time he was treated with Unasyn while in the hospital and Augmentin on discharge. CXR on presentation with evidence of right basilar airspace disease consistent with pneumonia, likely secondary to aspiration. Received IV Zosyn then transitioned to PO augmentin. 06/09/22 changed to cefepime and vancomycin, presumably due to increased leukocytosis. 06/11/22 with onset of respiratory distress overnight. Added Flagyl for aspiration coverage. Continue modified diet (level 5 with mildly thick liquids) Repeat CXR 06/11 demonstrated mild interval improvement Lactic acid within normal limits Blood cultures negative. Repeat cultures pending, negative to date Sputum culture with growth of mynor tropicalis. Discussed with ID PharmD, felt to likely be normal trent. No findings to suggest fungal pneumonia and pt is clinically improving on antibiotic therapy. No need for further evaluation/intervention. Supportive care. Mucinex. Incentive spirometry and Cornet (needs assistance to utilize these) Currently requiring 2 L supplemental O2. Wean O2 as tolerated with goal sats 92% or above. Blood pressure stable. hold lisinopril given mild
[2022-06-15] MEDS: TAMSULOSIN HCL 0.4 MG CAPSULE PO (16:51)
[2022-06-15] MEDS: RIVAROXABAN 20 MG TABLET PO (16:51)
[2022-06-15] MEDS: ATORVASTATIN 40 MG TABLET PO (20:24)
[2022-06-16] VITALS (20 sets, daily range): BP systolic 80–163; BP diastolic 53–82; PULSE 71–127; RESP 20–100; TEMP 36.3–36.8; O2SAT 22–100
[2022-06-16] MEDS: metroNIDAZOLE 500 MG/ISO 100ML 500 MG/100 ML BAG 100 MG IVPB ×3 (05:43→18:19)
--- NOTE | 2022-06-16 08:50 | PM.PNCARD ---
Progress Note: A&P Assessment and Plan (1) Atrial flutter: Code(s): I48.92 - Unspecified atrial flutter Status: Acute (2) Acute on chronic systolic heart failure: Code(s): I50.23 - Acute on chronic systolic (congestive) heart failure Status: Acute Plan 77-year-old man with paroxysmal AFib now persistent and frequent CHF decompensations. He is hemodynamically stable enough and rate controlled well enough to be discharged to a rehab facility. His blood pressure is soft he will be given orders for low-dose p.r.n. midodrine for this. He should not have his beta-yudith reduced as he requires this and the amiodarone for rate control. When he is out of his rehab facility we will have him see mechanical integrity engineer in consultation to consider the option of ablation for his AFib. Lucas Sanabria MD [facility] Subjective Date/time seen: Date of service: 06/16/22 08:50 Interval history: Follow-up visit in this 77-year-old man with: Paroxysmal atrial fibrillation recently now persistent. Also with left ventricular systolic dysfunction and frequent admissions with congestive heart failure. After a long hospitalization here he now has become relatively stable with adequate rate control and acceptable hemodynamics and oxygenation. Plans are in place for transfer today to nursing facility for rehab. Patient is not short of breath this morning offers no cardiovascular complaints. Was sleeping flat in bed breathing room air when I came in to see him. Upon awakening does not have any complaints Exam Narrative: Sitting in bed, eating dinner, watching the baseball game and upset that the Cardinals are losing. Const: General: cooperative, comfortable and no acute distress; No confusion Orientation/consciousness: oriented to person, patient oriented x3 and No confusion Other: Frail elderly man relaxing in the chair he is alert responsive and lucid today. HENMT: Mouth: Yes moist mucous membranes and Yes dry mucous membranes Eyes: Sclera: sclerae normal Pupils: Equal, round and reactive pupils present EOM: EOMs intact bilaterally Neck: Neck: supple and no JVD Resp: Effort & Inspection: normal respiratory effort Auscultation: clear to auscultation bilaterally, crackles and diminished lung sounds Other: Poor respiratory effort but breath sounds are essentially clear bilaterally Cardio: Rate: regular rate and tachycardic Rhythm: regular rhythm and abnormal rhythm irregularly irregular Heart sounds: no murmurs Other: sinus rhythm heart rate 55 GI: Inspection: normal to inspection Auscultation: normal bowel sounds Skin: General skin exam: normal color and no rashes or lesions noted Neuro: General: oriented to person, patient oriented x3 and No confusion Cranial nerves: Yes Equal, round and reactive pupils present Speech: normal speech Other: Mentation is a bit slow but otherwise completely clear and lucid today much better than last week Extrem: General: no edema Right lower extremity: edema Left lower extremity: edema Other: No edema at all Psych: Appearance: grossly normal Mental Status: mental status grossly normal Objective Data Vital Signs Vital Signs: Vital Signs - 24 hr 06/15/22 09:35 06/15/22 09:45 06/15/22 09:46 Temperature Pulse Rate 112 H 84 89 Respiratory Rate 18 Blood Pressure Pulse Oximetry 98 Oxygen Delivery Nasal Cannula Oxygen Flow Rate 2 06/15/22 10:00 06/15/22 12:00 06/15/22 13:14 Temperature 36.5 C Pulse Rate 74 88 Respiratory Rate 22 H Blood Pressure 97/48 L Pulse Oximetry 99 Oxygen Delivery Oxygen Flow Rate 06/15/22 12:00 06/15/22 12:00 06/15/22 14:00 Temperature Pulse Rate 88 78 95 Respiratory Rate 22 H Blood Pressure Pulse Oximetry 99 Oxygen Delivery Nasal Cannula Oxygen Flow Rate 2 06/15/22 16:00 06/15/22 16:00 06/15/22 16:00 Temperature 36.1 C L Pulse Rate 85 85 71 Respiratory Rate 22 H
[2022-06-16] MEDS: MULTIVITAMINS THERAPEUTIC TAB (*BKC) 1 TABLET PO (10:09)
[2022-06-16] MEDS: METOPROLOL SUCCINATE EXT REL 100 MG TABCR 200 MG PO (10:09)
[2022-06-16] MEDS: guaiFENesin 12 HR 600 MG TABCR PO (10:10)
[2022-06-16] MEDS: CARBIDOPA/LEVODOPA 25/100 MG TABLET 1 TABLET PO ×3 (10:14→18:19)
[2022-06-16] MEDS: CHOLECALCIFEROL 1,000 UNITS TABLET 5000 UNITS PO (10:14)
[2022-06-16] MEDS: FOLIC ACID 0.4 MG TABLET 0.8 MG PO (10:14)
[2022-06-16] MEDS: ASCORBIC ACID 500 MG TABLET 1000 MG PO (10:15)
[2022-06-16] MEDS: AMIODARONE HCL 200 MG TABLET 400 MG PO (10:15)
[2022-06-16 10:25] LABS: Vancomycin Trough 18.7 ug/mL (10.0-20.0)
[2022-06-16] MEDS: CALCIUM CARBONATE (OSCAL) 500 MG TABLET 1000 MG PO (12:23)
--- NOTE | 2022-06-16 14:03 | PCPTNOTE ---
Patient refused treatment this date. Per RN the family is going to talk about hospice. Will continue per PT plan of care.
--- NOTE | 2022-06-16 15:22 | P.PNIM_ITS ---
Progress Note: A&P Assessment and Plan (1) Altered mental status: Code(s): R41.82 - Altered mental status, unspecified Status: Acute (2) Paroxysmal atrial fibrillation: Code(s): I48.0 - Paroxysmal atrial fibrillation Status: Acute (3) Acute on chronic systolic (congestive) heart failure: Code(s): I50.23 - Acute on chronic systolic (congestive) heart failure Status: Acute (4) Pneumonia: Code(s): J18.9 - Pneumonia, unspecified organism Status: Acute (5) Essential hypertension: Code(s): I10 - Essential (primary) hypertension Status: Chronic (6) Parkinson disease: Code(s): G20 - Parkinson's disease Status: Chronic Plan Improving. Patient was noted to be more confused with more dysarthric speech, having difficulty communicating effectively * EEG normal x2 * UA without concern for infection. TSH, B12, folate within normal limits * Head CT unremarkable. Unable to obtain MRI due to deep brain stimulator and pacemaker. * Head/neck CTA (06/04) showed deep brain stimulators in expected position, 7% stenosis of the proximal right internal carotid artery and 0% stenosis of the proximal left internal carotid artery * Reviewed medications, amantadine and glycopyrrolate discontinued as these could potentially contribute to confusion, though seems less likely as these are chronic medications for pt. Avoid narcotics. * May be infectious etiology. Patient does have pneumonia which could contribute. * May have component of hospital induced delirium. Frequent reorientation, minimize disturbances, appropriate sleep hygiene, etc. * Lumbar puncture recommended by neurology if other workup unrevealing, however patient states he does not wish to undergo this procedure as he does not want to be in pain. * 06/13: Seems markedly improved with speech much easier to understand, patient A&Ox4. Unable to assess today as pt asleep.status post successful cardioversion 06/07 with restorationism of sinus rhythm. Unfortunately, went back into Afib overnight on 06/11 with RVR * ?appreciate cardiology management * ?catheter ablation discussed per cardiology however pt stated he did not want this * ?RVR persistent with activity * ?amiodarone 400 mg daily * ?metoprolol succinate 200 mg daily * ?one time dose of digoxin given today per cardiology * ?continue Xarelto * ?continue to monitor on telemetryImproved with diuresis. Pt euvolemic on exam. * Holding lasix given mild bump in creatinine * Continue to monitor intake and output and daily weights * Recent echocardiogram completed on 04/20/2022 which showed reduced EF of 35- 40% with enlarged left atrial and ventricular enlargement * appreciate cardiology recommendationsRecent hospitalization? 05/21/22-05/26/22 for aspiration pneumonia during which time he was treated with Unasyn? while in the hospital and Augmentin on discharge. * CXR on presentation with evidence of right basilar airspace disease consistent with pneumonia, likely secondary to aspiration. Received IV Zosyn then transitioned to PO augmentin. * 06/09/22 changed to cefepime and vancomycin, presumably due to increased leukocytosis. * 06/11/22 with onset of respiratory distress overnight. Added Flagyl for aspiration coverage. Continue modified diet (level 5 with mildly thick liquids) * Repeat CXR 06/11 demonstrated mild interval improvement * Lactic acid within normal limits * Blood cultures negative. Repeat cultures pending, negative to date * Sputum culture with growth of mynor tropicalis. Discussed with ID PharmD, felt to likely be normal trent. No findings to suggest fungal pne
--- NOTE | 2022-06-16 15:22 | PM.IMPN ---
Progress Note: A&P Assessment and Plan (1) Altered mental status: Code(s): R41.82 - Altered mental status, unspecified Status: Acute (2) Paroxysmal atrial fibrillation: Code(s): I48.0 - Paroxysmal atrial fibrillation Status: Acute (3) Acute on chronic systolic (congestive) heart failure: Code(s): I50.23 - Acute on chronic systolic (congestive) heart failure Status: Acute (4) Pneumonia: Code(s): J18.9 - Pneumonia, unspecified organism Status: Acute (5) Essential hypertension: Code(s): I10 - Essential (primary) hypertension Status: Chronic (6) Parkinson disease: Code(s): G20 - Parkinson's disease Status: Chronic Plan Improving. Patient was noted to be more confused with more dysarthric speech, having difficulty communicating effectively EEG normal x2 UA without concern for infection. TSH, B12, folate within normal limits Head CT unremarkable. Unable to obtain MRI due to deep brain stimulator and pacemaker. Head/neck CTA (06/04) showed deep brain stimulators in expected position, 7% stenosis of the proximal right internal carotid artery and 0% stenosis of the proximal left internal carotid artery Reviewed medications, amantadine and glycopyrrolate discontinued as these could potentially contribute to confusion, though seems less likely as these are chronic medications for pt. Avoid narcotics. May be infectious etiology. Patient does have pneumonia which could contribute. May have component of hospital induced delirium. Frequent reorientation, minimize disturbances, appropriate sleep hygiene, etc. Lumbar puncture recommended by neurology if other workup unrevealing, however patient states he does not wish to undergo this procedure as he does not want to be in pain. 06/13: Seems markedly improved with speech much easier to understand, patient A&Ox4. Unable to assess today as pt asleep.status post successful cardioversion 06/07 with cheondoism of sinus rhythm. Unfortunately, went back into Afib overnight on 06/11 with RVR ?appreciate cardiology management ?catheter ablation discussed per cardiology however pt stated he did not want this ?RVR persistent with activity ?amiodarone 400 mg daily ?metoprolol succinate 200 mg daily ?one time dose of digoxin given today per cardiology ?continue Xarelto ?continue to monitor on telemetryImproved with diuresis. Pt euvolemic on exam. Holding lasix given mild bump in creatinine Continue to monitor intake and output and daily weights Recent echocardiogram completed on 04/20/2022 which showed reduced EF of 35-40% with enlarged left atrial and ventricular enlargement appreciate cardiology recommendationsRecent hospitalization? 05/21/22-05/26/22 for aspiration pneumonia during which time he was treated with Unasyn? while in the hospital and Augmentin on discharge. CXR on presentation with evidence of right basilar airspace disease consistent with pneumonia, likely secondary to aspiration. Received IV Zosyn then transitioned to PO augmentin. 06/09/22 changed to cefepime and vancomycin, presumably due to increased leukocytosis. 06/11/22 with onset of respiratory distress overnight. Added Flagyl for aspiration coverage. Continue modified diet (level 5 with mildly thick liquids) Repeat CXR 06/11 demonstrated mild interval improvement Lactic acid within normal limits Blood cultures negative. Repeat cultures pending, negative to date Sputum culture with growth of mynor tropicalis. Discussed with ID PharmD, felt to likely be normal trent. No findings to suggest fungal pneumonia and pt is clinically improving on antibiotic therapy. No need for further evaluation/intervention. Supportive care. Mucinex. Incentive spirometry and Cornet (needs assistance to utilize these) Currently requiring 2 L supplemental O2.? Wean O2 as tolerated with goal sats 92% or above.Blood pressure stable. ?hold lisinopril given mild increase in creatinine. Resume when c
[2022-06-16] MEDS: TAMSULOSIN HCL 0.4 MG CAPSULE PO (18:18)
[2022-06-16] MEDS: RIVAROXABAN 20 MG TABLET PO (18:18)
--- NOTE | 2022-06-16 22:48 | PC.NURSE ---
Pt became very combative and was pulling at the conner catheter and refused to keep gown or blankets on. Readjusted catheter and repositioned patient. Patient then began rubbing on left eye causing it to puff up and get red. Positioned patients arms on pillows and covered them up. Patient began to relax.
[2022-06-17] VITALS (10 sets, daily range): BP systolic 96–147; BP diastolic 58–93; PULSE 67–126; RESP 20–24; TEMP 35.8–37.4; O2SAT 91–94
[2022-06-17] MEDS: metroNIDAZOLE 500 MG/ISO 100ML 500 MG/100 ML BAG 100 MG IVPB ×2 (00:16→05:21)
[2022-06-17 05:14] LABS: Potassium 3.8 mmol/L (3.4-5.0)
--- NOTE | 2022-06-17 06:40 | PC.NURSE ---
I reviewed the License Pending RN, Ania Melendez, documentation and agree with the findings.
--- NOTE | 2022-06-17 08:14 | PM.PNCARD ---
Progress Note: A&P Assessment and Plan (1) Atrial flutter: Code(s): I48.92 - Unspecified atrial flutter Status: Acute Plan 77-year-old man with chronic heart disease with LV systolic dysfunction and prior history of paroxysmal atrial fib which now has become persistent. He is on beta-yudith and amiodarone now for rate control with reasonable results. Plans had been to have this patient seen by visual presentation manager to consider ablation of his atrial fib because of frequent admissions for CHF/volume overload. According to the record the plans are now in place for hospice level services, DNR and comfort measures. Along these lines I will not proceed with EP referral and I will sign off of his care at this time. If my services are needed please let me know Lucas Sanabria MD [facility] Subjective Date/time seen: Date of service: 06/17/22 08:14 Interval history: Follow-up visit in this 77-year-old man with atrial fibrillation which recently has become persistent and admissions with volume overload/CHF because of this in combination with left ventricular systolic dysfunction. This morning patient is in no distress he is awake and alert but this morning again is more incoherent. Mental status seems to be waxing and waning for the last week or so. Chart was reviewed and plans are in place to transfer this patient to a halfway with hospice orders and DNR status. Exam Narrative: Sitting in bed, eating dinner, watching the baseball game and upset that the [employer] are losing. Const: General: cooperative, comfortable and no acute distress; No confusion Orientation/consciousness: oriented to person, patient oriented x3 and No confusion Other: Frail elderly man at rest in bed. He is responsive but today is not coherent, was much better yesterday HENMT: Mouth: Yes moist mucous membranes and Yes dry mucous membranes Eyes: Sclera: sclerae normal Pupils: Equal, round and reactive pupils present EOM: EOMs intact bilaterally Neck: Neck: supple and no JVD Resp: Effort & Inspection: normal respiratory effort Auscultation: clear to auscultation bilaterally, crackles and diminished lung sounds Other: Poor respiratory effort but breath sounds are essentially clear bilaterally Cardio: Rate: regular rate and tachycardic Rhythm: regular rhythm and abnormal rhythm irregularly irregular Heart sounds: no murmurs Other: sinus rhythm heart rate 55 GI: Inspection: normal to inspection Auscultation: normal bowel sounds Skin: General skin exam: normal color and no rashes or lesions noted Neuro: General: oriented to person, patient oriented x3 and No confusion Cranial nerves: Yes Equal, round and reactive pupils present Speech: normal speech Other: Mentation is a bit slow but otherwise completely clear and lucid today much better than last week Extrem: General: no edema Right lower extremity: edema Left lower extremity: edema Other: No edema at all Psych: Appearance: grossly normal Mental Status: mental status grossly normal Objective Data Vital Signs Vital Signs: Vital Signs - 24 hr 06/16/22 08:55 06/16/22 10:09 06/16/22 10:15 Temperature Pulse Rate 98 97 Respiratory Rate Blood Pressure Pulse Oximetry 92 Oxygen Delivery Room Air Oxygen Flow Rate 06/16/22 12:13 06/16/22 12:00 06/16/22 12:30 Temperature 36.4 C Pulse Rate 88 Respiratory Rate 24 H Blood Pressure 80/53 L 95/65 L Pulse Oximetry 100 100 Oxygen Delivery Nasal Cannula Oxygen Flow Rate 2 06/16/22 17:37 06/16/22 10:00 06/16/22 12:00 Temperature 36.7 C Pulse Rate 87 98 71 Respiratory Rate 100 H Blood Pressure 97/74 L Pulse Oximetry 22 L Oxygen Delivery Oxygen Flow Rate 06/16/22 14:00 06/16/22 16:00 06/16/22 18:00 Temperature Pulse Rate 91 73 93 Respiratory Rate Blood Pressure Pulse Oximetry Oxygen Delivery Oxygen Flow Rate 06/16/22 16:00 06/16/22 20:
--- NOTE | 2022-06-17 10:15 | PC.NURSE ---
Notified Dr. Noriega of patient not taking medications. Was told to keep trying and she will follow up later.
[2022-06-17] MEDS: CARBIDOPA/LEVODOPA 25/100 MG TABLET 1 TABLET PO ×4 (11:20→20:27)
[2022-06-17] MEDS: AMIODARONE HCL 200 MG TABLET 400 MG PO (11:20)
[2022-06-17] MEDS: METOPROLOL SUCCINATE EXT REL 100 MG TABCR 200 MG PO (11:22)
--- NOTE | 2022-06-17 11:26 | PC.NURSE ---
Addendum entered by Blanca Hawkins RN 06/17/22 11:29: Notified patient Pat of new room ([id number]). Original Note: This patient, Dara Dash, was transferred to [facility] on 06/17/22 at 1126. Personal belongings sent with patient. Report given to Sarah MCINTOSH. Appropriate documentation sent with patient.
--- NOTE | 2022-06-17 11:35 | PC.NURSE ---
This patient, Dara Dash, was received from [facility] 200-1 on 06/17/22 at 1135. Patient/family oriented to unit policies and routines
[2022-06-17] MEDS: metroNIDAZOLE 500 MG/ISO 100ML 500 MG/100 ML BAG IVPB ×2 (12:12→17:09)
[2022-06-17] MEDS: FOLIC ACID 0.4 MG TABLET 0.8 MG PO (12:28)
[2022-06-17] MEDS: RIVAROXABAN 20 MG TABLET PO (17:11)
[2022-06-17] MEDS: TAMSULOSIN HCL 0.4 MG CAPSULE PO (17:11)
[2022-06-17] MEDS: guaiFENesin 12 HR 600 MG TABCR PO (20:27)
[2022-06-17] MEDS: ATORVASTATIN 40 MG TABLET PO (20:28)
[2022-06-18] MEDS: metroNIDAZOLE 500 MG/ISO 100ML 500 MG/100 ML BAG IVPB ×2 (00:56→05:55)
[2022-06-18 06:00] VITALS: BP 129/79; PULSE 99; RESP 26; TEMP 36.6; O2SAT 93
[2022-06-18 08:27] VITALS: PULSE 100
[2022-06-18] MEDS: AMIODARONE HCL 200 MG TABLET 400 MG PO (08:27)
[2022-06-18] MEDS: MULTIVITAMINS THERAPEUTIC TAB (*BKC) 1 TABLET PO (08:27)
[2022-06-18] MEDS: METOPROLOL SUCCINATE EXT REL 100 MG TABCR 200 MG PO (08:27)
[2022-06-18] MEDS: CHOLECALCIFEROL 1,000 UNITS TABLET 5000 UNITS PO (08:27)
[2022-06-18] MEDS: FOLIC ACID 0.4 MG TABLET 0.8 MG PO (08:28)
[2022-06-18] MEDS: guaiFENesin 12 HR 600 MG TABCR PO (08:28)
[2022-06-18] MEDS: CALCIUM CARBONATE (OSCAL) 500 MG TABLET 1000 MG PO (08:28)
[2022-06-18] MEDS: ASCORBIC ACID 500 MG TABLET 1000 MG PO (08:28)
[2022-06-18] MEDS: CARBIDOPA/LEVODOPA 25/100 MG TABLET 1 TABLET PO ×2 (08:28→12:04)
[2022-06-18 09:19] LABS: Estimated CRCL calculation 52 ml/min; Estimated Glomerular Filt Rate 54
[2022-06-18 09:46] LABS: Vancomycin Trough 13.9 ug/mL (10.0-20.0)
--- NOTE | 2022-06-18 09:55 | PCSTNOTE ---
Patient opened eyes and would then again close them without following directions, speaking, participating.
[2022-06-18] MEDS: metroNIDAZOLE 500 MG/ISO 100ML 500 MG/100 ML BAG 100 MG IVPB (12:09)
[2022-06-18 14:00] VITALS: BP 97/58; PULSE 84; RESP 24; TEMP 36.6; O2SAT 94
[2022-06-18 15:13] LABS: EDCOVIDSCREEN Negative (Negative)
--- NOTE | 2022-06-18 15:35 | PM.DS ---
DS: Admitting Diagnosis Discharge Date 06/18/22 Admitting Diagnosis (1) Paroxysmal atrial fibrillation: ?Code(s): I48.0 - Paroxysmal atrial fibrillation ?Status:?Acute ? (2) BPH w/o urinary obs/LUTS: ?Code(s): N40.0 - Benign prostatic hyperplasia without lower urinary tract symptoms ?Status:?Acute (3) Acute on chronic systolic (congestive) heart failure: ?Code(s): I50.23 - Acute on chronic systolic (congestive) heart failure ?Status:?Acute (4) Pneumonia involving right lung: ?Code(s): J18.9 - Pneumonia, unspecified organism ?Status:?Acute (5) Essential hypertension: ?Code(s): I10 - Essential (primary) hypertension (6) Coronary artery disease: ?Code(s): I25.10 - Atherosclerotic heart disease of eagle coronary artery without angina pectoris (7) Parkinson disease: ?Code(s): G20 - Parkinson's disease ?Status:?Acute (8) S/P deep brain stimulator placement: ?Code(s): (9) Acute renal insufficiency: ?Code(s): N28.9 - Disorder of kidney and ureter, unspecified ? ? DS: Discharge Diagnosis Discharge Diagnosis (1) Altered mental status: Code(s): R41.82 - Altered mental status, unspecified Status: Acute (2) Paroxysmal atrial fibrillation: Code(s): I48.0 - Paroxysmal atrial fibrillation Status: Acute (3) Acute on chronic systolic (congestive) heart failure: Code(s): I50.23 - Acute on chronic systolic (congestive) heart failure Status: Acute (4) Essential hypertension: Code(s): I10 - Essential (primary) hypertension Status: Chronic (5) Parkinson disease: Code(s): G20 - Parkinson's disease Status: Chronic (6) Atrial flutter: Code(s): I48.92 - Unspecified atrial flutter Status: Acute (7) Acute metabolic encephalopathy: Code(s): G93.41 - Metabolic encephalopathy Status: Acute (8) Acute on chronic systolic heart failure: Code(s): I50.23 - Acute on chronic systolic (congestive) heart failure Status: Acute (9) BPH w/o urinary obs/LUTS: Code(s): N40.0 - Benign prostatic hyperplasia without lower urinary tract symptoms Status: Acute (10) Hypokalemia: Code(s): E87.6 - Hypokalemia Status: Acute (11) Coronary artery disease: Code(s): I25.10 - Atherosclerotic heart disease of eagle coronary artery without angina pectoris Status: Chronic (12) S/P deep brain stimulator placement: Code(s): Z96.89 - Presence of other specified functional implants Status: Chronic (13) Aspiration pneumonia: Code(s): J69.0 - Pneumonitis due to inhalation of food and vomit Status: Acute DS: Summary Hospital Course Reason for hospitalization: Chief Complaint: Shortness of breath. Narrative: This is a very pleasant 77-year-old male with Parkinson's disease, coronary artery disease, congestive heart failure, hypertension, and atrial fibrillation who presented to the emergency department via EMS from home for evaluation of shortness of breath for the last 1 week. He is on Sotalol and anticoagulation and he has been quite symptomatic recently and he is scheduled for an outpatient cardioversion in the coming weeks. Unfortunately he continues to have sensations of racing heart and palpitations in addition to increasing shortness of breath over the last several days. He has also developed lower extremity edema and mild orthopnea. He has a nonproductive cough and with further questioning he does admit that he has had increasing difficulty swallowing recently though he cannot recall a time where he may have aspirated. On EMS arrival today his SpO2 was 81% on room air and he was started on CPAP with improvement.? In the emergency department he was given IV diltiazem 15 milligrams x 1 with some improvement in his rate, and he has since been started on a Cardizem drip. He also received IV Lasix 40 milligrams and his oxygen i
== END 2022-06-18 15:45 | disposition hospice, inpatient (51) | DRG 291 ==
LOC: ANHED 11:57 → ANH3MEDSUR 12:31 → ANHIMU 06-11 05:04 → ANH3MEDSUR 06-17 11:07
PROVIDERS: Internal Medicine; Nurse Practitioner; Nurse Practitioner Adult Health; Physician Assistant; Admitting Provider Family Medicine; Emergency Provider Emergency Medicine; PCP Internal Medicine; Visit Provider Hospitalist
PROC: 5A2204Z Restoration of Cardiac Rhythm, Single (ICD-10-PCS; principal; 2022-06-07 10:00)
DX: I11.0 Hypertensive heart disease with heart failure (principal); G93.41 Metabolic encephalopathy; I50.23 Acute on chronic systolic (congestive) heart failure; J69.0 Pneumonitis due to inhalation of food and vomit; N17.9 Acute kidney failure, unspecified; I48.92 Unspecified atrial flutter; I48.19 Other persistent atrial fibrillation; Z20.822 Contact with and (suspected) exposure to COVID-19; N40.0 Benign prostatic hyperplasia without lower urinary tract symptoms; I25.10 Atherosclerotic heart disease of native coronary artery without angina pectoris; I42.9 Cardiomyopathy, unspecified; G20 Parkinson's disease; E78.5 Hyperlipidemia, unspecified; E87.6 Hypokalemia; R29.6 Repeated falls; R06.03 Acute respiratory distress; Z66 Do not resuscitate; Z79.01 Long term (current) use of anticoagulants; Z79.899 Other long term (current) drug therapy; Z87.891 Personal history of nicotine dependence; Z96.82 Presence of neurostimulator; Z95.0 Presence of cardiac pacemaker; Z95.5 Presence of coronary angioplasty implant and graft; Z98.49 Cataract extraction status, unspecified eye
CPT/HCPCS: 36415; 70450; 70496; 70498; 71045; 80048; 80053; 80202; 81001; 81003; 82565; 82607; 82746; 83605; 83735; 83880; 84132; 84443; 84484; 85025; 85027; 85610; 85730; 87040; 87070; 87205; 87426; 92526; 92610; 92611; 92960; 93005; 94667; 95816; 96365; 96366; 96367; 96374; 96375; 96376; 97110; 97116; 97161; 97165; 97166; 97530; 97535; 99285; A9270; C9803; G0378; J0282; J0692; J1940; J2250; J2543; J3010; J3370; J3475; J3480; J7040; Q9967; U0003; U0005

== ENCOUNTER 2022-07-10 14:22 | Emergency (ER) | payer OTHER, SELFPAY ==
--- NOTE | ~2022-07-10 | CT_ITS ---
EXAMINATION: CT brain wo con DATE: 07/10/2022 14:51 INDICATION: Head injury. TECHNIQUE: Computed tomography (CT) of the head was performed without intravenous contrast. The mA wa s adjusted according to patient size. Iterative reconstruction technique was employed. The dose-lengt h product was 832.33 mGy-cm. COMPARISON: Head CT 06/08/2022 FINDINGS: There are bilateral deep brain stimulators. There is an old lacunar infarct in right caudat e nucleus. There is no intracranial hemorrhage, acute infarction, or abnormal intracranial mass lesio n. The ventricles are normal in size. There are likely changes of ocular lens replacement surgeries. There is mild mucosal thickening in the paranasal sinuses. There is a small left mastoid effusion. IMPRESSION: 1. 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 Reviewed, dictated and finalized at location A.
[2022-07-10 14:23] VITALS: BP 125/72; PULSE 48; RESP 12; TEMP 36.2; O2SAT 98
--- NOTE | 2022-07-10 14:53 | ED.GENADULT ---
HPI - General Adult General Chief complaint: Head Injury Stated complaint: fall History of Present Illness HPI narrative: 77-year-old male with history of paroxysmal atrial fibrillation, CHF, Parkinson's disease presented the emergency department for evaluation after having a ground-level fall from his wheelchair. Patient states he fell forward and struck his face but denies any pain or injury. Related Data Home Medications Medication Instructions Recorded Confirmed amantadine HCl 100 mg capsule 200 mg PO DAILY 09/29/21 05/30/22 atorvastatin 40 mg tablet (Lipitor) 40 mg PO HS 09/29/21 05/30/22 tamsulosin 0.4 mg capsule 0.4 mg PO USEASDIRECTD 09/29/21 05/30/22 Adults Multivitamin 1 tablet PO DAILY 04/19/22 05/30/22 folic acid 800 mcg tablet 400 mg PO DAILY 04/19/22 05/30/22 omega-3 fatty acids 2,000 mg PO DAILY 04/19/22 05/30/22 Calcium 500 1,200 mg PO DAILY 04/20/22 05/30/22 cholecalciferol (vitamin D3) 50 5,000 unit PO DAILY 04/20/22 05/30/22 mcg (2,000 unit) tablet (Vitamin D3) ascorbic acid (vitamin C) 500 mg 1,000 mg PO DAILY 05/21/22 05/30/22 chewable tablet glycopyrrolate 1 mg tablet 1 mg PO TID 05/21/22 05/30/22 lecithin 1,200 mg capsule 2,400 mg PO BID 05/30/22 05/30/22 rivaroxaban 20 mg tablet (Xarelto) 20 mg PO 1700 05/30/22 05/30/22 Allergies Allergy/AdvReac Type Severity Reaction Status Date / Time No Known Allergies Allergy Verified 05/30/22 13:26 Review of Systems Review of Systems: CONSTITUTIONAL: Denies fever, chills, or sweats. EYES: Denies visual changes, redness, or discharge. ENT: Denies rhinorrhea, congestion, sore throat, or otalgia. CARDIOVASCULAR: Denies chest pain, palpitations, or edema. RESPIRATORY: Denies cough or dyspnea. GASTROINTESTINAL: Denies abdominal pain, nausea, vomiting, or diarrhea. GENITOURINARY: Denies dysuria or hematuria. SKIN: Denies rash or itching. MUSCULOSKELETAL: Denies back pain, joint pain, or myalgia. NEUROLOGIC: Denies headache, numbness, or weakness. [facility] Past Medical History Medical History Atrial fibrillation with rapid ventricular response Benign prostatic hyperplasia BPH (benign prostatic hyperplasia) BPH w/o urinary obs/LUTS CHF (congestive heart failure) echo on 04/20/2022 was read as the following 1. Left ventricular chamber dimension is mildly enlarged. 2. Left ventricular systolic function is moderately reduced, estimated at 35-40%. 3. Left atrial chamber dimension is moderately enlarged. 4. Atrial fibrillation. 5. Compared to examination from June of 2018, LV function has declined. Left atrium is dilated atrial fib is seen. Coronary artery disease Dyslipidemia Essential hypertension Parkinson disease Paroxysmal atrial fibrillation Recurrent falls Surgical History Surgical History History of arthroplasty of left knee (2018) History of cardiac catheterization History of cataract extraction History of coronary artery stent placement x2 History of spinal surgery (~2004) For disc herniation. Status post deep brain stimulator placement (2016) Family History Family History Other Family history of Parkinson's disease Family history of coronary artery disease Hypertension Social History Social History Social History: the patient lives with his who is the power of sports attorney they have 1 daughter. 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 He does not use any alcohol or illicit drugs. Surrogate medical decision maker: Lauren Dash, spouse. Code status: Full code. Smoking packs per day: 2 Smoking cigarettes per day: 40.0 Years smoked: 58 Smoking pack-years: 116.00 Smoking status: Former smoker Second hand tobacco smoke exposure: No Alcohol intake: current Drinks per week:
--- NOTE | 2022-07-10 16:10 | PC.NURSE ---
[facility]. spoke to Paulino.
[2022-07-10 18:19] VITALS: BP 148/94; PULSE 49; RESP 18; O2SAT 100
== END 2022-07-10 18:20 ==
PROVIDERS: Emergency Provider Emergency Medicine; PCP Internal Medicine
DX: S09.90XA Unspecified injury of head, initial encounter (principal); I48.0 Paroxysmal atrial fibrillation; I50.9 Heart failure, unspecified; G20 Parkinson's disease; I25.10 Atherosclerotic heart disease of native coronary artery without angina pectoris; E78.5 Hyperlipidemia, unspecified; I11.0 Hypertensive heart disease with heart failure; N40.0 Benign prostatic hyperplasia without lower urinary tract symptoms; Z98.49 Cataract extraction status, unspecified eye; Z95.5 Presence of coronary angioplasty implant and graft; Z96.82 Presence of neurostimulator; Z87.891 Personal history of nicotine dependence; Z79.01 Long term (current) use of anticoagulants; W05.0XXA Fall from non-moving wheelchair, initial encounter
CPT/HCPCS: 70450; 99284

== ENCOUNTER 2022-07-30 12:50 | Inpatient (IN) | payer OTHER, SELFPAY ==
[2022-07-30] VITALS (38 sets, daily range): BP systolic 115–154; BP diastolic 74–104; PULSE 63–114; RESP 9–30; TEMP 36–36.9; O2SAT 97–100; BMI 26.2
--- NOTE | ~2022-07-30 | CT_ITS ---
EXAMINATION: CT brain wo con DATE: 07/30/2022 12:56 INDICATION: Speech deficit. Stroke. TECHNIQUE: Computed tomography (CT) of the head was performed without intravenous contrast. The mA wa s adjusted according to patient size. Iterative reconstruction technique was employed. The dose-lengt h product was 756.67 mGy-cm. COMPARISON: PET/CT 07/10/2022 FINDINGS: There are bilateral deep brain stimulators. There is an old lacunar infarct in right caudat e nucleus. There are scattered areas of low attenuation in the cerebral white matter, which is within normal limits for the patient's age. There is no intracranial hemorrhage, acute infarction, or abnor mal intracranial mass lesion. The ventricles are normal in size. There is a mucous retention cyst in left maxillary sinus. There are likely changes of ocular lens replacement surgeries. There are small bilateral mastoid effusions. IMPRESSION: 1. 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 2. I discussed this case with Dr. Enriquez. Reviewed, dictated and finalized at location A. [employer]
--- NOTE | ~2022-07-30 | CT_ITS ---
EXAMINATION: CT chest abdomen pelvis wo con DATE: 07/31/2022 15:06 INDICATION: Pulmonary nodules. TECHNIQUE: Computed tomography (CT) of the chest, abdomen, and pelvis was performed without intraveno us contrast. Automated exposure control and iterative reconstruction technique were employed. The dos e-length product was 1640.67 mGy-cm. COMPARISON: chest CT 09/14/2021, 07/07/18 FINDINGS: CHEST CT: There is mild emphysema. There are small pleural effusions. There is a 7 mm nodule in right upper lob e, stable from 09/14/2021 and measuring 6 mm on 07/07/18. There is a 19 mm cavitary nodule in left uppe r lobe, increased from 10 mm on 09/14/2021. There are dependent airspace opacities and nodules in left lower lobe. Dependent airspace opacities in right lower lobe are likely atelectasis. There is mild at electasis in the upper lobes with a dependent predominance. There is calcified atherosclerosis of the aorta and many of the other arteries. There are electronic device is in the anterior chest wall bila terally with electrodes extending into the left. Cardiomegaly is noted. There are coronary artery mesha cifications. No pericardial effusion. There are bridging endplate osteophytes at multiple levels in t he spine, consistent with diffuse idiopathic skeletal hyperostosis (DISH). ABDOMEN/PELVIS CT: The liver is normal. The gallbladder is normal in size. The spleen, pancreas, and right adrenal gland are normal. There is a 2.6 cm mass in left adrenal gland measuring low-attenuation, consistent with an adenoma. There is cortical thinning of the kidneys. There are persistent bilateral contrast nephro grams. There are cysts in the kidneys measuring up to 2.8 cm on the right. The bladder is decompresse d by a Sampson catheter. Stool distends the rectum. There is a large volume of stool in the colon. The appendix is not visualized. There are no pathologically enlarged lymph nodes. There is no free intrap eritoneal fluid. There is severe lower lumbar spondylosis. IMPRESSION: 1. 19 mm cavitary left upper lobe pulmonary nodule suspicious for primary bronchogenic carcinoma. 2. Small pleural effusions. 3. Dependent airspace opacities and nodules in left lower lobe, consistent with pneumonia. 4. Mild emphysema. Reviewed, dictated and finalized at location A. [employer]NA[employer] T[employer] IMPRESSION: 1. 19 mm cavitary left upper lobe pulmonary nodule suspicious for primary bronc hogenic carcinoma. 2. Small pleural effusions. 3. Dependent airspace opacities and nodules in left lower lobe, consistent with pneumonia. 4. Mild emphysema.
--- NOTE | ~2022-07-30 | CT_ITS ---
. EXAMINATION: CTA brain carotid DATE: 07/30/2022 14:28 INDICATION: Cerebral vascular accident. TECHNIQUE: Computed tomographic angiography (CTA) of the head was performed with 150 mL Omnipaque-350 intravenous contrast. CTA of the neck was performed with intravenous contrast. Automated exposure co ntrol and iterative reconstruction technique were employed. The dose-length product was 1334.82 mGy-c m. Maximum intensity projection and volume rendered 3D-reconstructions were created by the [employer] on a separate workstation. COMPARISON: Head CT 07/30/2022, 07/10/2022, chest CT 09/14/21 FINDINGS: HEAD CTA: There are bilateral deep brain stimulators. There is an old lacunar infarct in right caudat e nucleus. There is no intracranial hemorrhage, acute infarction, or abnormal intracranial mass lesio n. The ventricles are normal in size. There are likely changes of ocular lens replacement surgeries. There is a mucous retention cyst in left maxillary sinus. There are small bilateral mastoid effusions . The vertebral arteries are codominant. There is no significant stenosis of basilar artery or the po sterior cerebral arteries. The posterior communicating arteries are normal. There is no significant s tenosis of the intracranial internal carotid arteries or anterior or middle cerebral arteries. Anteri or communicating artery is normal. There is no aneurysm. NECK CTA: There is moderate emphysema. There are small bilateral pleural effusions. There is a 17 mm cavitary nodule in left upper lobe that measured 10 mm on 09/14/21. There is a 7 mm nodule in right upp er lobe, stable from 09/14/21. There are no pathologically enlarged lymph nodes. There is no significan t stenosis of the vertebral arteries. There is moderate stenosis of proximal left subclavian artery. There is plaque in the proximal internal carotid arteries. There is 0% stenosis of the proximal right internal carotid artery relative to normal distal artery lumen diameter (NASCET criteria). There is 0% stenosis of the proximal left internal carotid artery relative to normal distal artery lumen diame ter. There is severe cervical spondylosis. IMPRESSION: 1. 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 2. No aneurysm or significant intracranial arterial stenosis. 3. 0% stenosis of the proximal internal carotid arteries relative to normal distal artery lumen diame ters (NASCET criteria). 4. Small pleural effusions. 5. Pulmonary nodules measuring up to 17 mm, worsened from 09/14/21, suspicious for malignancy. Chest CT is recommended. Reviewed, dictated and finalized at location A. R SERVICES TECHNICIAN IMPRESSION: 1. 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 2. No aneurysm or significant intracranial arterial stenosis. 3. 0% stenosis of the proximal internal carotid arteries relative to normal dis danica artery lumen diameters (NASCET criteria). 4. Small pleural effusions. 5. Pulmonary nodules measuring up to 17 mm, worsened from 09/14/21, suspicious fo r malignancy. Chest CT is recommended.
--- NOTE | ~2022-07-30 | XR_ITS ---
EXAMINATION: XR chest 1V portable DATE: 07/31/2022 13:28 INDICATION: Congestive heart failure. TECHNIQUE: A single frontal view of the chest was obtained on 2 radiographs. COMPARISON: Chest single view 06/10/2022, chest CT 09/14/2021 FINDINGS: There are small pleural effusions. There are airspace opacities at the lung bases. There is a nodule in left upper lobe. No pneumothorax. The heart size is normal. Electronic devices overlie t he chest bilaterally with leads extending into the neck. IMPRESSION: 1. Small pleural effusions. 2. Airspace opacities at the lung bases, consistent with atelectasis versus pneumonia. 3. Nodule in left lung upper lobe suspicious for malignancy. Chest CT is recommended. Reviewed, dictated and finalized at location A. OR ENERGY TRADER IMPRESSION: 1. Small pleural effusions. 2. Airspace opacities at the lung bases, consistent with atelectasis versus pne umonia. 3. Nodule in left lung upper lobe suspicious for malignancy. Chest CT is recomm ended.
--- NOTE | 2022-07-30 12:50 | ECG_ITS ---
Measurements Intervals [place] Rate: 111 P: [place]: 0 QRS: 0 QRSD: -4 T: 227 QT: 344 QTc: 469 Interpretive Statements PROBABLY ATRIAL FIBRILLATION WITH RAPID VENTRICULAR RESPONSE (SIGNIFICANT BASELINE ARTIFACT) VENTRICULAR PREMATURE COMPLEX INTRAVENTRICULAR CONDUCTION DELAY BORDERLINE ST-T WAVE ABNORMALITY- ANTEROLATERAL LEADS BASELINE ARTIFACT- I, II, III, AVR, AVL, AVF, V1-V6 ABNORMAL ECG COMPARED TO ECG 06/10/2022 19:33:55 NO SIGNIFICANT CHANGES Electronically Signed On 07-30-2022 13:43:29 COLLECTIONS TECHNICIAN by cD Rivera D.O.
--- NOTE | 2022-07-30 12:57 | ED.NEUROSD ---
HPI - Neuro Symptoms/Deficit General Chief Complaint: Suspected CVA Stated Complaint: CODE CVA History of Present Illness HPI Narrative: 77-year-old male presented to the emergency department for evaluation of new onset left-sided weakness. Patient's last known normal was 8 AM. [facility] states that the patient began having worsening slurred speech and left-sided weakness. When patient arrived to the emergency department he was slumped in hanging off the right side of the gurney. Patient went to CT. On reevaluation in the room patient is sitting up and was able to help remove his clothing and Patient is alert and oriented to person place and date. Patient was then having recurrent episodes of altered mental status. Patient had an admission in June where he presented with a similar exam. Patient did have a work-up by neurology including an EEG that was negative. Patient is not currently taking any antiepileptic medications. Patient does have history of Parkinson's disease, congestive heart failure, proximal A. fib. Related Data Home Medications Medication Instructions Recorded Confirmed amantadine HCl 100 mg capsule 200 mg PO DAILY 09/29/21 07/30/22 atorvastatin 40 mg tablet (Lipitor) 40 mg PO HS 09/29/21 07/30/22 tamsulosin 0.4 mg capsule 0.4 mg PO USEASDIRECTD 09/29/21 07/30/22 rivaroxaban 20 mg tablet (Xarelto) 20 mg PO 1700 05/30/22 07/30/22 amiodarone 200 mg tablet (Pacerone) 200 mg PO BID 07/30/22 07/30/22 diltiazem HCl 30 mg tablet 30 mg PO TID 07/30/22 07/30/22 ipratropium 0.5 mg-albuterol 3 mg 3 ml inhalation QID PRN Wheezing 07/30/22 07/30/22 (2.5 mg base)/3 mL nebulization soln lorazepam 0.5 mg tablet 0.5 mg PO QID PRN Anxiety 07/30/22 07/30/22 Allergies Allergy/AdvReac Type Severity Reaction Status Date / Time No Known Allergies Allergy Verified 05/30/22 13:26 Review of Systems Review of Systems: When patient was alert he denied complaints. [facility] Past Medical History Medical History (Updated 07/30/22 @ 21:42 by Mandy Florian NP) Atrial fibrillation with rapid ventricular response Benign prostatic hyperplasia BPH (benign prostatic hyperplasia) BPH w/o urinary obs/LUTS CHF (congestive heart failure) echo on 04/20/2022 was read as the following 1. Left ventricular chamber dimension is mildly enlarged. 2. Left ventricular systolic function is moderately reduced, estimated at 35-40%. 3. Left atrial chamber dimension is moderately enlarged. 4. Atrial fibrillation. 5. Compared to examination from June of 2018, LV function has declined. Left atrium is dilated atrial fib is seen. Coronary artery disease Dyslipidemia Essential hypertension Parkinson disease Parkinson disease Paroxysmal atrial fibrillation Recurrent falls Surgical History Surgical History History of arthroplasty of left knee (2018) History of cardiac catheterization History of cataract extraction History of coronary artery stent placement x2 History of spinal surgery (~2004) For disc herniation. Status post deep brain stimulator placement (2016) Family History Family History Other Family history of Parkinson's disease Family history of coronary artery disease Hypertension Social History Social History (Updated 07/30/22 @ 21:25 by Mandy Florian NP) Social History: the patient lives with his who is the power of fitness manager they have 1 daughter. 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 He does not use any alcohol or illicit drugs. Surrogate medical decision maker: Lauren Dash, spouse. The patient is currently in a rehab facility. Code status: dnr Smoking packs per day: 2 Smoking cigarettes per day: 40.0 Years smoked: 50 Smoking pack-years: 100.00 Smoking status: Former smoker Second hand tobacco smoke exposure: No Smoking end d
[2022-07-30 13:20] LABS: Basophils Percent Auto 0.5 % (0.2-1.2); Eosinophils Percent Auto 0.2 % (0-4.4); Hematocrit 36.1 % (42.0-52.0); Immature Granulocyte Absolute 0.06 K/mm3 (0.00-0.031); Immature Granulocyte Percent A 1.1 % (0-0.5); Lymphocytes Absolute Auto 0.91 K/mm3 (0.9-3.2); Lymphocytes Percent Auto 16.3 % (18.3-44.2); Mean Corpuscular HGB Conc 30.5 g/dl (32-36); Mean Corpuscular Hemoglobin 30.6 pg (26-34); Mean Corpuscular Volume 100.6 fl (80-100); Mean Platelet Volume 9.5 fl (7.4-10.4); Monocytes Absolute Auto 0.4 K/mm3 (0.1-0.6); Monocytes Percent Auto 7.3 % (2.6-8.5); Neutrophils Absolute Auto 4.2 K/mm3 (1.3-6.7); Neutrophils Percent Auto 74.6 % (45.5-73.1); Nucleated Red Blood Cells Perc 0.4 % (0.0-0.2); Platelet Count Result 171 k/mm3 (150-375); Red Blood Count 3.59 M/mm3 (4.6-6.20); Red Cell Distribution Width 18.7 % (11.5-14.5); White Blood Count 5.6 K/mm3 (4.5-10.0)
[2022-07-30 13:26] LABS: Glucose Point of Care 78 mg/dl (65-105)
[2022-07-30 13:42] LABS: Alanine Aminotransferase 14 U/L (6-50); Albumin Level 3.5 g/dL (3.5-5.1); Alkaline Phosphatase 75 U/L (38-126); Anion Gap 9 mmol/L (8-16); Aspartate Amino Transferase 23 U/L (17-59); Bilirubin,Total 1.4 mg/dL (0.2-1.3); Blood Urea Nitrogen 22 mg/dL (9-20); Calcium 8.7 mg/dL (8.4-10.2); Carbon Dioxide 35 mmol/L (22-30); Chloride 102 mmol/L (98-107); Estimated Glomerular Filt Rate 54; Glucose 74 mg/dL (65-110); Potassium 3.6 mmol/L (3.4-5.0); Sodium 146 mmol/L (137-145)
[2022-07-30 13:43] LABS: INR 2.8; Partial Thromboplastin Time 34.7 SECONDS (22.3-36.8); Prothrombin Time 28.3 Seconds (11.1-14.7)
--- NOTE | 2022-07-30 14:16 | PC.NURSE ---
Patient off unit to CT for CTA.
[2022-07-30 14:36] LABS: Influenza A QL RT-PCR Negative (Negative); Influenza B QL RT-PCR Negative (Negative); SARS-CoV-2 RNA PCR Negative
[2022-07-30] MEDS: LORazepam INJ (*CRX) 2 MG/ML VIAL 1 MG IV PUSH (14:39)
--- NOTE | 2022-07-30 15:41 | PC.NURSE ---
Dr. Enriquez at bedside to discuss plan of care with patient's . Per patient's the patient is a DNR and he has been having these types of neurological changes for quite some time.
[2022-07-30] MEDS: SODIUM CHLORIDE 0.9% IV 1,000 ML 999 ML IV CONT (16:04)
[2022-07-30] MEDS: levETIRAcetam 500MG/NACL 100ML 500 MG/100 ML BAG 400 MG IVPB (16:04)
[2022-07-30 16:45] LABS: Appearance Urine Clear (Clear); Bilirubin Urine Negative (Negative); Blood Urine Negative (Negative); Color Urine Yellow (Yellow); Glucose Urine UA Negative (Negative); Ketones Urine Negative (Negative); Leukocyte Esterase Ur Negative LEU/UL (Negative); Nitrate Urine Negative (Negative); Protein Urine Negative (Negative); Specific Grav Ur 1.015 (1.001-1.035)
[2022-07-30 16:46] LABS: Add Urine Microscopic? NO
[2022-07-30] MEDS: SODIUM CHLORIDE 0.9% IV 1,000 ML 75 ML IV CONT (18:12)
--- NOTE | 2022-07-30 18:14 | PC.NURSE ---
This patient, Dara Dash, was admitted to IMU Room 204-01. Patient/family oriented to hospital policies and general routines including ID bracelet, bed and alarms, visiting hours, pain management, procedures, bathroom and other care routines, personal items, smoking policy, room service/diet, and visiting hours. Information on how to activate the Rapid Response Team has been discussed. Patient/Family are encouraged to report perceived risks to care and to ask questions if they do not understand what they are told or what they should do.
[2022-07-30 18:46] LABS: Glucose Point of Care 123 mg/dl (65-105)
[2022-07-30] MEDS: FUROSEMIDE INJ 40 MG/4 ML VIAL 20 MG IV PUSH (18:54)
[2022-07-30 19:08] LABS: Fractional Inspired Oxygen 21 %; HCO3 ABG 32.6 mEq/l (22.0-26.0); Oxygen Content ABG 16.5 %vol (16.0-22.0); Oxygen Saturation ABG 99.3 % (95.0-100.0); Oxyhemoglobin 97.7 % THb (90.0-100.0); Total Hemoglobin 11.6 g/dL (12.0-18.0)
[2022-07-30 19:15] LABS: pH ABG 7.176 (7.350-7.450)
[2022-07-30 19:16] LABS: PCO2 ABG 90.1 mmHg (35.0-45.0)
[2022-07-30 19:17] LABS: Modified Allen's Test Pass; Site Drawn RIGHT RADIAL
--- NOTE | 2022-07-30 19:19 | PM.IMHP ---
H&P: HPI History of Present Illness Date/Time: 07/30/22 19:19 Chief Complaint: Stroke-like symptoms Narrative: This is a 77-year-old male patient who came in to be evaluated for left-sided weakness. His last known normal was 8:00 a.m. this morning. The patient is lethargic and not answering questions. detention states that the patient began having worsening slurred speech and left-sided weakness. When the patient arrived to the emergency room he was slumped over to the right side of the gurney. After CT scan the patient was able to set up and was able to help. However now he is on a non-rebreather and lethargic. Head and neck CTA read as following 1. 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 2. No aneurysm or significant intracranial arterial stenosis. 3. 0% stenosis of the proximal internal carotid arteries relative to normal distal artery lumen diameters (NASCET criteria). 4. Small pleural effusions. 5. Pulmonary nodules measuring up to 17 mm, worsened from 09/14/21, suspicious for malignancy. Chest CT is recommended. Head CT was read as old lacunar infarct in right caudate nucleus. I obtain ABGs and his pH is 7.176 coag 90.1 PO2 was 253. The patient was placed on a BiPAP 18/5 30% with a backup rate of 12. I spoke with his about the CT findings and she stated that the patient is a DNR and she does not want any biopsies. She does not want any mac developer consultation. She is agreeable with the CT of the chest. She may consider hospice for the patient if he does have cancer. His urine is negative. The patient is being admitted to observation status on the date of service of 07/30/2022. Review of Systems Review of Systems: See HPI All systems reviewed & are unremarkable except as noted in HPI and below Constitutional: Constitutional: Reports as per HPI and Reports no additional constitutional complaints Eyes: Eyes: Reports as per HPI and Reports no additional eye complaints ENT: Reports system reviewed and no additional complaints, except as documented and Reports Normal hearing present Cardiovascular: Cardiovascular: Reports no additional cardiovascular complaints Respiratory: Respiratory: Reports no additional respiratory complaints and Reports no additional respiratory complaints Gastrointestinal: Gastrointestinal: Reports as per HPI and Reports no additional gastrointestinal complaints Musculoskeletal: Musculoskeletal: Reports no additional musculoskeletal complaints Integumentary/Breasts: Skin/Breast: Reports system reviewed and no additional complaints, except as docu and Reports as per HPI Neurologic: Reports system reviewed and no additional complaints, except as documented, Reports as per HPI and Reports Normal hearing present Psychiatric: Psychiatric: Reports no additional psychiatric complaints and Reports as per HPI Endocrine: Endocrine: Reports no additional endocrine complaints Hematologic/Lymphatic: Hematologic/Lymphatic: Reports no additional hematologic/lymphatic complaints Allergic/Immunologic: Allergic/Immunologic: Reports no additional allergic/immunologic complaints [facility] Past Medical History Medical History (Updated 07/30/22 @ 21:42 by Mandy Florian NP) Atrial fibrillation with rapid ventricular response Benign prostatic hyperplasia BPH (benign prostatic hyperplasia) BPH w/o urinary obs/LUTS CHF (congestive heart failure) echo on 04/20/2022 was read as the following 1. Left ventricular chamber dimension is mildly enlarged. 2. Left ventricular systolic function is moderately reduced, estimated at 35-40%. 3. Left atrial chamber dimension is moderately enlarged. 4. Atrial fibrillation. 5. Compared to examination from June of 2018, LV function has declined. Left atrium is dilated atrial fib is seen. Coronary artery disease Dyslipidemia Essential hypertension Parkinson disease Parkinson disease Paroxysmal atrial fibrillation Recurrent falls Surgical History Surgi
[2022-07-30 19:49] LABS: Glucose Point of Care 119 mg/dl (65-105)
[2022-07-30] MEDS: ENOXAPARIN 100 MG/ML SYRINGE 95 MG SUB-Q (22:38)
[2022-07-30] MEDS: METOPROLOL TARTRATE INJ 5 MG/5 ML VIAL IV PUSH (22:38)
[2022-07-30 22:53] LABS: Alveolar/Arterial O2 Gradient 13.2 mmHg; Base Excess ABG 5.3 mEq/l (+/-2.0); Fractional Inspired Oxygen 30 %; HCO3 ABG 32.7 mEq/l (22.0-26.0); Oxygen Content ABG 17.5 %vol (16.0-22.0); Oxygen Saturation ABG 98.3 % (95.0-100.0); PO2 ABG 128.4 mmHg (80.0-100.0); PO2 FiO2 Ratio Arterial Blood 4.28 %; Total Hemoglobin 12.7 g/dL (12.0-18.0); pH ABG 7.343 (7.350-7.450)
[2022-07-30 22:58] LABS: Modified Allen's Test Pass; PCO2 ABG 61.5 mmHg (35.0-45.0); Site Drawn RIGHT RADIAL
[2022-07-31] VITALS (24 sets, daily range): BP systolic 116–155; BP diastolic 69–98; PULSE 53–126; RESP 13–25; TEMP 36.1–36.9; O2SAT 95–100; BMI 26.1
[2022-07-31] MEDS: levETIRAcetam 500MG/NACL 100ML 500 MG/100 ML BAG 400 MG IVPB ×2 (03:51→19:49)
[2022-07-31 04:19] LABS: Basophils Percent Auto 0.4 % (0.2-1.2); Eosinophils Absolute Auto 0.1 K/mm3 (0-0.3); Hematocrit 34.5 % (42.0-52.0); Hemoglobin 10.3 g/dL (14.0-18.0); Immature Granulocyte Absolute 0.02 K/mm3 (0.00-0.031); Immature Granulocyte Percent A 0.4 % (0-0.5); Lymphocytes Absolute Auto 1.27 K/mm3 (0.9-3.2); Mean Corpuscular HGB Conc 29.9 g/dl (32-36); Mean Corpuscular Hemoglobin 29.9 pg (26-34); Mean Corpuscular Volume 100.3 fl (80-100); Mean Platelet Volume 9.4 fl (7.4-10.4); Monocytes Absolute Auto 0.4 K/mm3 (0.1-0.6); Monocytes Percent Auto 8.3 % (2.6-8.5); Neutrophils Absolute Auto 3.2 K/mm3 (1.3-6.7); Neutrophils Percent Auto 63.9 % (45.5-73.1); Platelet Count Result 155 k/mm3 (150-375); Red Blood Count 3.44 M/mm3 (4.6-6.20); Red Cell Distribution Width 18.6 % (11.5-14.5); White Blood Count 5.1 K/mm3 (4.5-10.0)
[2022-07-31 04:37] LABS: Lactic Acid Reflex 1.2 mmol/L (0.7-2.0)
[2022-07-31 04:41] LABS: Alanine Aminotransferase 17 U/L (6-50); Albumin Level 3.1 g/dL (3.5-5.1); Alkaline Phosphatase 68 U/L (38-126); Anion Gap 5 mmol/L (8-16); Aspartate Amino Transferase 18 U/L (17-59); Bilirubin,Total 1.3 mg/dL (0.2-1.3); Blood Urea Nitrogen 18 mg/dL (9-20); Carbon Dioxide 38 mmol/L (22-30); Chloride 103 mmol/L (98-107); Estimated CRCL calculation 60 ml/min; Estimated Glomerular Filt Rate > 60; Glucose 74 mg/dL (65-110); Magnesium 1.9 mg/dL (1.6-2.3); Potassium 3.4 mmol/L (3.4-5.0); Sodium 146 mmol/L (137-145)
[2022-07-31 06:23] LABS: Acanthocytes 1+ (NORMAL); Hypochromasia 2+ (NORMAL); Platelet Clumps Present; Platelet Estimate Adequate (Adequate); Poikilocytosis 1+ (NORMAL)
[2022-07-31 06:24] LABS: Schistocytes 1+ (NORMAL)
--- NOTE | 2022-07-31 07:57 | PCNEURO ---
EEG on hold due to patient dependent on Bi-pap at this time and unable to go without long enough to do the EEG. Nurse and Dr Kendall silver.
--- NOTE | 2022-07-31 08:17 | WPDNEURCNPN ---
Assessment and Plan Assessment and plan (1) Seizure-like activity: Code(s): R56.9 - Unspecified convulsions Status: Acute (2) Acute metabolic encephalopathy: Code(s): G93.41 - Metabolic encephalopathy Status: Acute (3) Paroxysmal atrial fibrillation: Code(s): I48.0 - Paroxysmal atrial fibrillation Status: Acute (4) Parkinson disease: Code(s): G20 - Parkinson's disease Status: Acute Plan Dara Dash is a 77 year old male with a history of Parkinson's disease s/p DBS and atrial fibrillation presenting after an episode of left sided weakness and altered mental status that self- resolved. Concern for TIA vs seizure. Unfortunately unable to do MRI due to patient's DBS. Given the episodes of decreased responsiveness, recommend continuing maintenance anti-seizure medication. - Continue Keppra 500mg BID. - Routine EEG Consult date: 07/31/22 Time Seen: 08:17 Reason for consult: Concern for seizure HPI: Dara Dash is a 77 year old male with a history of Parkinson's disease s/p DBS and atrial fibrillation presenting due to concerns for seizure-like activity. Patient resides in a [facility]. His last known well was 8am on 07/30. Later in the day staff noted that he had left sided weakness and slurred speech. He was taken to [facility] ED where he was slumped over and unresponsive. BP was in the 110s-130s systolic. He was taken to CT and when he came back he was alert and oriented and back to baseline. Afterwards he had several episodes of transient change in his responsiveness. CT showed old R caudate infarct and CTA was negative. Labs were unremarkable and UA was negative. Patient was admitted earlier this month for altered mental status and had an EEG that was normal. No anti-seizure medications were started at that time. In the ED he was started on Keppra 500mg BID. He has not had any seizures since then. He is on a number of other medications including Xarelto, atorvastatin, and amantadine. His code status is DNR/DNI. Review of Systems Review of Systems: ROS unobtainable: Yes unobtainable due to mental status PMFSH Past Medical History Medical History Atrial fibrillation with rapid ventricular response Benign prostatic hyperplasia BPH (benign prostatic hyperplasia) BPH w/o urinary obs/LUTS CHF (congestive heart failure) echo on 04/20/2022 was read as the following 1. Left ventricular chamber dimension is mildly enlarged. 2. Left ventricular systolic function is moderately reduced, estimated at 35-40%. 3. Left atrial chamber dimension is moderately enlarged. 4. Atrial fibrillation. 5. Compared to examination from June of 2018, LV function has declined. Left atrium is dilated atrial fib is seen. Coronary artery disease Dyslipidemia Essential hypertension Parkinson disease Parkinson disease Paroxysmal atrial fibrillation Recurrent falls Surgical History Surgical History History of arthroplasty of left knee (2018) History of cardiac catheterization History of cataract extraction History of coronary artery stent placement x2 History of spinal surgery (~2004) For disc herniation. Status post deep brain stimulator placement (2016) Family History Family History Other Family history of Parkinson's disease Family history of coronary artery disease Hypertension Social History Social History Social History: the patient lives with his who is the power of tax associate attorney they have 1 daughter. 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 He does not use any alcohol or illicit drugs. Surrogate medical decision maker: Lauren Dash, spouse. The patient is currently in a rehab facility. Code status: dnr Smoking packs per d
[2022-07-31] MEDS: IPRATROPIUM BR 0.02% INH SOLN 0.5 MG/2.5 ML VIAL INHALATION ×3 (08:45→20:16)
[2022-07-31 08:58] LABS: Alveolar/Arterial O2 Gradient 36.8 mmHg; Base Excess ABG 10.7 mEq/l (+/-2.0); Fractional Inspired Oxygen 30 %; HCO3 ABG 36.9 mEq/l (22.0-26.0); Oxygen Content ABG 15.6 %vol (16.0-22.0); Oxyhemoglobin 96.3 % THb (90.0-100.0); PCO2 ABG 56.8 mmHg (35.0-45.0); PO2 ABG 110.4 mmHg (80.0-100.0); PO2 FiO2 Ratio Arterial Blood 3.68 %; Total Hemoglobin 11.4 g/dL (12.0-18.0)
[2022-07-31 08:59] LABS: Device NON-INVASIVE VENT; Modified Allen's Test Pass; Site Drawn LEFT RADIAL
[2022-07-31 09:00] LABS: Non-Invasive Expiratory Pressure 5 CMH2O; Non-Invasive Inspiratory Pressure 18 CMH2O; Non-Invasive Vent Rate 12 /MIN
[2022-07-31] MEDS: ENOXAPARIN 100 MG/ML SYRINGE 95 MG SUB-Q ×2 (09:33→20:32)
[2022-07-31] MEDS: FUROSEMIDE INJ 40 MG/4 ML VIAL IV PUSH (09:33)
--- NOTE | 2022-07-31 13:04 | PM.IMPN ---
Progress Note: A&P Assessment and Plan (1) Altered mental status: Code(s): R41.82 - Altered mental status, unspecified Status: Acute Assessment and Plan: -CT of the head shows the old infarctions. -the patient is not able to have an MRI of the brain as he has a brain stimulator for his Parkinson's. -the patient was found to be hypercapnic and hypoxic On admission was placed on BiPAP. ABG has improved. Patient remains on nasal cannula. (2) Seizure-like activity: Code(s): R56.9 - Unspecified convulsions Status: Acute Assessment and Plan: -the patient was started on Keppra -an EEG has been ordered. -neurology has been consulted (3) CHF (congestive heart failure): Code(s): I50.9 - Heart failure, unspecified Status: Acute Assessment and Plan: -continue with IV Lasix as the patient is unresponsive and not able to take his pills at this time. -continue with IV Lopressor. - Will check chest x-ray. -echo from 04/20/2022 was read as 1. Left ventricular chamber dimension is mildly enlarged. ? 2. Left ventricular systolic function is moderately reduced, estimated at 35-40%. ? 3. Left atrial chamber dimension is moderately enlarged. ? 4. Atrial fibrillation. ? 5. Compared to examination from June of 2018, LV function has declined. Left atrium is dilated atrial fib is seen. (4) Dyslipidemia: Code(s): E78.5 - Hyperlipidemia, unspecified Status: Acute Assessment and Plan: -the patient is too lethargic to take his Lipitor -he is currently on a BiPAP machine. -once the patient is more awake then he may be able to the resume his medications. (5) Essential (primary) hypertension: Code(s): I10 - Essential (primary) hypertension Status: Acute Assessment and Plan: -IV Lopressor for now. The patient is lethargic and cannot take his amiodarone or his Lopressor. (6) Parkinson disease: Code(s): G20 - Parkinson's disease Status: Acute Assessment and Plan: -the patient has a brain stimulator. He is not able to take his levodopa carbidopa at this time. (7) Paroxysmal atrial fibrillation: Code(s): I48.0 - Paroxysmal atrial fibrillation Status: Acute Assessment and Plan: -the patient is not able to take his p.o. medications. For now I will place him on IV Lopressor. The patient's heart rate is 110. -he is not able to take his Xarelto so I did therapeutic doses of subcu Lovenox. (8) S/P deep brain stimulator placement: Code(s): Z96.89 - Presence of other specified functional implants Status: Chronic Assessment and Plan: -it was recorded that 1 of his batteries in his brain stimulator is no longer working. (9) Lung mass: Code(s): R91.8 - Other nonspecific abnormal finding of lung field Status: Acute Assessment and Plan: Worsened in size from September 14, 2021. Suspicious for malignancy. Will need dedicated CT scan of the chest when more stable. Subjective Date/time seen: 07/31/22 13:04 Exam Const: General: no acute distress, ill appearing, lethargic, patient obtunded, tired appearing, average body habitus and well nourished Nutritional Appearance: average body habitus and well nourished Orientation/consciousness: patient obtunded and lethargic HENMT: Head: normal to inspection, No palpable skull fracture present, normocephalic and atraumatic Ears: external ears normal Face/Nose/Sinus: Normal external nose present and Normal nares present Eyes: General: appearance normal, both eyes and all related structures Alignment and Position: alignment normal Periorbital: periorbital findings normal Eyelids: eyelids normal Sclera: sclerae normal Pupils: Equal, round and reactive pupils present EOM: EOMs intact bilaterally Neck: Neck: normal visual inspection, full ROM, no lymphadenopathy, trachea midline and supple Chest: Chest palpation & inspection: normal ins
[2022-07-31 13:33] LABS: NT Pro B Type Natriuretic Pept 23500 pg/mL (5-100)
[2022-07-31 17:17] LABS: Alveolar/Arterial O2 Gradient 59.7 mmHg; Base Excess ABG 11.8 mEq/l (+/-2.0); Fractional Inspired Oxygen 30 %; HCO3 ABG 38.2 mEq/l (22.0-26.0); Modified Allen's Test Pass; Oxygen Saturation ABG 96.5 % (95.0-100.0); Oxyhemoglobin 94.4 % THb (90.0-100.0); PCO2 ABG 58.5 mmHg (35.0-45.0); PO2 ABG 85.5 mmHg (80.0-100.0); PO2 FiO2 Ratio Arterial Blood 2.85 %; Site Drawn LEFT RADIAL; pH ABG 7.433 (7.350-7.450)
[2022-07-31 17:18] LABS: Device VENTURI MASK
[2022-08-01] VITALS (19 sets, daily range): BP systolic 128–136; BP diastolic 79–93; PULSE 118–129; RESP 15–18; TEMP 36.3–36.9; O2SAT 96–100
[2022-08-01] MEDS: IPRATROPIUM BR 0.02% INH SOLN 0.5 MG/2.5 ML VIAL INHALATION ×3 (01:41→20:58)
[2022-08-01 05:14] LABS: Anion Gap 3 mmol/L (8-16); Blood Urea Nitrogen 19 mg/dL (9-20); Carbon Dioxide 38 mmol/L (22-30); Chloride 102 mmol/L (98-107); Estimated CRCL calculation 65 ml/min; Estimated Glomerular Filt Rate > 60; Glucose 69 mg/dL (65-110); Potassium 3.3 mmol/L (3.4-5.0); Sodium 143 mmol/L (137-145)
[2022-08-01 05:20] LABS: Basophils Percent Auto 0.5 % (0.2-1.2); Eosinophils Percent Auto 0.3 % (0-4.4); Hematocrit 35.4 % (42.0-52.0); Hemoglobin 10.8 g/dL (14.0-18.0); Immature Granulocyte Absolute 0.04 K/mm3 (0.00-0.031); Immature Granulocyte Percent A 0.7 % (0-0.5); Lymphocytes Absolute Auto 1.31 K/mm3 (0.9-3.2); Lymphocytes Percent Auto 22.6 % (18.3-44.2); Mean Corpuscular HGB Conc 30.5 g/dl (32-36); Mean Corpuscular Hemoglobin 30.3 pg (26-34); Mean Corpuscular Volume 99.4 fl (80-100); Mean Platelet Volume 9.7 fl (7.4-10.4); Monocytes Absolute Auto 0.5 K/mm3 (0.1-0.6); Monocytes Percent Auto 7.9 % (2.6-8.5); Neutrophils Absolute Auto 3.9 K/mm3 (1.3-6.7); Platelet Count Result 166 k/mm3 (150-375); Red Blood Count 3.56 M/mm3 (4.6-6.20); Red Cell Distribution Width 18.6 % (11.5-14.5); White Blood Count 5.8 K/mm3 (4.5-10.0)
[2022-08-01] MEDS: levETIRAcetam 500MG/NACL 100ML 500 MG/100 ML BAG 400 MG IVPB ×2 (06:04→15:52)
[2022-08-01] MEDS: ENOXAPARIN 100 MG/ML SYRINGE 95 MG SUB-Q ×2 (09:06→20:01)
[2022-08-01] MEDS: FUROSEMIDE INJ 40 MG/4 ML VIAL IV PUSH (09:06)
--- NOTE | 2022-08-01 12:27 | P.CDI_ITS ---
CDI Query Clarified Diagnosis Clarified Diagnosis: CHF history documented. CHF documented under problem list. Increase in oxygen demand, requiring Bipap Patient continues on Lasix. Edema present, this admission BNP elevated this visit. Please specify type and acuity of heart failure if known. * Acute * Chronic * Acute on Chronic * Unknown * Systolic * Diastolic * Combined Systolic and Diastolic * Unknown <Jo Villela RN - Last Filed: 08/01/22 12:35> Provider Comments acute systolic <Gwyn Ley MD - Last Filed: 08/01/22 14:29>
[2022-08-02] VITALS (13 sets, daily range): BP systolic 136–145; BP diastolic 86–98; PULSE 123–127; RESP 16–20; TEMP 36.2–36.8; O2SAT 88–100
[2022-08-02] MEDS: IPRATROPIUM BR 0.02% INH SOLN 0.5 MG/2.5 ML VIAL INHALATION (02:57)
[2022-08-02] MEDS: levETIRAcetam 500MG/NACL 100ML 500 MG/100 ML BAG 400 MG IVPB (03:50)
[2022-08-02] MEDS: ENOXAPARIN 100 MG/ML SYRINGE 95 MG SUB-Q (08:43)
[2022-08-02] MEDS: FUROSEMIDE INJ 40 MG/4 ML VIAL IV PUSH (08:43)
--- NOTE | 2022-08-02 10:13 | PM.IMPN ---
Progress Note: A&P Assessment and Plan (1) Altered mental status: Code(s): R41.82 - Altered mental status, unspecified Status: Acute Assessment and Plan: -CT of the head shows the old infarctions. -the patient is not able to have an MRI of the brain as he has a brain stimulator for his Parkinson's. -the patient was found to be hypercapnic and hypoxic On admission was placed on BiPAP. ABG has improved. Patient remains on nasal cannula. (2) Seizure-like activity: Code(s): R56.9 - Unspecified convulsions Status: Acute Assessment and Plan: -the patient was started on Keppra -an EEG has been ordered. -neurology has been consulted (3) CHF (congestive heart failure): Code(s): I50.9 - Heart failure, unspecified Status: Acute Assessment and Plan: -continue with IV Lasix -echo from 04/20/2022 was read as 1. Left ventricular chamber dimension is mildly enlarged. ? 2. Left ventricular systolic function is moderately reduced, estimated at 35-40%. ? 3. Left atrial chamber dimension is moderately enlarged. ? 4. Atrial fibrillation. ? 5. Compared to examination from June of 2018, LV function has declined. Left atrium is dilated atrial fib is seen. (4) Essential (primary) hypertension: Code(s): I10 - Essential (primary) hypertension Status: Acute Assessment and Plan: -IV Lasix. (5) Parkinson disease: Code(s): G20 - Parkinson's disease Status: Acute Assessment and Plan: -the patient has a brain stimulator. Resume levodopa carbidopa. (6) Lung mass: Code(s): R91.8 - Other nonspecific abnormal finding of lung field Status: Acute Assessment and Plan: Worsened in size from September 14, 2021. Suspicious for malignancy. Will need dedicated CT scan of the chest when more stable. Will discussed with patient and his about further plan Subjective Date/time seen: 08/02/22 10:13 No complaints at this time Review of Systems Review of Systems: All systems reviewed & are unremarkable except as noted in HPI and below (HPI) Exam Const: General: no acute distress, tired appearing and average body habitus HENMT: Head: normal to inspection, normocephalic and atraumatic Ears: external ears normal Face/Nose/Sinus: Normal external nose present and Normal nares present Eyes: General: appearance normal, both eyes and all related structures Pupils: Equal, round and reactive pupils present Neck: Neck: normal visual inspection, full ROM, trachea midline and supple Chest: Chest palpation & inspection: normal inspection of the chest Resp: Effort & Inspection: normal respiratory effort Cardio: Palpation: normal PMI Heart sounds: S1 normal heart sound present and S2 normal heart sound present Peripheral pulses: Peripheral pulses 2+ throughout GI: Inspection: normal to inspection Auscultation: normal bowel sounds Rectal Exam: deferred Skin: General skin exam: normal color Lesions: no lesions Rashes: no rashes Neuro: Cranial nerves: Yes Equal, round and reactive pupils present and Yes Normal hearing present Extrem: General: normal to inspection Right upper extremity: normal to inspection Left upper extremity: normal to inspection Right lower extremity: normal to inspection Left lower extremity: normal to inspection Psych: Insight: Poor insight present (Psych) Judgement: Poor judgement present (Psych) Objective Data Vital Signs Vital Signs: Vital Signs - 24 hr 08/01/22 11:53 08/01/22 13:05 08/01/22 13:15 Temperature 97.7 F Pulse Rate 125 H 126 H 128 H Respiratory Rate 16 17 17 Blood Pressure 129/93 H Pulse Oximetry 100 Oxygen Delivery Oxygen Flow Rate 08/01/22 13:15 08/01/22 16:00 08/01/22 12:00 Temperature 97.4 F L Pulse Rate 128 H 123 H 126 H Respiratory Rate 16 Blood Pressure 136/90 Pulse Oximetry 97 100 Oxygen Delivery Nasal Cannula Oxygen Flow Rate 4
[2022-08-02] MEDS: AMIODARONE HCL 200 MG TABLET PO (11:40)
--- NOTE | 2022-08-02 16:48 | PC.NURSE ---
This patient, Dara Dash, was transferred to [facility] on 08/02/22 at 1648. Personal belongings sent with patient. Report given to Robert MCINTOSH. Appropriate documentation sent with patient.
--- NOTE | 2022-08-02 17:05 | ADMGEN ---
This patient, Dara Dash, was admitted to Medical Room 250-. Patient/family oriented to hospital policies and general routines including ID bracelet, bed and alarms, visiting hours, pain management, procedures, bathroom and other care routines, personal items, smoking policy, room service/diet, and visiting hours. Information on how to activate the Rapid Response Team has been discussed. Patient/Family are encouraged to report perceived risks to care and to ask questions if they do not understand what they are told or what they should do.
[2022-08-03 06:49] VITALS: BP 143/90; PULSE 129; RESP 20; TEMP 36.3; O2SAT 98
[2022-08-03 08:20] VITALS: O2SAT 98
--- NOTE | 2022-08-03 09:50 | PM.DS ---
DS: Admitting Diagnosis Discharge Date 08/03/2022 Admitting Diagnosis altered mental status, seizure DS: Summary Hospital Course Hospital Course: This is a 77-year-old male patient who came in to be evaluated for left-sided weakness.? long term states that the patient began having worsening slurred speech and left-sided weakness.? When the patient arrived to the emergency room he was slumped over to the right side of the gurney.? After CT scan the patient was able to set up and was able to help.? Head and neck CTA read as following 1. 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 2. No aneurysm or significant intracranial arterial stenosis. 3. 0% stenosis of the proximal internal carotid arteries relative to normal distal artery lumen diameters (NASCET criteria). 4. Small pleural effusions. 5. Pulmonary nodules measuring up to 17 mm, worsened from 09/14/21, suspicious for malignancy. Chest CT is recommended. Head CT was read as old lacunar infarct in right caudate nucleus. Neurology was consulted. The patient was placed on a BiPAP 18/5 30% with a backup rate of 12.? I spoke with his about the CT findings and she stated that the patient is a DNR and she does not want any biopsies.? She does not want any mental hygienist consultation.? I spoke with the patient and his about hospice and they both agreed for comfort care at this time. Patient is being discharged back to assisted with comfort care orders. Time Spent with Patient Time attestation: Total time spent providing and/or coordinating discharge services: Exam Const: General: no acute distress, tired appearing and average body habitus HENMT: Head: normal to inspection, normocephalic and atraumatic Ears: external ears normal Face/Nose/Sinus: Normal external nose present and Normal nares present Eyes: General: appearance normal, both eyes and all related structures Pupils: Equal, round and reactive pupils present Neck: Neck: normal visual inspection, full ROM, trachea midline and supple Chest: Chest palpation & inspection: normal inspection of the chest Resp: Effort & Inspection: normal respiratory effort Cardio: Palpation: normal PMI Heart sounds: S1 normal heart sound present and S2 normal heart sound present Peripheral pulses: Peripheral pulses 2+ throughout GI: Inspection: normal to inspection Auscultation: normal bowel sounds Rectal Exam: deferred Skin: General skin exam: normal color Lesions: no lesions Rashes: no rashes Neuro: Cranial nerves: Yes Equal, round and reactive pupils present and Yes Normal hearing present Extrem: General: normal to inspection Right upper extremity: normal to inspection Left upper extremity: normal to inspection Right lower extremity: normal to inspection Left lower extremity: normal to inspection Psych: Insight: Poor insight present (Psych) Judgement: Poor judgement present (Psych) Discharge Plan Discharge Consulting providers: Corine Argueta Discharging Clinician: Gwyn Ley Anticipated Discharge Date/Time: 08/03/22 09:29 Patient Disposition: Hospice - Medical Facility Activity: january shower Diet: regular Stand Alone Forms: General Discharge Information Follow-up/Referrals: Ash,Brian Forbes MD [Primary Care Provider] - Discharge Medications: New morphine 20 mg/5 mL (4 mg/mL) solution 10 mg PO Q4H PRN (Reason: pain) Qty: 100 0RF Continued tamsulosin 0.4 mg Capsule 0.4 mg PO USEASDIRECTD Rx Instructions: take 1 tab 30 minutes after dinner bisacodyl 10 mg Suppository 10 mg RECTAL QAM PRN (Reason: Constipation) Qty: 12 0RF docusate sodium 100 mg Capsule 100 mg PO Q12H PRN (Reason: Constipation) Qty: 30 0RF guaifenesin [Mucus Relief ER] 600 mg Tablet Extended Release 12hr 600 mg PO Q12HR PRN (Reason: Cough) 20 Days Qty: 40 0RF ipratropium-albuterol 0.5 mg-3 mg(2.5 mg base)/3 mL solution for nebulization 3 ml INHALATION QID PRN (Reason: [place]
[2022-08-03 10:32] LABS: EDCOVIDSCREEN Negative (Negative)
== END 2022-08-03 13:30 | disposition hospice, home (50) | DRG 100 ==
LOC: ANHED 15:23 → ANHIMU 16:42 → ANH2MED 08-02 16:48
PROVIDERS: Chiropractor; Nurse Practitioner; Admitting Provider Internal Medicine; Emergency Provider Emergency Medicine; PCP Internal Medicine; Visit Provider Hospitalist
DX: R56.9 Unspecified convulsions (principal); G93.41 Metabolic encephalopathy; I50.21 Acute systolic (congestive) heart failure; C34.90 Malignant neoplasm of unspecified part of unspecified bronchus or lung; Z20.822 Contact with and (suspected) exposure to COVID-19; R41.82 Altered mental status, unspecified; I11.0 Hypertensive heart disease with heart failure; G20 Parkinson's disease; I48.0 Paroxysmal atrial fibrillation; N40.0 Benign prostatic hyperplasia without lower urinary tract symptoms; R09.02 Hypoxemia; R06.89 Other abnormalities of breathing; I25.10 Atherosclerotic heart disease of native coronary artery without angina pectoris; E78.5 Hyperlipidemia, unspecified; Z96.652 Presence of left artificial knee joint; Z66 Do not resuscitate; Z98.49 Cataract extraction status, unspecified eye; Z95.5 Presence of coronary angioplasty implant and graft; Z87.891 Personal history of nicotine dependence; Z96.89 Presence of other specified functional implants
CPT/HCPCS: 36415; 36600; 70450; 70496; 70498; 71045; 71250; 74176; 80048; 80053; 81003; 82805; 82948; 83605; 83735; 83880; 84443; 85025; 85610; 85730; 87426; 87636; 93005; 94002; 94003; 94640; 94660; 96361; 96365; 96372; 96375; 96376; 99285; A9270; C9803; G0378; J1650; J1940; J1953; J2060; J7030; Q9967